=== PATIENT | female | born 1940 | race Caucasian/White ===

== ENCOUNTER 2023-10-04 11:48 | Emergency (ER) | payer MEDICARE, SELFPAY ==
[2023-10-04 12:04] VITALS: BP 148/75; PULSE 89; RESP 16; TEMP 37.1; O2SAT 98
--- NOTE | 2023-10-04 12:20 | ED.EYEPROB ---
HPI - Eye Problem General Chief complaint: Eye Problems Stated complaint: Left Eye Irritation Time Seen by Provider: 10/04/23 12:10 Source: patient and RN notes reviewed Mode of arrival: ambulatory Limitations: no limitations History of Present Illness HPI Narrative: Patient presents today complaining of redness, swelling, and irritation to the left upper and lower eyelids for the last 7-10 days. She also now reports some pain to the left upper cheek area. She was initially seen for the eyelid symptoms by her eye doctor on 09/23/2023 and placed on 10 days of Augmentin and an ophthalmic ointment to that she was to apply to the eyelids. Patient states she is unsure of the reason she was placed on these medications, but did finish the Augmentin and apply the ointment as directed. States she is unsure if her symptoms improved, but they are not improved at this time. She denies vision changes. States her eyelids itch significantly. She has not tried any [id number] symptoms prior to arrival Related Data Home Medications Medication Instructions Recorded Confirmed mirabegron 50 mg tablet,extended 50 mg PO DAILY 10/04/23 10/04/23 release 24 hr (Myrbetriq) omeprazole 40 mg capsule,delayed 40 mg PO DAILY 10/04/23 10/04/23 release Allergies Allergy/AdvReac Type Severity Reaction Status Date / Time codeine AdvReac Intermediate Hyperactive Verified 10/04/23 12:17 Sulfa (Sulfonamide AdvReac Mild Hives Verified 10/04/23 12:17 Antibiotics) Review of Systems Review of Systems: CONSTITUTIONAL: Denies body aches, fever, chills, or sweats. EYES: Denies visual changes. + eyelid redness, itching, swelling ENT: Denies rhinorrhea, congestion, sore throat, or otalgia.+ left upper cheek pain and swelling CARDIOVASCULAR: Denies chest pain, palpitations, or edema. RESPIRATORY: Denies cough or dyspnea. GASTROINTESTINAL: Denies abdominal pain, nausea, vomiting, or diarrhea. GENITOURINARY: Denies dysuria or hematuria. SKIN: Denies rash, itching, or wounds. MUSCULOSKELETAL: Denies back pain, joint pain, or myalgia. NEUROLOGIC: Denies headache, numbness, tingling, or weakness. PSYCH: Denies depression or anxiety. [facility] Past Medical History Medical History (Updated 10/04/23 @ 12:29 by Kimberly Garvin, SALES ENGINEER ACCOUNT MANAGER, ) Diverticulitis Essential tremor Fibromyalgia GERD (gastroesophageal reflux disease) Overactive bladder Skin neoplasm Family History Family History Other Diabetes mellitus Family history of cardiovascular disease Social History Social History Smoking status: Never smoker Alcohol intake: never Comments At time of signature, I have reviewed and agree with nursing past medical, surgical, social and family history unless otherwise noted. Please see nursing chart for further information. There is no relevant family history pertinent to the presenting complaint Exam Narrative: GENERAL: Well-appearing, well-nourished, and in no acute distress. HEAD: Normocephalic, atraumatic. EYES: EOMI. PERRL. Left eye: Significantly injected conjunctiva. Erythema to the margins of the eyelids. No active drainage or watering. Patient does have some slight dependent edema of the left lower eyelid extending to the upper cheek with tenderness to the upper cheek area. ENT: Mucous membranes pink and moist. Nares clear. No rhinorrhea. Nasal turbinates appear normal. NECK: Normal AROM. CHEST: No respiratory distress. EXTREMITIES: Normal range of motion. No edema. SKIN: Warm, dry, no rash. Capillary refill normal. Normal skin turgor. NEURO: No focal deficits. Alert and oriented x3. Gait steady. PSYCH: Normal affect. No signs of depression or anxiety. Course Course Level of Care: Express Care Visit Vital Signs Vital signs: Vital Signs Temperature 98.7 F 10/04/23 12:04 Pulse R
== END 2023-10-04 12:33 | disposition home or self-care (01) ==
PROVIDERS: Emergency Provider Nurse Practitioner; PCP Family Medicine
DX: H10.9 Unspecified conjunctivitis (principal); M79.7 Fibromyalgia; K21.9 Gastro-esophageal reflux disease without esophagitis; Z85.828 Personal history of other malignant neoplasm of skin
CPT/HCPCS: 99213; G0463

== ENCOUNTER 2023-10-16 09:42 | Emergency (ER) | payer MEDICARE, SELFPAY ==
[2023-10-16 09:55] VITALS: BP 150/71; PULSE 84; RESP 18; TEMP 36.1; O2SAT 97
--- NOTE | 2023-10-16 12:40 | ED.GENADULT ---
HPI - General Adult General Chief complaint: Eye Problems Stated complaint: left eye pain Time Seen by Provider: 10/16/23 11:52 History of Present Illness HPI narrative: This is an 83-year-old female presenting left eye irritation. Patient developed a small lump on her left lower eyelid one month ao. She saw her [facility] general counsel who gave her a appointment. She then went saw her primary care physician who put her on ofloxacin, doxycycline and cetirizine. She is here because the lump has not gone away yet. No vision changes. No fever chills. Related Data Home Medications Medication Instructions Recorded Confirmed mirabegron 50 mg tablet,extended 50 mg PO DAILY 10/04/23 10/04/23 release 24 hr (Myrbetriq) omeprazole 40 mg capsule,delayed 40 mg PO DAILY 10/04/23 10/04/23 release Allergies Allergy/AdvReac Type Severity Reaction Status Date / Time codeine AdvReac Intermediate Hyperactive Verified 10/04/23 12:17 Sulfa (Sulfonamide AdvReac Mild Hives Verified 10/04/23 12:17 Antibiotics) [facility] Past Medical History Medical History Diverticulitis Essential tremor Fibromyalgia GERD (gastroesophageal reflux disease) Overactive bladder Skin neoplasm Family History Family History Other Diabetes mellitus Family history of cardiovascular disease Social History Social History Smoking status: Never smoker Alcohol intake: never Exam Narrative: APPEARANCE: No apparent distress. Head: atraumatic. EYES: small mass on the left eye - lower lateral portion of her eyelid. no conjunctival injection or mucopurulent discharge. NOSE: Atraumatic NECK: Trachea midline RESPIRATORY: No increased rate of breathing CARDIOVASCULAR: RRR, ABDOMINAL: Non-distended MUSCULOSKELETAl: No obvious deformities NEURO: Alert. Moving 4/4 extremities SKIN:: Warm, dry. Normal color PSYCHIATRIC: Normal affect Course Vital Signs Vital signs: Vital Signs Temperature 97 F L 10/16/23 09:55 Pulse Rate 84 10/16/23 09:55 Respiratory Rate 18 10/16/23 09:55 Blood Pressure 150/71 H 10/16/23 09:55 Pulse Oximetry 97 10/16/23 09:55 Temperature 97 F L 10/16/23 09:55 Pulse Rate 84 10/16/23 09:55 Respiratory Rate 18 10/16/23 09:55 Blood Pressure 150/71 H 10/16/23 09:55 Pulse Oximetry 97 10/16/23 09:55 Medical Decision Making MDM Narrative Medical decision making narrative: -Course: 83-year-old female presenting with a small mass on her left lower eyelid. Patient has undergone treatment for stye which has not been successful. Patient needs to go back to Ophthalmology to be evaluated for either treatment resistance stye or possible skin neoplasm. Patient verbalized understanding for directions. No emergent intervention at this time -DDX includes but is not limited to: stye, neoplasm -Shared decision making / Disposition: discharged Vital Signs Vital Signs: Vital Signs Temperature 97 F L 10/16/23 09:55 Pulse Rate 84 10/16/23 09:55 Respiratory Rate 18 10/16/23 09:55 Blood Pressure 150/71 H 10/16/23 09:55 Pulse Oximetry 97 10/16/23 09:55 Temperature 97 F L 10/16/23 09:55 Pulse Rate 84 10/16/23 09:55 Respiratory Rate 18 10/16/23 09:55 Blood Pressure 150/71 H 10/16/23 09:55 Pulse Oximetry 97 10/16/23 09:55 Discharge Plan Discharge Clinical Impression: Eyelid abnormality Patient Disposition: Home, Self-Care Condition: Stable Instructions: Antibiotic Form, Stye (ED) Additional Instructions: Please follow-up with your [facility] general counsel. I am concerned that this is either a treatment resistant stye or possibly skin cancer. if you start getting significant redness and swelling around her eye loss of vision please return to emergency department. if you do not hav
[2023-10-16 13:24] VITALS: BP 144/89; PULSE 99; RESP 20; O2SAT 99
== END 2023-10-16 13:26 | disposition home or self-care (01) ==
PROVIDERS: Emergency Provider Emergency Medicine; PCP Family Medicine
DX: H02.89 Other specified disorders of eyelid (principal); K21.9 Gastro-esophageal reflux disease without esophagitis
CPT/HCPCS: 99282

== ENCOUNTER 2024-06-05 09:40 | Emergency (ER) | payer MEDICARE, SELFPAY ==
[2024-06-05] VITALS (16 sets, daily range): BP systolic 142–183; BP diastolic 65–83; PULSE 62–87; RESP 14–23; TEMP 36.6; O2SAT 98–100
--- NOTE | ~2024-06-05 | XR_ITS ---
EXAMINATION: XR chest 2V DATE: 06/05/2024 10:34 INDICATION: Cough. Recent Covid infection. TECHNIQUE: frontal and lateral views of the chest were obtained. COMPARISON: None FINDINGS: Calcifications either costochondral calcification or calcified pulmonary nodules projecting over the bilateral lung bases. No other airspace opacities, pulmonary edema, pleural effusion or pneumothorax. Asymmetric increased lucency at the right lower lung zone consistent with prior overlying right mast ectomy. Right axillary lymph node dissection with multiple surgical clips projecting over the right a xilla/lateral right chest wall. Heart size is normal. Moderate thoracic and severe upper lumbar spon dylosis. IMPRESSION: 1. No acute cardiopulmonary disease. Reviewed, dictated and finalized at location A. TOR TRAILER TECHNICIAN
--- NOTE | ~2024-06-05 | CT_ITS ---
EXAMINATION: CT brain wo con DATE: 06/05/2024 10:44 INDICATION: Altered mental status TECHNIQUE: Computed tomography (CT) of the head was performed without intravenous contrast. Sagittal and coronal reconstructions were performed. The mA was adjusted according to patient size. Iterative reconstruction technique was employed. The dose-length product was 529.67 mGy-cm. COMPARISON: None FINDINGS: No acute intracranial hemorrhage, acute infarction or abnormal extra axial fluid collection. There is mild scattered white matter hypoattenuation consistent with chronic small vessel ischemic disease. S ymmetric prominence of the sulci consistent with mild age-appropriate diffuse cerebral volume loss. V entricles are normal and symmetric. No mass/mass effect. Changes of bilateral intraocular lens replac ement. The orbits, paranasal sinuses and mastoid air cells are normal. IMPRESSION: 1. Normal aging brain. No acute intracranial process. Reviewed, dictated and finalized at location A. LED NURSING FACILITY COUNSELOR
--- NOTE | 2024-06-05 09:41 | ECG_ITS ---
Test Date: 2024-06-05 09:49:56 Measurements Intervals [place] Rate: 74 P: 68 [place]: 124 QRS: 23 QRSD: 83 T: 66 QT: 382 QTc: 425 Interpretive Statements SINUS RHYTHM WITH SINUS ARRHYTHMIA BORDERLINE ST-T WAVE ABNORMALITY- HIGH LATERAL LEADS BASELINE ARTIFACT- I, II, III, AVR, AVL, AVF, V1-V6 BORDERLINE ECG No previous ECG available for comparison Electronically Signed On 06-05-2024 12:00:04 FARM TRUCK DRIVER by Haroon Rokc D.O.
[2024-06-05 10:06] LABS: Basophils Percent Auto 0.3 % (0.2-1.2); Immature Granulocyte Absolute 0.02 K/mm3 (0.00-0.031); Immature Granulocyte Percent A 0.3 % (0-0.5); Lymphocytes Absolute Auto 0.73 K/mm3 (0.9-3.2); Lymphocytes Percent Auto 11.1 % (18.3-44.2); Mean Corpuscular HGB Conc 33.3 g/dl (32-36); Mean Corpuscular Hemoglobin 28.8 pg (26-34); Mean Corpuscular Volume 86.4 fl (80-100); Mean Platelet Volume 10.3 fl (7.4-10.4); Monocytes Absolute Auto 0.6 K/mm3 (0.1-0.6); Monocytes Percent Auto 9.4 % (2.6-8.5); Neutrophils Absolute Auto 5.2 K/mm3 (1.3-6.7); Neutrophils Percent Auto 78.9 % (45.5-73.1); Platelet Count Result 252 k/mm3 (150-375); Red Blood Count 4.86 M/mm3 (4.2-5.4); Red Cell Distribution Width 13.6 % (11.5-14.5); White Blood Count 6.6 K/mm3 (4.5-10.0)
[2024-06-05 10:10] LABS: Add Urine Microscopic? YES; Appearance Urine Clear (Clear); Bacteria Urine None Seen /hpf; Bilirubin Urine Negative (Negative); Blood Urine Negative (Negative); Color Urine Yellow (Yellow); Glucose Urine UA Negative (Negative); Ketones Urine Negative (Negative); Leukocyte Esterase Ur Negative LEU/UL (Negative); Nitrate Urine Negative (Negative); Non Pathogenic Casts 0-2; Protein Urine Trace mg/dL (Negative); RBC Urine 0-2 /hpf (0-2); Specific Grav Ur 1.012 (1.001-1.035); Squamous Epithelial Cell Urine None Seen /hpf (Few); Urobilinogen Urine 0.2 mg/dL (<2.0); WBC Urine 0-5 /hpf (0-3); pH Urine 5.5 (5.0-9.0)
[2024-06-05 10:15] LABS: Alanine Aminotransferase 20 U/L (6-35); Albumin Level 4.5 g/dL (3.5-5.1); Alkaline Phosphatase 77 U/L (38-126); Anion Gap 9 mmol/L (4-12); Aspartate Amino Transferase 28 U/L (14-36); Bilirubin,Total 0.7 mg/dL (0.2-1.3); Blood Urea Nitrogen 18 mg/dL (7-17); Calcium 9.3 mg/dL (8.4-10.2); Carbon Dioxide 29 mmol/L (22-30); Chloride 98 mmol/L (98-107); Estimated CRCL calculation 21 ml/min; Estimated Glomerular Filt Rate 36; Glucose 140 mg/dL (65-110); Potassium 3.2 mmol/L (3.4-5.0); Sodium 136 mmol/L (137-145)
[2024-06-05 10:20] LABS: INR 0.9; Partial Thromboplastin Time 24.4 Seconds (22.3-36.8); Prothrombin Time 12.4 Seconds (11.1-14.7)
--- NOTE | 2024-06-05 10:24 | ED_ITS ---
HPI - Altered Mental Status General Chief Complaint: Altered Mental Status Stated Complaint: AMS Time Seen by Provider: 06/05/24 09:58 History of Present Illness HPI narrative: 84-year-old female presenting with altered mental status. Her granddaughters at bedside and helps with the history. She lives at assisted living and was recently diagnosed with COVID. Her quarantine ended yesterday. Her granddaughter states that the patient has been hallucinating at night and calling her out of fear. She is skipped from the facility yesterday and the human resources operations specialist had to be called. This is not typical for her. On my evaluation, the patient complains of chronic back pain as well as a productive cough. No further complaints. Related Data Home Medications Medication Instructions Recorded Confirmed mirabegron 50 mg tablet,extended 50 mg PO DAILY 10/04/23 10/04/23 release 24 hr (Myrbetriq) omeprazole 40 mg capsule,delayed 40 mg PO DAILY 10/04/23 10/04/23 release Allergies Allergy/AdvReac Type Severity Reaction Status Date / Time amoxicillin Allergy Unknown Verified 06/05/24 10:15 azithromycin Allergy Unknown Verified 06/05/24 10:15 cortisone Allergy Unknown Verified 06/05/24 10:15 gabapentin Allergy Unknown Verified 06/05/24 10:15 hydrocodone Allergy Unknown Verified 06/05/24 10:15 ketorolac Allergy Unknown Verified 06/05/24 10:15 methadone Allergy Unknown Verified 06/05/24 10:15 morphine Allergy Unknown Verified 06/05/24 10:15 phenazopyridine Allergy Unknown Verified 06/05/24 10:15 codeine AdvReac Intermediate Hyperactive Verified 06/05/24 10:15 Sulfa (Sulfonamide AdvReac Mild Hives Verified 06/05/24 10:15 Antibiotics) Review of Systems Review of Systems: All systems reviewed & are unremarkable except as noted in HPI and below PMFSH Past Medical History Medical History Diverticulitis Essential tremor Fibromyalgia GERD (gastroesophageal reflux disease) Overactive bladder Skin neoplasm Family History Family History Other Diabetes mellitus Family history of cardiovascular disease Social History Social History Smoking status: Never smoker Alcohol intake: never Exam Narrative: GENERAL: Nontoxic, no acute distress elderly female sitting up in bed HEAD: Normocephalic, atraumatic. EYES: PERRLA and EOMI. ENT: Mucous membranes moist. NECK: Supple. CHEST: Clear to auscultation. No respiratory distress. HEART: Regular rate and rhythm ABDOMEN: Soft, nontender, nondistended EXTREMITIES: Normal range of motion. No edema. SKIN: Warm, dry, no rash. NEURO: No focal deficits. Alert and oriented x3. PSYCH: Normal mood and affect. Course Vital Signs Vital signs: Vital Signs Temperature 97.8 F 06/05/24 09:45 Pulse Rate 87 06/05/24 09:45 Respiratory Rate 16 06/05/24 09:45 Blood Pressure 183/83 H 06/05/24 09:45 Pulse Oximetry 99 06/05/24 09:45 Oxygen Delivery Room Air 06/05/24 09:45 Temperature 97.8 F 06/05/24 09:45 Pulse Rate 67 06/05/24 10:51 Respiratory Rate 17 06/05/24 10:46 Blood Pressure 145/69 H 06/05/24 10:46 Pulse Oximetry 98 06/05/24 10:46 Oxygen Delivery Room Air 06/05/24 09:45 MDM - Altered Mental Status MDM Narrative Medical decision making narrative: 84-year-old female presenting with episodes of altered mental status. Vitals are stable. Exam remarkable for the above. She is neurologically intact for me. Granddaughter is concerned that she is developing memory issues and that she may start require higher level of care. Care coordination spoke with some and provided resources for this. CT brain shows no acute abnormalities. Chest x-ray without acute abnormalities. Blood work with elevated creatinine and BUN. No priors for comparison. Fluids are ongoing. Potassium is a little bit low, this will be orally repleted. Discussed they overall reassuring workup. Feel she is safe for outpatient management. Discussed pushing more hydrating fluids following up with primary care. Appropriate return precautions given. Discharged in stable condition. Differential Diagnosis Differential diagnosis: Likely altered mental status, delirium, dementia and other (Dehydration, UTI) Medical Records Attestation: I reviewed the patient's medical records. Lab Data Attestation: I reviewed the patient's lab results. 06/05/24 09:59 06/05/24 09:59 Labs: Lab Results 06/05/24 Range/Units 09:59 WBC 6.6 (4.5-10.0) K/mm3 RBC 4.86 (4.2-5.4) M/mm3 Hgb 14.0 (12.0-15.0) g/dL Hct 42.0 (37.0-47.0) % MCV 86.4 (80-100) fl MCH 28.8 (26-34) pg MCHC 33.3 (32-36) g/dl RDW 13.6 (11.5-14.5) % Plt Count 252 (150-375) k/mm3 MPV 10.3 (7.4-10.4) fl Immature Gran % (Auto) 0.3 (0-0.5) % Neut % (Auto) 78.9 H (45.5-73.1) % Lymph % (Auto) 11.1 L (18.3-44.2) % [place] % (Auto) 9.4 H (2.6-8.5) % Eos % (Auto) 0.0 (0-4.4) % Baso % (Auto) 0.3 (0.2-1.2) % Lymph # (Auto) 0.73 L (0.9-3.2) K/mm3 [place] # (Auto) 0.6 (0.1-0.6) K/mm3 Eos # (Auto) 0.0 (0-0.3) K/mm3 Baso # (Auto) 0.0 (0.0-0.1) K/mm3 Abs Immat Gran (auto) 0.02 (0.00-0.031) K/mm3 Absolute Neuts (auto) 5.2 (1.3-6.7) K/mm3 Absolute Nucleated RBC 0.000 (0.0-0.012) K/mm3 Nucleated RBC % 0.0 (0.0-0.2) % PT 12.4 (11.1-14.7) Seconds INR 0.9 APTT 24.4 (22.3-36.8) Seconds Sodium 136 L (137-145) mmol/L Potassium 3.2 L (3.4-5.0) mmol/L Chloride 98 (98-107) mmol/L Carbon Dioxide 29 (22-30) mmol/L Anion Gap 9 (4-12) mmol/L BUN 18 H (7-17) mg/dL Creatinine 1.40 H (0.7-1.0) mg/dL Estim Creat Clear Calc 21 ml/min Estimated GFR 36 L (59 - ) Glucose 140 H (65-110) mg/dL Calcium 9.3 (8.4-10.2) mg/dL Total Bilirubin 0.7 (0.2-1.3) mg/dL AST 28 (14-36) U/L ALT 20 (6-35) U/L Alkaline Phosphatase 77 (38-126) U/L Total Protein 8.0 (6.3-8.2) g/dL Albumin 4.5 (3.5-5.1) g/dL Urine Color Yellow (Yellow) Urine Appearance Clear (Clear) Urine pH 5.5 (5.0-9.0) Ur Specific [place] 1.012 (1.001-1.035) Urine Protein Trace (Negative) mg/dL Urine Glucose (UA) Negative (Negative) mg/dL Urine Ketones Negative (Negative) mg/dL Ur Blood (Man) Negative (Negative) Urine Nitrate Negative (Negative) Urine Bilirubin Negative (Negative) Urine Urobilinogen 0.2 (<2.0) mg/dL Leukocyte Esterase Rfl Negative (Negative) LUCIANA/UL Urine RBC 0-2 (0-2) /hpf Urine WBC 0-5 (0-3) /hpf Ur Squamous Epith Cells None seen (Few) /hpf Urine Bacteria None seen /hpf Urine Casts 0-2 Imaging Data Radiologist's impression: ITS Impressions Chest X-Ray 06/05/24 10:39 IMPRESSION: 1. No acute cardiopulmonary disease. Head CT 06/05/24 10:45 IMPRESSION: 1. Normal aging brain. No acute intracranial process. Critical Care Time Critical Care Time Critical Care Time: No Discharge Plan Discharge Clinical Impression: Altered mental status, Dehydration, Hypokalemia Patient Disposition: [facility]/Asst Living Condition: Stable Instructions: Antibiotic Form, Dehydration (DC) Additional Instructions: Your workup today shows that you are dehydrated. Please try to drink more hydrating fluids such as water, Gatorade, Powerade. Please follow-up closely with primary care. If your symptoms worsen or other concerning symptoms arise, please return to the ER. Prescriptions: No Action omeprazole 40 mg capsule,delayed release(DR/EC) 40 mg PO DAILY Myrbetriq 50 mg tablet extended release 24 hr 50 mg PO DAILY doxycycline hyclate 100 mg tablet 100 mg PO BID 7 Days Qty: 14 0RF ofloxacin 0.3 % drops 1 drp LEFT EYE QID Qty: 5 0RF cetirizine 10 mg tablet 10 mg PO DAILY PRN (Reason: itching) Qty: 20 0RF Follow-up/Referrals: [place],Deion Sapp MD [Primary Care Provider] -
[2024-06-05] MEDS: traMADol HCL (*CRX) 50 MG TABLET PO (10:46)
[2024-06-05] MEDS: SODIUM CHLORIDE 0.9% IV 1,000 ML 999 ML IV CONT (10:46)
--- NOTE | 2024-06-05 10:53 | PCCCNOTE ---
Spoke with granddaughter regarding pt. Granddaughter is concerned that pt is developing dementia and memory issues and [facility] may not be acceptable for the pt. I provided a list of memory care facilities and [facility] phone number. I explained difference between assisted living and SNF. All questions answered.
[2024-06-05] MEDS: POTASSIUM CHLORIDE 20 MEQ ER TABLET 40 MEQ PO (12:22)
== END 2024-06-05 12:53 ==
PROVIDERS: Emergency Medicine; Emergency Provider Emergency Medicine; PCP Family Medicine
DX: R41.82 Altered mental status, unspecified (principal); E86.0 Dehydration; E87.6 Hypokalemia; Z86.16 Personal history of COVID-19; M79.7 Fibromyalgia; K21.9 Gastro-esophageal reflux disease without esophagitis; N32.81 Overactive bladder; Z85.828 Personal history of other malignant neoplasm of skin; Z79.899 Other long term (current) drug therapy; R94.31 Abnormal electrocardiogram [ECG] [EKG]
CPT/HCPCS: 36415; 70450; 71046; 80053; 81001; 85025; 85610; 85730; 93005; 96360; 99284; A9270; J7030

== ENCOUNTER 2024-08-22 19:29 | Emergency (ER) | payer MEDICARE, SELFPAY ==
--- NOTE | ~2024-08-22 | XR_ITS ---
AP view of the pelvis and AP and lateral views of the right hip Clinical history: Pain Findings: No acute fracture or dislocation is seen. Osseous alignment is anatomic. Bilateral hip and SI joint spaces are preserved. Soft tissues are unremarkable. Impression: No significant abnormality is seen. Reviewed, dictated and finalized at [facility]. [facility] COUPLER Impression: No significant abnormality is seen.
--- NOTE | ~2024-08-22 | CT_ITS ---
Non-contrast Head CT History: Status post fall Comparison 06/05/2024 Technique: Axial non-contrast imaging of the brain was performed. Dose reduction technique was used on this scan by utilizing automated exposure control and iterative reconstruction technique. The dose -length product (DLP) was 681.00 mGy-cm. Findings: There is no evidence of intracranial hemorrhage, mass lesion, or acute infarct. Brain par enchyma appears normal. The ventricles and subarachnoid spaces are normal in size. The calvarium ap pears normal. The visualized paranasal sinuses and mastoid air cells are clear. Impression: No significant abnormality seen. Reviewed, dictated and finalized at location . ASIN SEWER Impression: No significant abnormality seen.
--- NOTE | ~2024-08-22 | CT_ITS ---
Clinical Indication: Pulmonary embolus CT Scan of the Chest with Contrast: Technique: Contiguous sections were acquired throughout the chest after intravenous administration of 75 cc of Omnipaque 350. Dose reduction technique was used on this scan by utilizing automated exposu re control and iterative reconstruction technique. The dose-length product (DLP) was 138.40 mGy-cm. Findings: There is no evidence of any significant mediastinal, hilar or axillary lymphadenopathy. There is no f illing defect in the pulmonary arterial tree to suggest pulmonary embolus. There is no evidence of ao rtic dissection or aneurysm. There is no evidence of pleural or pericardial effusion. There is mild groundglass opacity in the dependent posterior portion of the right upper lobe, which a ppears less confluent as compared to the abnormality seen on earlier cervical spine CT. This probably represents evolving atelectatic change rather than pneumonia. Left lung clear. Images through the upper abdomen reveal no abnormalities. Impression: Probable dependent atelectatic change in the right upper lobe, less likely pneumonia. The latter is n ot completely excluded. Correlate for signs/symptoms of infection/pneumonia. Reviewed, dictated and finalized at location . R INSPECTOR Impression: Probable dependent atelectatic change in the right upper lobe, less likely pneu monia. The latter is not completely excluded. Correlate for signs/symptoms of i nfection/pneumonia.
--- NOTE | ~2024-08-22 | CT_ITS ---
Noncontrast CT scan of the cervical spine Technique: Multiple contiguous axial [address] images of the cervical spine were obtained and rec onstructed in 2D sagittal and coronal planes on the acquisition scanner. Dose reduction technique was used on this scan by utilizing automated exposure control, adjustment of the mA and/or kV according to patient size. The dose-length product (DLP) was 187.35 mGy-cm. Clinical History: Pain Findings: No fractures or dislocations. There are mild degenerative disc changes in the cervical sp ine. Probable minimal bilateral neural foraminal narrowing at C5-C6. No prevertebral soft tissue swel ling. Partially imaged consolidation the posterior upper lobe noted. Impression: No fracture or subluxation of the cervical spine. Minimal degenerative change, as above. Partially imaged consolidation right upper lobe posteriorly. Dedicated chest CT recommended to [facility] r evaluate. Reviewed, dictated and finalized at [facility]. DENTIAL RECYCLE DRIVER Impression: No fracture or subluxation of the cervical spine. Minimal degenerative change, as above. Partially imaged consolidation right upper lobe posteriorly. Dedicated chest CT recommended to further evaluate.
--- NOTE | ~2024-08-22 | XR_ITS ---
AP and lateral views of the sacrum/coccyx CLINICAL HISTORY: Tailbone pain FINDINGS: No acute fracture or dislocation seen. Joint spaces are intact. There is degenerative spond ylosis of the lumbar spine. Soft tissues are unremarkable. IMPRESSION: No acute abnormality. Degenerative spondylosis of the visualized lower lumbar spine. Reviewed, dictated and finalized at [facility]. PULLER
--- OUTSIDE RECORDS SUMMARY | 2024-08-22 19:31 | XMS_ITS | Clinical Summary ---
Author Organization [facility] at the [facility] Address [address] [place] [address] Care Team Providers Care Financial Institution Branch Manager Name Role Phone Deion Childs DO Primary Care Provider + Allergies Active Allergy Reactions Criticality Noted Date Comments Amoxicillin Flushing (skin) Low 11/11/2022 Azithromycin Headache High 06/30/2018 Face bright red Face bright red Codeine Stomach upset,Hallucination s,Other (See comments) High 12/10/2011 Intolerant, Intolerant can't respond Migraine/ ALSO CODEINE Intolerant Cortisone Headache Medium 05/14/2018 Gabapentin Dizziness,Nausea & Vomiting Low 01/24/2020 Hydrocodone Nausea only Medium 04/24/2017 Ketorolac Nausea & Vomiting Low 07/28/2022 Methadone Other (See comments) Low 04/24/2017 Patient does not remember Morphine Headache Medium 05/14/2018 Phenazopyridine Other (See comments) Low 12/12/2011 Bladder cannot tolerate Bladder cannot tolerate Sulfa (Sulfonamide Antibiotics) Hives Medium Medications famotidine (PEPCID) 20 mg tablet Take 1 tablet (20 mg total) by mouth 2 (two) times a day 60 tablet 11 3 Active docusate sodium (DOK) 100 mg tabletIndicatio ns:constipation Take 1 tablet (100 mg total) by mouth 2 (two) times a day Active acidophilus-pec tin, citrus 100 million cell-10 mg capsule Take by mouth Activ e ipratropium (ATROVENT) 42 mcg (0.06 %) nasal sprayIndication s:Chronic rhinitis Administer 2 sprays into each nostril 3 (three) times a day 15 mL 3 3 Active traMADoL (ULTRAM) 50 mg tablet TAKE 1 TABLET(50 MG) BY MOUTH EVERY 6 HOURS NEEDED FOR PAIN 120 tablet 3 Active omeprazole (PriLOSEC) 40 mg capsule Take 1 capsule (40 mg total) by mouth 2 (two) times a day 60 capsule 5 3 Active Active Problems Problem Noted Date Diagnosed Date Hypertrophy of both inferior nasal turbinates Internal nasal lesion 12/29/2022 Encounter for Medicare annual wellness exam 01/2023 Assessment & Plan (12/17/2022 10:26 AM CDT): meds reviewed and reconciled Urinary incontinence 12/17/2022 Assessment & Plan (04/15/2023 2:39 PM CDT): Refer to urology Assessment & Plan (12/17/2022 10:28 AM CDT): CT scan of the abdomen pelvis is unremarkable for any abnormality regarding the urinary system including the kidneys and bladder. I a.m. going to check a postvoid residual. She is having significant continuous urinary incontinence Generalized abdominal pain 12/17/2022 Assessment & Plan (12/17/2022 10:29 AM CDT): Generalized abdominal pain. She is tender in all quadrants of the abdomen. No masses are palpated. No hepatosplenomegaly. She has lost 4 lb since her last visit in early November. There was no evidence on the CT scan of any reproductive abnormality. I am going to check a barium swallow. Chronic rhinitis 11/11/2022 Assessment & Plan (11/11/2022 11:09 AM CDT): Add mucinex 600 mg bid See ENT Frequent headaches 03/19/2022 Assessment & Plan (12/17/2022 10:27 AM CDT): CT of the head is negative. Has tenderness over the bilateral nuchal ridge. She will be seen ENT I am going to check a sed rate antinuclear antibody Assessment & Plan (07/28/2022 11:54 AM ANIMAL REHABILITATOR): Add doxycycline Add singulair Assessment & Plan (03/19/2022 9:58 AM CDT): She is having fairly severe headaches secondary to a fall on March 07, 2022. She has a tender posterior scalp. She is off balance. Neurologic exam is otherwise unremarkable. She needs a stat CT of the head. Consideration would be a subdural hematoma. Chronic bilateral low back pain with sciatica Assessment & Plan (04/15/2023 2:30 PM CDT): Add kenalog 60 mg I'm Right GM Mri ls spine Assessment & Plan (12/17/2022 10:30 AM CDT): She continues with back pain. More so on the right side extending onto the LS spine. I am going to add a low dose 10 mg amitriptyline at HS to see if I can give her some pain relief. Will see if this helps her abdomen headaches and back pain. I will await the results of the inflammatory and autoimmune tests. Assessment & Plan (06/19/2022 2:39 PM ANIMAL REHABILITATOR): Acute on chronic Worsening Chronic condition Not at goal X ray ls spine Cbc Chem 7 ua Kenalog 60 mg im RGM Assessment & Plan (03/03/2022 1:17 PM CDT): MRI showed degenerative changes. Alternates with Tylenol and Ibuprofen PRN at home. Will provide some tramadol PRN also. Assessment & Plan (11/04/2021 3:47 PM CDT): Add latricia Will reevaluate in 2 week s Has seen pain management Has had PT MRI from 21 reviewed Acquired female bladder prolapse 05/09/2021 Assessment & Plan (08/26/2021 12:10 PM ANIMAL REHABILITATOR): Patient is well controlled. Continue current treatment. Urinary incontinence 05/09/2021 Assessment & Plan (08/26/2021 12:07 PM ANIMAL REHABILITATOR): Chronic No new orders Full code status 06/14/2020 Assessment & Plan (08/26/2021 12:05 PM ANIMAL REHABILITATOR): No changes to status Assessment & Plan (06/14/2020 12:20 PM ANIMAL REHABILITATOR): Discussed with patient approximately 20minutes End of life issues/Advanced Directives/Healthcare Surrogate. Discussed DNR. Encouraged to discuss further with family and consult tax associate attorney or complete [place] approved form, which I would be glad to assist them with completion. All questions answered. polst form filled out and signed Chronic back pain 03/06/2020 Assessment & Plan (08/26/2021 12:05 PM ANIMAL REHABILITATOR): Patient is well controlled. Continue current treatment. Assessment & Plan (07/25/2021 3:26 PM ANIMAL REHABILITATOR): I will look into something she can take for pain Assessment & Plan (11/23/2020 11:15 AM CDT): Refer to [facility] Assessment & Plan (06/19/2020 11:37 AM ANIMAL REHABILITATOR): Chronic severe back pain Significant OA Check a MRI LS spine Assessment & Plan (03/06/2020 1:21 PM CDT): No new orders Osteopenia 03/13/2019 Overview (05/09/2021): T=-2.1 Assessment & Plan (08/26/2021 12:09 PM ANIMAL REHABILITATOR): Patient is well controlled. Continue current treatment. Personal history of malignant neoplasm of breast 11/04/2018 Assessment & Plan (08/26/2021 12:09 PM ANIMAL REHABILITATOR): Patient is well controlled. Continue current treatment. Cystitis, interstitial 06/16/2018 Assessment & Plan (08/26/2021 12:06 PM ANIMAL REHABILITATOR): amoxicillin 500 mg tid 10 days Diverticula of colon 06/16/2018 Assessment & Plan (08/26/2021 12:10 PM ANIMAL REHABILITATOR): Patient is well controlled. Continue current treatment. Essential hypertension 06/16/2018 Assessment & Plan (04/15/2023 2:36 PM CDT): Patient is well controlled. Continue current treatment. Assessment & Plan (07/28/2022 11:55 AM ANIMAL REHABILITATOR): Patient is well controlled. Continue current treatment. Assessment & Plan (08/26/2021 12:10 PM ANIMAL REHABILITATOR): Patient is well controlled. Continue current treatment. Assessment & Plan (05/16/2021 9:22 AM CDT): Add amlodipine 2.5 mg daily HER2-positive carcinoma of right breast 06/16/20 18 Hyperlipidemia 06/16/2018 Assessment & Plan (08/26/2021 12:11 PM ANIMAL REHABILITATOR): Patient is well controlled. Continue current treatment. Tinnitus 06/16/2018 Assessment & Plan (08/26/2021 12:07 PM ANIMAL REHABILITATOR): Patient is well controlled. Continue current treatment. Multiple allergies 05/14/2018 Assessment & Plan (08/26/2021 12:09 PM ANIMAL REHABILITATOR): Patient is well controlled. Continue current treatment. No new orders Refusal of blood transfusion s as patient is Denominational 05/14/2018 S/P mastectomy 05/29/2017 Assessment & Plan (08/26/2021 12:08 PM ANIMAL REHABILITATOR): No new orders Patient is well controlled. Continue current treatment. Arthritis 02/13/2016 Assessment & Plan (08/26/2021 12:05 PM ANIMAL REHABILITATOR): Patient is well controlled. Continue current treatment. Multiple joints Gastroesophageal reflux disease without esophagi tis 02/13/2016 Assessment & Plan (11/11/2022 11:08 AM CDT): Add carafate Chronic condition Not at goal Assessment & Plan (11/07/2022 12:08 PM CDT): Worse since starting omnicef Change to amoxicillin Add pepcid 20 mg bid Assessment & Plan (08/26/2021 12:10 PM ANIMAL REHABILITATOR): Patient is well controlled. Continue current treatment. Rectocele 12/10/2011 Assessment & Plan (08/26/2021 12:11 PM ANIMAL REHABILITATOR): Patient is well controlled. Continue current treatment. Resolved Problems Problem Noted Date Diagnosed Date Resolved Date Acute non-recurrent frontal sinusitis 11/07/2022 11/11/2022 Assessment & Plan (11/07/2022 12:07 PM CDT): Change to amoxicillin 500 mg tid 1 week Bone pain 08/04/2022 11/11/2022 Assessment & Plan (08/04/2022 10:54 AM ANIMAL REHABILITATOR): CT unremarkable. She continues with pain in her head. On exam she has multiple areas of discomfort with palpation including the C- spine T-spine chest wall shoulders. Will check a bone scan to rule out any underlying abnormality Check a serum protein immunoelectrophoresis. Check a sed rate Chem 7 CBC Neck pain 03/19/2022 06/30/2022 Assessment & Plan (03/19/2022 9:58 AM CDT): Status post fall on March 07, 2022. Acute pain over the C7 region. Range of motion deferred. She needs a stat CT of her cervical spine to rule out a fracture Hospital discharge follow-up 11/13/2021 06/30/2022 Assessment & Plan (12/03/2021 11:28 AM CDT): meds reviewed and reconciled Labs reviewed Radiographic reports reviewed Needs stat cbc Chem 7 today Needs a us of the lower abdomen Possible abscess formation noted on prior CT scan form 11-27-2021 Assessment & Plan (11/13/2021 1:58 PM CDT): meds reviewed and reconciled Chart Labs reviewed Radiographic reports reviewed Acute non-recurrent frontal sinusitis 11/13/2021 06/19/2022 Assessment & Plan (11/13/2021 1:59 PM CDT): Add omnicef 300 mg bid 1 week Call if worsening Renal lesion 11/13/2021 11/11/2022 Assessment & Plan (07/28/2022 11:55 AM ANIMAL REHABILITATOR): Repeat ct reviewed Consistent with cysts Assessment & Plan (06/19/2022 2:37 PM ANIMAL REHABILITATOR): Reorder pre/post contrast ct abdomen Assessment & Plan (03/19/2022 9:56 AM CDT): Will order a repeat ct Assessment & Plan (12/03/2021 11:26 AM CDT): Will order us of the B kidneys Assessment & Plan (11/13/2021 2:03 PM CDT): Patient and her recent CT scan of the abdomen pelvis which shows a lesion of the left kidney does not appear that it has anything series but recommendation is to do a ultrasound and I will order this. She is recovering from surgery will schedule this for approximately 1 month Incarcerated hernia 11/09/2021 11/12/19 23 Hernia of abdominal wall 11/09/2021 Mild depression 08/26/2021 06/19/2022 Assessment & Plan (08/26/2021 12:07 PM ANIMAL REHABILITATOR): Patient is well controlled. Continue current treatment. Acute non-recurrent maxillary sinusitis 07/25/2021 08/26/2021 Assessment & Plan (07/25/2021 3:25 PM ANIMAL REHABILITATOR): Doxycycline 100 mg bid 1 week COVID test Head ache 05/16/2021 08/26/2021 Assessment & Plan (05/16/2021 9:23 AM CDT): Sed rate Cbc Add mucinex 600 mg bid Finish augmentin Hip pain 05/16/2021 08/26/2021 Assessment & Plan (05/16/2021 9:25 AM CDT): X ray left hip Abdominal pain 01/04/2020 06/30/2022 Assessment & Plan (08/26/2021 12:04 PM ANIMAL REHABILITATOR): Believe due to urinary infection Will place on amoxicillin 500 mg tid 10 days Assessment & Plan (03/27/2021 1:19 PM CDT): Acute RLQ pain Appendix has been removed Hs MARY w BSO Stat cbc Chem 7 Amylase and lft Stat ct abdomen and pelvis Assessment & Plan (11/23/2020 11:15 AM CDT): Refer to Dr. White Needs a G.I. evaluation Add cipro 500 mg bid 1 week Assessment & Plan (06/19/2020 11:36 AM ANIMAL REHABILITATOR): Add cipro 500 mg bid 1 week See urology See G.I. Check a urine c and s Assessment & Plan (06/14/2020 12:28 PM ANIMAL REHABILITATOR): New onset RLQ tender No G or R atat ct abdomen and pelvis Stat blood work ua is negative Assessment & Plan (03/06/2020 1:21 PM CDT): Improved Assessment & Plan (01/24/2020 2:46 PM CDT): Much better with the omeprazole maricruz add carafate 1 gm tid Assessment & Plan (01/04/2020 11:10 AM CDT): Stat ct abdomen and pelvis Lab Tinnitus 12/20/2019 08/26/2021 Overview (12/20/2019): No new orders Right shoulder pain 11/04/2018 08/26/19 22 Scoliosis 10/11/2018 08/26/2021 Patient is Denominational 06/16/2018 08/26/2021 Decreased GFR 05/14/2018 08/26/2021 Skin lesion of chest wall 05/14/2018 Skin cancer 02/17/2018 08/26/2021 Dry eye 02/16/2018 08/26/2021 Visual disturbance 02/16/2018 Nausea and vomiting 09/16/2017 08/26/19 22 Constipation 06/02/2017 08/26/2021 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 Continue current treatment. Assessment & Plan (01/24/2020 2:46 PM CDT): Patient is well controlled. Continue current treatment. Assessment & Plan (01/04/2020 11:10 AM CDT): No new orders Assessment & Plan (12/20/2019 2:41 PM CDT): Gabapentin 300 mg at hs lab Anxiety 02/13/2016 08/26/2021 Assessment & Plan (06/19/2020 11:36 AM ANIMAL REHABILITATOR): Patient is well controlled. Continue current treatment. Assessment & Plan (01/24/2020 2:46 PM CDT): Patient is well controlled. Continue current treatment. Assessment & Plan (01/04/2020 11:10 AM CDT): Patient is well controlled. Continue current treatment. Assessment & Plan (12/20/2019 2:38 PM CDT): Cont atarax 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 08/26/2021 Chronic bilateral low back pain with sciatica 02/13/20 16 08/26/2021 Assessment & Plan (05/16/2021 9:27 AM CDT): Add elavil 10 mg at hs Chronic pain Sciatica 02/13/2016 08/26/2021 Notalgia 01/23/2015 06/30/2022 Assessment & Plan (03/17/2022 9:10 PM CDT): Worse with recent fall. No sensation deficits or weakness. Check xrays of lumbar spine and sacrum/coccyx. Continue tramadol PRN. Myalgia 12/10/2011 08/26/2021 Immunizations Name Administration Dates Next Due Influenza, Quadrivalent, Hig h Dose, Preservative Free, Intrr 03/06/2020 Influenza, Trivalent, IM (MDV) 04/12/2013 Influenza, Unspecified 04/15/2023(Deferr ed: Patient Refused),05/01/2022(Deferred: Patient Refused),04/12/2022,08/26/2021(Deferre d: Patient decision),04/12/2013(Deferred: Patient decision) Moderna SARS-CoV-2 Monovalen t Vaccination (12+ YRS) 09/14/2020 Pneumococcal Conjugate PCV 13 03/06/2020 Pneumococcal Polysaccharide PPV23 07/13/2008 Tdap 06/13/2013 ZOSTER LIVE 07/13/2008 Surgical History Surgery Date Site/Laterality Comments HYSTERECTOMY Total Hysterectomy - (Added by TW Conv) OOPHORECTOMY Oophorotomy - (Added by TW Conv) MASTECTOMY 07/13/2017 - 07/12/2018 Right HERNIA REPAIR 07/13/2021 - 07/12/2022 Medical History Medical History Date Comments Urinary incontinence Urinary inc ontinence in female - (Added by TW Conv) Cancer (CMS/HCC) (HCC) 2017 breast Diverticulitis Allergic rhinitis Glaucoma Sinusitis HL (hearing loss) Tinnitus Dizziness Headache Family History Medical History Relation Name Comments Lung cancer Brother Diabetes Daughter No Known Problems Father Kidney cancer Mother Diabetes Other 1 Family history of diabetes mellitus - (Added by TW Conv) Heart disease Other 2 Family history of cardiac disorder - (Added by TW Conv) Cancer Other 3 Family history of malignant neoplasm - (Added by [employer] Conv) Diverticulitis Son Relation Name Status Comments Brother Daughter Alive Father Mother Other 1 Other 2 Other 3 Son Alive Social History Tobacco Use Types Packs/Day Years Used Date Smoking Tobacco: Never Smokeless Tobacco: Never Tobacco Cessation:Counseling Given: Not Answered Alcohol Use Standard Drinks/Week Comments Not Currently 0 (1 standard drink = 0.6 oz pur e alcohol) AUDIT-C Answer Date Recorded Q1: How often do you have a drink containing alcohol? Never 04/15/2023 Q2: How many drinks containi ng alcohol do you have on a typical day when you are drinking? Patient does not drink Q3: How often do you have si x or more drinks on one occasion? Never 04/15/2023 Overall Financial Resource Strain (CARDIA) Answe r Date Recorded How hard is it for you to pa y for the very basics like food, housing, medical care, and heating? Not very hard 04/08/2022 PHQ-2 Answer Date Recorded PHQ-2 Total Score (If total score is 3 or more points, staff should administer the PHQ-9) 0 04/15/2023 Hunger Vital Sign Answer Date Recorded Within the past 12 months, y ou worried that your food would run out before you got the money to buy more. Never true 04/08/20 22 Within the past 12 months, t he food you bought just didn't last and you didn't have money to get more. Never true 04/08/2022 PRAPARE - Transportation Answer Date Re corded In the past 12 months, has l ack of transportation kept you from medical appointments or from getting medications? No 03/14 In the past 12 months, has l ack of transportation kept you from meetings, work, or from getting things needed for daily living? No 04/08/2022 Housing Stability Vital Sign Answer [place] e Recorded In the last 12 months, was t here a time when you were not able to pay the mortgage or rent on time? No 04/08/2022 In the last 12 months, how many places have you lived? 1 04/08/2022 In the last 12 months, was t here a time when you did not have a steady place to sleep or slept in a detention (including now)? No 04/08/2022 Personal Safety Answer Date Recorded Have you ever been in or are you currently in a harmful physical or emotional relationship or is someone making you feel afraid or unsafe? Denies 11/08/2022 Comments No Sex and Gender Information Value Date Recorded Sex Assigned at Not on file Legal Sex Female 12:15 AM ANIMAL REHABILITATOR Gender Identity Not on file Sexual Orientation Not on file Obstetrics History Para Term AB IAB SAB Ectopic Multiple Livin g Live Births 2 2 2 Date Outcome GA Total Labor Labor/2nd/3rd Weight Sex Type Anes PTL Kari A1 A5 Name Clin Term Term Last Filed Vital Signs Vital Sign Reading Time Taken Comments Blood Pressure 122/80 04/15/2023 2:13 PM CDT Pulse 68 04/15/2023 2:13 PM CDT Temperature 37.1 C (98.7 F) 04/15/2023 2:13 PM CDT Respiratory Rate 16 04/15/2023 2:13 PM CDT Oxygen Saturation 98% 04/15/2023 2:13 PM CDT Inhaled Oxygen Concentration - - Weight 54.2 kg (119 lb 7.8 oz) 05/20/2023 10:02 AM ANIMAL REHABILITATOR Height 160 cm (5' 3 ) 05/20/2023 10:02 AM ANIMAL REHABILITATOR Body Mass Index 21.17 05/20/2023 10:02 AM ANIMAL REHABILITATOR Plan of Treatment Health Maintenance Due Date Last Done Comments Osteoporosis Screening-Bone Density Scan 1940 Hepatitis B Screening 1958 Zoster Vaccine (2 of 3) 09/07/2008 07/13/2008 DTaP/Tdap/Td Vaccine (2 - Td or Tdap) 06/13/2023 06/13/2013 Fall Risk Assessment 12/18/2023 12/17/2022, 11/10/2021, 08/26/2021, Additional history exists Well Visit 65+ 12/18/2023 12/17/2022, 08/13, 06/14/2020 Covid-19 Vaccine (3 - 2023-2 5 season) 2024 09/14/2020, 08/14/2020 Influenza Vaccine (#1) 2024 , 03/06/2020, 04/12/2013 Depression Screening 04/15/2024 04/15/2023, 12/17/2022, 08/26/2021, Additional history exists Pneumococcal vaccine 65+ Completed 03/06/2020, 07/2008 Medical Devices Implanted Type Area Kiln Setter Device Identifier Shelf Expiration Date Model / Serial / Lot [employer] Ultrapro 4cm 5cm Nonabsorbable Flat Onlay Patch [place] Medium [id number] - [id number] Implanted:Qty: 1 on 11/09/2021 by Dragan Ferrari MD at [facility] [employer] [id number] 10/10/2022 [id number] / / [id number] Insurance [facility] Advance Directives For more information, please contact: [phone] Documents on File Type Date Recorded Patient Instrument Repairer Expl anation ADVANCE DIRECTIVE 06/14/2020 ADVANCE DIRECTIVE 09/26/2014 12:00 AM [employer]IA [employer] WORKER FINANCIAL/MEDICAL * Full Code (Latest Code Status on File) Date Activated Date Inactivated Comments 11/09/2021 7:48 PM 11/10/2021 7:48 PM Care Teams Financial Institution Branch Manager Relationship Specialty Start Date End Date Deion Childs DO PCP - General Family Medicine 08/31/19
--- OUTSIDE RECORDS SUMMARY | 2024-08-22 19:31 | XMS_ITS | Encounter Summary ---
Author Organization [facility] Address [facility] [place] [address] Care Team Providers Care Supervisor Scrap Preparation Name Role Phone Lenin Jeong MD Primary Care Provider [phone] Shayy Valentin MD Primary Care Provider [phone] Deion Britt DO Primary Care Provider [phone] Encounter Details Date Type Department Care Team (Late st Contact Info) Description 10/12/2018 Abstract [facility] CONVERSION [address] [place] [address] , Luisito Kang MD Social History Tobacco Use Types Packs/Day Years Used Date Smoking Tobacco: Never Smokeless Tobacco: Never Alcohol Use Standard Drinks/Week Comments No 0 (1 standard drink = 0.6 oz pur e alcohol) AUDIT-C Answer Date Recorded Frequency of Alcohol Consumption Never 05/29/2018 Average Number of Drinks Not on file 018 Frequency of Binge Drinking Not on file 05/13 Comments No Sex and Gender Information Value Date Recorded Sex Assigned at Female 10/11/2018 2:17 PM CDT Legal Sex Female 10:50 PM CDT Gender Identity Female 10/11/2018 2:17 PM CDT Sexual Orientation Straight 01/06/2019 1: 32 PM CDT documented as of this encounter Plan of Treatment Not on file documented as of this encounter Visit Diagnoses Not on filedocumented in this encounter Care Teams Supervisor Scrap Preparation Relationship Specialty [place] [address] [place] [address] PCP - General FAMILY PRACTICE 05/29/18 02/20/19 Shayy Valentin MD [address] [place] [address] PCP - General FAMILY PRACTICE 02/21/19 09/09/19 Deion Britt DO [address] [place] [address] PCP - General FAMILY PRACTICE 09/10/19 documented as of this encounter
--- OUTSIDE RECORDS SUMMARY | 2024-08-22 19:31 | XMS_ITS ---
Author Organization [facility] at [facility] Address [address] [place] [address] Care Team Providers Care Aircraft Instrument Engineer Name Role Phone Deion Childs DO Primary Care Provider + Active Problems Problem Noted Date Diagnosed Date [...] antibody Assessment & Plan (07/28/2022 11:54 AM IT APPLICATION ADMINISTRATOR): Add doxycycline Add singulair Assessment & Plan [...] tests. Assessment & Plan (06/19/2022 2:39 PM IT APPLICATION ADMINISTRATOR): Acute on chronic Worsening Chronic condition Not [...] 05/09/2021 Assessment & Plan (08/26/2021 12:10 PM IT APPLICATION ADMINISTRATOR): Patient is well controlled. Continue current treatment. Urinary incontinence 05/09/2021 Assessment & Plan (08/26/2021 12:07 PM IT APPLICATION ADMINISTRATOR): Chronic No new orders Full code status 06/14/2020 Assessment & Plan (08/26/2021 12:05 PM IT APPLICATION ADMINISTRATOR): No changes to status Assessment & Plan (06/14/2020 12:20 PM IT APPLICATION ADMINISTRATOR): Discussed with patient approximately 20minutes End of life issues/Advanced Directives/Healthcare Surrogate. Discussed DNR. Encouraged to discuss further with family and consult deputy prosecuting attorney or complete [place] approved form, which I would be glad to assist them with completion. All questions answered. polst form filled out and signed Chronic back pain 03/06/2020 Assessment & Plan (08/26/2021 12:05 PM IT APPLICATION ADMINISTRATOR): Patient is well controlled. Continue current treatment. Assessment & Plan (07/25/2021 3:26 PM IT APPLICATION ADMINISTRATOR): I will look into something she can take for pain Assessment & Plan (11/23/2020 11:15 AM CDT): Refer to APG Assessment & Plan (06/19/2020 11:37 AM IT APPLICATION ADMINISTRATOR): Chronic severe back pain Significant OA Check a MRI LS spine Assessment & Plan (03/06/2020 1:21 PM CDT): No new orders Osteopenia 03/13/2019 Overview (05/09/2021): T=-2.1 Assessment & Plan (08/26/2021 12:09 PM IT APPLICATION ADMINISTRATOR): Patient is well controlled. Continue current treatment. Personal history of malignant neoplasm of breast 11/04/2018 Assessment & Plan (08/26/2021 12:09 PM IT APPLICATION ADMINISTRATOR): Patient is well controlled. Continue current treatment. Cystitis, interstitial 06/16/2018 Assessment & Plan (08/26/2021 12:06 PM IT APPLICATION ADMINISTRATOR): amoxicillin 500 mg tid 10 days Diverticula of colon 06/16/2018 Assessment & Plan (08/26/2021 12:10 PM IT APPLICATION ADMINISTRATOR): Patient is well controlled. Continue current treatment. Essential hypertension 06/16/2018 Assessment & Plan (04/15/2023 2:36 PM CDT): Patient is well controlled. Continue current treatment. Assessment & Plan (07/28/2022 11:55 AM IT APPLICATION ADMINISTRATOR): Patient is well controlled. Continue current treatment. Assessment & Plan (08/26/2021 12:10 PM IT APPLICATION ADMINISTRATOR): Patient is well controlled. Continue current treatment. Assessment & Plan (05/16/2021 9:22 AM CDT): Add amlodipine 2.5 mg daily HER2-positive carcinoma of right breast 06/16/20 18 Hyperlipidemia 06/16/2018 Assessment & Plan (08/26/2021 12:11 PM IT APPLICATION ADMINISTRATOR): Patient is well controlled. Continue current treatment. Tinnitus 06/16/2018 Assessment & Plan (08/26/2021 12:07 PM IT APPLICATION ADMINISTRATOR): Patient is well controlled. Continue current treatment. Multiple allergies 05/14/2018 Assessment & Plan (08/26/2021 12:09 PM IT APPLICATION ADMINISTRATOR): Patient is well controlled. Continue current treatment. No new orders Refusal of blood transfusion s as patient is Yazidi 05/14/2018 S/P mastectomy 05/29/2017 Assessment & Plan (08/26/2021 12:08 PM IT APPLICATION ADMINISTRATOR): No new orders Patient is well controlled. Continue current treatment. Arthritis 02/13/2016 Assessment & Plan (08/26/2021 12:05 PM IT APPLICATION ADMINISTRATOR): Patient is well controlled. Continue current treatment. Multiple joints Gastroesophageal reflux disease without esophagi tis 02/13/2016 Assessment & Plan (11/11/2022 11:08 AM CDT): Add carafate Chronic condition Not at goal Assessment & Plan (11/07/2022 12:08 PM CDT): Worse since starting omnicef Change to amoxicillin Add pepcid 20 mg bid Assessment & Plan (08/26/2021 12:10 PM IT APPLICATION ADMINISTRATOR): Patient is well controlled. Continue current treatment. Rectocele 12/10/2011 Assessment & Plan (08/26/2021 12:11 PM IT APPLICATION ADMINISTRATOR): Patient is well controlled. Continue current treatment. Current Oncology Plans No current plan information found. Past Plans No past plan information found. Radiation Treatments * No radiation treatments are documented for this patient in [facility]. Treatments may have been administered in another system. Lifetime Dose Tracking * Chemical Lifetime Dose Automatic Entry Manual Entr y Fluoro Time 0.7 minutes 0.7 minutes 0 minutes Air kerma at the reference point (Ka,r) 57.8 mGy 5 7.8 mGy 0 mGy Resolved Problems Problem Noted Date Diagnosed Date Resolved Date Acute non-recurrent frontal sinusitis 11/07/2022 11/11/2022 Assessment & Plan (11/07/2022 12:07 PM CDT): Change to amoxicillin 500 mg tid 1 week Bone pain 08/04/2022 11/11/2022 Assessment & Plan (08/04/2022 10:54 AM IT APPLICATION ADMINISTRATOR): CT unremarkable. She continues with pain in [...] 11/11/2022 Assessment & Plan (07/28/2022 11:55 AM IT APPLICATION ADMINISTRATOR): Repeat ct reviewed Consistent with cysts Assessment & Plan (06/19/2022 2:37 PM IT APPLICATION ADMINISTRATOR): Reorder pre/post contrast ct abdomen Assessment & [...] approximately 1 month Incarcerated hernia 11/09/2021 11/12/19 Hernia of abdominal wall 11/09/2021 Mild depression 08/26/2021 06/19/2022 Assessment & Plan (08/26/2021 12:07 PM IT APPLICATION ADMINISTRATOR): Patient is well controlled. Continue current treatment. Acute non-recurrent maxillary sinusitis 07/25/2021 08/26/2021 Assessment & Plan (07/25/2021 3:25 PM IT APPLICATION ADMINISTRATOR): Doxycycline 100 mg bid 1 week COVID test Head ache 05/16/2021 08/26/2021 Assessment & Plan (05/16/2021 9:23 AM CDT): Sed rate Cbc Add mucinex 600 mg bid Finish augmentin Hip pain 05/16/2021 08/26/2021 Assessment & Plan (05/16/2021 9:25 AM CDT): X ray left hip Abdominal pain 01/04/2020 06/30/2022 Assessment & Plan (08/26/2021 12:04 PM IT APPLICATION ADMINISTRATOR): Believe due to urinary infection Will place [...] week Assessment & Plan (06/19/2020 11:36 AM IT APPLICATION ADMINISTRATOR): Add cipro 500 mg bid 1 week See urology See G.I. Check a urine c and s Assessment & Plan (06/14/2020 12:28 PM IT APPLICATION ADMINISTRATOR): New onset RLQ tender No G or [...] 08/26/19 22 Scoliosis 10/11/2018 08/26/2021 Patient is Yazidi 06/16/2018 08/26/2021 Decreased GFR 05/14/2018 08/26/2021 Skin [...] 08/26/2021 Assessment & Plan (08/26/2021 12:05 PM IT APPLICATION ADMINISTRATOR): di Malignant neoplasm of breast 04/05/2017 08/26/2021 [...] 08/26/2021 Assessment & Plan (06/19/2020 11:36 AM IT APPLICATION ADMINISTRATOR): Patient is well controlled. Continue current treatment. [...]
--- OUTSIDE RECORDS SUMMARY | 2024-08-22 19:31 | XMS_ITS | Referral Summary ---
Author Organization [facility] the [facility] Address [address] [place] [address] Care Team Providers Care Roofing Subcontractor Name Role Phone Deion Childs DO Primary [...] antibody Assessment & Plan (07/28/2022 11:54 AM NURSES EDUCATOR): Add doxycycline Add singulair Assessment & Plan [...] tests. Assessment & Plan (06/19/2022 2:39 PM NURSES EDUCATOR): Acute on chronic Worsening Chronic condition Not [...] 05/09/2021 Assessment & Plan (08/26/2021 12:10 PM NURSES EDUCATOR): Patient is well controlled. Continue current treatment. Urinary incontinence 05/09/2021 Assessment & Plan (08/26/2021 12:07 PM NURSES EDUCATOR): Chronic No new orders Full code status 06/14/2020 Assessment & Plan (08/26/2021 12:05 PM NURSES EDUCATOR): No changes to status Assessment & Plan (06/14/2020 12:20 PM NURSES EDUCATOR): Discussed with patient approximately 20minutes End of life issues/Advanced Directives/Healthcare Surrogate. Discussed DNR. Encouraged to discuss further with family and consult deputy county attorney or complete [place] approved form, which I would be glad to assist them with completion. All questions answered. polst form filled out and signed Chronic back pain 03/06/2020 Assessment & Plan (08/26/2021 12:05 PM NURSES EDUCATOR): Patient is well controlled. Continue current treatment. Assessment & Plan (07/25/2021 3:26 PM NURSES EDUCATOR): I will look into something she can take for pain Assessment & Plan (11/23/2020 11:15 AM CDT): Refer to APG Assessment & Plan (06/19/2020 11:37 AM NURSES EDUCATOR): Chronic severe back pain Significant OA Check a MRI LS spine Assessment & Plan (03/06/2020 1:21 PM CDT): No new orders Osteopenia 03/13/2019 Overview (05/09/2021): T=-2.1 Assessment & Plan (08/26/2021 12:09 PM NURSES EDUCATOR): Patient is well controlled. Continue current treatment. Personal history of malignant neoplasm of breast 11/04/2018 Assessment & Plan (08/26/2021 12:09 PM NURSES EDUCATOR): Patient is well controlled. Continue current treatment. Cystitis, interstitial 06/16/2018 Assessment & Plan (08/26/2021 12:06 PM NURSES EDUCATOR): amoxicillin 500 mg tid 10 days Diverticula of colon 06/16/2018 Assessment & Plan (08/26/2021 12:10 PM NURSES EDUCATOR): Patient is well controlled. Continue current treatment. Essential hypertension 06/16/2018 Assessment & Plan (04/15/2023 2:36 PM CDT): Patient is well controlled. Continue current treatment. Assessment & Plan (07/28/2022 11:55 AM NURSES EDUCATOR): Patient is well controlled. Continue current treatment. Assessment & Plan (08/26/2021 12:10 PM NURSES EDUCATOR): Patient is well controlled. Continue current treatment. Assessment & Plan (05/16/2021 9:22 AM CDT): Add amlodipine 2.5 mg daily HER2-positive carcinoma of right breast 06/16/20 18 Hyperlipidemia 06/16/2018 Assessment & Plan (08/26/2021 12:11 PM NURSES EDUCATOR): Patient is well controlled. Continue current treatment. Tinnitus 06/16/2018 Assessment & Plan (08/26/2021 12:07 PM NURSES EDUCATOR): Patient is well controlled. Continue current treatment. Multiple allergies 05/14/2018 Assessment & Plan (08/26/2021 12:09 PM NURSES EDUCATOR): Patient is well controlled. Continue current treatment. No new orders Refusal of blood transfusion s as patient is Episcopal 05/14/2018 S/P mastectomy 05/29/2017 Assessment & Plan (08/26/2021 12:08 PM NURSES EDUCATOR): No new orders Patient is well controlled. Continue current treatment. Arthritis 02/13/2016 Assessment & Plan (08/26/2021 12:05 PM NURSES EDUCATOR): Patient is well controlled. Continue current treatment. Multiple joints Gastroesophageal reflux disease without esophagi tis 02/13/2016 Assessment & Plan (11/11/2022 11:08 AM CDT): Add carafate Chronic condition Not at goal Assessment & Plan (11/07/2022 12:08 PM CDT): Worse since starting omnicef Change to amoxicillin Add pepcid 20 mg bid Assessment & Plan (08/26/2021 12:10 PM NURSES EDUCATOR): Patient is well controlled. Continue current treatment. Rectocele 12/10/2011 Assessment & Plan (08/26/2021 12:11 PM NURSES EDUCATOR): Patient is well controlled. Continue current treatment. Resolved Problems Problem Noted Date Diagnosed Date Resolved Date Acute non-recurrent frontal sinusitis 11/07/2022 11/11/2022 Assessment & Plan (11/07/2022 12:07 PM CDT): Change to amoxicillin 500 mg tid 1 week Bone pain 08/04/2022 11/11/2022 Assessment & Plan (08/04/2022 10:54 AM NURSES EDUCATOR): CT unremarkable. She continues with pain in [...] 11/11/2022 Assessment & Plan (07/28/2022 11:55 AM NURSES EDUCATOR): Repeat ct reviewed Consistent with cysts Assessment & Plan (06/19/2022 2:37 PM NURSES EDUCATOR): Reorder pre/post contrast ct abdomen Assessment & [...] 06/19/2022 Assessment & Plan (08/26/2021 12:07 PM NURSES EDUCATOR): Patient is well controlled. Continue current treatment. Acute non-recurrent maxillary sinusitis 07/25/2021 08/26/2021 Assessment & Plan (07/25/2021 3:25 PM NURSES EDUCATOR): Doxycycline 100 mg bid 1 week COVID test Head ache 05/16/2021 08/26/2021 Assessment & Plan (05/16/2021 9:23 AM CDT): Sed rate Cbc Add mucinex 600 mg bid Finish augmentin Hip pain 05/16/2021 08/26/2021 Assessment & Plan (05/16/2021 9:25 AM CDT): X ray left hip Abdominal pain 01/04/2020 06/30/2022 Assessment & Plan (08/26/2021 12:04 PM NURSES EDUCATOR): Believe due to urinary infection Will place [...] week Assessment & Plan (06/19/2020 11:36 AM NURSES EDUCATOR): Add cipro 500 mg bid 1 week See urology See G.I. Check a urine c and s Assessment & Plan (06/14/2020 12:28 PM NURSES EDUCATOR): New onset RLQ tender No G or [...] 08/26/19 22 Scoliosis 10/11/2018 08/26/2021 Patient is Episcopal 06/16/2018 08/26/2021 Decreased GFR 05/14/2018 08/26/2021 Skin [...] 08/26/2021 Assessment & Plan (08/26/2021 12:05 PM NURSES EDUCATOR): di Malignant neoplasm of breast 04/05/2017 08/26/2021 [...] 08/26/2021 Assessment & Plan (06/19/2020 11:36 AM NURSES EDUCATOR): Patient is well controlled. Continue current treatment. [...] PPV23 07/13/2008 Tdap 06/13/2013 ZOSTER LIVE 07/13/2008 Social History Tobacco Use Types Packs/Day Years [...] place to sleep or slept in a penitentiary (including now)? No 04/08/2022 Personal Safety Answer Date Recorded Have you ever been in or are you currently in a harmful physical or emotional relationship or is someone making you feel afraid or unsafe? Denies 11/08/2022 Comments No Sex and Gender Information Value Date Recorded Sex Assigned at Not on file Legal Sex Female 12:15 AM NURSES EDUCATOR Gender Identity Not on file Sexual Orientation Not on file Last Filed Vital Signs Vital Sign Reading Time Taken Comments Blood Pressure 122/80 04/15/2023 2:13 PM CDT Pulse 68 04/15/2023 2:13 PM CDT Temperature 37.1 C (98.7 F) 04/15/2023 2:13 PM CDT Respiratory Rate 16 04/15/2023 2:13 PM CDT Oxygen Saturation 98% 04/15/2023 2:13 PM CDT Inhaled Oxygen Concentration - - Weight 54.2 kg (119 lb 7.8 oz) 05/20/2023 10:02 AM NURSES EDUCATOR Height 160 cm (5' 3 ) 05/20/2023 10:02 AM NURSES EDUCATOR Body Mass Index 21.17 05/20/2023 10:02 AM NURSES EDUCATOR Plan of Treatment Not on file Medical Devices Implanted Type Area Gis Programmer Device Identifier Shelf Expiration Date Model / Serial / Lot [employer] End[employer] Surgery Ultrapro 4cm 5cm Nonabsorbable Flat Onlay Patch Starbuck Rim Medium [id number] - [id number] Implanted:Qty: 1 on 11/09/2021 by Dragan Ferrari MD at [facility] [employer] [id number] 10/10/2022 [id number] / / [id number] Insurance [facility] [place] [id number] MEDICARE [facility] MED[facility] Address: [address] [address] [place] [address] Advance Directives For more information, please contact: [phone] Documents on File Type Date Recorded Patient Bit Sander Expl anation ADVANCE DIRECTIVE 06/14/2020 ADVANCE DIRECTIVE 09/26/2014 12:00 AM MARIA DEL CARMEN R OF SUPERVISOR TELLERS FINANCIAL/MEDICAL * Full Code (Latest Code Status on File) Date Activated Date Inactivated Comments 11/09/2021 7:48 PM 11/10/2021 7:48 PM Care Teams Roofing Subcontractor Relationship Specialty Start Date End Date [place], Deion Braydon, DO PCP - General Family Medicine 08/31/19
--- OUTSIDE RECORDS SUMMARY | 2024-08-22 19:31 | XMS_ITS | Clinical Summary ---
Author Organization [facility] Address [address] [place] [address] Care Team Providers Care Veneer Gluer Name Role Phone Deion Britt DO Primary Care Provider [phone] Allergies Active Allergy Reactions Criticality Noted Date Comments Azithromycin Headache High 06/30/2018 Face bright red Codeine Hallucination Medium 06/30/2018 Cortisone Headache Medium 05/14/2018 Morphine Headache Medium 05/14/2018 Propoxyphene Unknown 05/14/2018 Patient does not remember Sulfa (Sulfonamide Antibiotics) Hives High 05/14/2018 Medications acetaminophen (TYLENOL ORAL) Take by mouth Before bed or in am. Active multivitamin (DAILY-SETH) tablet Take 1 Tablet by mouth daily. Active omeprazole (PriLOSEC) 40 mg Capsule, Delayed Release(E.C.) TAKE 1 CAPSULE(40 MG) BY MOUTH DAILY 0 Active cyclobenzaprine (FLEXERIL) 10 mg tablet Continuous as needed. 0 Active Active Problems Problem Noted Date Diagnosed Date Osteopenia 03/13/2019 Overview (09/25/2020): T=-2.1 Right shoulder pain 11/04/2018 History of right breast cancer 11/04/2018 Standard chest x-ray abnormal 06/16/2018 Essential hypertension 06/16/2018 Cervicalgia 06/16/2018 Cystitis, interstitial 06/16/2018 Diverticula of colon 06/16/2018 Hyperlipidemia 06/16/2018 Irritable bowel syndrome 06/16/2018 Patient is Sikhism 06/16/2018 Rectocele 06/16/2018 Tinnitus 06/16/2018 HER2-positive carcinoma of right breast 06/16/20 18 Multiple allergies 05/14/2018 Decreased GFR 05/14/2018 Refusal of blood transfusion s as patient is Sikhism 05/14/2018 Skin lesion of chest wall 05/14/2018 Malignant neoplasm of upper- inner quadrant of right breast in female, estrogen receptor negative 05/14/2018 Overview (05/15/2018): Her-2-lavon + Anxiety state 05/14/2018 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 Degeneration of intervertebral disc 02/13/2016 Scoliosis Fibromyalgia GERD (gastroesophageal reflux disease) Depression Arthritis Anxiety Family History Medical History Relation Name Comments Other Brother 1 'spinal cancer' Lung Cancer Brother 2 lung cancer fro m smoking Other Brother 3 cancer of the [place] Diabetes Daughter Hypertension Daughter Other Daughter 'Auto-immune He molytic Anemia' Diabetes Father Heart Attack Father Throat Cancer Maternal Aunt Colon Cancer Maternal Grandmother Kidney Cancer Mother Diabetes Paternal Grandfather Diabetes Son Hypertension Son Relation Name Status Comments Brother 1 Brother 2 Brother 3 Daughter Alive Father (Age 101) Maternal Aunt Maternal Grandmother Mother (Age 72) Paternal Grandfather Son Alive Social History Tobacco Use Types Packs/Day Years Used Date Smoking Tobacco: Never Smokeless Tobacco: Never Alcohol Use Standard Drinks/Week Comments No 0 (1 standard drink = 0.6 oz pur e alcohol) Comments No Sex and Gender Information Value Date Recorded Sex Assigned at Not on file Legal Sex Female 8:39 PM OCCUPATIONAL THERAPY TECHNICIAN Gender Identity Not on file Sexual Orientation Not on file 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 Not on file Not on file Not on file Last Filed Vital Signs Vital Sign Reading Time Taken Comments Blood Pressure 140/82 05/07/2021 2:36 PM CDT Pulse 59 07/05/2018 7:55 AM OCCUPATIONAL THERAPY TECHNICIAN Temperature 36.4 C (97.6 F) 05/07/2021 2:36 PM CDT Respiratory Rate 14 07/05/2018 7:55 AM OCCUPATIONAL THERAPY TECHNICIAN Oxygen Saturation 98% 07/05/2018 7:55 AM OCCUPATIONAL THERAPY TECHNICIAN Inhaled Oxygen Concentration - - Weight 54.4 kg (120 lb) 05/07/2021 2:36 PM CDT Height 160 cm (5' 3 ) 05/07/2021 2:36 PM CDT Body Mass Index 21.26 05/07/2021 2:36 PM CDT Plan of Treatment Health Maintenance Due Date Last Done Comments ZOSTER VACCINE (2 of 3) 09/07/2008 07/13/2008 RSV VACCINE (60+ or ) (1 - 1-dose 75+ series) 2014 DTAP/TDAP/TD VACCINES (2 - Td or Tdap) 06/13/2023 INFLUENZA VACCINE (#1) 2024 03/06/2020, 2012 COVID-19 Vaccine (2 - season) 03/13/202411/2020 OSTEOPOROSIS SCREENING Completed 04/07/2019 PNEUMOCOCCAL VACCINE 65+ YEARS Completed 03/06/2020 , 07/13/2008 Medical Devices Explanted Type Area Plater Helper Device Identifier Shelf Expiration Date Model / Serial / Lot Left Portacath Removal Explanted:Qty: 1 on 07/05/2018 by Luly Wei MD at [facility] Left: Chest Description:disposed of per Dr request Procedures Procedure Name Priority Date/Time Associated Diagnosis Comments XR DEXA BONE DENSITY AXIAL 1 OR MORE SITES Routine 04/07/2019 1:35 PM CDT Screening for osteoporosis from Last 3 Months or Most Recently Relevant to Health Maintenance Results * XR DEXA BONE DENSITY AXIAL 1 OR MORE SITES (04/07/2019 1:35 PM CDT) Anatomical Region Laterality Modality Computed Radiogr aphy 04/07/2019 1:35 PM CDT Narrative 04/07/2019 2:54 PM CDT SUMMARY DEXA REPORT DATE: 04/07/2019 1:35 PM INDICATION: Postmenopausal, arthritis. FINDINGS: Bone mineral density is consistent with osteopenia. The lowest T score is -2.1. Please refer to the full report available in [facility] under the PACS Images tab. If a faxed copy is needed, please call [phone]. DICTATION LOCATION: Location [facility] Procedure Note Chris Rolle MD - 04/07/2019 SUMMARY DEXA REPORT DATE: 04/07/2019 1:35 PM INDICATION: Postmenopausal, arthritis. FINDINGS: Bone mineral density is consistent with osteopenia. The lowest T score is -2.1. Please refer to the full report available in [facility] under the PACS Images tab. If a faxed copy is needed, please call [phone]. DICTATION LOCATION: Location [address] [place] [address] Abeba Vinson MD DIAGNOSTIC IMAGING OR DERABLES Final Result from Last 3 Months or Most Recently Relevant to Health Maintenance Insurance Advance Directives For more information, please contact: [phone] Documents on File Type Date Recorded Patient Channeler Outsole Expl anation Advance Directive POA 06/30/2018 11:34 AM RECIEVED 06/30/18 *NO BLOOD* * Full Code (Latest Code Status on File) Date Activated Date Inactivated Comments 07/05/2018 7:22 AM 07/05/2018 10:22 AM Care Teams Veneer Gluer Relationship Specialty Start Date End Date Deion Britt DO PCP - General Family Practice 12/27/19
--- OUTSIDE RECORDS SUMMARY | 2024-08-22 19:31 | XMS_ITS | Clinical Summary ---
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 Name Role Phone Deion Britt DO Primary Care Provider [phone] Allergies Active Allergy Reactions Criticality Noted Date Comments Azithromycin Headache Medium 06/30/2018 Face bright red Codeine Other (see comment),Hallucinations ,GI Upset High 12/10/2011 can't respond Migraine/ ALSO CODEINE Intolerant Corticosteroids Headache,Other (see comment) Medium 04/24/2017 [place] like HEAD WOULD EXPLODE , Jittery [place] like HEAD WOULD EXPLODE , Jittery Hydrocodone Nausea Only Medium 04/24/2017 Methadone Other (see comment) Low 04/24/2017 Unknown reaction Unknown reaction Phenazopyridine Other (see comment) 12/12/2011 Bladder cannot tolerate Propoxyphene Unknown 05/14/2018 Patient does not remember Sulfa Antibiotics Hives 05/29/2018 Medications HYDROXYZINE 25 MG tabletIndicatio ns:Anxiety TAKE 1 TABLET(25 MG) BY MOUTH TWICE DAILY NEEDED FOR ANXIETY 60 tablet 2 06/13/2019 Active Multiple Vitamins-Minera ls (MULTIVITAMIN ADULTS) Tab Take 1 tablet by mouth daily. Active cyclobenzaprine 10 MG tablet Take 0.5 tablets (5 mg total) by mouth 3 (three) times daily as needed. 16 tablet 09/10/2019 Active Active Problems Problem Noted Date Diagnosed Date History of breast cancer 11/04/2018 Right shoulder pain 11/04/2018 GERD (gastroesophageal reflux disease) 9 Scoliosis 10/11/2018 Irritable bowel syndrome 06/16/2018 Hyperlipidemia 06/16/2018 HER2-positive carcinoma of right breast ([facility]) 06/16/2018 Diverticula of colon 06/16/2018 Cystitis, interstitial 06/16/2018 Cervicalgia 06/16/2018 Tinnitus 06/16/2018 Multiple allergies 05/14/2018 Refusal of blood transfusion s as patient is Tenriism 05/14/2018 Skin lesion of chest wall 05/14/2018 Anxiety state 05/14/2018 Malignant neoplasm of upper- inner quadrant of right breast in female, estrogen receptor negative ([facility]) 05/14/2018 Overview (10/11/2018): Overview: Her-2-lavon + Skin cancer 02/17/2018 Dry eye 02/16/2018 Visual disturbance 02/16/2018 Nausea and vomiting 09/16/2017 Constipation 06/02/2017 Malignant neoplasm of upper- inner quadrant of right female breast ([facility]) 05/29/2017 S/P mastectomy 05/29/2017 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 Malignant neoplasm of breast ([facility]) 0 04/05/2017 Abnormal mammogram 04/03/2017 Depression 03/17/2017 Acid reflux 02/13/2016 Anxiety 02/13/2016 Arthritis 02/13/2016 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 Curvature of spine 02/13/2016 Degeneration of intervertebral disc 02/13/2016 Fibromyalgia 02/13/2016 Sciatica 02/13/2016 Notalgia 01/23/2015 Myalgia 12/10/2011 Rectocele 12/10/2011 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, acquired Urinary incontinence Resolved Problems Problem Noted Date Diagnosed Date Resolved Date Patient is Tenriism 06/16/2018 03/23/2020 Immunizations Name Administration Dates Next Due Influenza (Generic) 04/12/2013 MODERNA COVID-19 (12+) MRNA, LNP-S, PF, 100 MCG/ 0.5 ML DOSE 09/14/2020 Pneumococcal (Pneumovax 23) 07/13/2008 Tdap (Boostrix) 06/13/2013 Zoster (Zostavax) 29970 Unt/0.65Ml 07/13/2008 Family History Medical History Relation Comments Cancer Brother lung cancer None Father Cancer Half-brother back cancer Cancer Mother kidney cancer Relation Status Comments Brother Father Half-brother Mother Social History Tobacco Use Types Packs/Day Years Used Date Smoking Tobacco: Never Smokeless Tobacco: Never Alcohol Use Standard Drinks/Week Comments No 0 (1 standard drink = 0.6 oz pur e alcohol) AUDIT-C Answer Date Recorded Frequency of Alcohol Consumption Never 05/29/2018 Average Number of Drinks Not on file 018 Frequency of Binge Drinking Not on file 05/13 PHQ-2 Answer Date Recorded PHQ-2 Score 2 06/13/2019 Education Answer Date Recorded What is the highest level of school you have completed or the highest degree you have received? High school graduate 01/06/2019 Comments No Sex and Gender Information Value Date Recorded Sex Assigned at Female 10/11/2018 2:17 PM CDT Legal Sex Female 10:50 PM CDT Gender Identity Female 10/11/2018 2:17 PM CDT Sexual Orientation Straight 01/06/2019 1: 32 PM CDT Last Filed Vital Signs Vital Sign Reading Time Taken Comments Blood Pressure 155/60 11/21/2022 3:00 PM CDT Pulse 64 11/21/2022 3:00 PM CDT Temperature 36.7 C (98 F) 11/21/2022 1:10 PM CDT Respiratory Rate 18 11/21/2022 3:00 PM CDT Oxygen Saturation 99% 11/21/2022 3:00 PM CDT Inhaled Oxygen Concentration - - Weight 54.4 kg (120 lb) 11/21/2022 1:10 PM CDT Height 160 cm (5' 3 ) 11/21/2022 1:10 PM CDT Body Mass Index 21.26 11/21/2022 1:10 PM CDT Plan of Treatment Health Maintenance Due Date Last Done Comments Annual Medicare Wellness Visit 02/29/2004 Zoster Vaccines (2 of 3) 09/07/2008 07/13/2008 RSV Immunization or 60+ Years (1 - 1-dose 75+ series) 2014 DTaP, Tdap and Td Vaccines ( 2 - Td or Tdap) 06/13/2023 06/13/2013 COVID-19 Vaccine (2 - 2023-2 5 season) 2024 09/14/2020 Influenza Adult (#1) 2024 04/12/2022, 04/12/2013 Pneumococcal Vaccine: 65+ Years Completed 03/06/2020, 07/13/2008 Meningococcal B Vaccine Aged Out No l onger eligible based on patient's age to complete this topic Meningococcal Vaccine Aged Out No sheila rosendo eligible based on patient's age to complete this topic RSV Immunizations Under 20 Months Aged Out No longer eligible b ased on patient's age to complete this topic Insurance [facility] Advance Directives Documents on File Type Date Recorded 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
--- OUTSIDE RECORDS SUMMARY | 2024-08-22 19:32 | XMS_ITS | Data Portability ---
Author Organization [facility] Address [address] [place] [address] Assessment No assessment recorded. Plan of Treatment Reminders Order Date Submit Date Provider Last Modified By Organization Details Last Modified Time Details Appointments None recorded . Lab BMP, serum or plasma 2023 024 [facility], One [facility] [place], [place], [address], 4 15:00:22 CBC w/ diff 2023 024 [facility], One [facility] [place], [place], [address], 4 11:31:39 hepatic function panel, serum [email or web address] [facility] One [facility] [place], [place], [address], 4 18:35:12 amylase + lipase, serum 2023 024 [facility], One [facility] [place], [place], [address], 4 11:31:52 CBC w/ auto diff [email or web address] Out Patient Lab, One [facility] [place], [place], [address], 4 18:39:48 amylase, serum or plasma [address] Out Patient Lab, [facility], [place], [address], 4 18:39:48 BMP, serum or plasma [address] Out Patient Lab, [facility], [place], [address], 4 18:39:48 hepatic function panel, serum [address] Out Patient Lab, [facility], [place], [address], 4 18:39:48 Referral physical medicine and rehabili tation referral [address], [address] [place] [address] [address], [place], [address], 13:02:30 Procedures None recorded . Surgeries None recorded . Imaging CT, abdomen + pelvis, w/ contrast 2023 024 [facility] Scheduling, [place], [address], 4 09:14:48 CT, abdomen + pelvis, w/o contrast 2023 024 [facility] Scheduling, [place], [address], 4 09:15:06 Medication Orders amitript yline 10 mg tablet 2023 024 [id number] [address], [place], [id number], 17:37:06 Myrbetri q 50 mg tablet,e xtended release 2023 024 [email or web address] [id number], [address], [place], [id number], 13:02:30 Patient TargetsNo targets recorded. Patient InstructionsNo instructions recorded. Reason for Referral Physical Medicine And Rehabi litation Referral for Chronic low back pain Referring Physician: Ian Childs, Family Medicine, Encounter Date: 01/25/2024 Results Created Date Observation Date Name Description Value Unit Range Abnormal Flag Note LastModifiedBy Organization Detail LastModifiedTime 11/11/19 24 11/11/2023 CBC WITH DIFF WBC 6.82 x10'3 /uL 4.5-11 .0 Not Available [facility] (Lab) [place], [address], 11/11/2023 14:34:54 11/11/19 24 11/11/2023 CBC WITH DIFF RBC 4.88 x10'6 /uL 4.20-5 .40 Not Available [facility] (Lab) [place], [address], 11/11/2023 14:34:54 11/11/19 24 11/11/2023 CBC WITH DIFF hemoglobin 14.1 g/dL 12.0-1 6.0 Not Available [facility] (Lab) [place], [address], 11/11/2023 14:34:54 11/11/19 24 11/11/2023 CBC WITH DIFF hematocrit 44.1 % 38.0-4 8.0 Not Available [facility] (Lab) [place], [address], 11/11/2023 14:34:54 11/11/19 24 11/11/2023 CBC WITH DIFF MCV 90.4 fL 81.0-9 9.0 Not Available [facility] (Lab) [address] [facility], [place], [address], 11/11/2023 14:34:54 11/11/19 24 11/11/2023 CBC WITH DIFF MCH 28.9 pg 27.0-3 1.0 Not Available [facility] (Lab) [address] [facility], [place], [address], 11/11/2023 14:34:54 11/11/19 24 11/11/2023 CBC WITH DIFF MCHC 32.0 g/dL 32.0-3 6.0 Not Available [facility] (Lab) [address] [facility], [place], [address], 11/11/2023 14:34:54 11/11/19 24 11/11/2023 CBC WITH DIFF RDW 13.4 % 11.5-1 4.5 Not Available [facility] (Lab) [address] [facility], [place], [address], 11/11/2023 14:34:54 11/11/19 24 11/11/2023 CBC WITH DIFF platelet count 291 x10'3 /uL 130-40 0 Not Available [facility] (Lab) [address], [place], [address], 11/11/2023 14:34:54 11/11/19 24 11/11/2023 CBC WITH DIFF MPV 10.0 fL 9.3-12 .2 Not Available [facility] (Lab) [address] [facility], [place], [address], 11/11/2023 14:34:54 11/11/19 24 11/11/2023 CBC WITH DIFF diff type AUTOMA PAUL DIFFER ENTIAL Not Available [facility] (Lab) [address] [facility], [place], [address], 11/11/2023 14:34:54 11/11/19 24 11/11/2023 CBC WITH DIFF neutrophils 71.6 % Not Available [facility] (Lab) [address] [facility], [place], [address], 11/11/2023 14:34:54 11/11/19 24 11/11/2023 CBC WITH DIFF lymphocytes 20.4 % Not Available [facility] (Lab) [address] [facility], [place], [address], 11/11/2023 14:34:54 11/11/19 24 11/11/2023 CBC WITH DIFF monocytes 6.6 % Not Available [facility] (Lab) [address] [facility], [place], [address], 11/11/2023 14:34:54 11/11/19 24 11/11/2023 CBC WITH DIFF eosinophils 0.4 % Not Available [facility] (Lab) [address] [facility], [place], [address], 11/11/2023 14:34:54 11/11/19 24 11/11/2023 CBC WITH DIFF basophils 0.7 % Not Available [facility] (Lab) [address] [facility], [place], [address], 11/11/2023 14:34:54 11/11/19 24 11/11/2023 CBC WITH DIFF immature granulocytes 0.3 % Not Available [facility] (Lab) [address] [place], [address], 11/11/2023 14:34:54 11/11/19 24 11/11/2023 CBC WITH DIFF abs. neutrophils 4.88 x10'3 /uL 1.80-7 .70 Not Available [facility] (Lab) [place], [address], 11/11/2023 14:34:54 11/11/19 24 11/11/2023 CBC WITH DIFF abs. lymphocytes 1.39 x10'3 /uL 1.00-4 .80 Not Available [facility] (Lab) [place], [address], 11/11/2023 14:34:54 11/11/19 24 11/11/2023 CBC WITH DIFF abs. monocytes 0.45 x10'3 /uL 0.24-0 .86 Not Available [facility] (Lab) [place], [address], 11/11/2023 14:34:54 11/11/19 24 11/11/2023 CBC WITH DIFF abs. eosinophils 0.03 x10'3 /uL 0.04-0 .36 low Not Available [facility] (Lab) [place], [address], 11/11/2023 14:34:54 11/11/19 24 11/11/2023 CBC WITH DIFF abs. basophils 0.05 x10'3 /uL 0.01-0 .08 Not Available [facility] (Lab) [place], [address], 11/11/2023 14:34:54 11/11/19 24 11/11/2023 CBC WITH DIFF abs. immature grans 0.02 x10'3 /uL 0.00-0 .49 Not Available [facility] (Lab) [place], [address], 11/11/2023 14:34:54 11/11/19 24 11/11/2023 AMYLA SE amylase 49 units /L 25-115 Not Available [facility] (Lab) [address] [facility], [place], [address], 11/11/2023 15:00:15 11/11/19 24 11/11/2023 BASIC METAB OLIC PANEL glucose 102 mg/dL 70-99 high Not Available [facility] (Lab) [place], [address], 11/11/2023 15:00:22 11/11/19 24 11/11/2023 BASIC METAB OLIC PANEL BUN 15 mg/dL 7-18 Not Available [facility] (Lab) [address] [facility], [place], [address], 11/11/2023 15:00:22 11/11/19 24 11/11/2023 BASIC METAB OLIC PANEL creatinine 1.04 mg/dL 0.55-1 .02 high Not Available [facility] (Lab) [address] [facility], [place], [address], 11/11/2023 15:00:22 11/11/19 24 11/11/2023 BASIC METAB OLIC PANEL sodium 139 mmol/ L 136-14 5 Not Available [facility] (Lab) [place], [address], 11/11/2023 15:00:22 11/11/19 24 11/11/2023 BASIC METAB OLIC PANEL potassium 4.2 mmol/ L 3.5-5. 1 Not Available [facility] (Lab) [place], [address], 11/11/2023 15:00:22 11/11/19 24 11/11/2023 BASIC METAB OLIC PANEL chloride 106 mmol/ L 100-10 8 Not Available [facility] (Lab) [place], [address], 11/11/2023 15:00:22 11/11/19 24 11/11/2023 BASIC METAB OLIC PANEL total CO2 27.6 mmol/ L 21-32 Not Available [facility] (Lab) [place], [address], 11/11/2023 15:00:22 11/11/19 24 11/11/2023 BASIC METAB OLIC PANEL calcium 10.2 mg/dL 8.5-10 .1 high Not Available [facility] (Lab) [place], [address], 11/11/2023 15:00:22 11/11/19 24 11/11/2023 BASIC METAB OLIC PANEL anion gap 5.4 mmol/ L 5-15 Not Available [facility] (Lab) [place], [address], 11/11/2023 15:00:22 11/11/19 24 11/11/2023 BASIC METAB OLIC PANEL BUN creatinine ratio 14.4 6-26 Not Available [facility] (Lab) [place], [address], 11/11/2023 15:00:22 11/11/19 24 11/11/2023 BASIC METAB OLIC PANEL est GFR 53 mL/mi n/1.7 3_M2 >90 low NOTE: eGFR is not calcu lated for patie nts <18 years of age. This is an estim ated GFR calcu latio n using the new CKD EPI creat inine equat ion witho ut race and so does not requi re a corre ction facto r for race. This estim ated GFR shoul d not be used for calcu latin g drug doses . Not Available [facility] (Lab) [address], [place], [address], 11/11/2023 15:00:22 11/11/19 24 11/11/2023 LIPAS E lipase 24 units /L 13-75 Not Available [facility] (Lab) One [facility] [place], [place], [address], 11/11/2023 15:00:24 11/11/19 24 11/11/2023 LIVER PANEL total protein 7.2 g/dL 6.4-8. 2 Not Available [facility] (Lab) One [facility] [place], [place], [address], 11/11/2023 15:00:25 11/11/19 24 11/11/2023 LIVER PANEL albumin 3.8 g/dL 3.4-5. 0 Not Available [facility] (Lab) One [facility] [place], [place], [address], 11/11/2023 15:00:25 11/11/19 24 11/11/2023 LIVER PANEL total bilirubin 0.7 mg/dL 0.2-1. 2 THIS ASSAY IS NOT RECOM CLAUDIA D FOR PATIE NTS UNDER GOING TREAT MENT WITH ELTRO MBOPA G DUE TO THE POTEN TIAL FOR FALSE LY ELEVA PAUL RESUL TS. Not Available [facility] (Lab) One [facility] [place], [place], [address], 11/11/2023 15:00:25 11/11/19 24 11/11/2023 LIVER PANEL direct bilirubin 0.2 mg/dL 0.0-0. 20 Not Available [facility] (Lab) One [facility] [place], [place], [address], 11/11/2023 15:00:25 11/11/19 24 11/11/2023 LIVER PANEL indirect bilirubin 0.5 mg/dL 0.0-0. 9 Not Available [facility] (Lab) [address], [place], [address], 11/11/2023 15:00:25 11/11/19 24 11/11/2023 LIVER PANEL alk phosphatase 78 U/L 50-136 Not Available [facility] (Lab) [address], [place], [address], 11/11/2023 15:00:25 11/11/19 24 11/11/2023 LIVER PANEL AST 18 U/L 15-37 Not Available [facility] (Lab) [address], [place], [address], 11/11/2023 15:00:25 11/11/19 24 11/11/2023 LIVER PANEL ALT 19 U/L 14-55 Not Available [facility] (Lab) [address], [place], [address], 11/11/2023 15:00:25 11/11/19 24 11/11/2023 LIVER PANEL A:g ratio 1.1 ratio 1.0-2. 0 Not Available [facility] (Lab) [address], [place], [address], 11/11/2023 15:00:25 11/11/19 24 11/13/2023 POC CREAT ININE POC creatinine 1.1 mg/dL 0.60-1 .10 Not Available [facility] (Lab) [address], [place], [address], 11/13/2023 10:08:40 04/13/20 24 04/13/2024 CBC WITH DIFF WBC 6.81 x10'3 /uL 4.5-11 .0 Not Available [facility] (Lab) [address] [facility], [place], [address], 04/13/2024 17:54:38 04/13/2004/13/2024 CBC WITH DIFF RBC 4.55 x10'6 /uL 4.20-5 .40 Not Available [facility] (Lab) [address] [facility], [place], [address], 04/13/2024 17:54:38 04/13/2004/13/2024 CBC WITH DIFF hemoglobin 13.1 g/dL 12.0-1 6.0 Not Available [facility] (Lab) [address] [facility], [place], [address], 04/13/2024 17:54:38 04/13/2004/13/2024 CBC WITH DIFF hematocrit 40.9 % 38.0-4 8.0 Not Available [facility] (Lab) [address] [facility], [place], [address], 04/13/2024 17:54:38 04/13/2004/13/2024 CBC WITH DIFF MCV 89.9 fL 81.0-9 9.0 Not Available [facility] (Lab) [place], [address], 04/13/2024 17:54:38 04/13/2004/13/2024 CBC WITH DIFF MCH 28.8 pg 27.0-3 1.0 Not Available [facility] (Lab) [place], [address], 04/13/2024 17:54:38 04/13/2004/13/2024 CBC WITH DIFF MCHC 32.0 g/dL 32.0-3 6.0 Not Available [facility] (Lab) [address], [place], [address], 04/13/2024 17:54:38 04/13/2004/13/2024 CBC WITH DIFF RDW 13.2 % 11.5-1 4.5 Not Available [facility] (Lab) [address], [place], [address], 04/13/2024 17:54:38 04/13/2004/13/2024 CBC WITH DIFF platelet count 293 x10'3 /uL 130-40 0 Not Available [facility] (Lab) [address] [facility], [place], [address], 04/13/2024 17:54:38 04/13/2004/13/2024 CBC WITH DIFF MPV 10.4 fL 9.3-12 .2 Not Available [facility] (Lab) [address] [facility], [place], [address], 04/13/2024 17:54:38 04/13/2004/13/2024 CBC WITH DIFF diff type AUTOMA PAUL DIFFER ENTIAL Not Available [facility] (Lab) [address], [place], [address], 04/13/2024 17:54:38 04/13/2004/13/2024 CBC WITH DIFF neutrophils 69.2 % Not Available [facility] (Lab) [address], [place], [address], 04/13/2024 17:54:38 04/13/2004/13/2024 CBC WITH DIFF lymphocytes 19.7 % Not Available [facility] (Lab) [address], [place], [address], 04/13/2024 17:54:38 04/13/20 24 04/13/2024 CBC WITH DIFF monocytes 9.1 % Not Available [facility] (Lab) [place], [address], 04/13/2024 17:54:38 04/13/20 24 04/13/2024 CBC WITH DIFF eosinophils 1.0 % Not Available [facility] (Lab) [address] [facility], [place], [address], 04/13/2024 17:54:38 04/13/2004/13/2024 CBC WITH DIFF basophils 0.7 % Not Available [facility] (Lab) [place], [address], 04/13/2024 17:54:38 04/13/2004/13/2024 CBC WITH DIFF immature granulocytes 0.3 % Not Available [facility] (Lab) [place], [address], 04/13/2024 17:54:38 04/13/20 24 04/13/2024 CBC WITH DIFF abs. neutrophils 4.71 x10'3 /uL 1.80-7 .70 Not Available [facility] (Lab) [place], [address], 04/13/2024 17:54:38 04/13/20 24 04/13/2024 CBC WITH DIFF abs. lymphocytes 1.34 x10'3 /uL 1.00-4 .80 Not Available [facility] (Lab) [place], [address], 04/13/2024 17:54:38 04/13/20 24 04/13/2024 CBC WITH DIFF abs. monocytes 0.62 x10'3 /uL 0.24-0 .86 Not Available [facility] (Lab) [place], [address], 04/13/2024 17:54:38 04/13/20 24 04/13/2024 CBC WITH DIFF abs. eosinophils 0.07 x10'3 /uL 0.04-0 .36 Not Available [facility] (Lab) [place], [address], 04/13/2024 17:54:38 04/13/2004/13/2024 CBC WITH DIFF abs. basophils 0.05 x10'3 /uL 0.01-0 .08 Not Available [facility] (Lab) [place], [address], 04/13/2024 17:54:38 04/13/2004/13/2024 CBC WITH DIFF abs. immature grans 0.02 x10'3 /uL 0.00-0 .49 Not Available [facility] (Lab) [place], [address], 04/13/2024 17:54:38 04/13/20 24 04/13/2024 AMYLA SE amylase 44 units /L 25-115 Not Available [facility] (Lab) [place], [address], 04/13/2024 18:15:20 04/13/2004/13/2024 BASIC METAB OLIC PANEL glucose 101 mg/dL 70-99 high Not Available [facility] (Lab) [place], [address], 04/13/2024 18:15:22 04/13/20 24 04/13/2024 BASIC METAB OLIC PANEL BUN 15 mg/dL 7-18 Not Available [facility] (Lab) [place], [address], 04/13/2024 18:15:22 04/13/2004/13/2024 BASIC METAB OLIC PANEL creatinine 1.22 mg/dL 0.55-1 .02 high Not Available [facility] (Lab) [place], [address], 04/13/2024 18:15:22 04/13/20 24 04/13/2024 BASIC METAB OLIC PANEL sodium 137 mmol/ L 136-14 5 Not Available [facility] (Lab) [address] [facility], [place], [address], 04/13/2024 18:15:22 04/13/2004/13/2024 BASIC METAB OLIC PANEL potassium 4.1 mmol/ L 3.5-5. 1 Not Available [facility] (Lab) [place], [address], 04/13/2024 18:15:22 04/13/2004/13/2024 BASIC METAB OLIC PANEL chloride 104 mmol/ L 97-115 Not Available [facility] (Lab) [place], [address], 04/13/2024 18:15:22 04/13/2004/13/2024 BASIC METAB OLIC PANEL total CO2 27.1 mmol/ L 21-32 Not Available [facility] (Lab) [place], [address], 04/13/2024 18:15:22 04/13/20 24 04/13/2024 BASIC METAB OLIC PANEL calcium 9.7 mg/dL 8.5-10 .1 Not Available [facility] (Lab) [address] [facility], [place], [address], 04/13/2024 18:15:22 04/13/2004/13/2024 BASIC METAB OLIC PANEL anion gap 5.9 mmol/ L 2-10 Not Available [facility] (Lab) [place], [address], 04/13/2024 18:15:22 04/13/2004/13/2024 BASIC METAB OLIC PANEL BUN creatinine ratio 12.3 6-26 Not Available [facility] (Lab) [place], [address], 04/13/2024 18:15:22 04/13/2004/13/2024 BASIC METAB OLIC PANEL est GFR 43 mL/mi n/1.7 3_M2 >90 low NOTE: eGFR is not calcu lated for patie nts <18 years of age or gende r unkno wn. This is an estim ated GFR calcu latio n using the new CKD EPI creat inine equat ion witho ut race and so does not requi re a corre ction facto r for race. This estim ated GFR shoul d not be used for calcu latin g drug doses . Not Available [facility] (Lab) [place], [address], 04/13/2024 18:15:22 04/13/2004/13/2024 LIVER PANEL total protein 7.1 g/dL 6.4-8. 2 Not Available [facility] (Lab) [place], [address], 04/13/2024 18:15:24 04/13/20 24 04/13/2024 LIVER PANEL albumin 4.0 g/dL 3.4-5. 0 Not Available [facility] (Lab) [address], [place], [address], 04/13/2024 18:15:24 04/13/2004/13/2024 LIVER PANEL total bilirubin 0.6 mg/dL 0.2-1. 2 THIS ASSAY IS NOT RECOM CLAUDIA D FOR PATIE NTS UNDER GOING TREAT MENT WITH ELTRO MBOPA G DUE TO THE POTEN TIAL FOR FALSE LY ELEVA PAUL RESUL TS. Not Available [facility] (Lab) [address], [place], [address], 04/13/2024 18:15:24 04/13/2004/13/2024 LIVER PANEL direct bilirubin 0.2 mg/dL 0.0-0. 20 Not Available [facility] (Lab) [place], [address], 04/13/2024 18:15:24 04/13/20 24 04/13/2024 LIVER PANEL indirect bilirubin 0.4 mg/dL 0.0-0. 9 Not Available [facility] (Lab) [address], [place], [address], 04/13/2024 18:15:24 04/13/20 24 04/13/2024 LIVER PANEL alk phosphatase 69 U/L 50-136 Not Available [facility] (Lab) [place], [address], 04/13/2024 18:15:24 04/13/20 24 04/13/2024 LIVER PANEL AST 15 U/L 15-37 Not Available [facility] (Lab) [place], [address], 04/13/2024 18:15:24 04/13/20 24 04/13/2024 LIVER PANEL ALT 14 U/L 14-55 Not Available [facility] (Lab) [address], [place], [address], 04/13/2024 18:15:24 04/13/2004/13/2024 LIVER PANEL A:g ratio 1.3 ratio 1.0-2. 0 Not Available [facility] (Lab) [address] [facility], [place], [address], 04/13/2024 18:15:24 04/27/2004/27/2024 BASIC METAB OLIC PANEL glucose 107 mg/dL 70-99 high Not Available [facility] (Lab) [address] [facility], [place], [address], 04/27/2024 12:42:19 04/27/2004/27/2024 BASIC METAB OLIC PANEL BUN 18 mg/dL 7-18 Not Available [facility] (Lab) [address] [facility], [place], [address], 04/27/2024 12:42:19 04/27/2004/27/2024 BASIC METAB OLIC PANEL creatinine 1.22 mg/dL 0.55-1 .02 high Not Available [facility] (Lab) [place], [address], 04/27/2024 12:42:19 04/27/2004/27/2024 BASIC METAB OLIC PANEL sodium 139 mmol/ L 136-14 5 Not Available [facility] (Lab) [place], [address], 04/27/2024 12:42:19 04/27/2004/27/2024 BASIC METAB OLIC PANEL potassium 4.4 mmol/ L 3.5-5. 1 Not Available [facility] (Lab) [place], [address], 04/27/2024 12:42:19 04/27/2004/27/2024 BASIC METAB OLIC PANEL chloride 105 mmol/ L 97-115 Not Available [facility] (Lab) [place], [address], 04/27/2024 12:42:19 04/27/2004/27/2024 BASIC METAB OLIC PANEL total CO2 28.0 mmol/ L 21-32 Not Available [facility] (Lab) [place], [address], 04/27/2024 12:42:19 04/27/2004/27/2024 BASIC METAB OLIC PANEL calcium 9.7 mg/dL 8.5-10 .1 Not Available [facility] (Lab) [place], [address], 04/27/2024 12:42:19 04/27/2004/27/2024 BASIC METAB OLIC PANEL anion gap 6.0 mmol/ L 2-10 Not Available [facility] (Lab) [address], [place], [address], 04/27/2024 12:42:19 04/27/2004/27/2024 BASIC METAB OLIC PANEL BUN creatinine ratio 14.8 6-26 Not Available [facility] (Lab) [place], [address], 04/27/2024 12:42:19 04/27/2004/27/2024 BASIC METAB OLIC PANEL est GFR 43 mL/mi n/1.7 3_M2 >90 low NOTE: eGFR is not calcu lated for patie nts <18 years of age or gende r unkno wn. This is an estim ated GFR calcu latio n using the new CKD EPI creat inine equat ion witho ut race and so does not requi re a corre ction facto r for race. This estim ated GFR shoul d not be used for calcu latin g drug doses . Not Available [facility] (Lab) One [facility] [place], [place], [address], 04/27/2024 12:42:19 11/11/[address] ABD+p el W con [facility] [address] EXAMIN ATION: CT ABDOME N/PELV IS WITH CONTRA ST INDICA TION: Unspec ified abdomi nal pain. COMPAR VENU: 020 TECHNI QUE: Comput ed tomogr aphy of the abdome n, and pelvis was perfor med after admini strati on of intrav enous contra st, 100 mL of Isovue -370, withou t immedi ate compli cation , accord ing to routin e protoc ol. Radiat ion dose reduct ion techni que(s) were used FINDIN GS: Lower Chest: Subseg mental atelec tasis in the left lower lobe. No cardio megaly or perica rdial effusi on. Small hiatal hernia . Upper abdomi nal organs : The liver and spleen are unrema rkable . There is hypoat tenuat ion of some of the tissue of the pancre atic head/u ncinat e proces s, favore d to be second александр to fatty infilt ration as this is largel y unchan ged from 2019 but nonspe cific. Cholel ithias is. The adrena l glands are unrema rkable . No hydron ephros is. There are bilate ral renal cysts which are indete rminat e based on [place] attenu ation but are largel y unchan ged in size compar ed to the prior examin ation and are likely benign . Vascul ar: The abdomi nal aorta is normal in calibe r with modera te athero sclero tic calcif icatio n. Lymph nodes: No retrop eriton eal, mesent janie, or inguin al lympha denopa thy. Gastro intest inal: No defini te bowel wall thicke iban. No bowel obstru ction. There is diffus e coloni c divert iculos is. There are no second александр signs of append icitis . Miscel laneou s: No free intrap eriton eal air or ascite s. Pelvis : Urinar y bladde r is incomp letely disten ded, but grossl y normal . No free pelvic fluid. The uterus is surgic ally absent . No adnexa l mass. MSK: Signif icant leftwa rd curvat ure of the lumbar spine with associ ated spondy losis. No eviden ce of acute osseou s abnorm ality or destru ctive bone lesion . IMPRES RAHUL: 1. Small hiatal hernia . 2. Diffus e coloni c divert iculos is. 3. Cholel ithias is. Referr ed By: IAN POOLE [facility] Signed By: Alireza aquino MD on 11/11/19 12:49 PM Interp reted By: Alireza aquino MD, 11/11/19 12:43 PM [facility] [address] [facility], [place], [address], 11/19/2023 18:52:13 11/11/19 24 11/11/2023 CT, abdom en + pelvi s, w/ contr ast No observ ation record ed. [facility] Scheduling [address] [facility], [place], [address], 11/19/2023 18:52:13 04/13/[address], abdom en + pelvi s, w/o contr ast [facility] [address] [facility] [address] [facility] [place] [id number] Examin ation: CT ABD+PE L WO CON Clinic al histor y: Abdomi nal pain Compar venu: 5/1/20 24 DATE/T PAOLA: 3:59 PM Techni que: Multip lanar CT images of the abdome n and pelvis were obtain ed withou t IV contra st. Oral contra st: None. A dose loweri ng techni que was used for this proced ure, which may includ e, but is not limite d to, dose reduct ion techni que, automa paul exposu re contro l, the use of iterat starr recons tructi on, and ALARA (As Low As Reason ably Achiev able) / Image Gently techni ques. Findin gs: Liver normal size and contou r. Cholel ithias is withou t eviden ce of cholec ystiti s. No bile duct dilata tion. Pancre as is poorly evalua paul withou t IV contra st. Spleen is normal size. No adrena l mass. No nephro lithia sis or hydron ephros is. Calcif ied pelvic phlebo liths. Abdomi nal aorta is normal calibe r with athero sclero tic calcif icatio n. Hyster ectomy . No pelvic mass. No free air or fluid. Coloni c divert iculos is withou t eviden ce of acute divert iculit is. No bowel obstru ction or bowel wall thicke iban. Tiny hiatal hernia . Append ix is not identi fied but no eviden ce for append icitis . No absces s. No acute osseou s abnorm ality. Lumbar spondy losis and scolio sis. IMPRES RAHUL: 1. No acute abnorm ality identi fied. 2. Coloni c divert iculos is withou t divert iculit is. 3. Other chroni c or nonurg ent findin gs as descri bed above. Referr ed By: IAN POOLE [facility] Signed By: Milo Salomon MD on 4:59 PM Interp reted By: Milo Salomon MD, 4:54 PM [email or web address] [facility] Scheduling [facility], [place], [address], 04/14/2024 16:42:45 Result Notes None recorded. Problems Name Problem SNOMED Code Status Onset Date Resolution Date Notes Provider Name and Address Organization Details Recorded Time Dyslipidemia 316173473 Active 2023 Ian Childs DO Attn: Vargas alvarenga,[address] [facility], [place], [address], [place] [facility] 4 18:40:58 History of malignant neoplasm of breast 504133479 Active 2023 Ian Childs DO Attn: Vargas alvarenga,[address] [facility], [place], [address], [place] [facility] 4 18:40:59 Urge incontinence of urine 01232955 Active 2023 Ian Childs DO Attn: Vargas alvarenga,[address] [facility], [place], [address], [place] [facility] 4 18:41:00 Gastroesophage al reflux disease without esophagitis 915330741 Active 2023 Ian Childs DO Attn: Accountkenia alvarenga,[address] [facility], [place], [address], [place] [facility] 4 18:41:02 Essential hypertension 49596272 Active 2023 Ian Childs DO Attn: Accountkenia alvarenga,[address] [facility], [place], [address], [place] [facility] 4 18:41:03 Osteoarthritis 692617451 Active 2023 Ian Childs DO Attn: Jorgekenia alvarenga,[address] [facility], [place], [address], [place] [facility] 4 18:41:06 Osteopenia 587812013 Active 2023 Ian Childs DO Attn: Vargas alvarenga,[address] [facility], [place], [address], [place] [facility] 4 18:41:07 Generalized anxiety disorder 47983082 Active 2023 Ian Childs DO Attn: Vargas alvarenga,[address] [facility], [place], [address], [place] [facility] 13:59:29 Acute blepharitis 13328889 Active 2023 Ian Childs DO Attn: Vargas alvarenga,[address] [facility], [place], [address], [place] [facility] 13:59:29 Abdominal pain 46423212 Active 2023 Ian Childs DO Attn: Vargas alvarenga,[address] [facility], [place], [address], [place] [facility] 14:35:02 Chronic low back pain 276927418 Active 2023 Ian Childs DO Attn: Vargas alvarenga,[address] [facility], [place], [address], [place] [facility] 14:35:03 Generalized abdominal pain 582984655 Active 2023 Ian Childs DO Attn: Vargas alvarenga,[address] [facility], [place], [address], [place] [facility] 12:04:51 Notes:Some problems listed i n Document: #[id number] could not be added to this patient's chart. Please review this document and add these problems to the patient's chart manually as needed. Problem Notes None recorded. Procedures Surgical History Date Name Laterality Status Provider Name and Address Organization Details Recorded Time Total hysterectomy completed Gladystammy [place] - [facility] 10/08/2023 13:31:06 Mastectomy completed Gladys Arment[place] - [facility] 09/11 13:31:14 Imaging Results Imaging Date Name Status [facility]Modified by [facility] Details LastModified Time 11/11/2023 CT ABD+pel W con completed [email or web address] [facility] [address] [facility], [place], [address], 11/19/2023 18:52:13 11/11/2023 CT, abdomen + pelvis, w/ contrast completed [email or web address] [facility] Scheduling [address] [facility], [place], [address], 11/19/2023 18:52:13 04/13/2024 CT, abdomen + pelvis, w/o contrast completed [facility] Scheduling [facility], [place], [address], 04/14/2024 16:42:45 Procedure Notes None recorded. Medical Equipment None Reported. Allergies Allergen ID Allergen Name Allergen Category Reaction Reaction Severity Criticality Documentation Date Start Date Code Code System Note Provider Name and Address Organization Details Recorded Time 440550 azithromy robert medicatio n headache Not available Not available 10/08/2023 91686 RxNorm Not Available Not Available Not Available 475932 codeine medicatio n hallucina tions nausea Not available Not available Not available 10/08/2023 2670 RxNorm Not Available Not Available Not Available 212848 cortisone medicatio n headache Not available Not available 10/08/2023 2878 RxNorm Not Available Not Available Not Available 997142 hydrocodo ne Not available nausea Not available Not available 10/08/2023 5489 RxNorm Not Available Not Available Not Available 740928 morphine medicatio n hives Not available Not available 10/08/2023 7052 RxNorm Not Available Not Available Not Available 515252 Substance with sulfonami de structure and antibacte rial mechanism of action (substanc e) medicatio n hives Not available Not available 10/08/2023 87291 8003 SNOMED Not Available Not Available Not Available 780743 gabapenti n medicatio n vomiting Not available Not available 10/08/2023 20065 RxNorm Not Available Not Available Not Available 395118 methadone medicatio n Not available Not available Not available 10/08/2023 6813 RxNorm Not Available Not Available Not Available Medications Name Sig Start Date Stop Date Status Note LastModified by Organization Details LastModified Time amoxicillin 500 mg capsule Take 1 capsule every 8 hours by oral route for 10 days. 04/13 completed Not Available Not Available Not Available latanoprost 0.005 % eye drops INSTILL 1 DROP IN AFFECTED EYE(S) ONCE DAILY IN THE EVENING active Not Available Not Available No t Available loperamide 2 mg capsule active Not Available Not Available Not Available cetirizine 10 mg tablet TAKE 1 TABLET BY MOUTH DAILY NEEDED FOR ITCHING 01/24 completed Not Available Not Available Not Available ofloxacin 0.3 % eye drops INSTILL 1 DROP IN LEFT EYE FOUR TIMES DAILY 11/03 completed Not Available Not Available Not Available sucralfate 1 gram tablet 01/24 completed Not Available Not Available Not Available omeprazole 40 mg capsule,del ayed release active Not Available Not Available Not Available tramadol 50 mg tablet TAKE 1 TABLET BY MOUTH EVERY 6 HOURS NEEDED FOR PAIN active Not Available Not Available No t Available alprazolam 0.25 mg tablet Take 1 tablet twice a day by oral route as needed. active Not Available Not Available No t Available famotidine 20 mg tablet active Not Available Not Available Not Available Imodium A-D 2 mg tablet 1 tab after loose stool not to exceed 8mg in 24hrs 2023 active Not Available Not Available Not Avai lable ciprofloxac in 0.3 % eye drops INSTILL 1 DROP INTO AFFECTED EYE(S) BY OPHTHALMI C ROUTE EVERY 2 HOURS WHILE AWAKE FOR 2 DAYS THEN 1 DROP EVERY 4 HRS WHILE AWAKE FOR 5 DAYS 01/24 completed Not Available Not Available Not Available amitriptyli ne 10 mg tablet TAKE 1 TABLET BY MOUTH EVERY DAY AT BEDTIME active Not Available Not Available No t Available Cipro 500 mg tablet Take 1 tablet twice a day by oral route for 10 days. 11/10 completed Not Available Not Available Not Available docusate sodium 100 mg capsule active Not Available Not Available N ot Available buspirone 7.5 mg tablet Take 1 tablet twice a day by oral route for 90 days. active Not Available Not Available No t Available polyethylen e glycol 3350 17 gram/dose oral powder Take 17 g every day by oral route as needed. active Not Available Not Available No t Available ipratropium bromide 42 mcg (0.06 %) nasal spray USE 2 SPRAYS IN EACH NOSTRIL THREE TIMES DAILY active Not Available Not Available No t Available hydrocortis one 2.5 % topical ointment APPLY TO AFFECTED AREAS OF EYELIDS TWICE DAILY FOR UP TO 10 DAYS 01/24 completed Not Available Not Available Not Available cefdinir 300 mg capsule 10/07 completed Not Available Not Available Not Available doxycycline hyclate 100 mg tablet TAKE 1 TABLET BY MOUTH TWICE DAILY FOR 7 DAYS 11/03 completed Not Available Not Available Not Available amoxicillin 875 mg-potassiu m clavulanate 125 mg tablet 10/07 completed Not Available Not Available Not Available amoxicillin 500 mg-potassiu m clavulanate 125 mg tablet TAKE 1 TABLET BY MOUTH EVERY 12 HOURS FOR 1 WEEK 10/07 completed Not Available Not Available Not Available neomycin 3.5 mg/g-polymy shamir B 10,000 unit/g-dexa meth 0.1 % eye oint APPLY A SMALL AMOUNT TO AFFECTED EYE LID TWICE DAILY UNTIL RESOLVED 01/24 completed Not Available Not Available Not Available levocetiriz ine 5 mg tablet 01/24 completed Not Available Not Available Not Available Myrbetriq 50 mg tablet,exte nded release TAKE 1 TABLET BY MOUTH EVERY DAY active Not Available Not Available No t Available Gemtesa 75 mg tablet TAKE 1 TABLET BY MOUTH DAILY active Not Available Not Available No t Available BinaxNOW COVID-19 Ag Self Test kit TEST DIRECTED TODAY 10/07 completed Not Available Not Available Not Available Paxlovid 300 mg (150 mg x 2)-100 mg tablets in a dose pack take as directed active Not Available Not Available No t Available Vitals Date Recorded Body height Body mass index (BMI) Body weight Oxygen saturation Oxygen saturation in Arterial blood by Pulse oximetry Heart rate Respiratory rate Provider Name and Address Organization Details Last Updated DateTime 160.02 cm 21.3 kg/m2 42437.0 8 g 94 % 94 % 86 /min 16 /min Shabnam Reynoso [place] [facility] 14:13:00 Date Recorded Body height Body mass index (BMI) Body weight Body temperature Provider Name and Address Organization Details Last Updated DateTime 11/11/2023 160.02 cm 21.1 kg/m2 48962.54 g 97.7 [degF] Olga Tapia [place] [facility] 11/11/2023 10:32:34 Date Recorded Body height Body mass index (BMI) Body weight Oxygen saturation Oxygen saturation in Arterial blood by Pulse oximetry Heart rate Provider Name and Address Organization Details Last Updated DateTime 4 160.02 cm 21.1 kg/m2 60527.8 4 g 96 % 96 % 75 /min Mariann Mejia MA [facility] 4 14:22:27 Date Recorded Systolic blood pressure Diastolic blood pressure Provider Name and Address Organization Details Last Updated DateTime 12/09/2023 114 mm[Hg] 84 mm[Hg] Ian Childs DO Attn: Accounting,[address] [place], [address], [facility] 12/09/2023 14:54:05 Date Recorded Body height Body mass index (BMI) Body weight Oxygen saturation Oxygen saturation in Arterial blood by Pulse oximetry Heart rate Respiratory rate Provider Name and Address Organization Details Last Updated DateTime 4 160.02 cm 21.5 kg/m2 44521.3 8 g 95 % 95 % 75 /min 27 /min Mariann Mejia MA [facility] 4 10:55:06 Date Recorded Systolic blood pressure Diastolic blood pressure Provider Name and Address Organization Details Last Updated DateTime 01/25/2024 126 mm[Hg] 76 mm[Hg] Ian Childs DO Attn: Accounting,[address] [place], [address], [facility] 01/25/2024 11:24:31 Date Recorded Body height Body mass index (BMI) Body weight Provider Name and Address Organization Details Last Updated DateTime 04/13/2024 160.02 cm 20.8 kg/m2 45532.06 g Olga Tapia MA [facility] 04/13/2024 11:25:00 Date Recorded Systolic blood pressure Diastolic blood pressure Provider Name and Address Organization Details Last Updated DateTime 04/13/2024 132 mm[Hg] 82 mm[Hg] Ian Childs DO Attn: Accounting,[address] [place], [address], [facility] 04/13/2024 12:01:05 Social History Question Answer Notes LastModified by Organizat ion Details LastModified Time Tobacco Smoking Status Never Smoker Olga Tapia [place] null, [place] [facility] 11/11/2023 10:37:14 What Is Your Level Of Alcohol Consumption? None Information not available 11/11/2023 What Is Your Level Of Caffeine Consumption? Occasional Information not available 11/11/2023 What Was The Date Of Your Most Recent Tobacco Screening? 11/11/2023 Information not available 11/11/2023 Do You Use Any Illicit Or Recreational Drugs? No Information not available 11/11/2023 Has Tobacco Cessation Counseling Been Provided? No Information not available 11/11/2023 Do You Or Have You Ever Used Any Other Forms Of Tobacco Or Nicotine? No Information not available 11/11/2023 Sex: Unknown Functional Status None recorded. Mental Status None recorded. Family History Relationship Description Onset Age of this Age Resolved Age Notes LastModified by Organization Details LastModified Time Father Heart disease [email or web address] Not available 2023 13:31:27 Brother Heart disease [email or web address] Not available 2023 13:31:27 Mother Migraine [email or web address] Not availabl e 10/08/2023 13:31:33 Medical History Condition Response Coronary Artery Disease N Other N Atrial Fibrillation N High Blood Pressure N Thyroid Problems N Kidney or Bladder Problems Y GI Problems N Depression N COPD N Blood Clots N Eating Disorder N Skin Problems N Anemia N Heart Attack (IA) N Diabetes N Anxiety Disorder Y Muscle, Joint, or Bone Problems Y Seizures/Epilepsy N Arthritis N Acid Reflux (GERD) Y Cancer Y Stroke N Asthma N Allergies Y ADHD N Substance Abuse N High Cholesterol N Hepatitis N Liver Disease N Schizophrenia N Headaches N Osteoporosis N Heart Failure N Gynecological HistoryNo gynecological history recorded. 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 myrbetriq 50 mg Gastroesop hageal reflux disease without esophagitis 674388752 K21.9 carafate 1 gmpepcid 20 mgchronic stable Essential hypertension 96377115 I10 chronicsta ble Osteoarthritis 288718103 M19.90 chronicno new meds Osteopenia 890901713 M85 .80 chronicotc meds Generalize d anxiety disorder 45184146 F41.1 start buspar 7.5 mg bidnew issue Acute blepharitis 426589 04 H01.009 left lower lidadd ciloxan .3 %gtts 1 gtt left eye q 6 hr for 2 dayssee opthowarm compress [id number] Ian Childs, DO [facility] [place] [address] [place] [address] 11/04/2023 13:34:51 11/04/2023 14:55:04 Essential hypertension 81696301 I10 chronicsta bleAt goal Generalize d anxiety disorder 56695222 F41.1 started buspar 7.5 mg biddid not toleratedi d not agree with heradd xanax .25 mg bid Urge incon tinence of urine 63889280 N39.41 myrbetriq 50 mgChronic conditionC ontinues with symptoms Dyslipidemia 484117808 E 78.5 chronic issueat [facility] diet Chronic low back pain 27 8501965 M54.50 will increase tramadol to qid Abdominal pain 08117481 R10.9 llq? diverticul itisadd cipro 500 mg bid 10 daysfollow up 1 weekupdate 48 hrs [id number] Ian Childs, DO [facility] [place] [address] [place] [address] 11/11/2023 10:06:13 11/11/2023 11:25:27 Abdominal pain 06443638 R10.9 diffuse abdominal paindid not take ciprostat ct abdomen and pelvisstat cbcchem 7lftamylas e Chronic low back pain 27 0271834 M54.50 will increase tramadol to qid Chronic condition Essential hypertension 83533472 I10 chronicsta bleAt goal Gastroesop hageal reflux disease without esophagitis 452420217 K21.9 carafate 1 gmpepcid 20 mgchronic conditionA t goal Acute blepharitis 467756 04 H01.009 left lower lidadd ciloxan .3 %gtts 1 gtt left eye q 6 hr for 2 dayssee opthowarm compress [id number] Ian Childs, DO [facility] [place] [address] [place] [address] 12/09/2023 13:47:31 12/09/2023 15:06:29 Abdominal pain 31676326 R10.9 diffuse abdominal paindid not take ciprostat ct abdomen and pelvis showed no acute issuesstat cbcchem 7lftamylas eshowed no significan t abnormalit ystart elavil 10 mg at hs Dyslipidemia 533565255 E 78.5 chronic issueat [facility] diet Essential hypertension 89566745 I10 chronic conditions tableAt goal Generalize d anxiety disorder 32005088 F41.1 started buspar 7.5 mg biddid not toleratedi d not agree with heradded xanax .25 mg bidadd elavil 10 mg at hs [id number] Ian Childs, DO [facility] [place] [address] [place] [address] 01/25/2024 10:23:04 01/25/2024 11:41:49 Abdominal pain 06898301 R10.9 diffuse abdominal pain stat ct abdomen and pelvis showed no acute issuesstat cbcchem 7lftamylas eshowed no significan t abnormalit ystarted elavil 10 mg at hs this is a follow-up this is a follow-up Chronic low back pain 27 0892277 M54.50 tramadol to qid as needed p.r.n. Chronic condition Dyslipidemia 701264503 E 78.5 chronic issueat [facility] diet Essential hypertension 93240017 I10 chronic conditions tableAt goal Gastroesop hageal reflux disease without esophagitis 180226848 K21.9 carafate 1 gmpepcid 20 mgchronic conditionA t goal Generalize d anxiety disorder 98853798 F41.1 started buspar 7.5 mg biddid not toleratedi d not agree with heradded xanax .25 mg bidadded elavil 10 mg at hs Overactive urinary bladder 743418477 N32.81 [id number] Ian Childs, DO [facility] [place] [facility] [address] [facility] [address] [place] [address] 04/13/2024 10:57:38 04/13/2024 12:16:32 Chronic low back pain 205107409 M54.50 tramadol to qid as needed p.r.n. Chronic condition Dyslipidemia 861463788 E 78.5 chronic issueat [facility] diet Essential hypertension 57428421 I10 chronic conditions tableAt goal Generalize d anxiety disorder 75841666 F41.1 started buspar 7.5 mg biddid not toleratedi d not agree with heradded xanax .25 mg bidadded elavil 10 mg at hs Generalize d abdominal pain 042950751 R10.84 pain in epigastric BLQstat CTstat lab Health Concerns Section Related Observation LastModified by Organization Detai ls LastModified Time None Recorded Concern Status LastModified by Organization Details LastModified Time None Recorded Advance Directives Directive None Recorded Payers Encounter Date Sequence Insurance Name Policy Number Policy Kirk Covered Member ID Kirk Member ID Guarantor Name 11/04/2023 1 MEDICARE-ID (MEDICARE) Laila Saldañaady [id number] Laila Yudy 11/04/2023 1 [facility] (MEDICARE REPLACEMENT/A DVANTAGE - PPO) [id number] Laila Lainez Yudy [id number] Laila Yudy 11/11/2023 1 [facility] (MEDICARE REPLACEMENT/A DVANTAGE - PPO) [id number] Laila Fatou Yudy [id number] Laila Yudy 12/09/2023 1 [facility] (MEDICARE REPLACEMENT/A DVANTAGE - PPO) [id number] Laila Lainez Yudy [id number] Laila Yudy 01/25/2024 1 [facility] (MEDICARE REPLACEMENT/A DVANTAGE - PPO) [id number] Laila Fatou Yudy [id number] Laila Yudy 04/13/2024 1 [facility] (MEDICARE REPLACEMENT/A DVANTAGE - PPO) [id number] Laila Jimenes [id number] Laila Jimenes Notes Date Note Type Note Provider Name and Address Organization Details Recorded Time 11/04/2023 text/html Routine follow-u phas questions about her medsdid not tolerate her recent anxiety med Ian Childs DO Attn: [employer],[address] [place], [place], [address] [place] [address], [facility] 11/04/2023 19:19:23 11/11/2023 text/html Routine follow-upMultiple medical issues Ian Childs DO Attn: Accounting,[address] [facility], [place], [place], [address] [place] [address], [facility] 11/11/2023 18:44:45 12/09/2023 text/html routine follow-up Ian Childs DO Attn: Accounting,[address] [place], [place], [address] [place] [address], [facility] 12/09/2023 18:33:06 01/25/2024 text/html follow uphaving a lot of pain in bladderurinating frequentlyhas seen specialisthas not been back to see the urologist for the past 6 monthshad been given gemtesa with improvement of symptoms but could not afford the medicationot taking any med at the present time Ian Childs DO Attn: Accounting,[address] [place], [place], [address] [place] [address], [facility] 01/25/2024 13:08:43 04/13/2024 text/html follow upchronic issuesback painchronic bladder issuesLLQ hurtingfeels abx caused her an issuewas given amoxicillin 500 mg tid for a sinus infection feels like bladder discomforthad frequent urination no fever chills or sweats Ian Childs DO Attn: Accounting,[address] [place], [place], [address] [place] [address], [facility] 04/13/2024 19:19:33 OBGyn Episode No OBEpisode recorded.
[2024-08-22 19:41] VITALS: BP 132/51; PULSE 89; RESP 20; TEMP 37.4; O2SAT 99
[2024-08-22 23:42] VITALS: BP 142/63; PULSE 74; RESP 18; O2SAT 98
--- OUTSIDE RECORDS SUMMARY | 2024-08-23 05:46 | XMS_ITS | Clinical Summary ---
Author Organization [facility] Address [address] [place] [address] Care Team Providers Care Parts Driver Name Role Phone Deion Britt DO Primary Care Provider [phone] Allergies Active Allergy Reactions Criticality Noted Date [...] 06/16/2018 Irritable bowel syndrome 06/16/2018 Patient is Restoration 06/16/2018 Rectocele 06/16/2018 Tinnitus 06/16/2018 HER2-positive carcinoma of right breast 06/16/20 18 Multiple allergies 05/14/2018 Decreased GFR 05/14/2018 Refusal of blood transfusion s as patient is Restoration 05/14/2018 Skin lesion of chest wall 05/14/2018 [...] on file Legal Sex Female 8:39 PM CORPORATE LEGAL INTERN Gender Identity Not on file Sexual Orientation Not on file 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 Not on file Not on file Not on file Last Filed Vital Signs Vital Sign Reading Time Taken Comments Blood Pressure 140/82 05/07/2021 2:36 PM CDT Pulse 59 07/05/2018 7:55 AM CORPORATE LEGAL INTERN Temperature 36.4 C (97.6 F) 05/07/2021 2:36 PM CDT Respiratory Rate 14 07/05/2018 7:55 AM CORPORATE LEGAL INTERN Oxygen Saturation 98% 07/05/2018 7:55 AM CORPORATE LEGAL INTERN Inhaled Oxygen Concentration - - Weight 54.4 [...] , 07/13/2008 Medical Devices Explanted Type Area Elementary Principal Device Identifier Shelf Expiration Date Model / Serial / Lot Left Portacath Removal Explanted:Qty: 1 on 07/05/2018 by Luly Wei MD at [facility] Left: Chest Description:disposed of per Dr request [...] refer to the full report available in [facility] under the PACS Images tab. If a faxed copy is needed, please call [phone]. DICTATION LOCATION: Location [facility] Procedure Note Chris Rolle MD - 04/07/2019 SUMMARY DEXA REPORT DATE: 04/07/2019 1:35 PM INDICATION: Postmenopausal, arthritis. FINDINGS: Bone mineral density is consistent with osteopenia. The lowest T score is -2.1. Please refer to the full report available in [facility] under the PACS Images tab. If a faxed copy is needed, please call [phone]. DICTATION LOCATION: Location [address] [place] [address] Abeba Vinson MD DIAGNOSTIC IMAGING OR DERABLES Final Result from Last 3 Months or Most Recently Relevant to Health Maintenance Insurance [facility] Address: [place] [address] Advance Directives For more information, please contact: [phone] Documents on File Type Date Recorded Patient Clinical Liaison Expl anation Advance Directive POA 06/30/2018 11:34 AM RECIEVED 06/30/18 *NO BLOOD* * Full Code (Latest Code Status on File) Date Activated Date Inactivated Comments 07/05/2018 7:22 AM 07/05/2018 10:22 AM Care Teams Parts Driver Relationship Specialty Start Date End Date Deion Britt DO PCP - General Family Practice 12/27/19
--- OUTSIDE RECORDS SUMMARY | 2024-08-23 05:46 | XMS_ITS | Clinical Summary ---
Author Organization [facility] Address [address] [place] [address] Care Team Providers Care Waterworks Operator Name Role Phone Deion Britt DO Primary Care Provider [phone] Allergies Active Allergy Reactions Criticality Noted Date Comments Azithromycin Headache Medium 06/30/2018 Face bright red Codeine Other (see comment),Hallucinations ,GI Upset High 12/10/2011 can't respond Migraine/ ALSO CODEINE Intolerant Corticosteroids Headache,Other (see comment) Medium 04/24/2017 Tornado like HEAD WOULD EXPLODE , Jittery Tornado like HEAD WOULD EXPLODE , Jittery Hydrocodone [...] Hyperlipidemia 06/16/2018 HER2-positive carcinoma of right breast ([facility]) 06/16/2018 Diverticula of colon 06/16/2018 Cystitis, interstitial 06/16/2018 Cervicalgia 06/16/2018 Tinnitus 06/16/2018 Multiple allergies 05/14/2018 Refusal of blood transfusion s as patient is Scientologist 05/14/2018 Skin lesion of chest wall 05/14/2018 Anxiety state 05/14/2018 Malignant neoplasm of upper- inner quadrant of right breast in female, estrogen receptor negative ([facility]) 05/14/2018 Overview (10/11/2018): Overview: Her-2-lavon + Skin cancer 02/17/2018 Dry eye 02/16/2018 Visual disturbance 02/16/2018 Nausea and vomiting 09/16/2017 Constipation 06/02/2017 Malignant neoplasm of upper- inner quadrant of right female breast ([facility]) 05/29/2017 S/P mastectomy 05/29/2017 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 Malignant neoplasm of breast ([facility]) 0 04/05/2017 Abnormal mammogram 04/03/2017 Depression 03/17/2017 Acid reflux 02/13/2016 Anxiety 02/13/2016 Arthritis 02/13/2016 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 Curvature of spine 02/13/2016 Degeneration of intervertebral disc 02/13/2016 Fibromyalgia 02/13/2016 Sciatica 02/13/2016 Notalgia 01/23/2015 Myalgia 12/10/2011 Rectocele 12/10/2011 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, acquired Urinary incontinence Resolved Problems Problem Noted Date Diagnosed Date Resolved Date Patient is Scientologist 06/16/2018 03/23/2020 Immunizations Name Administration Dates Next Due Influenza (Generic) 04/12/2013 MODERNA COVID-19 (12+) MRNA, LNP-S, PF, 100 MCG/ 0.5 ML DOSE 09/14/2020 Pneumococcal (Pneumovax 23) 07/13/2008 Tdap (Boostrix) 06/13/2013 Zoster (Zostavax) 03865 Unt/0.65Ml 07/13/2008 Family History Medical History Relation [...] patient's age to complete this topic Insurance [facility] Advance Directives Documents on File Type Date Recorded Patient Emergency Medical Service Coordinator Expl anation Power of Certifed Refrigeration Operator 02/21/2019 POA Care Teams Waterworks Operator Relationship Specialty Start Date End Date Deion Britt DO PCP - General FAMILY PRACTICE 09/10/19
--- OUTSIDE RECORDS SUMMARY | 2024-08-23 05:46 | XMS_ITS ---
Author Organization [facility] Address [address] [place] [address] Care Team Providers Care Quarry Equipment Operator Name Role Phone Deion Childs DO Primary [...] antibody Assessment & Plan (07/28/2022 11:54 AM CHIEF CONCIERGE): Add doxycycline Add singulair Assessment & Plan [...] tests. Assessment & Plan (06/19/2022 2:39 PM CHIEF CONCIERGE): Acute on chronic Worsening Chronic condition Not [...] 05/09/2021 Assessment & Plan (08/26/2021 12:10 PM CHIEF CONCIERGE): Patient is well controlled. Continue current treatment. Urinary incontinence 05/09/2021 Assessment & Plan (08/26/2021 12:07 PM CHIEF CONCIERGE): Chronic No new orders Full code status 06/14/2020 Assessment & Plan (08/26/2021 12:05 PM CHIEF CONCIERGE): No changes to status Assessment & Plan (06/14/2020 12:20 PM CHIEF CONCIERGE): Discussed with patient approximately 20minutes End of life issues/Advanced Directives/Healthcare Surrogate. Discussed DNR. Encouraged to discuss further with family and consult litigation attorney or complete [place] approved form, which I would be glad to assist them with completion. All questions answered. polst form filled out and signed Chronic back pain 03/06/2020 Assessment & Plan (08/26/2021 12:05 PM CHIEF CONCIERGE): Patient is well controlled. Continue current treatment. Assessment & Plan (07/25/2021 3:26 PM CHIEF CONCIERGE): I will look into something she can take for pain Assessment & Plan (11/23/2020 11:15 AM CDT): Refer to AP[facility] Assessment & Plan (06/19/2020 11:37 AM CHIEF CONCIERGE): Chronic severe back pain Significant OA Check a MRI LS spine Assessment & Plan (03/06/2020 1:21 PM CDT): No new orders Osteopenia 03/13/2019 Overview (05/09/2021): T=-2.1 Assessment & Plan (08/26/2021 12:09 PM CHIEF CONCIERGE): Patient is well controlled. Continue current treatment. Personal history of malignant neoplasm of breast 11/04/2018 Assessment & Plan (08/26/2021 12:09 PM CHIEF CONCIERGE): Patient is well controlled. Continue current treatment. Cystitis, interstitial 06/16/2018 Assessment & Plan (08/26/2021 12:06 PM CHIEF CONCIERGE): amoxicillin 500 mg tid 10 days Diverticula of colon 06/16/2018 Assessment & Plan (08/26/2021 12:10 PM CHIEF CONCIERGE): Patient is well controlled. Continue current treatment. Essential hypertension 06/16/2018 Assessment & Plan (04/15/2023 2:36 PM CDT): Patient is well controlled. Continue current treatment. Assessment & Plan (07/28/2022 11:55 AM CHIEF CONCIERGE): Patient is well controlled. Continue current treatment. Assessment & Plan (08/26/2021 12:10 PM CHIEF CONCIERGE): Patient is well controlled. Continue current treatment. Assessment & Plan (05/16/2021 9:22 AM CDT): Add amlodipine 2.5 mg daily HER2-positive carcinoma of right breast 06/16/20 18 Hyperlipidemia 06/16/2018 Assessment & Plan (08/26/2021 12:11 PM CHIEF CONCIERGE): Patient is well controlled. Continue current treatment. Tinnitus 06/16/2018 Assessment & Plan (08/26/2021 12:07 PM CHIEF CONCIERGE): Patient is well controlled. Continue current treatment. Multiple allergies 05/14/2018 Assessment & Plan (08/26/2021 12:09 PM CHIEF CONCIERGE): Patient is well controlled. Continue current treatment. No new orders Refusal of blood transfusion s as patient is Moravian 05/14/2018 S/P mastectomy 05/29/2017 Assessment & Plan (08/26/2021 12:08 PM CHIEF CONCIERGE): No new orders Patient is well controlled. Continue current treatment. Arthritis 02/13/2016 Assessment & Plan (08/26/2021 12:05 PM CHIEF CONCIERGE): Patient is well controlled. Continue current treatment. Multiple joints Gastroesophageal reflux disease without esophagi tis 02/13/2016 Assessment & Plan (11/11/2022 11:08 AM CDT): Add carafate Chronic condition Not at goal Assessment & Plan (11/07/2022 12:08 PM CDT): Worse since starting omnicef Change to amoxicillin Add pepcid 20 mg bid Assessment & Plan (08/26/2021 12:10 PM CHIEF CONCIERGE): Patient is well controlled. Continue current treatment. Rectocele 12/10/2011 Assessment & Plan (08/26/2021 12:11 PM CHIEF CONCIERGE): Patient is well controlled. Continue current treatment. Current Oncology Plans No current plan information found. Past Plans No past plan information found. Radiation Treatments * No radiation treatments are documented for this patient in [facility]. Treatments may have been administered in another [...] 11/11/2022 Assessment & Plan (08/04/2022 10:54 AM CHIEF CONCIERGE): CT unremarkable. She continues with pain in [...] 11/11/2022 Assessment & Plan (07/28/2022 11:55 AM CHIEF CONCIERGE): Repeat ct reviewed Consistent with cysts Assessment & Plan (06/19/2022 2:37 PM CHIEF CONCIERGE): Reorder pre/post contrast ct abdomen Assessment & [...] 06/19/2022 Assessment & Plan (08/26/2021 12:07 PM CHIEF CONCIERGE): Patient is well controlled. Continue current treatment. Acute non-recurrent maxillary sinusitis 07/25/2021 08/26/2021 Assessment & Plan (07/25/2021 3:25 PM CHIEF CONCIERGE): Doxycycline 100 mg bid 1 week COVID test Head ache 05/16/2021 08/26/2021 Assessment & Plan (05/16/2021 9:23 AM CDT): Sed rate Cbc Add mucinex 600 mg bid Finish augmentin Hip pain 05/16/2021 08/26/2021 Assessment & Plan (05/16/2021 9:25 AM CDT): X ray left hip Abdominal pain 01/04/2020 06/30/2022 Assessment & Plan (08/26/2021 12:04 PM CHIEF CONCIERGE): Believe due to urinary infection Will place [...] week Assessment & Plan (06/19/2020 11:36 AM CHIEF CONCIERGE): Add cipro 500 mg bid 1 week See urology See G.I. Check a urine c and s Assessment & Plan (06/14/2020 12:28 PM CHIEF CONCIERGE): New onset RLQ tender No G or [...] 08/26/19 22 Scoliosis 10/11/2018 08/26/2021 Patient is Moravian 06/16/2018 08/26/2021 Decreased GFR 05/14/2018 08/26/2021 Skin [...] 08/26/2021 Assessment & Plan (08/26/2021 12:05 PM CHIEF CONCIERGE): di Malignant neoplasm of breast 04/05/2017 08/26/2021 [...] 08/26/2021 Assessment & Plan (06/19/2020 11:36 AM CHIEF CONCIERGE): Patient is well controlled. Continue current treatment. [...]
--- OUTSIDE RECORDS SUMMARY | 2024-08-23 05:46 | XMS_ITS | Encounter Summary ---
Author Organization [facility] Address [facility] [place] [address] Care Team Providers Care Denture Waxer Name Role Phone Lenin Jeong MD Primary Care Provider [phone] Shayy Valentin MD Primary Care Provider [phone] Deion Britt DO Primary Care Provider [phone] Encounter Details Date Type Department Care Team (Late st Contact Info) Description 10/12/2018 Abstract [facility] CONVERSION [address] [place] [address] , Luisito Kang MD Social [...] on filedocumented in this encounter Care Teams Denture Waxer Relationship Specialty [place] [address] [place] [address] PCP - General FAMILY PRACTICE 05/29/18 02/20/19 Shayy Valentin MD [address] [place] [address] PCP - General FAMILY PRACTICE 02/21/19 09/09/19 Deion Britt DO [address] [place] [address] PCP - General FAMILY PRACTICE 09/10/19 documented as of this encounter
--- OUTSIDE RECORDS SUMMARY | 2024-08-23 05:46 | XMS_ITS | Clinical Summary ---
Author Organization [facility] Care Team Providers Care Project Officer Name Role Phone Unavailable Primary Care Provider Unavailabl e Social History Tobacco Use Types Packs/Day Years Used Date Smoking Tobacco: Never Assessed Comments Unknown Sex and Gender Information Value Date Recorded Sex Assigned at Not on file Legal Sex Female 8:02 AM SENIOR WATER RESOURCES ENGINEER Gender Identity Not on file Sexual Orientation Not on file Plan of Treatment Health Maintenance Due Date Last Done Comments DEXA Bone Density 1940 Hepatitis C Virus (HCV) Screening 1940 Zoster Immunization (2 of 3) 09/07/2008 07/13/2008 Respiratory Syncytial Virus (RSV) Immunization (Adult) (1 - 1-dose 75+ series) 2014 Influenza Immunization (#1) 2024 03/06/2020 SARS-COV-2 Immunization ( season) 2024 09/14/2020, 08/14/2020 DTaP/Tdap/Td Immunization Discontinued 06/13/2013 TdaP Immunization Completed 06/13/2013 Pneumococcal Immunization (50+ years) Completed 03/06/2020, 07/13/2008 Hepatitis B Immunization Aged Out No longer eligible based on patient's age to complete this topic Meningococcal Immunization (ACWY) Aged Out No longer eligible based on patient's age to complete this topic Rotavirus Immunization Aged Out No lo nger eligible based on patient's age to complete this topic
--- OUTSIDE RECORDS SUMMARY | 2024-08-23 05:46 | XMS_ITS | Clinical Summary ---
Author Organization [facility] at the [facility] Address [address] [place] [address] Care Team Providers Care Underwear Trimmer Name Role Phone Deion Childs DO Primary [...] antibody Assessment & Plan (07/28/2022 11:54 AM SUPERINTENDENT OIL FIELD DRILLING): Add doxycycline Add singulair Assessment & Plan [...] tests. Assessment & Plan (06/19/2022 2:39 PM SUPERINTENDENT OIL FIELD DRILLING): Acute on chronic Worsening Chronic condition Not [...] 05/09/2021 Assessment & Plan (08/26/2021 12:10 PM SUPERINTENDENT OIL FIELD DRILLING): Patient is well controlled. Continue current treatment. Urinary incontinence 05/09/2021 Assessment & Plan (08/26/2021 12:07 PM SUPERINTENDENT OIL FIELD DRILLING): Chronic No new orders Full code status 06/14/2020 Assessment & Plan (08/26/2021 12:05 PM SUPERINTENDENT OIL FIELD DRILLING): No changes to status Assessment & Plan (06/14/2020 12:20 PM SUPERINTENDENT OIL FIELD DRILLING): Discussed with patient approximately 20minutes End of life issues/Advanced Directives/Healthcare Surrogate. Discussed DNR. Encouraged to discuss further with family and consult assistant prosecuting attorney or complete [place] approved form, which I would be glad to assist them with completion. All questions answered. polst form filled out and signed Chronic back pain 03/06/2020 Assessment & Plan (08/26/2021 12:05 PM SUPERINTENDENT OIL FIELD DRILLING): Patient is well controlled. Continue current treatment. Assessment & Plan (07/25/2021 3:26 PM SUPERINTENDENT OIL FIELD DRILLING): I will look into something she can take for pain Assessment & Plan (11/23/2020 11:15 AM CDT): Refer to APG Assessment & Plan (06/19/2020 11:37 AM SUPERINTENDENT OIL FIELD DRILLING): Chronic severe back pain Significant OA Check a MRI LS spine Assessment & Plan (03/06/2020 1:21 PM CDT): No new orders Osteopenia 03/13/2019 Overview (05/09/2021): T=-2.1 Assessment & Plan (08/26/2021 12:09 PM SUPERINTENDENT OIL FIELD DRILLING): Patient is well controlled. Continue current treatment. Personal history of malignant neoplasm of breast 11/04/2018 Assessment & Plan (08/26/2021 12:09 PM SUPERINTENDENT OIL FIELD DRILLING): Patient is well controlled. Continue current treatment. Cystitis, interstitial 06/16/2018 Assessment & Plan (08/26/2021 12:06 PM SUPERINTENDENT OIL FIELD DRILLING): amoxicillin 500 mg tid 10 days Diverticula of colon 06/16/2018 Assessment & Plan (08/26/2021 12:10 PM SUPERINTENDENT OIL FIELD DRILLING): Patient is well controlled. Continue current treatment. Essential hypertension 06/16/2018 Assessment & Plan (04/15/2023 2:36 PM CDT): Patient is well controlled. Continue current treatment. Assessment & Plan (07/28/2022 11:55 AM SUPERINTENDENT OIL FIELD DRILLING): Patient is well controlled. Continue current treatment. Assessment & Plan (08/26/2021 12:10 PM SUPERINTENDENT OIL FIELD DRILLING): Patient is well controlled. Continue current treatment. Assessment & Plan (05/16/2021 9:22 AM CDT): Add amlodipine 2.5 mg daily HER2-positive carcinoma of right breast 06/16/20 18 Hyperlipidemia 06/16/2018 Assessment & Plan (08/26/2021 12:11 PM SUPERINTENDENT OIL FIELD DRILLING): Patient is well controlled. Continue current treatment. Tinnitus 06/16/2018 Assessment & Plan (08/26/2021 12:07 PM SUPERINTENDENT OIL FIELD DRILLING): Patient is well controlled. Continue current treatment. Multiple allergies 05/14/2018 Assessment & Plan (08/26/2021 12:09 PM SUPERINTENDENT OIL FIELD DRILLING): Patient is well controlled. Continue current treatment. No new orders Refusal of blood transfusion s as patient is Voodoo 05/14/2018 S/P mastectomy 05/29/2017 Assessment & Plan (08/26/2021 12:08 PM SUPERINTENDENT OIL FIELD DRILLING): No new orders Patient is well controlled. Continue current treatment. Arthritis 02/13/2016 Assessment & Plan (08/26/2021 12:05 PM SUPERINTENDENT OIL FIELD DRILLING): Patient is well controlled. Continue current treatment. Multiple joints Gastroesophageal reflux disease without esophagi tis 02/13/2016 Assessment & Plan (11/11/2022 11:08 AM CDT): Add carafate Chronic condition Not at goal Assessment & Plan (11/07/2022 12:08 PM CDT): Worse since starting omnicef Change to amoxicillin Add pepcid 20 mg bid Assessment & Plan (08/26/2021 12:10 PM SUPERINTENDENT OIL FIELD DRILLING): Patient is well controlled. Continue current treatment. Rectocele 12/10/2011 Assessment & Plan (08/26/2021 12:11 PM SUPERINTENDENT OIL FIELD DRILLING): Patient is well controlled. Continue current treatment. Resolved Problems Problem Noted Date Diagnosed Date Resolved Date Acute non-recurrent frontal sinusitis 11/07/2022 11/11/2022 Assessment & Plan (11/07/2022 12:07 PM CDT): Change to amoxicillin 500 mg tid 1 week Bone pain 08/04/2022 11/11/2022 Assessment & Plan (08/04/2022 10:54 AM SUPERINTENDENT OIL FIELD DRILLING): CT unremarkable. She continues with pain in [...] 11/11/2022 Assessment & Plan (07/28/2022 11:55 AM SUPERINTENDENT OIL FIELD DRILLING): Repeat ct reviewed Consistent with cysts Assessment & Plan (06/19/2022 2:37 PM SUPERINTENDENT OIL FIELD DRILLING): Reorder pre/post contrast ct abdomen Assessment & [...] 06/19/2022 Assessment & Plan (08/26/2021 12:07 PM SUPERINTENDENT OIL FIELD DRILLING): Patient is well controlled. Continue current treatment. Acute non-recurrent maxillary sinusitis 07/25/2021 08/26/2021 Assessment & Plan (07/25/2021 3:25 PM SUPERINTENDENT OIL FIELD DRILLING): Doxycycline 100 mg bid 1 week COVID test Head ache 05/16/2021 08/26/2021 Assessment & Plan (05/16/2021 9:23 AM CDT): Sed rate Cbc Add mucinex 600 mg bid Finish augmentin Hip pain 05/16/2021 08/26/2021 Assessment & Plan (05/16/2021 9:25 AM CDT): X ray left hip Abdominal pain 01/04/2020 06/30/2022 Assessment & Plan (08/26/2021 12:04 PM SUPERINTENDENT OIL FIELD DRILLING): Believe due to urinary infection Will place [...] week Assessment & Plan (06/19/2020 11:36 AM SUPERINTENDENT OIL FIELD DRILLING): Add cipro 500 mg bid 1 week See urology See G.I. Check a urine c and s Assessment & Plan (06/14/2020 12:28 PM SUPERINTENDENT OIL FIELD DRILLING): New onset RLQ tender No G or [...] 08/26/19 22 Scoliosis 10/11/2018 08/26/2021 Patient is Voodoo 06/16/2018 08/26/2021 Decreased GFR 05/14/2018 08/26/2021 Skin [...] 08/26/2021 Assessment & Plan (08/26/2021 12:05 PM SUPERINTENDENT OIL FIELD DRILLING): di Malignant neoplasm of breast 04/05/2017 08/26/2021 [...] 08/26/2021 Assessment & Plan (06/19/2020 11:36 AM SUPERINTENDENT OIL FIELD DRILLING): Patient is well controlled. Continue current treatment. [...] history of malignant neoplasm - (Added by [employer] Conv) Diverticulitis Son Relation Name Status Comments [...] place to sleep or slept in a snf (including now)? No 04/08/2022 Personal Safety Answer Date Recorded Have you ever been in or are you currently in a harmful physical or emotional relationship or is someone making you feel afraid or unsafe? Denies 11/08/2022 Comments No Sex and Gender Information Value Date Recorded Sex Assigned at Not on file Legal Sex Female 12:15 AM SUPERINTENDENT OIL FIELD DRILLING Gender Identity Not on file Sexual Orientation [...] (119 lb 7.8 oz) 05/20/2023 10:02 AM SUPERINTENDENT OIL FIELD DRILLING Height 160 cm (5' 3 ) 05/20/2023 10:02 AM SUPERINTENDENT OIL FIELD DRILLING Body Mass Index 21.17 05/20/2023 10:02 AM SUPERINTENDENT OIL FIELD DRILLING Plan of Treatment Health Maintenance Due Date [...] 03/06/2020, 07/2008 Medical Devices Implanted Type Area Patent Prosecution Paralegal Device Identifier Shelf Expiration Date Model / Serial / Lot [employer] End[employer] Surgery Ultrapro 4cm 5cm Nonabsorbable Flat Onlay Patch [place] Medium Uppm2 - [id number] Implanted:Qty: 1 on 11/09/2021 by Dragan Ferrari MD at [facility] [employer] End[employer] Surgery [id number] 10/10/2022 UPPM2 / / [id number] Insurance [employer] Advance Directives For more information, please contact: [phone] Documents on File Type Date Recorded Patient Numerical Control Operator Expl anation ADVANCE DIRECTIVE 06/14/2020 ADVANCE DIRECTIVE 09/26/2014 12:00 AM MARIA DEL CARMEN R OF DELINQUENT NOTICE MACHINE OPERATOR FINANCIAL/MEDICAL * Full Code (Latest Code Status on File) Date Activated Date Inactivated Comments 11/09/2021 7:48 PM 11/10/2021 7:48 PM Care Teams Underwear Trimmer Relationship Specialty Start Date End Date Deion Childs DO PCP - General Family Medicine 08/31/19
--- OUTSIDE RECORDS SUMMARY | 2024-08-23 05:46 | XMS_ITS | Referral Summary ---
Author Organization [facility] at the [facility] Office Center Address [address] [place] [address] Care Team Providers Care Dry Mill Worker Name Role Phone Deion Childs DO Primary [...] antibody Assessment & Plan (07/28/2022 11:54 AM GRAIN UNLOADER): Add doxycycline Add singulair Assessment & Plan [...] tests. Assessment & Plan (06/19/2022 2:39 PM GRAIN UNLOADER): Acute on chronic Worsening Chronic condition Not [...] 05/09/2021 Assessment & Plan (08/26/2021 12:10 PM GRAIN UNLOADER): Patient is well controlled. Continue current treatment. Urinary incontinence 05/09/2021 Assessment & Plan (08/26/2021 12:07 PM GRAIN UNLOADER): Chronic No new orders Full code status 06/14/2020 Assessment & Plan (08/26/2021 12:05 PM GRAIN UNLOADER): No changes to status Assessment & Plan (06/14/2020 12:20 PM GRAIN UNLOADER): Discussed with patient approximately 20minutes End of life issues/Advanced Directives/Healthcare Surrogate. Discussed DNR. Encouraged to discuss further with family and consult tax associate attorney or complete [place] approved form, which I would be glad to assist them with completion. All questions answered. polst form filled out and signed Chronic back pain 03/06/2020 Assessment & Plan (08/26/2021 12:05 PM GRAIN UNLOADER): Patient is well controlled. Continue current treatment. Assessment & Plan (07/25/2021 3:26 PM GRAIN UNLOADER): I will look into something she can take for pain Assessment & Plan (11/23/2020 11:15 AM CDT): Refer to APG Assessment & Plan (06/19/2020 11:37 AM GRAIN UNLOADER): Chronic severe back pain Significant OA Check a MRI LS spine Assessment & Plan (03/06/2020 1:21 PM CDT): No new orders Osteopenia 03/13/2019 Overview (05/09/2021): T=-2.1 Assessment & Plan (08/26/2021 12:09 PM GRAIN UNLOADER): Patient is well controlled. Continue current treatment. Personal history of malignant neoplasm of breast 11/04/2018 Assessment & Plan (08/26/2021 12:09 PM GRAIN UNLOADER): Patient is well controlled. Continue current treatment. Cystitis, interstitial 06/16/2018 Assessment & Plan (08/26/2021 12:06 PM GRAIN UNLOADER): amoxicillin 500 mg tid 10 days Diverticula of colon 06/16/2018 Assessment & Plan (08/26/2021 12:10 PM GRAIN UNLOADER): Patient is well controlled. Continue current treatment. Essential hypertension 06/16/2018 Assessment & Plan (04/15/2023 2:36 PM CDT): Patient is well controlled. Continue current treatment. Assessment & Plan (07/28/2022 11:55 AM GRAIN UNLOADER): Patient is well controlled. Continue current treatment. Assessment & Plan (08/26/2021 12:10 PM GRAIN UNLOADER): Patient is well controlled. Continue current treatment. Assessment & Plan (05/16/2021 9:22 AM CDT): Add amlodipine 2.5 mg daily HER2-positive carcinoma of right breast 06/16/20 18 Hyperlipidemia 06/16/2018 Assessment & Plan (08/26/2021 12:11 PM GRAIN UNLOADER): Patient is well controlled. Continue current treatment. Tinnitus 06/16/2018 Assessment & Plan (08/26/2021 12:07 PM GRAIN UNLOADER): Patient is well controlled. Continue current treatment. Multiple allergies 05/14/2018 Assessment & Plan (08/26/2021 12:09 PM GRAIN UNLOADER): Patient is well controlled. Continue current treatment. No new orders Refusal of blood transfusion s as patient is Yarsani 05/14/2018 S/P mastectomy 05/29/2017 Assessment & Plan (08/26/2021 12:08 PM GRAIN UNLOADER): No new orders Patient is well controlled. Continue current treatment. Arthritis 02/13/2016 Assessment & Plan (08/26/2021 12:05 PM GRAIN UNLOADER): Patient is well controlled. Continue current treatment. Multiple joints Gastroesophageal reflux disease without esophagi tis 02/13/2016 Assessment & Plan (11/11/2022 11:08 AM CDT): Add carafate Chronic condition Not at goal Assessment & Plan (11/07/2022 12:08 PM CDT): Worse since starting omnicef Change to amoxicillin Add pepcid 20 mg bid Assessment & Plan (08/26/2021 12:10 PM GRAIN UNLOADER): Patient is well controlled. Continue current treatment. Rectocele 12/10/2011 Assessment & Plan (08/26/2021 12:11 PM GRAIN UNLOADER): Patient is well controlled. Continue current treatment. Resolved Problems Problem Noted Date Diagnosed Date Resolved Date Acute non-recurrent frontal sinusitis 11/07/2022 11/11/2022 Assessment & Plan (11/07/2022 12:07 PM CDT): Change to amoxicillin 500 mg tid 1 week Bone pain 08/04/2022 11/11/2022 Assessment & Plan (08/04/2022 10:54 AM GRAIN UNLOADER): CT unremarkable. She continues with pain in [...] 11/11/2022 Assessment & Plan (07/28/2022 11:55 AM GRAIN UNLOADER): Repeat ct reviewed Consistent with cysts Assessment & Plan (06/19/2022 2:37 PM GRAIN UNLOADER): Reorder pre/post contrast ct abdomen Assessment & [...] 06/19/2022 Assessment & Plan (08/26/2021 12:07 PM GRAIN UNLOADER): Patient is well controlled. Continue current treatment. Acute non-recurrent maxillary sinusitis 07/25/2021 08/26/2021 Assessment & Plan (07/25/2021 3:25 PM GRAIN UNLOADER): Doxycycline 100 mg bid 1 week COVID test Head ache 05/16/2021 08/26/2021 Assessment & Plan (05/16/2021 9:23 AM CDT): Sed rate Cbc Add mucinex 600 mg bid Finish augmentin Hip pain 05/16/2021 08/26/2021 Assessment & Plan (05/16/2021 9:25 AM CDT): X ray left hip Abdominal pain 01/04/2020 06/30/2022 Assessment & Plan (08/26/2021 12:04 PM GRAIN UNLOADER): Believe due to urinary infection Will place [...] week Assessment & Plan (06/19/2020 11:36 AM GRAIN UNLOADER): Add cipro 500 mg bid 1 week See urology See G.I. Check a urine c and s Assessment & Plan (06/14/2020 12:28 PM GRAIN UNLOADER): New onset RLQ tender No G or [...] 08/26/19 22 Scoliosis 10/11/2018 08/26/2021 Patient is Yarsani 06/16/2018 08/26/2021 Decreased GFR 05/14/2018 08/26/2021 Skin [...] 08/26/2021 Assessment & Plan (08/26/2021 12:05 PM GRAIN UNLOADER): di Malignant neoplasm of breast 04/05/2017 08/26/2021 [...] 08/26/2021 Assessment & Plan (06/19/2020 11:36 AM GRAIN UNLOADER): Patient is well controlled. Continue current treatment. [...] place to sleep or slept in a retirement (including now)? No 04/08/2022 Personal Safety Answer Date Recorded Have you ever been in or are you currently in a harmful physical or emotional relationship or is someone making you feel afraid or unsafe? Denies 11/08/2022 Comments No Sex and Gender Information Value Date Recorded Sex Assigned at Not on file Legal Sex Female 12:15 AM GRAIN UNLOADER Gender Identity Not on file Sexual Orientation [...] (119 lb 7.8 oz) 05/20/2023 10:02 AM GRAIN UNLOADER Height 160 cm (5' 3 ) 05/20/2023 10:02 AM GRAIN UNLOADER Body Mass Index 21.17 05/20/2023 10:02 AM GRAIN UNLOADER Plan of Treatment Not on file Medical Devices Implanted Type Area Video Software Engineer Device Identifier Shelf Expiration Date Model / Serial / Lot [employer] End[employer] Surgery Ultrapro 4cm 5cm Nonabsorbable Flat Onlay Patch [place] Medium Uppm2 - [id number] Implanted:Qty: 1 on 11/09/2021 by Dragan Ferrari MD at [facility] [employer] [id number] 10/10/2022 [id number] / / [id number] Insurance [facility] [place] [id number] MEDICARE SOLUTIONS Advance Directives For more information, please contact: [phone] Documents on File Type Date Recorded Patient Garden Worker Expl anation ADVANCE DIRECTIVE 06/14/2020 ADVANCE DIRECTIVE 09/26/2014 12:00 AM MARIA DEL CARMEN R OF ELECTRICAL ENGINEERING TECHNOLOGIST FINANCIAL/MEDICAL * Full Code (Latest Code Status on File) Date Activated Date Inactivated Comments 11/09/2021 7:48 PM 11/10/2021 7:48 PM Care Teams Dry Mill Worker Relationship Specialty Start Date End Date Convoy, Deion Braydon, DO PCP - General Family Medicine 08/31/19
[2024-08-23] MEDS: ACETAMINOPHEN 500 MG TABLET 1000 MG PO (06:12)
[2024-08-23 06:22] LABS: Add Urine Microscopic? YES; Appearance Urine Clear (Clear); Bacteria Urine None Seen /hpf; Bilirubin Urine Negative (Negative); Blood Urine Trace (Negative); Color Urine Yellow (Yellow); Glucose Urine UA Negative (Negative); Ketones Urine Negative (Negative); Leukocyte Esterase Ur Trace LEU/UL (Negative); Nitrate Urine Negative (Negative); Non Pathogenic Casts 0-2; Protein Urine Negative (Negative); RBC Urine 0-2 /hpf (0-2); Squamous Epithelial Cell Urine None Seen /hpf (Few); Urobilinogen Urine 0.2 mg/dL (<2.0); WBC Urine 0-5 /hpf (0-3); pH Urine 5.5 (5.0-9.0)
--- NOTE | 2024-08-23 06:48 | ED.FALL ---
HPI - Fall General Chief Complaint: Fall Stated Complaint: GLF yesterday, R hip pain Time Seen by Provider: 08/23/24 05:31 Source: patient Mode of arrival: EMS Limitations: no limitations History of Present Illness HPI Narrative: Patient presents after sustaining a ground level fall yesterday. She has subsequently had right hip pain. She denies any prior injury or surgery in this location. She denies any paresthesias. She lives at [facility]. She denies loss of consciousness or hitting her head. She states she slipped and fell in the bathroom and landed on the floor directly striking her right hip and buttocks and is having pain in this area as well as some pain to her tailbone a.m.. She denies any other injury. Not on anticoagulation. There is a significant delay and patient has to wait in the waiting room until able to be roomed. Related Data Home Medications ?Medication ?Instructions ?Recorded ?Confirmed ?Last Taken ?Type mirabegron 50 mg tablet,extended 50 mg PO DAILY 10/04/23 10/04/23 Unknown History release 24 hr (Myrbetriq) omeprazole 40 mg capsule,delayed 40 mg PO DAILY 10/04/23 10/04/23 Unknown History release Allergies Allergy/AdvReac Type Severity Reaction Status Date / Time amoxicillin Allergy Unknown Verified 06/05/24 10:15 azithromycin Allergy Unknown Verified 06/05/24 10:15 cortisone Allergy Unknown Verified 06/05/24 10:15 gabapentin Allergy Unknown Verified 06/05/24 10:15 hydrocodone Allergy Unknown Verified 06/05/24 10:15 ketorolac Allergy Unknown Verified 06/05/24 10:15 methadone Allergy Unknown Verified 06/05/24 10:15 morphine Allergy Unknown Verified 06/05/24 10:15 phenazopyridine Allergy Unknown Verified 06/05/24 10:15 codeine AdvReac Intermediate Hyperactive Verified 06/05/24 10:15 Sulfa (Sulfonamide AdvReac Mild Hives Verified 06/05/24 10:15 Antibiotics) [facility] Past Medical History Medical History Diverticulitis Essential tremor Fibromyalgia GERD (gastroesophageal reflux disease) Overactive bladder Skin neoplasm Family History Family History Other Diabetes mellitus Family history of cardiovascular disease Social History Social History (Updated 08/23/24 @ 18:47 by Luz Elena Lynch MD) Smoking status: Never smoker Alcohol intake: never Living arrangements: correction Exam Narrative: GENERAL: Well-appearing, well-nourished, and in no acute distress. HEAD: Normocephalic, atraumatic. EYES: Non injected, non icteric ENT: Nares clear, no rhinorrhea or epistaxis. NECK: Supple. CHEST: Speaking in full sentences. No respiratory distress. HEART: Regular rate and rhythm. . ABDOMEN: Soft, nondistended. EXTREMITIES: Normal range of motion. No lower extremity edema. Patient demonstrates flexion extension at her bilateral knees as well as bilateral flexion at her hips. Legs not shortened or rotated. SKIN: Warm, dry, no rash. No overlying ecchymosis along right hip. NEURO: No focal deficits. Alert and oriented x3. Sensation intact throughout bilateral lower extremities. PSYCH: Normal mood and affect. Course Vital Signs Vital signs: Vital Signs Temperature 99.4 F 08/22/24 19:41 Pulse Rate 89 08/22/24 19:41 Respiratory Rate 20 08/22/24 19:41 Blood Pressure 132/51 L 08/22/24 19:41 Pulse Oximetry 99 08/22/24 19:41 Oxygen Delivery Room Air 08/22/24 19:41 Temperature 99.4 F 08/22/24 19:41 Pulse Rate 68 08/23/24 07:33 Respiratory Rate 17 08/23/24 07:33 Blood Pressure 165/75 H 08/23/24 07:33 Pulse Oximetry 98 08/23/24 07:33 Oxygen Delivery Room Air 08/22/24 19:41 MDM - Fall MDM Narrative Medical decision making narrative: Patient presents after sustaining a ground level fall the day previous. She has subsequently had right hip pain. Unfortunately there is a significant delay between the time she presents to the emergency department the time she is seen so at that time is spent more than 1 day since the injury. In the emergency department she is afebrile with acceptable vital signs. She is observed ambulating to the bathroom okay reported by tech. Due to findings on CT C-spine, will proceed with CT thorax imaging. Creatinine improved from previous. AST and ALT only very mildly elevated above normal. She is on tramadol but does not appear to be on anticoagulation per review of correction documentation. No acute injury or process on imaging. Patient stable to be discharged back to facility. She is prescribed both acetaminophen and ibuprofen as there does not appear to be a contraindication to either. Lab Data Attestation: I reviewed the patient's lab results. 08/23/24 07:43 08/23/24 07:48 Labs: Lab Results 08/23/24 08/23/24 08/23/24 Range/Units 06:11 07:43 07:48 WBC 6.6 (4.5-10.0) K/mm3 RBC 4.50 (4.2-5.4) M/mm3 Hgb 13.1 (12.0-15.0) g/dL Hct 40.5 (37.0-47.0) % MCV 90.0 (80-100) fl MCH 29.1 (26-34) pg MCHC 32.3 (32-36) g/dl RDW 14.3 (11.5-14.5) % Plt Count 244 (150-375) k/mm3 MPV 10.5 H (7.4-10.4) fl Immature Gran % (Auto) 0.3 (0-0.5) % Neut % (Auto) 76.4 H (45.5-73.1) % Lymph % (Auto) 13.3 L (18.3-44.2) % [place] % (Auto) 8.5 (2.6-8.5) % Eos % (Auto) 0.9 (0-4.4) % Baso % (Auto) 0.6 (0.2-1.2) % Lymph # (Auto) 0.88 L (0.9-3.2) K/mm3 [place] # (Auto) 0.6 (0.1-0.6) K/mm3 Eos # (Auto) 0.1 (0-0.3) K/mm3 Baso # (Auto) 0.0 (0.0-0.1) K/mm3 Abs Immat Gran (auto) 0.02 (0.00-0.031) K/mm3 Absolute Neuts (auto) 5.1 (1.3-6.7) K/mm3 Absolute Nucleated RBC 0.000 (0.0-0.012) K/mm3 Nucleated RBC % 0.0 (0.0-0.2) % Sodium 138 (137-145) mmol/L Potassium 4.0 (3.4-5.0) mmol/L Chloride 101 (98-107) mmol/L Carbon Dioxide 29 (22-30) mmol/L Anion Gap 8 (4-12) mmol/L BUN 20 H (7-17) mg/dL Creatinine 1.06 H 1.30 H (0.7-1.0) mg/dL Estim Creat Clear Calc 28 23 ml/min Estimated GFR 49 L 39 L (59 - ) Glucose 102 (65-110) mg/dL Calcium 9.3 (8.4-10.2) mg/dL Total Bilirubin 0.8 (0.2-1.3) mg/dL AST 37 H (14-36) U/L ALT 37 H (6-35) U/L Alkaline Phosphatase 87 (38-126) U/L Total Protein 7.0 (6.3-8.2) g/dL Albumin 4.1 (3.5-5.1) g/dL Urine Color Yellow (Yellow) Urine Appearance Clear (Clear) Urine pH 5.5 (5.0-9.0) Ur Specific Arab 1.010 (1.001-1.035) Urine Protein Negative (Negative) mg/dL Urine Glucose (UA) Negative (Negative) mg/dL Urine Ketones Negative (Negative) mg/dL Ur Blood (Man) Trace (Negative) Urine Nitrate Negative (Negative) Urine Bilirubin Negative (Negative) Urine Urobilinogen 0.2 (<2.0) mg/dL Leukocyte Esterase Rfl Trace H (Negative) LUCIANA/UL Urine RBC 0-2 (0-2) /hpf Urine WBC 0-5 (0-3) /hpf Ur Squamous Epith Cells None seen (Few) /hpf Urine Bacteria None seen /hpf Urine Casts 0-2 Imaging Data Radiologist's impression: Impressions Head CT 08/23/24 06:36 Impression: No significant abnormality seen. Cervical Spine CT 08/23/24 06:42 Impression: No fracture or subluxation of the cervical spine. Minimal degenerative change, as above. Partially imaged consolidation right upper lobe posteriorly. Dedicated chest CT recommended to further evaluate. Hip/Pelvis X-Ray 08/23/24 06:57 Impression: No significant abnormality is seen. Sacrum and Coccyx X-Ray 08/23/24 06:57 IMPRESSION: No acute abnormality. Degenerative spondylosis of the visualized lower lumbar spine. Chest CT 08/23/24 07:56 Impression: Probable dependent atelectatic change in the right upper lobe, less likely pneumonia. The latter is not completely excluded. Correlate for signs/symptoms of infection/pneumonia. Discharge Plan Discharge Clinical Impression: Spondylosis of lumbar spine, Contusion of soft tissue Patient Disposition: NH Mcfp/Asst Living Condition: Stable Instructions: Antibiotic Form, Hip Contusion (ED) Additional Instructions: No fracture/broken bone or dislocation of the hip or tailbone. Others labs and head/c-spine ct were ok as well. It will likely be painful for a few days. Acetaminophen/Tylenol (maximum 4000 mg per day) is safe to take with NSAIDs (ibuprofen/Motrin) for pain relief. Follow-up with primary care physician or facility medical administrative technician. Return to the emergency department with any new or worsening symptoms. Patient Language: Argentine Prescriptions: New acetaminophen 500 mg capsule 1,000 mg PO Q6H PRN (Reason: pain) Qty: 30 0RF ibuprofen 600 mg tablet 600 mg PO TID PRN (Reason: pain) Qty: 30 0RF No Action omeprazole 40 mg capsule,delayed release(DR/EC) 40 mg PO DAILY Myrbetriq 50 mg tablet extended release 24 hr 50 mg PO DAILY doxycycline hyclate 100 mg tablet 100 mg PO BID 7 Days Qty: 14 0RF ofloxacin 0.3 % drops 1 drp LEFT EYE QID Qty: 5 0RF cetirizine 10 mg tablet 10 mg PO DAILY PRN (Reason: itching) Qty: 20 0RF Follow-up/Referrals: Naz,Deion Sapp MD [Primary Care Provider] - Stand Alone Forms: [facility] Discharge Time of Disposition: 08:14
[2024-08-23 07:33] VITALS: BP 165/75; PULSE 68; RESP 17; O2SAT 98
[2024-08-23 07:50] LABS: Estimated CRCL calculation 23 ml/min; Estimated Glomerular Filt Rate 39
[2024-08-23 08:04] LABS: Alanine Aminotransferase 37 U/L (6-35); Albumin Level 4.1 g/dL (3.5-5.1); Alkaline Phosphatase 87 U/L (38-126); Anion Gap 8 mmol/L (4-12); Aspartate Amino Transferase 37 U/L (14-36); Basophils Percent Auto 0.6 % (0.2-1.2); Bilirubin,Total 0.8 mg/dL (0.2-1.3); Blood Urea Nitrogen 20 mg/dL (7-17); Calcium 9.3 mg/dL (8.4-10.2); Carbon Dioxide 29 mmol/L (22-30); Chloride 101 mmol/L (98-107); Eosinophils Absolute Auto 0.1 K/mm3 (0-0.3); Eosinophils Percent Auto 0.9 % (0-4.4); Estimated CRCL calculation 28 ml/min; Estimated Glomerular Filt Rate 49; Glucose 102 mg/dL (65-110); Hematocrit 40.5 % (37.0-47.0); Hemoglobin 13.1 g/dL (12.0-15.0); Immature Granulocyte Absolute 0.02 K/mm3 (0.00-0.031); Immature Granulocyte Percent A 0.3 % (0-0.5); Lymphocytes Absolute Auto 0.88 K/mm3 (0.9-3.2); Lymphocytes Percent Auto 13.3 % (18.3-44.2); Mean Corpuscular HGB Conc 32.3 g/dl (32-36); Mean Corpuscular Hemoglobin 29.1 pg (26-34); Mean Platelet Volume 10.5 fl (7.4-10.4); Monocytes Absolute Auto 0.6 K/mm3 (0.1-0.6); Monocytes Percent Auto 8.5 % (2.6-8.5); Neutrophils Absolute Auto 5.1 K/mm3 (1.3-6.7); Neutrophils Percent Auto 76.4 % (45.5-73.1); Platelet Count Result 244 k/mm3 (150-375); Red Cell Distribution Width 14.3 % (11.5-14.5); Sodium 138 mmol/L (137-145); White Blood Count 6.6 K/mm3 (4.5-10.0)
== END 2024-08-23 08:49 ==
PROVIDERS: Emergency Provider Student in an Organized Health Care Education/Training Program; PCP Family Medicine
DX: S70.01XA Contusion of right hip, initial encounter (principal); M47.816 Spondylosis without myelopathy or radiculopathy, lumbar region; M79.7 Fibromyalgia; K21.9 Gastro-esophageal reflux disease without esophagitis; N32.81 Overactive bladder; Z85.828 Personal history of other malignant neoplasm of skin; Z79.899 Other long term (current) drug therapy; W01.0XXA Fall on same level from slipping, tripping and stumbling without subsequent striking against object, initial encounter
CPT/HCPCS: 36415; 70450; 71260; 72125; 72220; 73502; 80053; 81001; 85025; 99284; A9270; Q9967

== ENCOUNTER 2024-09-27 11:51 | Emergency (ER) | payer MEDICARE, SELFPAY ==
[2024-09-27] VITALS (13 sets, daily range): BP systolic 137–209; BP diastolic 66–103; PULSE 62–84; RESP 16–24; TEMP 36.4; O2SAT 97–100
--- NOTE | ~2024-09-27 | CT_ITS ---
EXAMINATION: CT abdomen pelvis w con DATE: 09/27/2024 15:03 INDICATION: Lower abdominal pain TECHNIQUE: Computed tomography (CT) of the abdomen and pelvis was performed with 100 mL Omnipaque-350 intravenous contrast. Iterative reconstruction technique was employed. The dose-length product was 1 94.64 mGy-cm. COMPARISON: Chest CT dated 08/23/2024 FINDINGS: Unchanged mild atelectatic changes in the bilateral lower lobes and mild discoid atelectasis in the l eft lower lobe. Heart size is normal. No pericardial or pleural effusion. Small sliding-type hiatal h ernia. Small calcified gallstone in the dependent aspect of the normal-appearing gallbladder with no wall thickening or pericholecystic inflammatory stranding to suggest acute cholecystitis. Liver, sple en, pancreas and bilateral adrenal glands are normal. There are few bilateral low-attenuation renal c ysts, the largest on the left measuring up to 1.2 cm. Extensive diverticulosis with sigmoid colon pre dominance and without adjacent inflammatory stranding to suggest diverticulitis. No bowel obstruction . The appendix is not visualized. No pericecal inflammatory change to suggest acute appendicitis. Jonathan dder is normal. The uterus is not identified and has likely been surgically resected. No free intrape ritoneal gas or fluid. No pathologically enlarged abdominal or pelvic lymphadenopathy. There is calci fied atherosclerosis of the aorta and many of the other arteries. 30 degrees thoracolumbar levoscolio sis with severe spondylosis. IMPRESSION: 1. No acute intra-abdominal/pelvic process. 2. Cholelithiasis. 2. Extensive diverticulosis. 4. Small sliding-type hiatal hernia. Reviewed, dictated and finalized at location A.
--- OUTSIDE RECORDS SUMMARY | 2024-09-27 13:25 | XMS_ITS | Clinical Summary ---
Author Organization [facility] Address [address] [place] [address] Care Team Providers Care Microfilm Processor Name Role Phone Deion Britt DO Primary Care Provider [phone] Allergies Active Allergy Reactions Criticality Noted Date Comments Azithromycin Headache Medium 06/30/2018 Face bright red Codeine Other (see comment),Hallucinations ,GI Upset High 12/10/2011 can't respond Migraine/ ALSO CODEINE Intolerant Corticosteroids Headache,Other (see comment) Medium 04/24/2017 [place] like HEAD WOULD EXPLODE , Jittery [place] like HEAD WOULD EXPLODE , [place]ittery Hydrocodone [...] Hyperlipidemia 06/16/2018 HER2-positive carcinoma of right breast ([facility]) 06/16/2018 Diverticula of colon 06/16/2018 Cystitis, interstitial 06/16/2018 Cervicalgia 06/16/2018 Tinnitus 06/16/2018 Multiple allergies 05/14/2018 Refusal of blood transfusion s as patient is Church 05/14/2018 Skin lesion of chest wall 05/14/2018 Anxiety state 05/14/2018 Malignant neoplasm of upper- inner quadrant of right breast in female, estrogen receptor negative ([facility]) 05/14/2018 Overview (10/11/2018): Overview: Her-2-lavon + Skin cancer 02/17/2018 Dry eye 02/16/2018 Visual disturbance 02/16/2018 Nausea and vomiting 09/16/2017 Constipation 06/02/2017 Malignant neoplasm of upper- inner quadrant of right female breast ([facility]) 05/29/2017 S/P mastectomy 05/29/2017 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 Malignant neoplasm of breast ([facility]) 0 04/05/2017 Abnormal mammogram 04/03/2017 Depression 03/17/2017 Acid reflux 02/13/2016 Anxiety 02/13/2016 Arthritis 02/13/2016 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 Curvature of spine 02/13/2016 Degeneration of intervertebral disc 02/13/2016 Fibromyalgia 02/13/2016 Sciatica 02/13/2016 Notalgia 01/23/2015 Myalgia 12/10/2011 Rectocele 12/10/2011 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, acquired Urinary incontinence Resolved Problems Problem Noted Date Diagnosed Date Resolved Date Patient is Church 06/16/2018 03/23/2020 Immunizations Name Administration Dates Next Due Influenza (Generic) 04/12/2013 MODERNA COVID-19 (12+) MRNA, LNP-S, PF, 100 MCG/ 0.5 ML DOSE 09/14/2020 Pneumococcal (Pneumovax 23) 07/13/2008 Tdap (Boostrix) 06/13/2013 Zoster (Zostavax) 57005 Unt/0.65Ml 07/13/2008 Family History Medical History Relation [...] patient's age to complete this topic Insurance [facility] Advance Directives Documents on File Type Date Recorded 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
--- OUTSIDE RECORDS SUMMARY | 2024-09-27 13:25 | XMS_ITS | Clinical Summary ---
Author Organization [facility] Care Team Providers Care Framer Name Role Phone Unavailable Primary Care Provider Unavailabl e Social History Tobacco Use Types Packs/Day Years Used Date Smoking Tobacco: Never Assessed Comments Unknown Sex and Gender Information Value Date Recorded Sex Assigned at Not on file Legal Sex Female 8:02 AM [employer] Gender Identity Not on file Sexual Orientation Not on file Plan of Treatment Health Maintenance Due Date Last Done Comments DEXA Bone Density 1940 Hepatitis C Virus (HCV) Screening 1940 Zoster Immunization (2 of 3) 09/07/2008 07/13/2008 Respiratory Syncytial Virus (RSV) Immunization (Adult) (1 - 1-dose 75+ series) 2014 Influenza Immunization (#1) 03/13/202402/11, 04/12/2013 SARS-COV-2 Immunization ( season) 2024 09/14/2020, 08/14/2020 [...]
--- OUTSIDE RECORDS SUMMARY | 2024-09-27 13:25 | XMS_ITS ---
Author Organization [facility] Address [address] [place] [address] Care Team Providers Care Lump Machine Operator Name Role Phone Deion Childs DO [...] antibody Assessment & Plan (07/28/2022 11:54 AM IMAGE EDITOR): Add doxycycline Add singulair Assessment & Plan [...] tests. Assessment & Plan (06/19/2022 2:39 PM IMAGE EDITOR): Acute on chronic Worsening Chronic condition Not [...] 05/09/2021 Assessment & Plan (08/26/2021 12:10 PM IMAGE EDITOR): Patient is well controlled. Continue current treatment. Urinary incontinence 05/09/2021 Assessment & Plan (08/26/2021 12:07 PM IMAGE EDITOR): Chronic No new orders Full code status 06/14/2020 Assessment & Plan (08/26/2021 12:05 PM IMAGE EDITOR): No changes to status Assessment & Plan (06/14/2020 12:20 PM IMAGE EDITOR): Discussed with patient approximately 20minutes End of life issues/Advanced Directives/Healthcare Surrogate. Discussed DNR. Encouraged to discuss further with family and consult radiology nurse or complete [place] approved form, which I would be glad to assist them with completion. All questions answered. polst form filled out and signed Chronic back pain 03/06/2020 Assessment & Plan (08/26/2021 12:05 PM IMAGE EDITOR): Patient is well controlled. Continue current treatment. Assessment & Plan (07/25/2021 3:26 PM IMAGE EDITOR): I will look into something she can take for pain Assessment & Plan (11/23/2020 11:15 AM CDT): Refer to [facility] Assessment & Plan (06/19/2020 11:37 AM IMAGE EDITOR): Chronic severe back pain Significant OA Check a MRI LS spine Assessment & Plan (03/06/2020 1:21 PM CDT): No new orders Osteopenia 03/13/2019 Overview (05/09/2021): T=-2.1 Assessment & Plan (08/26/2021 12:09 PM IMAGE EDITOR): Patient is well controlled. Continue current treatment. Personal history of malignant neoplasm of breast 11/04/2018 Assessment & Plan (08/26/2021 12:09 PM IMAGE EDITOR): Patient is well controlled. Continue current treatment. Cystitis, interstitial 06/16/2018 Assessment & Plan (08/26/2021 12:06 PM IMAGE EDITOR): amoxicillin 500 mg tid 10 days Diverticula of colon 06/16/2018 Assessment & Plan (08/26/2021 12:10 PM IMAGE EDITOR): Patient is well controlled. Continue current treatment. Essential hypertension 06/16/2018 Assessment & Plan (04/15/2023 2:36 PM CDT): Patient is well controlled. Continue current treatment. Assessment & Plan (07/28/2022 11:55 AM IMAGE EDITOR): Patient is well controlled. Continue current treatment. Assessment & Plan (08/26/2021 12:10 PM IMAGE EDITOR): Patient is well controlled. Continue current treatment. Assessment & Plan (05/16/2021 9:22 AM CDT): Add amlodipine 2.5 mg daily HER2-positive carcinoma of right breast 06/16/20 18 Hyperlipidemia 06/16/2018 Assessment & Plan (08/26/2021 12:11 PM IMAGE EDITOR): Patient is well controlled. Continue current treatment. Tinnitus 06/16/2018 Assessment & Plan (08/26/2021 12:07 PM IMAGE EDITOR): Patient is well controlled. Continue current treatment. Multiple allergies 05/14/2018 Assessment & Plan (08/26/2021 12:09 PM IMAGE EDITOR): Patient is well controlled. Continue current treatment. No new orders Refusal of blood transfusion s as patient is Mosque 05/14/2018 S/P mastectomy 05/29/2017 Assessment & Plan (08/26/2021 12:08 PM IMAGE EDITOR): No new orders Patient is well controlled. Continue current treatment. Arthritis 02/13/2016 Assessment & Plan (08/26/2021 12:05 PM IMAGE EDITOR): Patient is well controlled. Continue current treatment. Multiple joints Gastroesophageal reflux disease without esophagi tis 02/13/2016 Assessment & Plan (11/11/2022 11:08 AM CDT): Add carafate Chronic condition Not at goal Assessment & Plan (11/07/2022 12:08 PM CDT): Worse since starting omnicef Change to amoxicillin Add pepcid 20 mg bid Assessment & Plan (08/26/2021 12:10 PM IMAGE EDITOR): Patient is well controlled. Continue current treatment. Rectocele 12/10/2011 Assessment & Plan (08/26/2021 12:11 PM IMAGE EDITOR): Patient is well controlled. Continue current treatment. Current Treatment and Therapy Plans No current plan information found. Past Treatment and Therapy Plans No past plan information found. Lifetime Dose Tracking * Chemical Lifetime Dose [...] 11/11/2022 Assessment & Plan (08/04/2022 10:54 AM IMAGE EDITOR): CT unremarkable. She continues with pain in [...] 11/11/2022 Assessment & Plan (07/28/2022 11:55 AM IMAGE EDITOR): Repeat ct reviewed Consistent with cysts Assessment & Plan (06/19/2022 2:37 PM IMAGE EDITOR): Reorder pre/post contrast ct abdomen Assessment & [...] 06/19/2022 Assessment & Plan (08/26/2021 12:07 PM IMAGE EDITOR): Patient is well controlled. Continue current treatment. Acute non-recurrent maxillary sinusitis 07/25/2021 08/26/2021 Assessment & Plan (07/25/2021 3:25 PM IMAGE EDITOR): Doxycycline 100 mg bid 1 week COVID test Head ache 05/16/2021 08/26/2021 Assessment & Plan (05/16/2021 9:23 AM CDT): Sed rate Cbc Add mucinex 600 mg bid Finish augmentin Hip pain 05/16/2021 08/26/2021 Assessment & Plan (05/16/2021 9:25 AM CDT): X ray left hip Abdominal pain 01/04/2020 06/30/2022 Assessment & Plan (08/26/2021 12:04 PM IMAGE EDITOR): Believe due to urinary infection Will place on amoxicillin 500 mg tid 10 days Assessment & Plan (03/27/2021 1:19 PM CDT): Acute RLQ pain Appendix has been removed Hs MARY w BSO Stat cbc Chem 7 Amylase and lft Stat ct abdomen and pelvis Assessment & Plan (11/23/2020 11:15 AM CDT): Refer to Dr. Cindy Potts a G.I. evaluation Add cipro 500 mg bid 1 week Assessment & Plan (06/19/2020 11:36 AM IMAGE EDITOR): Add cipro 500 mg bid 1 week See urology See G.I. Check a urine c and s Assessment & Plan (06/14/2020 12:28 PM IMAGE EDITOR): New onset RLQ tender No G or [...] 08/26/19 22 Scoliosis 10/11/2018 08/26/2021 Patient is Mosque 06/16/2018 08/26/2021 Decreased GFR 05/14/2018 08/26/2021 Skin [...] 08/26/2021 Assessment & Plan (08/26/2021 12:05 PM IMAGE EDITOR): di Malignant neoplasm of breast 04/05/2017 08/26/2021 [...] 08/26/2021 Assessment & Plan (06/19/2020 11:36 AM IMAGE EDITOR): Patient is well controlled. Continue current treatment. [...]
--- OUTSIDE RECORDS SUMMARY | 2024-09-27 13:25 | XMS_ITS | Referral Summary ---
Author Organization [facility] at the [facility] Office Center Address [address] [place] [address] Care Team Providers Care Gas Engine Operator Name Role Phone Deion Childs DO [...] antibody Assessment & Plan (07/28/2022 11:54 AM EMBOSSER OPERATOR): Add doxycycline Add singulair Assessment & Plan [...] tests. Assessment & Plan (06/19/2022 2:39 PM EMBOSSER OPERATOR): Acute on chronic Worsening Chronic condition Not [...] 05/09/2021 Assessment & Plan (08/26/2021 12:10 PM EMBOSSER OPERATOR): Patient is well controlled. Continue current treatment. Urinary incontinence 05/09/2021 Assessment & Plan (08/26/2021 12:07 PM EMBOSSER OPERATOR): Chronic No new orders Full code status 06/14/2020 Assessment & Plan (08/26/2021 12:05 PM EMBOSSER OPERATOR): No changes to status Assessment & Plan (06/14/2020 12:20 PM EMBOSSER OPERATOR): Discussed with patient approximately 20minutes End of life issues/Advanced Directives/Healthcare Surrogate. Discussed DNR. Encouraged to discuss further with family and consult collections attorney or complete [place] approved form, which I would be glad to assist them with completion. All questions answered. polst form filled out and signed Chronic back pain 03/06/2020 Assessment & Plan (08/26/2021 12:05 PM EMBOSSER OPERATOR): Patient is well controlled. Continue current treatment. Assessment & Plan (07/25/2021 3:26 PM EMBOSSER OPERATOR): I will look into something she can take for pain Assessment & Plan (11/23/2020 11:15 AM CDT): Refer to APG Assessment & Plan (06/19/2020 11:37 AM EMBOSSER OPERATOR): Chronic severe back pain Significant OA Check a MRI LS spine Assessment & Plan (03/06/2020 1:21 PM CDT): No new orders Osteopenia 03/13/2019 Overview (05/09/2021): T=-2.1 Assessment & Plan (08/26/2021 12:09 PM EMBOSSER OPERATOR): Patient is well controlled. Continue current treatment. Personal history of malignant neoplasm of breast 11/04/2018 Assessment & Plan (08/26/2021 12:09 PM EMBOSSER OPERATOR): Patient is well controlled. Continue current treatment. Cystitis, interstitial 06/16/2018 Assessment & Plan (08/26/2021 12:06 PM EMBOSSER OPERATOR): amoxicillin 500 mg tid 10 days Diverticula of colon 06/16/2018 Assessment & Plan (08/26/2021 12:10 PM EMBOSSER OPERATOR): Patient is well controlled. Continue current treatment. Essential hypertension 06/16/2018 Assessment & Plan (04/15/2023 2:36 PM CDT): Patient is well controlled. Continue current treatment. Assessment & Plan (07/28/2022 11:55 AM EMBOSSER OPERATOR): Patient is well controlled. Continue current treatment. Assessment & Plan (08/26/2021 12:10 PM EMBOSSER OPERATOR): Patient is well controlled. Continue current treatment. Assessment & Plan (05/16/2021 9:22 AM CDT): Add amlodipine 2.5 mg daily HER2-positive carcinoma of right breast 06/16/20 18 Hyperlipidemia 06/16/2018 Assessment & Plan (08/26/2021 12:11 PM EMBOSSER OPERATOR): Patient is well controlled. Continue current treatment. Tinnitus 06/16/2018 Assessment & Plan (08/26/2021 12:07 PM EMBOSSER OPERATOR): Patient is well controlled. Continue current treatment. Multiple allergies 05/14/2018 Assessment & Plan (08/26/2021 12:09 PM EMBOSSER OPERATOR): Patient is well controlled. Continue current treatment. No new orders Refusal of blood transfusion s as patient is Anglican 05/14/2018 S/P mastectomy 05/29/2017 Assessment & Plan (08/26/2021 12:08 PM EMBOSSER OPERATOR): No new orders Patient is well controlled. Continue current treatment. Arthritis 02/13/2016 Assessment & Plan (08/26/2021 12:05 PM EMBOSSER OPERATOR): Patient is well controlled. Continue current treatment. Multiple joints Gastroesophageal reflux disease without esophagi tis 02/13/2016 Assessment & Plan (11/11/2022 11:08 AM CDT): Add carafate Chronic condition Not at goal Assessment & Plan (11/07/2022 12:08 PM CDT): Worse since starting omnicef Change to amoxicillin Add pepcid 20 mg bid Assessment & Plan (08/26/2021 12:10 PM EMBOSSER OPERATOR): Patient is well controlled. Continue current treatment. Rectocele 12/10/2011 Assessment & Plan (08/26/2021 12:11 PM EMBOSSER OPERATOR): Patient is well controlled. Continue current treatment. Resolved Problems Problem Noted Date Diagnosed Date Resolved Date Acute non-recurrent frontal sinusitis 11/07/2022 11/11/2022 Assessment & Plan (11/07/2022 12:07 PM CDT): Change to amoxicillin 500 mg tid 1 week Bone pain 08/04/2022 11/11/2022 Assessment & Plan (08/04/2022 10:54 AM EMBOSSER OPERATOR): CT unremarkable. She continues with pain in [...] 11/11/2022 Assessment & Plan (07/28/2022 11:55 AM EMBOSSER OPERATOR): Repeat ct reviewed Consistent with cysts Assessment & Plan (06/19/2022 2:37 PM EMBOSSER OPERATOR): Reorder pre/post contrast ct abdomen Assessment & [...] 06/19/2022 Assessment & Plan (08/26/2021 12:07 PM EMBOSSER OPERATOR): Patient is well controlled. Continue current treatment. Acute non-recurrent maxillary sinusitis 07/25/2021 08/26/2021 Assessment & Plan (07/25/2021 3:25 PM EMBOSSER OPERATOR): Doxycycline 100 mg bid 1 week COVID test Head ache 05/16/2021 08/26/2021 Assessment & Plan (05/16/2021 9:23 AM CDT): Sed rate Cbc Add mucinex 600 mg bid Finish augmentin Hip pain 05/16/2021 08/26/2021 Assessment & Plan (05/16/2021 9:25 AM CDT): X ray left hip Abdominal pain 01/04/2020 06/30/2022 Assessment & Plan (08/26/2021 12:04 PM EMBOSSER OPERATOR): Believe due to urinary infection Will place [...] week Assessment & Plan (06/19/2020 11:36 AM EMBOSSER OPERATOR): Add cipro 500 mg bid 1 week See urology See G.I. Check a urine c and s Assessment & Plan (06/14/2020 12:28 PM EMBOSSER OPERATOR): New onset RLQ tender No G or [...] 08/26/19 22 Scoliosis 10/11/2018 08/26/2021 Patient is Anglican 06/16/2018 08/26/2021 Decreased GFR 05/14/2018 08/26/2021 Skin [...] 08/26/2021 Assessment & Plan (08/26/2021 12:05 PM EMBOSSER OPERATOR): di Malignant neoplasm of breast 04/05/2017 08/26/2021 [...] 08/26/2021 Assessment & Plan (06/19/2020 11:36 AM EMBOSSER OPERATOR): Patient is well controlled. Continue current treatment. [...] Continue tramadol PRN. Myalgia 12/10/2011 08/26/2021 Immunizations Immunization Administration Dates Next Due Influenza, Quadrivalent, Hig [...] place to sleep or slept in a nursing home (including now)? No 04/08/2022 Personal Safety Answer Date Recorded Have you ever been in or are you currently in a harmful physical or emotional relationship or is someone making you feel afraid or unsafe? Denies 11/08/2022 Comments No Sex and Gender Information Value Date Recorded Sex Assigned at Not on file Legal Sex Female 12:15 AM EMBOSSER OPERATOR Gender Identity Not on file Sexual Orientation [...] (119 lb 7.8 oz) 05/20/2023 10:02 AM EMBOSSER OPERATOR Height 160 cm (5' 3 ) 05/20/2023 10:02 AM EMBOSSER OPERATOR Body Mass Index 21.17 05/20/2023 10:02 AM EMBOSSER OPERATOR Plan of Treatment Not on file Medical Devices Implanted Type Area Hose Tender Device Identifier Shelf Expiration Date Model / Serial / Lot Ethicon Endo Surgery Ultrapro 4cm 5cm Nonabsorbable Flat Onlay Patch Clear [place] Rim Medium [id number] - [id number] Implanted:Qty: 1 on 11/09/2021 by Dragan Ferrari MD at [facility] [employer] End[employer] Surgery [id number] 10/10/2022 [id number] / / [id number] Insurance [facility] [place] [id number] MEDICARE SOLUTIONS [facility] MEDICARE Address: [address] [address] [place] [address] Advance Directives For more information, please contact: [phone] Documents on File Type Date Recorded Patient Supervisor Cooler Service Expl anation ADVANCE DIRECTIVE 06/14/2020 ADVANCE DIRECTIVE 09/26/2014 12:00 AM MARIA DEL CARMEN R OF METAL BED ASSEMBLER FINANCIAL/MEDICAL * Full Code (Latest Code Status on File) Date Activated Date Inactivated Comments 11/09/2021 7:48 PM 11/10/2021 7:48 PM Care Teams Gas Engine Operator Relationship Specialty Start Date End Date [place], Deion Braydon, DO PCP - General Family Medicine 08/31/19
--- OUTSIDE RECORDS SUMMARY | 2024-09-27 13:25 | XMS_ITS | Clinical Summary ---
Author Organization [facility] at the [facility] Office Center Address [address] [place] [address] Care Team Providers Care Die Technician Name Role Phone Deion Childs DO Primary [...] antibody Assessment & Plan (07/28/2022 11:54 AM POLICE BOOKING OFFICER): Add doxycycline Add singulair Assessment & Plan [...] tests. Assessment & Plan (06/19/2022 2:39 PM POLICE BOOKING OFFICER): Acute on chronic Worsening Chronic condition Not [...] 05/09/2021 Assessment & Plan (08/26/2021 12:10 PM POLICE BOOKING OFFICER): Patient is well controlled. Continue current treatment. Urinary incontinence 05/09/2021 Assessment & Plan (08/26/2021 12:07 PM POLICE BOOKING OFFICER): Chronic No new orders Full code status 06/14/2020 Assessment & Plan (08/26/2021 12:05 PM POLICE BOOKING OFFICER): No changes to status Assessment & Plan (06/14/2020 12:20 PM POLICE BOOKING OFFICER): Discussed with patient approximately 20minutes End of life issues/Advanced Directives/Healthcare Surrogate. Discussed DNR. Encouraged to discuss further with family and consult banking attorney or complete [place] approved form, which I would be glad to assist them with completion. All questions answered. polst form filled out and signed Chronic back pain 03/06/2020 Assessment & Plan (08/26/2021 12:05 PM POLICE BOOKING OFFICER): Patient is well controlled. Continue current treatment. Assessment & Plan (07/25/2021 3:26 PM POLICE BOOKING OFFICER): I will look into something she can take for pain Assessment & Plan (11/23/2020 11:15 AM CDT): Refer to APG Assessment & Plan (06/19/2020 11:37 AM POLICE BOOKING OFFICER): Chronic severe back pain Significant OA Check a MRI LS spine Assessment & Plan (03/06/2020 1:21 PM CDT): No new orders Osteopenia 03/13/2019 Overview (05/09/2021): T=-2.1 Assessment & Plan (08/26/2021 12:09 PM POLICE BOOKING OFFICER): Patient is well controlled. Continue current treatment. Personal history of malignant neoplasm of breast 11/04/2018 Assessment & Plan (08/26/2021 12:09 PM POLICE BOOKING OFFICER): Patient is well controlled. Continue current treatment. Cystitis, interstitial 06/16/2018 Assessment & Plan (08/26/2021 12:06 PM POLICE BOOKING OFFICER): amoxicillin 500 mg tid 10 days Diverticula of colon 06/16/2018 Assessment & Plan (08/26/2021 12:10 PM POLICE BOOKING OFFICER): Patient is well controlled. Continue current treatment. Essential hypertension 06/16/2018 Assessment & Plan (04/15/2023 2:36 PM CDT): Patient is well controlled. Continue current treatment. Assessment & Plan (07/28/2022 11:55 AM POLICE BOOKING OFFICER): Patient is well controlled. Continue current treatment. Assessment & Plan (08/26/2021 12:10 PM POLICE BOOKING OFFICER): Patient is well controlled. Continue current treatment. Assessment & Plan (05/16/2021 9:22 AM CDT): Add amlodipine 2.5 mg daily HER2-positive carcinoma of right breast 06/16/20 18 Hyperlipidemia 06/16/2018 Assessment & Plan (08/26/2021 12:11 PM POLICE BOOKING OFFICER): Patient is well controlled. Continue current treatment. Tinnitus 06/16/2018 Assessment & Plan (08/26/2021 12:07 PM POLICE BOOKING OFFICER): Patient is well controlled. Continue current treatment. Multiple allergies 05/14/2018 Assessment & Plan (08/26/2021 12:09 PM POLICE BOOKING OFFICER): Patient is well controlled. Continue current treatment. No new orders Refusal of blood transfusion s as patient is Zoroastrianism 05/14/2018 S/P mastectomy 05/29/2017 Assessment & Plan (08/26/2021 12:08 PM POLICE BOOKING OFFICER): No new orders Patient is well controlled. Continue current treatment. Arthritis 02/13/2016 Assessment & Plan (08/26/2021 12:05 PM POLICE BOOKING OFFICER): Patient is well controlled. Continue current treatment. Multiple joints Gastroesophageal reflux disease without esophagi tis 02/13/2016 Assessment & Plan (11/11/2022 11:08 AM CDT): Add carafate Chronic condition Not at goal Assessment & Plan (11/07/2022 12:08 PM CDT): Worse since starting omnicef Change to amoxicillin Add pepcid 20 mg bid Assessment & Plan (08/26/2021 12:10 PM POLICE BOOKING OFFICER): Patient is well controlled. Continue current treatment. Rectocele 12/10/2011 Assessment & Plan (08/26/2021 12:11 PM POLICE BOOKING OFFICER): Patient is well controlled. Continue current treatment. Resolved Problems Problem Noted Date Diagnosed Date Resolved Date Acute non-recurrent frontal sinusitis 11/07/2022 11/11/2022 Assessment & Plan (11/07/2022 12:07 PM CDT): Change to amoxicillin 500 mg tid 1 week Bone pain 08/04/2022 11/11/2022 Assessment & Plan (08/04/2022 10:54 AM POLICE BOOKING OFFICER): CT unremarkable. She continues with pain in [...] 11/11/2022 Assessment & Plan (07/28/2022 11:55 AM POLICE BOOKING OFFICER): Repeat ct reviewed Consistent with cysts Assessment & Plan (06/19/2022 2:37 PM POLICE BOOKING OFFICER): Reorder pre/post contrast ct abdomen Assessment & [...] 06/19/2022 Assessment & Plan (08/26/2021 12:07 PM POLICE BOOKING OFFICER): Patient is well controlled. Continue current treatment. Acute non-recurrent maxillary sinusitis 07/25/2021 08/26/2021 Assessment & Plan (07/25/2021 3:25 PM POLICE BOOKING OFFICER): Doxycycline 100 mg bid 1 week COVID test Head ache 05/16/2021 08/26/2021 Assessment & Plan (05/16/2021 9:23 AM CDT): Sed rate Cbc Add mucinex 600 mg bid Finish augmentin Hip pain 05/16/2021 08/26/2021 Assessment & Plan (05/16/2021 9:25 AM CDT): X ray left hip Abdominal pain 01/04/2020 06/30/2022 Assessment & Plan (08/26/2021 12:04 PM POLICE BOOKING OFFICER): Believe due to urinary infection Will place [...] week Assessment & Plan (06/19/2020 11:36 AM POLICE BOOKING OFFICER): Add cipro 500 mg bid 1 week See urology See G.I. Check a urine c and s Assessment & Plan (06/14/2020 12:28 PM POLICE BOOKING OFFICER): New onset RLQ tender No G or [...] 08/26/19 22 Scoliosis 10/11/2018 08/26/2021 Patient is Zoroastrianism 06/16/2018 08/26/2021 Decreased GFR 05/14/2018 08/26/2021 Skin [...] 08/26/2021 Assessment & Plan (08/26/2021 12:05 PM POLICE BOOKING OFFICER): di Malignant neoplasm of breast 04/05/2017 08/26/2021 [...] 08/26/2021 Assessment & Plan (06/19/2020 11:36 AM POLICE BOOKING OFFICER): Patient is well controlled. Continue current treatment. [...] female - (Added by TW Conv) Cancer (HCC) 2017 breast Diverticulitis Allergic rhinitis Glaucoma [...] history of malignant neoplasm - (Added by [employer] Conv) Diverticulitis Son Relation Name Status Comments [...] place to sleep or slept in a usp (including now)? No 04/08/2022 Personal Safety Answer Date Recorded Have you ever been in or are you currently in a harmful physical or emotional relationship or is someone making you feel afraid or unsafe? Denies 11/08/2022 Comments No Sex and Gender Information Value Date Recorded Sex Assigned at Not on file Legal Sex Female 12:15 AM POLICE BOOKING OFFICER Gender Identity Not on file Sexual Orientation [...] (119 lb 7.8 oz) 05/20/2023 10:02 AM POLICE BOOKING OFFICER Height 160 cm (5' 3 ) 05/20/2023 10:02 AM POLICE BOOKING OFFICER Body Mass Index 21.17 05/20/2023 10:02 AM POLICE BOOKING OFFICER Plan of Treatment Health Maintenance Due Date [...] 03/06/2020, 07/2008 Medical Devices Implanted Type Area Appraiser Timber Device Identifier Shelf Expiration Date Model / Serial / Lot Ethicon Endo Surgery Ultrapro 4cm 5cm Nonabsorbable Flat Onlay Patch [place] Rim Medium Uppm2 - [id number] Implanted:Qty: 1 on 11/09/2021 by Dragan Ferrari MD at [facility] [employer] End[employer] Surgery [id number] 10/10/2022 UPPM2 / / [id number] Insurance [facility] [place] [id number] [place] [place] [address] Advance Directives For more information, please contact: [phone] Documents on File Type Date Recorded Patient Fork Truck Operator Expl anation ADVANCE DIRECTIVE 06/14/2020 ADVANCE DIRECTIVE 09/26/2014 12:00 AM MARIA DEL CARMEN R OF [employer] TECHNOLOGY MANAGER FINANCIAL/MEDICAL * Full Code (Latest Code Status on File) Date Activated Date Inactivated Comments 11/09/2021 7:48 PM 11/10/2021 7:48 PM Care Teams Die Technician Relationship Specialty Start Date End Date Deion Childs DO PCP - General Family Medicine 08/31/19
--- OUTSIDE RECORDS SUMMARY | 2024-09-27 13:25 | XMS_ITS | Clinical Summary ---
Author Organization [facility] Address [address] [place] [address] Care Team Providers Care Floor Layer Name Role Phone Deion Britt DO Primary Care Provider [phone] Allergies Active Allergy Reactions Criticality Noted Date [...] 06/16/2018 Irritable bowel syndrome 06/16/2018 Patient is Sabianism 06/16/2018 Rectocele 06/16/2018 Tinnitus 06/16/2018 HER2-positive carcinoma of right breast 06/16/20 18 Multiple allergies 05/14/2018 Decreased GFR 05/14/2018 Refusal of blood transfusion s as patient is Sabianism 05/14/2018 Skin lesion of chest wall 05/14/2018 [...] on file Legal Sex Female 8:39 PM TYPIST Gender Identity Not on file Sexual Orientation Not on file 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 Not on file Not on file Not on file Last Filed Vital Signs Vital Sign Reading Time Taken Comments Blood Pressure 140/82 05/07/2021 2:36 PM CDT Pulse 59 07/05/2018 7:55 AM TYPIST Temperature 36.4 C (97.6 F) 05/07/2021 2:36 PM CDT Respiratory Rate 14 07/05/2018 7:55 AM TYPIST Oxygen Saturation 98% 07/05/2018 7:55 AM TYPIST Inhaled Oxygen Concentration - - Weight 54.4 [...] 03/13/202411/2020 OSTEOPOROSIS SCREENING Completed 04/07/2019 PNEUMOCOCCAL VACCINE 50+ YEARS Completed 03/06/2020 , 07/13/2008 Medical Devices Explanted Type Area White Washer Device Identifier Shelf Expiration Date Model / Serial / Lot Left Portacath Removal Explanted:Qty: 1 on 07/05/2018 by Luly Wei MD at [facility] Left: Chest Description:disposed of per Dr request [...] refer to the full report available in [facility] under the PACS Images tab. If a faxed copy is needed, please call [phone]. DICTATION LOCATION: Location [facility] Procedure Note Chris Rolle MD - 04/07/2019 SUMMARY DEXA REPORT DATE: 04/07/2019 1:35 PM INDICATION: Postmenopausal, arthritis. FINDINGS: Bone mineral density is consistent with osteopenia. The lowest T score is -2.1. Please refer to the full report available in [facility] under the PACS Images tab. If a faxed copy is needed, please call [phone]. 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
--- OUTSIDE RECORDS SUMMARY | 2024-09-27 13:25 | XMS_ITS | Encounter Summary ---
Author Organization [facility] Address [facility] [place] [address] Care Team Providers Care Sap Integration Architect Name Role Phone Lenin Jeong MD Primary Care Provider [phone] Shayy Valentin MD Primary Care Provider [phone] Deion Britt DO Primary Care Provider [phone] Encounter Details Date Type Department Care Team (Late st Contact Info) Description 10/12/2018 Abstract [facility] CONVERSION [address] [place] [address] , Luisito Kang MD Social [...] on filedocumented in this encounter Care Teams Sap Integration Architect Relationship Specialty [place] [address] [place] [address] PCP - General FAMILY PRACTICE 05/29/18 02/20/19 Shayy Valentin MD [address] [place] [address] PCP - General FAMILY PRACTICE 02/21/19 09/09/19 Deion Britt DO [address] [place] [address] PCP - General FAMILY PRACTICE 09/10/19 documented as of this encounter
--- NOTE | 2024-09-27 14:11 | ED_ITS ---
HPI - Female Genitourinary General Chief complaint: Urogenital-Female <Lennox Galeana PA-C - Last Filed: 09/27/24 14:38> Stated complaint: Urinary issues, low back pain <Lennox Galeana PA-C - Last Filed: 09/27/24 14:38> Time Seen by Provider: 09/27/24 14:11 <Lennox Galeana PA-C - Last Filed: 09/27/24 14:38> Focused HPI: This is a 84-year-old female who presents to the ED for chief complaint of suprapubic abdominal pain. States that she has history of overactive bladder feels that her her frequency is worsening. Also reports chronic low back pain but does not that she has developed a pain to the flanks. Denies fevers chills, nausea vomiting. GENERAL: Well-appearing, well-nourished, and in no acute distress. HEAD: Normocephalic, atraumatic. CHEST: Clear to auscultation. No respiratory distress. ABD: Mild suprapubic tenderness. Mild right lower quadrant tenderness. Soft and otherwise nontender. HEART: Regular rate and rhythm. NEURO: Alert and oriented x3. Patient screened in triage and initial orders placed. Additional care and disposition to be based upon diagnostic testing and treatment. <Lennox Galeana PA-C - Last Filed: 09/27/24 14:38> Source: patient <Lennox Galeana PA-C - Last Filed: 09/27/24 14:38> Mode of arrival: ambulatory <Lennox Galeana PA-C - Last Filed: 09/27/24 14:38> Limitations: no limitations <Lennox Galeana PA-C - Last Filed: 09/27/24 14:38> History of Present Illness HPI Narrative: At time of my evaluation patient states the only reason she was instructed to present to the emergency department is because she was having elevated blood pressures this morning. Patient denies any current pain or complaints. Patient does have history of hypertension states but is not on any blood pressure medications. <Raphael Santana MD - Last Filed: 09/27/24 21:33> Related Data Home medications: Home Medications ?Medication ?Instructions ?Recorded ?Confirmed ?Last Taken ?Type mirabegron 50 mg tablet,extended 50 mg PO DAILY 10/04/23 10/04/23 Unknown History release 24 hr (Myrbetriq) omeprazole 40 mg capsule,delayed 40 mg PO DAILY 10/04/23 10/04/23 Unknown History release <Lennox Galeana PA-C - Last Filed: 09/27/24 14:38> Allergies/Adverse reactions: Allergies Allergy/AdvReac Type Severity Reaction Status Date / Time amoxicillin Allergy Unknown Verified 09/27/24 11:52 azithromycin Allergy Unknown Verified 09/27/24 11:52 cortisone Allergy Unknown Verified 09/27/24 11:52 gabapentin Allergy Unknown Verified 09/27/24 11:52 hydrocodone Allergy Unknown Verified 09/27/24 11:52 ketorolac Allergy Unknown Verified 09/27/24 11:52 methadone Allergy Unknown Verified 09/27/24 11:52 morphine Allergy Unknown Verified 09/27/24 11:52 phenazopyridine Allergy Unknown Verified 09/27/24 11:52 codeine AdvReac Intermediate Hyperactive Verified 09/27/24 11:52 Sulfa (Sulfonamide AdvReac Mild Hives Verified 09/27/24 11:52 Antibiotics) <Lennox Galeana PA-C - Last Filed: 09/27/24 14:38> Review of Systems 2 Review of Systems: All systems reviewed & are unremarkable except as noted in HPI and below <Raphael Santana MD - Last Filed: 09/27/24 21:33> [facility] Past Medical History Medical History: Medical History Diverticulitis Essential tremor Fibromyalgia GERD (gastroesophageal reflux disease) Overactive bladder Skin neoplasm <Lennox Galeana PA-C - Last Filed: 09/27/24 14:38> Family History Family History: Family History Other Diabetes mellitus Family history of cardiovascular disease <Lennox Galeana PA-C - Last Filed: 09/27/24 14:38> Social History Social History: Social History (Updated 08/23/24 @ 18:47 by Luz Elena Lynch MD) Smoking status: Never smoker Alcohol intake: never Living arrangements[facility] <Lennox Galeana PA-C - Last Filed: 09/27/24 14:38> Exam 2 Narrative: APPEARANCE: Well appearing, no pain, no distress, well-nourished. HEAD: normocephalic, atraumatic. EYES: PERRLA/EOMI, conjunctivae clear. NOSE: Normal no drainage EARS:TMS clear with good light reflex. THROAT: Pharynx clear, no exudate. NECK: Supple. No adenopathy, no masses. RESPIRATORY: Airway patent, respirations nonlabored. Clear to auscultation bilaterally, no rales, rhonchi, wheezing. CARDIOVASCULAR: Regular rate and rhythm without murmurs rubs or gallops. ABDOMINAL: Soft, nontender, nondistended, normal bowel sounds MUSCULOSKELETAL: Moves all extremities. Strength/ROM intact, No edema, No calf tenderness. NEURO: Alert. Cranial nerves II through XII intact. Grossly intact SKIN: Warm, dry. Normal Color <Raphael Santana MD - Last Filed: 09/27/24 21:33> Course Vital Signs Vital signs: Vital Signs Temperature 97.6 F 09/27/24 11:54 Pulse Rate 68 09/27/24 11:54 Respiratory Rate 16 09/27/24 11:54 Blood Pressure 171/87 H 09/27/24 11:54 Pulse Oximetry 98 09/27/24 11:54 Temperature 97.6 F 09/27/24 11:54 Pulse Rate 62 09/27/24 17:56 Respiratory Rate 17 09/27/24 17:56 Blood Pressure 175/88 H 09/27/24 17:56 Pulse Oximetry 100 09/27/24 17:56 <Lennox Galeana PA-C - Last Filed: 09/27/24 14:38> Vital Signs Temperature 97.6 F 09/27/24 11:54 Pulse Rate 68 09/27/24 11:54 Respiratory Rate 16 09/27/24 11:54 Blood Pressure 171/87 H 09/27/24 11:54 Pulse Oximetry 98 09/27/24 11:54 Temperature 97.6 F 09/27/24 11:54 Pulse Rate 62 09/27/24 17:56 Respiratory Rate 17 09/27/24 17:56 Blood Pressure 175/88 H 09/27/24 17:56 Pulse Oximetry 100 03/18/25 17:56 <Raphael Santana MD - Last Filed: 09/27/24 21:33> MDM - Female Genitourinary MDM Narrative Medical decision making narrative: 84-year-old female presents emergency department for evaluation for hypertension. Time of evaluation patient denies any pain complaints. Patient was afebrile with no leukocytosis hemoglobin 13.6. Patient had no acute abnormalities on her CMP kidney function was at her baseline. UA was negative for infection. CT abdomen pelvis showed no acute abnormalities. Patient was treated with a dose of p.o. Lopressor and hydralazine. This did help to control her blood pressure. Case was discussed with [facility] to see if they wanted patient to be started on medications for blood pressure. Patient was started on hydrochlorothiazide. Patient's blood pressure was improved and patient had no complaints at time of discharge back to her care facility. <Raphael Santana MD - Last Filed: 09/27/24 21:33> Differential Diagnosis Differential diagnosis: Likely urinary tract infection and other (Class, diverticulitis, urinary tract infection, hypertension) <Raphael Santana MD - Last Filed: 09/27/24 21:33> Lab Data Attestation: I reviewed the patient's lab results. <Raphael Santana MD - Last Filed: 09/27/24 21:33> Result diagrams: 09/27/24 14:23 09/27/24 14:23 <Lennox Galeana PA-C - Last Filed: 09/27/24 14:38> Labs: Lab Results 09/27/24 09/27/24 Range/Units 14:23 14:46 WBC 6.5 (4.5-10.0) K/mm3 RBC 4.65 (4.2-5.4) M/mm3 Hgb 13.6 (12.0-15.0) g/dL Hct 42.6 (37.0-47.0) % MCV 91.6 (80-100) fl MCH 29.2 (26-34) pg MCHC 31.9 L (32-36) g/dl RDW 13.2 (11.5-14.5) % Plt Count 278 (150-375) k/mm3 MPV 10.1 (7.4-10.4) fl Immature Gran % (Auto) 0.3 (0-0.5) % Neut % (Auto) 70.0 (45.5-73.1) % Lymph % (Auto) 19.9 (18.3-44.2) % [place] % (Auto) 7.9 (2.6-8.5) % Eos % (Auto) 1.1 (0-4.4) % Baso % (Auto) 0.8 (0.2-1.2) % Lymph # (Auto) 1.29 (0.9-3.2) K/mm3 [place] # (Auto) 0.5 (0.1-0.6) K/mm3 Eos # (Auto) 0.1 (0-0.3) K/mm3 Baso # (Auto) 0.1 (0.0-0.1) K/mm3 Abs Immat Gran (auto) 0.02 (0.00-0.031) K/mm3 Absolute Neuts (auto) 4.6 (1.3-6.7) K/mm3 Absolute Nucleated RBC 0.000 (0.0-0.012) K/mm3 Nucleated RBC % 0.0 (0.0-0.2) % Sodium 140 (137-145) mmol/L Potassium 4.2 (3.4-5.0) mmol/L Chloride 102 (98-107) mmol/L Carbon Dioxide 28 (22-30) mmol/L Anion Gap 10 (4-12) mmol/L BUN 19 H (7-17) mg/dL Creatinine 1.20 H (0.7-1.0) mg/dL Estim Creat Clear Calc Not Reportable Estimated GFR 43 L (59 - ) Glucose 106 (65-110) mg/dL Calcium 9.7 (8.4-10.2) mg/dL Magnesium 2.2 (1.6-2.3) mg/dL Total Bilirubin 0.6 (0.2-1.3) mg/dL AST 22 (14-36) U/L ALT 13 (6-35) U/L Alkaline Phosphatase 84 (38-126) U/L C-Reactive Protein 0.9 (<1.0) mg/dL Total Protein 8.0 (6.3-8.2) g/dL Albumin 4.6 (3.5-5.1) g/dL TSH (Reflex) 1.590 (0.465-4.68) uIU/mL Urine Color Yellow (Yellow) Urine Appearance Clear (Clear) Urine pH 6.5 (5.0-9.0) Ur Specific [place] 1.017 (1.001-1.035) Urine Protein Negative (Negative) mg/dL Urine Glucose (UA) Negative (Negative) mg/dL Urine Ketones 1+ H (Negative) mg/dL Ur Blood (Man) Negative (Negative) Urine Nitrate Negative (Negative) Urine Bilirubin Negative (Negative) Urine Urobilinogen 1.0 (<2.0) mg/dL Leukocyte Esterase Rfl Negative (Negative) LUCIANA/UL <Lennox Galeana PA-C - Last Filed: 09/27/24 14:38> Lab Results 09/27/24 09/27/24 Range/Units 14:23 14:46 WBC 6.5 (4.5-10.0) K/mm3 RBC 4.65 (4.2-5.4) M/mm3 Hgb 13.6 (12.0-15.0) g/dL Hct 42.6 (37.0-47.0) % MCV 91.6 (80-100) fl MCH 29.2 (26-34) pg MCHC 31.9 L (32-36) g/dl RDW 13.2 (11.5-14.5) % Plt Count 278 (150-375) k/mm3 MPV 10.1 (7.4-10.4) fl Immature Gran % (Auto) 0.3 (0-0.5) % Neut % (Auto) 70.0 (45.5-73.1) % Lymph % (Auto) 19.9 (18.3-44.2) % [place] % (Auto) 7.9 (2.6-8.5) % Eos % (Auto) 1.1 (0-4.4) % Baso % (Auto) 0.8 (0.2-1.2) % Lymph # (Auto) 1.29 (0.9-3.2) K/mm3 [place] # (Auto) 0.5 (0.1-0.6) K/mm3 Eos # (Auto) 0.1 (0-0.3) K/mm3 Baso # (Auto) 0.1 (0.0-0.1) K/mm3 Abs Immat Gran (auto) 0.02 (0.00-0.031) K/mm3 Absolute Neuts (auto) 4.6 (1.3-6.7) K/mm3 Absolute Nucleated RBC 0.000 (0.0-0.012) K/mm3 Nucleated RBC % 0.0 (0.0-0.2) % Sodium 140 (137-145) mmol/L Potassium 4.2 (3.4-5.0) mmol/L Chloride 102 (98-107) mmol/L Carbon Dioxide 28 (22-30) mmol/L Anion Gap 10 (4-12) mmol/L BUN 19 H (7-17) mg/dL Creatinine 1.20 H (0.7-1.0) mg/dL Estim Creat Clear Calc Not Reportable Estimated GFR 43 L (59 - ) Glucose 106 (65-110) mg/dL Calcium 9.7 (8.4-10.2) mg/dL Magnesium 2.2 (1.6-2.3) mg/dL Total Bilirubin 0.6 (0.2-1.3) mg/dL AST 22 (14-36) U/L ALT 13 (6-35) U/L Alkaline Phosphatase 84 (38-126) U/L C-Reactive Protein 0.9 (<1.0) mg/dL Total Protein 8.0 (6.3-8.2) g/dL Albumin 4.6 (3.5-5.1) g/dL TSH (Reflex) 1.590 (0.465-4.68) uIU/mL Urine Color Yellow (Yellow) Urine Appearance Clear (Clear) Urine pH 6.5 (5.0-9.0) Ur Specific [place] 1.017 (1.001-1.035) Urine Protein Negative (Negative) mg/dL Urine Glucose (UA) Negative (Negative) mg/dL Urine Ketones 1+ H (Negative) mg/dL Ur Blood (Man) Negative (Negative) Urine Nitrate Negative (Negative) Urine Bilirubin Negative (Negative) Urine Urobilinogen 1.0 (<2.0) mg/dL Leukocyte Esterase Rfl Negative (Negative) LUCIANA/UL <Raphael Santana MD - Last Filed: 09/27/24 21:33> Imaging Data Radiologist's impression: Impressions Abdomen/Pelvis CT 09/27/24 15:04 IMPRESSION: 1. No acute intra-abdominal/pelvic process. 2. Cholelithiasis. 2. Extensive diverticulosis. 4. Small sliding-type hiatal hernia. <Raphael Santana MD - Last Filed: 09/27/24 21:33> Discharge Plan Discharge Clinical Impression: Hypertension <Lennox Galeana PA-C - Last Filed: 09/27/24 14:38> Patient Disposition: Home, Self-Care <Lennox Galeana PA-C - Last Filed: 09/27/24 14:38> Condition: Stable <Lennox Galeana PA-C - Last Filed: 09/27/24 14:38> Instructions: Antibiotic Form <Lennox Galeana PA-C - Last Filed: 09/27/24 14:38> Additional Instructions: Start the hydrochlorothiazide as directed. Have close follow-up with your physician for further outpatient evaluation for your elevated blood pressure. <Lennox Galeana PA-C - Last Filed: 09/27/24 14:38> Patient Language: Jordanian <Lennox Galeana PA-C - Last Filed: 09/27/24 14:38> Prescriptions: New hydrochlorothiazide 25 mg tablet 25 mg PO DAILY 14 Days Qty: 14 0RF No Action omeprazole 40 mg capsule,delayed release(DR/EC) 40 mg PO DAILY Myrbetriq 50 mg tablet extended release 24 hr 50 mg PO DAILY doxycycline hyclate 100 mg tablet 100 mg PO BID 7 Days Qty: 14 0RF ofloxacin 0.3 % drops 1 drp LEFT EYE QID Qty: 5 0RF cetirizine 10 mg tablet 10 mg PO DAILY PRN (Reason: itching) Qty: 20 0RF acetaminophen 500 mg capsule 1,000 mg PO Q6H PRN (Reason: pain) Qty: 30 0RF ibuprofen 600 mg tablet 600 mg PO TID PRN (Reason: pain) Qty: 30 0RF <Lennox Galeana PA-C - Last Filed: 09/27/24 14:38> Follow-up/Referrals: [place],Deion Sapp MD [Primary Care Provider] - <Lennox Galeana PA-C - Last Filed: 09/27/24 14:38>
[2024-09-27 14:29] LABS: Basophils Absolute Auto 0.1 K/mm3 (0.0-0.1); Basophils Percent Auto 0.8 % (0.2-1.2); Eosinophils Absolute Auto 0.1 K/mm3 (0-0.3); Eosinophils Percent Auto 1.1 % (0-4.4); Hematocrit 42.6 % (37.0-47.0); Hemoglobin 13.6 g/dL (12.0-15.0); Immature Granulocyte Absolute 0.02 K/mm3 (0.00-0.031); Immature Granulocyte Percent A 0.3 % (0-0.5); Lymphocytes Absolute Auto 1.29 K/mm3 (0.9-3.2); Lymphocytes Percent Auto 19.9 % (18.3-44.2); Mean Corpuscular HGB Conc 31.9 g/dl (32-36); Mean Corpuscular Hemoglobin 29.2 pg (26-34); Mean Corpuscular Volume 91.6 fl (80-100); Mean Platelet Volume 10.1 fl (7.4-10.4); Monocytes Absolute Auto 0.5 K/mm3 (0.1-0.6); Monocytes Percent Auto 7.9 % (2.6-8.5); Neutrophils Absolute Auto 4.6 K/mm3 (1.3-6.7); Platelet Count Result 278 k/mm3 (150-375); Red Blood Count 4.65 M/mm3 (4.2-5.4); Red Cell Distribution Width 13.2 % (11.5-14.5); White Blood Count 6.5 K/mm3 (4.5-10.0)
[2024-09-27 14:42] LABS: Alanine Aminotransferase 13 U/L (6-35); Albumin Level 4.6 g/dL (3.5-5.1); Alkaline Phosphatase 84 U/L (38-126); Anion Gap 10 mmol/L (4-12); Aspartate Amino Transferase 22 U/L (14-36); Bilirubin,Total 0.6 mg/dL (0.2-1.3); Blood Urea Nitrogen 19 mg/dL (7-17); CRP 0.9 mg/dL (<1.0); Calcium 9.7 mg/dL (8.4-10.2); Carbon Dioxide 28 mmol/L (22-30); Chloride 102 mmol/L (98-107); Estimated Glomerular Filt Rate 43; Glucose 106 mg/dL (65-110); Potassium 4.2 mmol/L (3.4-5.0); Sodium 140 mmol/L (137-145)
[2024-09-27 14:53] LABS: Add Urine Microscopic? NO; Appearance Urine Clear (Clear); Bilirubin Urine Negative (Negative); Blood Urine Negative (Negative); Color Urine Yellow (Yellow); Glucose Urine UA Negative (Negative); Ketones Urine 1+ mg/dL (Negative); Leukocyte Esterase Ur Negative LEU/UL (Negative); Nitrate Urine Negative (Negative); Protein Urine Negative (Negative); Specific Grav Ur 1.017 (1.001-1.035); pH Urine 6.5 (5.0-9.0)
[2024-09-27] MEDS: hydrALAZINE HCL 20 MG/ML VIAL 10 MG IV PUSH (15:10)
[2024-09-27] MEDS: METOPROLOL TARTRATE 25 MG TABLET PO (15:13)
[2024-09-27 15:38] LABS: Magnesium 2.2 mg/dL (1.6-2.3)
--- OUTSIDE RECORDS SUMMARY | 2024-09-27 16:06 | XMS_ITS | Clinical Summary ---
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
--- OUTSIDE RECORDS SUMMARY | 2024-09-27 16:06 | XMS_ITS | Clinical Summary ---
Author Organization [facility] Address [address] [place] [address] Care Team Providers Care Demand Planning Manager Name Role Phone Deion Childs DO [...] antibody Assessment & Plan (07/28/2022 11:54 AM HYDRAULIC PRESS IN OPERATOR): Add doxycycline Add singulair Assessment & [...] tests. Assessment & Plan (06/19/2022 2:39 PM HYDRAULIC PRESS IN OPERATOR): Acute on chronic Worsening Chronic condition [...] 05/09/2021 Assessment & Plan (08/26/2021 12:10 PM HYDRAULIC PRESS IN OPERATOR): Patient is well controlled. Continue current treatment. Urinary incontinence 05/09/2021 Assessment & Plan (08/26/2021 12:07 PM HYDRAULIC PRESS IN OPERATOR): Chronic No new orders Full code status 06/14/2020 Assessment & Plan (08/26/2021 12:05 PM HYDRAULIC PRESS IN OPERATOR): No changes to status Assessment & Plan (06/14/2020 12:20 PM HYDRAULIC PRESS IN OPERATOR): Discussed with patient approximately 20minutes End of life issues/Advanced Directives/Healthcare Surrogate. Discussed DNR. Encouraged to discuss further with family and consult oyster sorter or complete [place] approved form, which I would be glad to assist them with completion. All questions answered. polst form filled out and signed Chronic back pain 03/06/2020 Assessment & Plan (08/26/2021 12:05 PM HYDRAULIC PRESS IN OPERATOR): Patient is well controlled. Continue current treatment. Assessment & Plan (07/25/2021 3:26 PM HYDRAULIC PRESS IN OPERATOR): I will look into something she can take for pain Assessment & Plan (11/23/2020 11:15 AM CDT): Refer to [facility] Assessment & Plan (06/19/2020 11:37 AM HYDRAULIC PRESS IN OPERATOR): Chronic severe back pain Significant OA Check a MRI LS spine Assessment & Plan (03/06/2020 1:21 PM CDT): No new orders Osteopenia 03/13/2019 Overview (05/09/2021): T=-2.1 Assessment & Plan (08/26/2021 12:09 PM HYDRAULIC PRESS IN OPERATOR): Patient is well controlled. Continue current treatment. Personal history of malignant neoplasm of breast 11/04/2018 Assessment & Plan (08/26/2021 12:09 PM HYDRAULIC PRESS IN OPERATOR): Patient is well controlled. Continue current treatment. Cystitis, interstitial 06/16/2018 Assessment & Plan (08/26/2021 12:06 PM HYDRAULIC PRESS IN OPERATOR): amoxicillin 500 mg tid 10 days Diverticula of colon 06/16/2018 Assessment & Plan (08/26/2021 12:10 PM HYDRAULIC PRESS IN OPERATOR): Patient is well controlled. Continue current treatment. Essential hypertension 06/16/2018 Assessment & Plan (04/15/2023 2:36 PM CDT): Patient is well controlled. Continue current treatment. Assessment & Plan (07/28/2022 11:55 AM HYDRAULIC PRESS IN OPERATOR): Patient is well controlled. Continue current treatment. Assessment & Plan (08/26/2021 12:10 PM HYDRAULIC PRESS IN OPERATOR): Patient is well controlled. Continue current treatment. Assessment & Plan (05/16/2021 9:22 AM CDT): Add amlodipine 2.5 mg daily HER2-positive carcinoma of right breast 06/16/20 18 Hyperlipidemia 06/16/2018 Assessment & Plan (08/26/2021 12:11 PM HYDRAULIC PRESS IN OPERATOR): Patient is well controlled. Continue current treatment. Tinnitus 06/16/2018 Assessment & Plan (08/26/2021 12:07 PM HYDRAULIC PRESS IN OPERATOR): Patient is well controlled. Continue current treatment. Multiple allergies 05/14/2018 Assessment & Plan (08/26/2021 12:09 PM HYDRAULIC PRESS IN OPERATOR): Patient is well controlled. Continue current treatment. No new orders Refusal of blood transfusion s as patient is Confucianist 05/14/2018 S/P mastectomy 05/29/2017 Assessment & Plan (08/26/2021 12:08 PM HYDRAULIC PRESS IN OPERATOR): No new orders Patient is well controlled. Continue current treatment. Arthritis 02/13/2016 Assessment & Plan (08/26/2021 12:05 PM HYDRAULIC PRESS IN OPERATOR): Patient is well controlled. Continue current treatment. Multiple joints Gastroesophageal reflux disease without esophagi tis 02/13/2016 Assessment & Plan (11/11/2022 11:08 AM CDT): Add carafate Chronic condition Not at goal Assessment & Plan (11/07/2022 12:08 PM CDT): Worse since starting omnicef Change to amoxicillin Add pepcid 20 mg bid Assessment & Plan (08/26/2021 12:10 PM HYDRAULIC PRESS IN OPERATOR): Patient is well controlled. Continue current treatment. Rectocele 12/10/2011 Assessment & Plan (08/26/2021 12:11 PM HYDRAULIC PRESS IN OPERATOR): Patient is well controlled. Continue current treatment. Resolved Problems Problem Noted Date Diagnosed Date Resolved Date Acute non-recurrent frontal sinusitis 11/07/2022 11/11/2022 Assessment & Plan (11/07/2022 12:07 PM CDT): Change to amoxicillin 500 mg tid 1 week Bone pain 08/04/2022 11/11/2022 Assessment & Plan (08/04/2022 10:54 AM HYDRAULIC PRESS IN OPERATOR): CT unremarkable. She continues with pain [...] 11/11/2022 Assessment & Plan (07/28/2022 11:55 AM HYDRAULIC PRESS IN OPERATOR): Repeat ct reviewed Consistent with cysts Assessment & Plan (06/19/2022 2:37 PM HYDRAULIC PRESS IN OPERATOR): Reorder pre/post contrast ct abdomen Assessment [...] 06/19/2022 Assessment & Plan (08/26/2021 12:07 PM HYDRAULIC PRESS IN OPERATOR): Patient is well controlled. Continue current treatment. Acute non-recurrent maxillary sinusitis 07/25/2021 08/26/2021 Assessment & Plan (07/25/2021 3:25 PM HYDRAULIC PRESS IN OPERATOR): Doxycycline 100 mg bid 1 week COVID test Head ache 05/16/2021 08/26/2021 Assessment & Plan (05/16/2021 9:23 AM CDT): Sed rate Cbc Add mucinex 600 mg bid Finish augmentin Hip pain 05/16/2021 08/26/2021 Assessment & Plan (05/16/2021 9:25 AM CDT): X ray left hip Abdominal pain 01/04/2020 06/30/2022 Assessment & Plan (08/26/2021 12:04 PM HYDRAULIC PRESS IN OPERATOR): Believe due to urinary infection Will [...] week Assessment & Plan (06/19/2020 11:36 AM HYDRAULIC PRESS IN OPERATOR): Add cipro 500 mg bid 1 week See urology See G.I. Check a urine c and s Assessment & Plan (06/14/2020 12:28 PM HYDRAULIC PRESS IN OPERATOR): New onset RLQ tender No G [...] 08/26/19 22 Scoliosis 10/11/2018 08/26/2021 Patient is Confucianist 06/16/2018 08/26/2021 Decreased GFR 05/14/2018 08/26/2021 Skin [...] 08/26/2021 Assessment & Plan (08/26/2021 12:05 PM HYDRAULIC PRESS IN OPERATOR): di Malignant neoplasm of breast 04/05/2017 [...] 08/26/2021 Assessment & Plan (06/19/2020 11:36 AM HYDRAULIC PRESS IN OPERATOR): Patient is well controlled. Continue current [...] history of malignant neoplasm - (Added by [employer] Conv) Diverticulitis Son Relation Name Status Comments [...] place to sleep or slept in a senior care (including now)? No 04/08/2022 Personal Safety Answer Date Recorded Have you ever been in or are you currently in a harmful physical or emotional relationship or is someone making you feel afraid or unsafe? Denies 11/08/2022 Comments No Sex and Gender Information Value Date Recorded Sex Assigned at Not on file Legal Sex Female 12:15 AM HYDRAULIC PRESS IN OPERATOR Gender Identity Not on file Sexual [...] (119 lb 7.8 oz) 05/20/2023 10:02 AM HYDRAULIC PRESS IN OPERATOR Height 160 cm (5' 3 ) 05/20/2023 10:02 AM HYDRAULIC PRESS IN OPERATOR Body Mass Index 21.17 05/20/2023 10:02 AM HYDRAULIC PRESS IN OPERATOR Plan of Treatment Health Maintenance Due Date [...] 03/06/2020, 07/2008 Medical Devices Implanted Type Area Business Intelligence Architect Device Identifier Shelf Expiration Date Model / Serial / Lot [employer] Ultrapro 4cm 5cm Nonabsorbable Flat Onlay Patch Spencer Rim Medium [id number] - [id number] Implanted:Qty: 1 on 11/09/2021 by Dragan Ferrari MD at [facility] [employer] [id number] 10/10/2022 [id number] / / [id number] Insurance [facility] [place] [id number] [place] [address] Advance Directives For more information, please contact: [phone] Documents on File Type Date Recorded Patient Operation Supervisor Expl anation ADVANCE DIRECTIVE 06/14/2020 ADVANCE DIRECTIVE 09/26/2014 12:00 AM MARIA DEL CARMEN R OF VP OF TECHNOLOGY FINANCIAL/MEDICAL * Full Code (Latest Code Status on File) Date Activated Date Inactivated Comments 11/09/2021 7:48 PM 11/10/2021 7:48 PM Care Teams Demand Planning Manager Relationship Specialty Start Date End Date Deion Childs DO PCP - General Family Medicine 08/31/19
--- OUTSIDE RECORDS SUMMARY | 2024-09-27 16:06 | XMS_ITS | Encounter Summary ---
Author Organization [facility] Address [facility] [place] [address] Care Team Providers Care Hosiery Mender Name Role Phone Lenin Jeong MD Primary Care Provider [phone] Shayy Valentin MD Primary Care Provider [phone] Deion Britt DO Primary Care Provider [phone] Encounter Details Date Type Department Care Team (Late st Contact Info) Description 10/12/2018 Abstract [facility] CONVERSION [address] [place] [address] , Luisito Kang MD Social [...] on filedocumented in this encounter Care Teams Hosiery Mender Relationship Specialty [place] [address] [place] [address] PCP - General FAMILY PRACTICE 05/29/18 02/20/19 Shayy Valentin MD [address] [place] [address] PCP - General FAMILY PRACTICE 02/21/19 09/09/19 Deion Britt DO [address] [place] [address] PCP - General FAMILY PRACTICE 09/10/19 documented as of this encounter
--- OUTSIDE RECORDS SUMMARY | 2024-09-27 16:06 | XMS_ITS | Continuity of Care Document ---
Author Organization [facility] Address [address] [place] [address] Phone Care Team Providers Care Tmd Teacher Name Role Phone Paula Davies DO Unavailable Unavailable Allergies, Adverse Reactions, Alerts Substance Reaction Status Criticality codeine nonresponsive Active No Information Sulfa (Sulfonamide Antibiotics) Hives / Skin Rash Acti ve No Information Medications Medication Instructions Dosage Effective Dates (start - stop) Status Comments hydrocodone 5 mg-acetaminophen 325 mg tablet take 1 tablet by oral route every 6 hours as needed for pain 1.00 tablet - Active Valium 2 mg tablet Take 1 tablet every 8 hours as needed - Active Robaxin 500 mg tablet Take 1-2 tablets up to four times daily - Active Rogaine 5 % topical foam once per day as directed as needed - Active clonazepam 0.5 mg tablet take 1/2 tablet by oral route as needed - Active Levsin 0.125 mg tablet take 1 tablet by oral route every day as needed 0.125 MG - Active meloxicam 15 mg tablet take 1 tablet by oral route every day as needed 15 MG - Active meclizine 25 mg tablet take 1 tablet by oral route 3 times every day as needed 25 MG - Active omeprazole 20 mg tablet,delayed release take 1 Tablet by Oral route every day 1 Tablet - Active Advance Directives Directive Yes / No Effective Date File Name No Information Encounters Encounter Description Practice Location Reason(s) For Visit Diagnoses Date Provider Providers Copied on Encounter [facility], [address], [place], [place], [id number] , [place] tel: [phone] [facility] No Information Apr-1 2-201 7 Davies Paula. [address], [address], [place], [address], [place]. tel: [phone] [facility], [address], [place], [place], [address] , [place] tel: [phone] [facility] Apr-0 8-201 5 Jack Laila. [address] [place] [address], [id number] , [place]. tel: [phone] [facility], [address], [place], [place], [id number] , tel: [phone] [facility] injection (chief complaint) Chronic pain Apr-0 7-201 5 [place] Laila. [address] [place] [address], [id number] , [place]. tel: [phone] Referring Provider: Laila Arriaza, [address] [place] [address], [address] . tel:[phone] [facility], [address], [place], [place], [id number] , [place] tel: [phone] [facility] Apr-0 2-201 5 Jack Laila. [address] [place] [address], [id number] , [place]. tel: [phone] [facility], [address], [place], [place], [address] , [place] tel: [phone] [facility] Mar-2 5-201 5 [place] Laila. [address] [place] [address], [id number] , [place]. tel: [phone] [facility], [address], [place], [place], [address] , tel: [phone] [facility] No Information Mar-2 3-201 5 [place] Laila. [address] [place] [address], [id number] , [place]. tel: [phone] [facility], [address], [place], [place], [address] , [place] tel: [phone] [facility] injection (chief complaint) Back pain 5 Jack Ulloa. [address] [place] [address], [id number] , [place]. tel: [phone] Referring Provider: Laila Arriaza, [address] [place] [address], [address] . tel:[phone] [facility], [address], [place], [place], [address] , [place] tel: [phone] [facility] No Information 5 Morales Herman. [address], [address], [place], [place], [id number] . tel: [phone] [facility], [address], [place], [place], [address] , [place] tel: [phone] [facility] Cervical spondylosis without myelopathyFemale bladder prolapseRectal prolapseChronic interstitial cystitisIBS (irritable bowel syndrome)Fibromyalg iaAge related osteoporosisMDD (major depressive disorder)Anxiolytic dependence 5 Jack Ulloa. [address] [place] [address], [id number] , [place]. tel: [phone] Referring Provider: Laila Arriaza, [address] [place] [address], [address] . tel:[phone] [facility], [address], [place], [place], [address] , [place] tel: [phone] [facility] Sore throat 4 Jack Ulloa. [address] [place] [address], [id number] , [place]. tel: [phone] Referring Provider: Laila Arriaza, [address] [place] [address], [address] . tel:[phone] [facility], [address], [place], [place], [address] , tel: [phone] [facility] History of fall/At Risk For FallingChronic interstitial cystitisCervical spondylosis without myelopathyIBS (irritable bowel syndrome)Chronic pain 4 Jack Ulloa. [address] [place] [address], [id number] , . tel: [phone] Referring Provider: Laila Arriaza, [address] [place] [address], [address] . tel:[phone] [facility], [address], [place], [place], [address] , tel: [phone] [facility] OsteoporosisVisit for screening mammogram 4 Jack Ulloa. [address] [place] [address], [id number] , . tel: [phone] [facility], [address], [place], [place], [address] , tel: [phone] [facility] OsteoporosisChronic interstitial cystitisDegenerativ e joint disease of cervical and lumbarInsomniaFatig ueNEED FOR PROPHYLACTIC VACCINATION WITH COMBINED DIPHTHERIA-TETANUS- PERTUSSIS (DTP) (DTAP) VACCINE 3 Jack Ulloa. [address] [place] [address], [id number] , . tel: [phone] Referring Provider: Laila Arriaza, [address] [place] [address], [address] . tel:[phone] Family History Family Member Type Diagnosis Age At Onset Father Problem (finding) diabetes melli tus in first degree relative (Cause Of ) 101 Brother x2 Problem (finding) CABG/CAD Mother Problem (finding) kidney CA, HLP , Migraines (Cause Of ) Father Problem (finding) DM,ME Mother Problem (finding) Immunizations Vaccine Date Status Comments Tdap (Boostrix r) administered Source: Edna w Immunization Record flu (split) (3 yrs or older) administered Source: Other Provider Zoster administered Source: Other P rovider pneumo (2 yrs or older) (PPV23) administered Source: Other Provid er Payers Payer name Insurance type Covered constitution party ID Joni barcenas(s) [employer] [id number] Social History Type Description Quantity Date Captured Comments Sex Female Smoking Status No Information Chief Complaint And Reason For Visit No Information Reason For Referral Reason For Referral No Information History Of Present Illness Encounter Date Complaint History Of Prese nt Illness injection Kenalog 40mg Lef t hip injection pt received rakesh log injection in left hip Functional Status Date Functional Assessmen t No Information Instructions Date Instruction Additional Infor mation No Information Assessments Type Assessment Date No Information Patient Care Teams Name Effective Dates (start - stop) Status Members No Information
--- OUTSIDE RECORDS SUMMARY | 2024-09-27 16:06 | XMS_ITS | Clinical Summary ---
Author Organization [facility] Address [address] [place] [address] Care Team Providers Care Research Mechanic Name Role Phone Deion Britt DO Primary Care Provider [phone] Allergies Active Allergy Reactions Criticality Noted Date [...] 06/16/2018 Irritable bowel syndrome 06/16/2018 Patient is Synagogue 06/16/2018 Rectocele 06/16/2018 Tinnitus 06/16/2018 HER2-positive carcinoma of right breast 06/16/20 18 Multiple allergies 05/14/2018 Decreased GFR 05/14/2018 Refusal of blood transfusion s as patient is Synagogue 05/14/2018 Skin lesion of chest wall 05/14/2018 [...] on file Legal Sex Female 8:39 PM MEDICAL BILLING ASSISTANT Gender Identity Not on file Sexual Orientation Not on file 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 on file Not on file Not on file Last Filed Vital Signs Vital Sign Reading Time Taken Comments Blood Pressure 140/82 05/07/2021 2:36 PM CDT Pulse 59 07/05/2018 7:55 AM MEDICAL BILLING ASSISTANT Temperature 36.4 C (97.6 F) 05/07/2021 2:36 PM CDT Respiratory Rate 14 07/05/2018 7:55 AM MEDICAL BILLING ASSISTANT Oxygen Saturation 98% 07/05/2018 7:55 AM MEDICAL BILLING ASSISTANT Inhaled Oxygen Concentration - - Weight 54.4 [...] , 07/13/2008 Medical Devices Explanted Type Area Integrity Specialist Device Identifier Shelf Expiration Date Model / Serial / Lot Left Portacath Removal Explanted:Qty: 1 on 07/05/2018 by Luly Wei MD at [facility] Left: Chest Description:disposed of per [...] refer to the full report available in [facility] under the PACS Images tab. If a faxed copy is needed, please call [phone]. DICTATION LOCATION: Location [address] [facility] Procedure Note Chris Rolle MD - 04/07/2019 SUMMARY DEXA REPORT DATE: 04/07/2019 1:35 PM INDICATION: Postmenopausal, arthritis. FINDINGS: Bone mineral density is consistent with osteopenia. The lowest T score is -2.1. Please refer to the full report available in [facility] under the PACS Images tab. If a faxed copy is needed, please call [phone]. DICTATION LOCATION: Location [address] [place] [address] Abeba Vinson MD DIAGNOSTIC IMAGING OR DERABLES Final Result from Last 3 Months or Most Recently Relevant to Health Maintenance Insurance Advance Directives For more information, please contact: [phone] Documents on File Type Date Recorded Patient Rv Technician Expl anation Advance Directive POA 06/30/2018 11:34 AM RECIEVED 06/30/18 *NO BLOOD* * Full Code (Latest Code Status on File) Date Activated Date Inactivated Comments 07/05/2018 7:22 AM 07/05/2018 10:22 AM Care Teams Research Mechanic Relationship Specialty Start Date End Date Deion Britt DO PCP - General Family Practice 12/27/19
--- OUTSIDE RECORDS SUMMARY | 2024-09-27 16:06 | XMS_ITS ---
Author Organization [facility] at the [facility] Address [address] [place] [address] Care Team Providers Care Mold Maker Helper Name Role Phone Deion Childs DO Primary [...] antibody Assessment & Plan (07/28/2022 11:54 AM VP TALENT MANAGEMENT): Add doxycycline Add singulair Assessment & Plan [...] tests. Assessment & Plan (06/19/2022 2:39 PM VP TALENT MANAGEMENT): Acute on chronic Worsening Chronic condition Not [...] 05/09/2021 Assessment & Plan (08/26/2021 12:10 PM VP TALENT MANAGEMENT): Patient is well controlled. Continue current treatment. Urinary incontinence 05/09/2021 Assessment & Plan (08/26/2021 12:07 PM VP TALENT MANAGEMENT): Chronic No new orders Full code status 06/14/2020 Assessment & Plan (08/26/2021 12:05 PM VP TALENT MANAGEMENT): No changes to status Assessment & Plan (06/14/2020 12:20 PM VP TALENT MANAGEMENT): Discussed with patient approximately 20minutes End of life issues/Advanced Directives/Healthcare Surrogate. Discussed DNR. Encouraged to discuss further with family and consult real estate associate attorney or complete [place] approved form, which I would be glad to assist them with completion. All questions answered. polst form filled out and signed Chronic back pain 03/06/2020 Assessment & Plan (08/26/2021 12:05 PM VP TALENT MANAGEMENT): Patient is well controlled. Continue current treatment. Assessment & Plan (07/25/2021 3:26 PM VP TALENT MANAGEMENT): I will look into something she can take for pain Assessment & Plan (11/23/2020 11:15 AM CDT): Refer to APG Assessment & Plan (06/19/2020 11:37 AM VP TALENT MANAGEMENT): Chronic severe back pain Significant OA Check a MRI LS spine Assessment & Plan (03/06/2020 1:21 PM CDT): No new orders Osteopenia 03/13/2019 Overview (05/09/2021): T=-2.1 Assessment & Plan (08/26/2021 12:09 PM VP TALENT MANAGEMENT): Patient is well controlled. Continue current treatment. Personal history of malignant neoplasm of breast 11/04/2018 Assessment & Plan (08/26/2021 12:09 PM VP TALENT MANAGEMENT): Patient is well controlled. Continue current treatment. Cystitis, interstitial 06/16/2018 Assessment & Plan (08/26/2021 12:06 PM VP TALENT MANAGEMENT): amoxicillin 500 mg tid 10 days Diverticula of colon 06/16/2018 Assessment & Plan (08/26/2021 12:10 PM VP TALENT MANAGEMENT): Patient is well controlled. Continue current treatment. Essential hypertension 06/16/2018 Assessment & Plan (04/15/2023 2:36 PM CDT): Patient is well controlled. Continue current treatment. Assessment & Plan (07/28/2022 11:55 AM VP TALENT MANAGEMENT): Patient is well controlled. Continue current treatment. Assessment & Plan (08/26/2021 12:10 PM VP TALENT MANAGEMENT): Patient is well controlled. Continue current treatment. Assessment & Plan (05/16/2021 9:22 AM CDT): Add amlodipine 2.5 mg daily HER2-positive carcinoma of right breast 06/16/20 18 Hyperlipidemia 06/16/2018 Assessment & Plan (08/26/2021 12:11 PM VP TALENT MANAGEMENT): Patient is well controlled. Continue current treatment. Tinnitus 06/16/2018 Assessment & Plan (08/26/2021 12:07 PM VP TALENT MANAGEMENT): Patient is well controlled. Continue current treatment. Multiple allergies 05/14/2018 Assessment & Plan (08/26/2021 12:09 PM VP TALENT MANAGEMENT): Patient is well controlled. Continue current treatment. No new orders Refusal of blood transfusion s as patient is Buddhism 05/14/2018 S/P mastectomy 05/29/2017 Assessment & Plan (08/26/2021 12:08 PM VP TALENT MANAGEMENT): No new orders Patient is well controlled. Continue current treatment. Arthritis 02/13/2016 Assessment & Plan (08/26/2021 12:05 PM VP TALENT MANAGEMENT): Patient is well controlled. Continue current treatment. Multiple joints Gastroesophageal reflux disease without esophagi tis 02/13/2016 Assessment & Plan (11/11/2022 11:08 AM CDT): Add carafate Chronic condition Not at goal Assessment & Plan (11/07/2022 12:08 PM CDT): Worse since starting omnicef Change to amoxicillin Add pepcid 20 mg bid Assessment & Plan (08/26/2021 12:10 PM VP TALENT MANAGEMENT): Patient is well controlled. Continue current treatment. Rectocele 12/10/2011 Assessment & Plan (08/26/2021 12:11 PM VP TALENT MANAGEMENT): Patient is well controlled. Continue current treatment. [...] 11/11/2022 Assessment & Plan (08/04/2022 10:54 AM VP TALENT MANAGEMENT): CT unremarkable. She continues with pain in [...] 11/11/2022 Assessment & Plan (07/28/2022 11:55 AM VP TALENT MANAGEMENT): Repeat ct reviewed Consistent with cysts Assessment & Plan (06/19/2022 2:37 PM VP TALENT MANAGEMENT): Reorder pre/post contrast ct abdomen Assessment & [...] 06/19/2022 Assessment & Plan (08/26/2021 12:07 PM VP TALENT MANAGEMENT): Patient is well controlled. Continue current treatment. Acute non-recurrent maxillary sinusitis 07/25/2021 08/26/2021 Assessment & Plan (07/25/2021 3:25 PM VP TALENT MANAGEMENT): Doxycycline 100 mg bid 1 week COVID test Head ache 05/16/2021 08/26/2021 Assessment & Plan (05/16/2021 9:23 AM CDT): Sed rate Cbc Add mucinex 600 mg bid Finish augmentin Hip pain 05/16/2021 08/26/2021 Assessment & Plan (05/16/2021 9:25 AM CDT): X ray left hip Abdominal pain 01/04/2020 06/30/2022 Assessment & Plan (08/26/2021 12:04 PM VP TALENT MANAGEMENT): Believe due to urinary infection Will place [...] week Assessment & Plan (06/19/2020 11:36 AM VP TALENT MANAGEMENT): Add cipro 500 mg bid 1 week See urology See G.I. Check a urine c and s Assessment & Plan (06/14/2020 12:28 PM VP TALENT MANAGEMENT): New onset RLQ tender No G or [...] 08/26/19 22 Scoliosis 10/11/2018 08/26/2021 Patient is Buddhism 06/16/2018 08/26/2021 Decreased GFR 05/14/2018 08/26/2021 Skin [...] 08/26/2021 Assessment & Plan (08/26/2021 12:05 PM VP TALENT MANAGEMENT): di Malignant neoplasm of breast 04/05/2017 08/26/2021 [...] 08/26/2021 Assessment & Plan (06/19/2020 11:36 AM VP TALENT MANAGEMENT): Patient is well controlled. Continue current treatment. [...]
--- OUTSIDE RECORDS SUMMARY | 2024-09-27 16:06 | XMS_ITS | Referral Summary ---
Author Organization [facility] at the [facility] Address [address] [place] [address] Care Team Providers Care Termite Helper Name Role Phone Deion Childs DO [...] antibody Assessment & Plan (07/28/2022 11:54 AM FREEZER OPERATOR): Add doxycycline Add singulair Assessment & [...] tests. Assessment & Plan (06/19/2022 2:39 PM FREEZER OPERATOR): Acute on chronic Worsening Chronic condition [...] 05/09/2021 Assessment & Plan (08/26/2021 12:10 PM FREEZER OPERATOR): Patient is well controlled. Continue current treatment. Urinary incontinence 05/09/2021 Assessment & Plan (08/26/2021 12:07 PM FREEZER OPERATOR): Chronic No new orders Full code status 06/14/2020 Assessment & Plan (08/26/2021 12:05 PM FREEZER OPERATOR): No changes to status Assessment & Plan (06/14/2020 12:20 PM FREEZER OPERATOR): Discussed with patient approximately 20minutes End of life issues/Advanced Directives/Healthcare Surrogate. Discussed DNR. Encouraged to discuss further with family and consult personal injury attorney or complete [place] approved form, which I would be glad to assist them with completion. All questions answered. polst form filled out and signed Chronic back pain 03/06/2020 Assessment & Plan (08/26/2021 12:05 PM FREEZER OPERATOR): Patient is well controlled. Continue current treatment. Assessment & Plan (07/25/2021 3:26 PM FREEZER OPERATOR): I will look into something she can take for pain Assessment & Plan (11/23/2020 11:15 AM CDT): Refer to APG Assessment & Plan (06/19/2020 11:37 AM FREEZER OPERATOR): Chronic severe back pain Significant OA Check a MRI LS spine Assessment & Plan (03/06/2020 1:21 PM CDT): No new orders Osteopenia 03/13/2019 Overview (05/09/2021): T=-2.1 Assessment & Plan (08/26/2021 12:09 PM FREEZER OPERATOR): Patient is well controlled. Continue current treatment. Personal history of malignant neoplasm of breast 11/04/2018 Assessment & Plan (08/26/2021 12:09 PM FREEZER OPERATOR): Patient is well controlled. Continue current treatment. Cystitis, interstitial 06/16/2018 Assessment & Plan (08/26/2021 12:06 PM FREEZER OPERATOR): amoxicillin 500 mg tid 10 days Diverticula of colon 06/16/2018 Assessment & Plan (08/26/2021 12:10 PM FREEZER OPERATOR): Patient is well controlled. Continue current treatment. Essential hypertension 06/16/2018 Assessment & Plan (04/15/2023 2:36 PM CDT): Patient is well controlled. Continue current treatment. Assessment & Plan (07/28/2022 11:55 AM FREEZER OPERATOR): Patient is well controlled. Continue current treatment. Assessment & Plan (08/26/2021 12:10 PM FREEZER OPERATOR): Patient is well controlled. Continue current treatment. Assessment & Plan (05/16/2021 9:22 AM CDT): Add amlodipine 2.5 mg daily HER2-positive carcinoma of right breast 06/16/20 18 Hyperlipidemia 06/16/2018 Assessment & Plan (08/26/2021 12:11 PM FREEZER OPERATOR): Patient is well controlled. Continue current treatment. Tinnitus 06/16/2018 Assessment & Plan (08/26/2021 12:07 PM FREEZER OPERATOR): Patient is well controlled. Continue current treatment. Multiple allergies 05/14/2018 Assessment & Plan (08/26/2021 12:09 PM FREEZER OPERATOR): Patient is well controlled. Continue current treatment. No new orders Refusal of blood transfusion s as patient is Christianity 05/14/2018 S/P mastectomy 05/29/2017 Assessment & Plan (08/26/2021 12:08 PM FREEZER OPERATOR): No new orders Patient is well controlled. Continue current treatment. Arthritis 02/13/2016 Assessment & Plan (08/26/2021 12:05 PM FREEZER OPERATOR): Patient is well controlled. Continue current treatment. Multiple joints Gastroesophageal reflux disease without esophagi tis 02/13/2016 Assessment & Plan (11/11/2022 11:08 AM CDT): Add carafate Chronic condition Not at goal Assessment & Plan (11/07/2022 12:08 PM CDT): Worse since starting omnicef Change to amoxicillin Add pepcid 20 mg bid Assessment & Plan (08/26/2021 12:10 PM FREEZER OPERATOR): Patient is well controlled. Continue current treatment. Rectocele 12/10/2011 Assessment & Plan (08/26/2021 12:11 PM FREEZER OPERATOR): Patient is well controlled. Continue current treatment. Resolved Problems Problem Noted Date Diagnosed Date Resolved Date Acute non-recurrent frontal sinusitis 11/07/2022 11/11/2022 Assessment & Plan (11/07/2022 12:07 PM CDT): Change to amoxicillin 500 mg tid 1 week Bone pain 08/04/2022 11/11/2022 Assessment & Plan (08/04/2022 10:54 AM FREEZER OPERATOR): CT unremarkable. She continues with pain [...] 11/11/2022 Assessment & Plan (07/28/2022 11:55 AM FREEZER OPERATOR): Repeat ct reviewed Consistent with cysts Assessment & Plan (06/19/2022 2:37 PM FREEZER OPERATOR): Reorder pre/post contrast ct abdomen Assessment [...] 06/19/2022 Assessment & Plan (08/26/2021 12:07 PM FREEZER OPERATOR): Patient is well controlled. Continue current treatment. Acute non-recurrent maxillary sinusitis 07/25/2021 08/26/2021 Assessment & Plan (07/25/2021 3:25 PM FREEZER OPERATOR): Doxycycline 100 mg bid 1 week COVID test Head ache 05/16/2021 08/26/2021 Assessment & Plan (05/16/2021 9:23 AM CDT): Sed rate Cbc Add mucinex 600 mg bid Finish augmentin Hip pain 05/16/2021 08/26/2021 Assessment & Plan (05/16/2021 9:25 AM CDT): X ray left hip Abdominal pain 01/04/2020 06/30/2022 Assessment & Plan (08/26/2021 12:04 PM FREEZER OPERATOR): Believe due to urinary infection Will [...] week Assessment & Plan (06/19/2020 11:36 AM FREEZER OPERATOR): Add cipro 500 mg bid 1 week See urology See G.I. Check a urine c and s Assessment & Plan (06/14/2020 12:28 PM FREEZER OPERATOR): New onset RLQ tender No G [...] 08/26/19 22 Scoliosis 10/11/2018 08/26/2021 Patient is Christianity 06/16/2018 08/26/2021 Decreased GFR 05/14/2018 08/26/2021 Skin [...] 08/26/2021 Assessment & Plan (08/26/2021 12:05 PM FREEZER OPERATOR): di Malignant neoplasm of breast 04/05/2017 [...] 08/26/2021 Assessment & Plan (06/19/2020 11:36 AM FREEZER OPERATOR): Patient is well controlled. Continue current [...] place to sleep or slept in a residential (including now)? No 04/08/2022 Personal Safety Answer Date Recorded Have you ever been in or are you currently in a harmful physical or emotional relationship or is someone making you feel afraid or unsafe? Denies 11/08/2022 Comments No Sex and Gender Information Value Date Recorded Sex Assigned at Not on file Legal Sex Female 12:15 AM FREEZER OPERATOR Gender Identity Not on file Sexual [...] (119 lb 7.8 oz) 05/20/2023 10:02 AM FREEZER OPERATOR Height 160 cm (5' 3 ) 05/20/2023 10:02 AM FREEZER OPERATOR Body Mass Index 21.17 05/20/2023 10:02 AM FREEZER OPERATOR Plan of Treatment Not on file Medical Devices Implanted Type Area Field Mechanic Device Identifier Shelf Expiration Date Model / Serial / Lot [employer] Ultrapro 4cm 5cm Nonabsorbable Flat Onlay Patch [place] Rim Medium [id number] - [id number] Implanted:Qty: 1 on 11/09/2021 by Dragan Ferrari MD at [facility] [employer] [id number] 10/10/2022 [id number] / / [id number] Insurance [facility] [place] [id number] MEDICARE SOLUTIONS Advance Directives For more information, please contact: [phone] Documents on File Type Date Recorded Patient Rib Knitter Expl anation ADVANCE DIRECTIVE 06/14/2020 ADVANCE DIRECTIVE 09/26/2014 12:00 AM MARIA DEL CARMEN R OF [employer] FINANCIAL/MEDICAL * Full Code (Latest Code Status on File) Date Activated Date Inactivated Comments 11/09/2021 7:48 PM 11/10/2021 7:48 PM Care Teams Termite Helper Relationship Specialty Start Date End Date Tilden, Deion Braydon, DO PCP - General Family Medicine 08/31/19
--- OUTSIDE RECORDS SUMMARY | 2024-09-27 16:06 | XMS_ITS | Clinical Summary ---
Author Organization [facility] Address [address] [place] [address] Care Team Providers Care Metal Model Builder Name Role Phone Deion Britt DO Primary Care Provider [phone] Allergies Active Allergy Reactions Criticality Noted Date Comments Azithromycin Headache Medium 06/30/2018 Face bright red Codeine Other (see comment),Hallucinations ,GI Upset High 12/10/2011 can't respond Migraine/ ALSO CODEINE Intolerant Corticosteroids Headache,Other (see comment) Medium 04/24/2017 Tappen like HEAD WOULD EXPLODE , Jittery Tappen like HEAD WOULD EXPLODE , Jittery Hydrocodone [...] Hyperlipidemia 06/16/2018 HER2-positive carcinoma of right breast ([facility]) 06/16/2018 Diverticula of colon 06/16/2018 Cystitis, interstitial 06/16/2018 Cervicalgia 06/16/2018 Tinnitus 06/16/2018 Multiple allergies 05/14/2018 Refusal of blood transfusion s as patient is Advent 05/14/2018 Skin lesion of chest wall 05/14/2018 Anxiety state 05/14/2018 Malignant neoplasm of upper- inner quadrant of right breast in female, estrogen receptor negative ([facility]) 05/14/2018 Overview (10/11/2018): Overview: Her-2-lavon + Skin cancer 02/17/2018 Dry eye 02/16/2018 Visual disturbance 02/16/2018 Nausea and vomiting 09/16/2017 Constipation 06/02/2017 Malignant neoplasm of upper- inner quadrant of right female breast ([facility]) 05/29/2017 S/P mastectomy 05/29/2017 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 Malignant neoplasm of breast ([facility]) 0 04/05/2017 Abnormal mammogram 04/03/2017 Depression 03/17/2017 Acid reflux 02/13/2016 Anxiety 02/13/2016 Arthritis 02/13/2016 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 Curvature of spine 02/13/2016 Degeneration of intervertebral disc 02/13/2016 Fibromyalgia 02/13/2016 Sciatica 02/13/2016 Notalgia 01/23/2015 Myalgia 12/10/2011 Rectocele 12/10/2011 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, acquired Urinary incontinence Resolved Problems Problem Noted Date Diagnosed Date Resolved Date Patient is Advent 06/16/2018 03/23/2020 Immunizations Name Administration Dates Next Due Influenza (Generic) 04/12/2013 MODERNA COVID-19 (12+) MRNA, LNP-S, PF, 100 MCG/ 0.5 ML DOSE 09/14/2020 Pneumococcal (Pneumovax 23) 07/13/2008 Tdap (Boostrix) 06/13/2013 Zoster (Zostavax) 54317 Unt/0.65Ml 07/13/2008 Family History Medical History Relation [...] patient's age to complete this topic Insurance [facility] Advance Directives Documents on File Type Date Recorded Patient Health Record Technician Expl anation Power of [employer] 02/21/2019 POA Care Teams Metal Model Builder Relationship Specialty Start Date End Date Deion Britt DO PCP - General FAMILY PRACTICE 09/10/19
--- OUTSIDE RECORDS SUMMARY | 2024-09-27 16:07 | XMS_ITS | Data Portability ---
Author Organization [facility] Address [address] [place] [address] Assessment No assessment recorded. Plan of Treatment Reminders Order Date Submit Date Provider Last Modified By Organization Details Last Modified Time Details Appointments None recorded . Lab CBC w/ auto diff [email or web address] [facility], [place], [address], 4 18:39:48 amylase, serum or plasma [id number] [facility], [place], [address], 4 18:39:48 BMP, serum or plasma [address] Out Patient Lab, [place], [address], 4 18:39:48 hepatic function panel, serum [id number] [facility], [place], [address], 4 18:39:48 BMP, serum or plasma 2023 024 [facility] Patient Lab, [place], [address], 4 15:00:22 CBC w/ diff 2023 024 [facility] Out Patient Lab, [facility], [place], [address], 4 11:31:39 hepatic function panel, serum 2023 024 [facility] Out Patient Lab, [facility], [place], [address], 4 18:35:12 amylase + lipase, serum 2023 024 [facility] Out Patient Lab, [facility], [place], [address], 4 11:31:52 Referral physical medicine and rehabili tation referral 2023 024 [email or web address] [facility], [address] [place] [address] [address], [place], [address], 4 13:02:30 Procedures None recorded . Surgeries None recorded . Imaging CT, abdomen + pelvis, w/o contrast 2023 024 [facility] Scheduling, [facility], [place], [address], 4 09:15:06 CT, abdomen + pelvis, w/ contrast 2023 024 [facility] Scheduling, [place], [address], 4 09:14:48 Medication Orders Myrbetri q 50 mg tablet,e xtended release 2023 024 [email or web address] [id number], [address] [place], [id number], 13:02:30 amitript yline 10 mg tablet 2023 024 [email or web address] [facility] #[id number], [address], [place], [id number], 17:37:06 Patient TargetsNo targets recorded. Patient InstructionsNo instructions recorded. Reason for Referral Physical Medicine And Rehabi litation Referral for Chronic low back pain Referring Physician: Ian Childs, Family Medicine, Encounter Date: 01/25/2024 Results Created Date Observation Date Name Description Value Unit Range Abnormal Flag Note LastModifiedBy Organization Detail LastModifiedTime 11/11/19 24 11/11/2023 CBC WITH DIFF WBC 6.82 x10'3 /uL 4.5-11 .0 Not Available [facility] (Lab) [place], [address], 11/11/2023 14:34:54 11/11/19 24 11/11/2023 CBC WITH DIFF RBC 4.88 x10'6 /uL 4.20-5 .40 Not Available [facility] (Lab) [place], [address], 11/11/2023 14:34:54 11/11/19 24 11/11/2023 CBC WITH DIFF hemoglobin 14.1 g/dL 12.0-1 6.0 Not Available [facility] (Lab) [place], [address], 11/11/2023 14:34:54 11/11/19 24 11/11/2023 CBC WITH DIFF hematocrit 44.1 % 38.0-4 8.0 Not Available [facility] (Lab) [place], [address], 11/11/2023 14:34:54 11/11/19 24 11/11/2023 CBC WITH DIFF MCV 90.4 fL 81.0-9 9.0 Not Available [facility] (Lab) [address] [place] [address] [facility], [place], [address], 11/11/2023 14:34:54 11/11/19 24 11/11/2023 CBC WITH DIFF MCH 28.9 pg 27.0-3 1.0 Not Available [facility] (Lab) [address] [place] [address] [facility], [place], [address], 11/11/2023 14:34:54 11/11/19 24 11/11/2023 CBC WITH DIFF MCHC 32.0 g/dL 32.0-3 6.0 Not Available [facility] (Lab) [address] [place] [address] [facility], [place], [address], 11/11/2023 14:34:54 11/11/19 24 11/11/2023 CBC WITH DIFF RDW 13.4 % 11.5-1 4.5 Not Available [facility] (Lab) [address] [place] [address] [facility], [place], [address], 11/11/2023 14:34:54 11/11/19 24 11/11/2023 CBC WITH DIFF platelet count 291 x10'3 /uL 130-40 0 Not Available [facility] (Lab) [address], [place], [address], 11/11/2023 14:34:54 11/11/19 24 11/11/2023 CBC WITH DIFF MPV 10.0 fL 9.3-12 .2 Not Available [facility] (Lab) [address] [place] [address] [facility], [place], [address], 11/11/2023 14:34:54 11/11/19 24 11/11/2023 CBC WITH DIFF diff type AUTOMA PAUL DIFFER ENTIAL Not Available [facility] (Lab) [address] [place] [address] [facility], [place], [address], 11/11/2023 14:34:54 11/11/19 24 11/11/2023 CBC WITH DIFF neutrophils 71.6 % Not Available [facility] (Lab) [address] [place] [address] [facility], [place], [address], 11/11/2023 14:34:54 11/11/19 24 11/11/2023 CBC WITH DIFF lymphocytes 20.4 % Not Available [facility] (Lab) [address] [place] [address] [facility], [place], [address], 11/11/2023 14:34:54 11/11/19 24 11/11/2023 CBC WITH DIFF monocytes 6.6 % Not Available [facility] (Lab) [address] [place] [address] [facility], [place], [address], 11/11/2023 14:34:54 11/11/19 24 11/11/2023 CBC WITH DIFF eosinophils 0.4 % Not Available [facility] (Lab) [address] [place] [address] [facility], [place], [address], 11/11/2023 14:34:54 11/11/19 24 11/11/2023 CBC WITH DIFF basophils 0.7 % Not Available [facility] (Lab) [address] [place] [address] [facility], [place], [address], 11/11/2023 14:34:54 11/11/19 24 11/11/2023 CBC WITH DIFF immature granulocytes 0.3 % Not Available [facility] (Lab) [address], [place], [address], 11/11/2023 14:34:54 11/11/19 24 11/11/2023 CBC WITH DIFF abs. neutrophils 4.88 x10'3 /uL 1.80-7 .70 Not Available [facility] (Lab) [place], [address], 11/11/2023 14:34:54 11/11/19 24 11/11/2023 CBC WITH DIFF abs. lymphocytes 1.39 x10'3 /uL 1.00-4 .80 Not Available [facility] (Lab) [place], [address], 11/11/2023 14:34:54 11/11/19 24 11/11/2023 CBC WITH DIFF abs. monocytes 0.45 x10'3 /uL 0.24-0 .86 Not Available [facility] (Lab) [place], [address], 11/11/2023 14:34:54 11/11/19 24 11/11/2023 CBC WITH DIFF abs. eosinophils 0.03 x10'3 /uL 0.04-0 .36 low Not Available [facility] (Lab) [place], [address], 11/11/2023 14:34:54 11/11/19 24 11/11/2023 CBC WITH DIFF abs. basophils 0.05 x10'3 /uL 0.01-0 .08 Not Available [facility] (Lab) [place], [address], 11/11/2023 14:34:54 11/11/19 24 11/11/2023 CBC WITH DIFF abs. immature grans 0.02 x10'3 /uL 0.00-0 .49 Not Available [facility] (Lab) [place], [address], 11/11/2023 14:34:54 11/11/19 24 11/11/2023 AMYLA SE amylase 49 units /L 25-115 Not Available [facility] (Lab) [address] [place] [address] [facility], [place], [address], 11/11/2023 15:00:15 11/11/19 24 11/11/2023 BASIC METAB OLIC PANEL glucose 102 mg/dL 70-99 high Not Available [facility] (Lab) [address] [place], [address], 11/11/2023 15:00:22 11/11/19 24 11/11/2023 BASIC METAB OLIC PANEL BUN 15 mg/dL 7-18 Not Available [facility] (Lab) [address] [place] [address] [facility], [place], [address], 11/11/2023 15:00:22 11/11/19 24 11/11/2023 BASIC METAB OLIC PANEL creatinine 1.04 mg/dL 0.55-1 .02 high Not Available [facility] (Lab) [address] [place] [address] [facility], [place], [address], 11/11/2023 15:00:22 11/11/19 24 11/11/2023 BASIC METAB OLIC PANEL sodium 139 mmol/ L 136-14 5 Not Available [facility] (Lab) [address] [place], [address], 11/11/2023 15:00:22 11/11/19 24 11/11/2023 BASIC METAB OLIC PANEL potassium 4.2 mmol/ L 3.5-5. 1 Not Available [facility] (Lab) [address] [place], [address], 11/11/2023 15:00:22 11/11/19 24 11/11/2023 BASIC METAB OLIC PANEL chloride 106 mmol/ L 100-10 8 Not Available [facility] (Lab) [place], [address], 11/11/2023 15:00:22 11/11/19 24 11/11/2023 BASIC METAB OLIC PANEL total CO2 27.6 mmol/ L 21-32 Not Available [facility] (Lab) [place], [address], 11/11/2023 15:00:22 11/11/19 24 11/11/2023 BASIC METAB OLIC PANEL calcium 10.2 mg/dL 8.5-10 .1 high Not Available [facility] (Lab) [place], [address], 11/11/2023 15:00:22 11/11/19 24 11/11/2023 BASIC METAB OLIC PANEL anion gap 5.4 mmol/ L 5-15 Not Available [facility] (Lab) [place], [address], 11/11/2023 15:00:22 11/11/19 24 11/11/2023 BASIC METAB OLIC PANEL BUN creatinine ratio 14.4 6-26 Not Available [facility] (Lab) [place], [address], 11/11/2023 15:00:22 11/11/19 24 11/11/2023 BASIC METAB [...] g drug doses . Not Available [facility] (Lab) [address], [place], [address], 11/11/2023 15:00:22 11/11/19 24 11/11/2023 LIPAS E lipase 24 units /L 13-75 Not Available [facility] (Lab) [facility], [place], [address], 11/11/2023 15:00:24 11/11/19 24 11/11/2023 LIVER PANEL total protein 7.2 g/dL 6.4-8. 2 Not Available [facility] (Lab) [facility], [place], [address], 11/11/2023 15:00:25 11/11/19 24 11/11/2023 LIVER PANEL albumin 3.8 g/dL 3.4-5. 0 Not Available [facility] (Lab) [facility], [place], [address], 11/11/2023 15:00:25 11/11/19 24 11/11/2023 LIVER PANEL total bilirubin 0.7 mg/dL 0.2-1. 2 THIS ASSAY IS NOT RECOM CLAUDIA D FOR PATIE NTS UNDER GOING TREAT MENT WITH ELTRO MBOPA G DUE TO THE POTEN TIAL FOR FALSE LY ELEVA PAUL RESUL TS. Not Available [facility] (Lab) [facility], [place], [address], 11/11/2023 15:00:25 11/11/19 24 11/11/2023 LIVER PANEL direct bilirubin 0.2 mg/dL 0.0-0. 20 Not Available [facility] (Lab) [facility], [place], [address], 11/11/2023 15:00:25 11/11/19 24 11/11/2023 LIVER PANEL indirect bilirubin 0.5 mg/dL 0.0-0. 9 Not Available [facility] (Lab) [address], [place], [address], 11/11/2023 15:00:25 11/11/19 24 11/11/2023 LIVER PANEL alk phosphatase 78 U/L 50-[address] [facility] (Lab) [address], [place], [address], 11/11/2023 15:00:25 11/11/19 24 11/11/2023 LIVER PANEL AST 18 U/L 15-37 Not Available [facility] (Lab) [address], [place], [address], 11/11/2023 15:00:25 11/11/19 24 11/11/2023 LIVER PANEL ALT 19 U/L 14-55 Not Available [facility] (Lab) [address], [place], [address], 11/11/2023 15:00:25 11/11/19 24 11/11/2023 LIVER PANEL A:g ratio 1.1 ratio 1.0-2. 0 Not Available [facility] (Lab) [address], [place], [address], 11/11/2023 15:00:25 11/11/19 24 11/13/2023 POC CREAT ININE POC creatinine 1.1 mg/dL 0.60-1 .10 Not Available [facility] (Lab) [address], [place], [address], 11/13/2023 10:08:40 04/13/20 24 04/13/2024 CBC WITH DIFF WBC 6.81 x10'3 /uL 4.5-11 .0 Not Available [facility] (Lab) [address] [place] [address] [facility], [place], [address], 04/13/2024 17:54:38 04/13/2004/13/2024 CBC WITH DIFF RBC 4.55 x10'6 /uL 4.20-5 .40 Not Available [facility] (Lab) [address] [address] [facility], [place], [address], 04/13/2024 17:54:38 04/13/2004/13/2024 CBC WITH DIFF hemoglobin 13.1 g/dL 12.0-1 6.0 Not Available [facility] (Lab) [address] [address] [facility], [place], [address], 04/13/2024 17:54:38 04/13/2004/13/2024 CBC WITH DIFF hematocrit 40.9 % 38.0-4 8.0 Not Available [facility] (Lab) [address] [place] [address] [facility], [place], [address], 04/13/2024 17:54:38 04/13/2004/13/2024 CBC WITH DIFF MCV 89.9 fL 81.0-9 9.0 Not Available [facility] (Lab) [address] [place], [address], 04/13/2024 17:54:38 04/13/2004/13/2024 CBC WITH DIFF MCH 28.8 pg 27.0-3 1.0 Not Available [facility] (Lab) [address] [place], [address], 04/13/2024 17:54:38 04/13/2004/13/2024 CBC WITH DIFF MCHC 32.0 g/dL 32.0-3 6.0 Not Available [facility] (Lab) [address], [place], [address], 04/13/2024 17:54:38 04/13/2004/13/2024 CBC WITH DIFF RDW 13.2 % 11.5-1 4.5 Not Available [facility] (Lab) [address], [place], [address], 04/13/2024 17:54:38 04/13/2004/13/2024 CBC WITH DIFF platelet count 293 x10'3 /uL 130-40 0 Not Available [facility] (Lab) [address] [place] [address] [facility], [place], [address], 04/13/2024 17:54:38 04/13/2004/13/2024 CBC WITH DIFF MPV 10.4 fL 9.3-12 .2 Not Available [facility] (Lab) [address] [place] [address] [facility], [place], [address], 04/13/2024 17:54:38 04/13/2004/13/2024 CBC WITH DIFF diff type AUTOMA PAUL DIFFER ENTIAL Not Available [facility] (Lab) [address], [place], [address], 04/13/2024 17:54:38 04/13/2004/13/2024 CBC WITH DIFF neutrophils 69.2 % Not Available [facility] (Lab) [address], [place], [address], 04/13/2024 17:54:38 04/13/2004/13/2024 CBC WITH DIFF lymphocytes 19.7 % Not Available [facility] (Lab) [address], [place], [address], 04/13/2024 17:54:38 04/13/20 24 04/13/2024 CBC WITH DIFF monocytes 9.1 % Not Available [facility] (Lab) [place], [address], 04/13/2024 17:54:38 04/13/20 24 04/13/2024 CBC WITH DIFF eosinophils 1.0 % Not Available [facility] (Lab) [address] [address] [facility], [place], [address], 04/13/2024 17:54:38 04/13/2004/13/2024 CBC WITH DIFF basophils 0.7 % Not Available [facility] (Lab) [address] [place], [address], 04/13/2024 17:54:38 04/13/2004/13/2024 CBC WITH DIFF immature granulocytes 0.3 % Not Available [facility] (Lab) [place], [address], 04/13/2024 17:54:38 04/13/20 24 04/13/2024 CBC WITH DIFF abs. neutrophils 4.71 x10'3 /uL 1.80-7 .70 Not Available [facility] (Lab) [place], [address], 04/13/2024 17:54:38 04/13/20 24 04/13/2024 CBC WITH DIFF abs. lymphocytes 1.34 x10'3 /uL 1.00-4 .80 Not Available [facility] (Lab) [address] [place], [address], 04/13/2024 17:54:38 04/13/20 24 04/13/2024 CBC WITH DIFF abs. monocytes 0.62 x10'3 /uL 0.24-0 .86 Not Available [facility] (Lab) [place], [address], 04/13/2024 17:54:38 04/13/20 24 04/13/2024 CBC WITH DIFF abs. eosinophils 0.07 x10'3 /uL 0.04-0 .36 Not Available [facility] (Lab) [place], [address], 04/13/2024 17:54:38 04/13/2004/13/2024 CBC WITH DIFF abs. basophils 0.05 x10'3 /uL 0.01-0 .08 Not Available [facility] (Lab) [place], [address], 04/13/2024 17:54:38 04/13/2004/13/2024 CBC WITH DIFF abs. immature grans 0.02 x10'3 /uL 0.00-0 .49 Not Available [facility] (Lab) [place], [address], 04/13/2024 17:54:38 04/13/20 24 04/13/2024 AMYLA SE amylase 44 units /L 25-115 Not Available [facility] (Lab) [place], [address], 04/13/2024 18:15:20 04/13/2004/13/2024 BASIC METAB OLIC PANEL glucose 101 mg/dL 70-99 high Not Available [facility] (Lab) [place], [address], 04/13/2024 18:15:22 04/13/20 24 04/13/2024 BASIC METAB OLIC PANEL BUN 15 mg/dL 7-18 Not Available [facility] (Lab) [address] [place], [address], 04/13/2024 18:15:22 04/13/2004/13/2024 BASIC METAB OLIC PANEL creatinine 1.22 mg/dL 0.55-1 .02 high Not Available [facility] (Lab) [address] [place], [address], 04/13/2024 18:15:22 04/13/20 24 04/13/2024 BASIC METAB OLIC PANEL sodium 137 mmol/ L 136-14 5 Not Available [facility] (Lab) [address] [address] [facility], [place], [address], 04/13/2024 18:15:22 04/13/2004/13/2024 BASIC METAB OLIC PANEL potassium 4.1 mmol/ L 3.5-5. 1 Not Available [facility] (Lab) [address] [place], [address], 04/13/2024 18:15:22 04/13/2004/13/2024 BASIC METAB OLIC PANEL chloride 104 mmol/ L 97-115 Not Available [facility] (Lab) [address] [place], [address], 04/13/2024 18:15:22 04/13/2004/13/2024 BASIC METAB OLIC PANEL total CO2 27.1 mmol/ L 21-32 Not Available [facility] (Lab) [address] [place], [address], 04/13/2024 18:15:22 04/13/20 24 04/13/2024 BASIC METAB OLIC PANEL calcium 9.7 mg/dL 8.5-10 .1 Not Available [facility] (Lab) [address] [facility], [place], [address], 04/13/2024 18:15:22 04/13/2004/13/2024 BASIC METAB OLIC PANEL anion gap 5.9 mmol/ L 2-10 Not Available [facility] (Lab) [address] [place], [address], 04/13/2024 18:15:22 04/13/2004/13/2024 BASIC METAB OLIC PANEL BUN creatinine ratio 12.3 6-26 Not Available [facility] (Lab) [address] [place], [address], 04/13/2024 18:15:22 04/13/2004/13/2024 BASIC METAB OLIC PANEL [...] g drug doses . Not Available [facility] (Lab) [address] [place], [address], 04/13/2024 18:15:22 04/13/2004/13/2024 LIVER PANEL total protein 7.1 g/dL 6.4-8. 2 Not Available [facility] (Lab) [address] [place], [address], 04/13/2024 18:15:24 04/13/20 24 04/13/2024 LIVER PANEL albumin 4.0 g/dL 3.4-5. 0 Not Available [facility] (Lab) [address], [place], [address], 04/13/2024 18:15:24 04/13/2004/13/2024 LIVER PANEL total bilirubin 0.6 mg/dL 0.2-1. 2 THIS ASSAY IS NOT RECOM CLAUDIA D FOR PATIE NTS UNDER GOING TREAT MENT WITH ELTRO MBOPA G DUE TO THE POTEN TIAL FOR FALSE LY ELEVA PAUL RESUL TS. Not Available [facility] (Lab) [address], [place], [address], 04/13/2024 18:15:24 04/13/2004/13/2024 LIVER PANEL direct bilirubin 0.2 mg/dL 0.0-0. 20 Not Available [facility] (Lab) [place], [address], 04/13/2024 18:15:24 04/13/20 24 04/13/2024 LIVER PANEL indirect bilirubin 0.4 mg/dL 0.0-0. 9 Not Available [facility] (Lab) [address], [place], [address], 04/13/2024 18:15:24 04/13/20 24 04/13/2024 LIVER PANEL alk phosphatase 69 U/L 50-[address] [facility] (Lab) [place], [address], 04/13/2024 18:15:24 04/13/20 24 04/13/2024 LIVER PANEL AST 15 U/L 15-37 Not Available [facility] (Lab) [place], [address], 04/13/2024 18:15:24 04/13/20 24 04/13/2024 LIVER PANEL ALT 14 U/L 14-55 Not Available [facility] (Lab) [address], [place], [address], 04/13/2024 18:15:24 04/13/2004/13/2024 LIVER PANEL A:g ratio 1.3 ratio 1.0-2. 0 Not Available [facility] (Lab) [address] [address] [facility], [place], [address], 04/13/2024 18:15:24 04/27/2004/27/2024 BASIC METAB OLIC PANEL glucose 107 mg/dL 70-99 high Not Available [facility] (Lab) [address] [address] [facility], [place], [address], 04/27/2024 12:42:19 04/27/2004/27/2024 BASIC METAB OLIC PANEL BUN 18 mg/dL 7-18 Not Available [facility] (Lab) [address] [facility], [place], [address], 04/27/2024 12:42:19 04/27/2004/27/2024 BASIC METAB OLIC PANEL creatinine 1.22 mg/dL 0.55-1 .02 high Not Available [facility] (Lab) [address] [place], [address], 04/27/2024 12:42:19 04/27/2004/27/2024 BASIC METAB OLIC PANEL sodium 139 mmol/ L 136-14 5 Not Available [facility] (Lab) [address] [place], [address], 04/27/2024 12:42:19 04/27/2004/27/2024 BASIC METAB OLIC PANEL potassium 4.4 mmol/ L 3.5-5. 1 Not Available [facility] (Lab) [address] [place], [address], 04/27/2024 12:42:19 04/27/2004/27/2024 BASIC METAB OLIC PANEL chloride 105 mmol/ L 97-115 Not Available [facility] (Lab) [place], [address], 04/27/2024 12:42:19 04/27/2004/27/2024 BASIC METAB OLIC PANEL total CO2 28.0 mmol/ L 21-32 Not Available [facility] (Lab) [place], [address], 04/27/2024 12:42:19 04/27/2004/27/2024 BASIC METAB OLIC PANEL calcium 9.7 mg/dL 8.5-10 .1 Not Available [facility] (Lab) [place], [address], 04/27/2024 12:42:19 04/27/2004/27/2024 BASIC METAB OLIC PANEL anion gap 6.0 mmol/ L 2-10 Not Available [facility] (Lab) [address], [place], [address], 04/27/2024 12:42:19 04/27/2004/27/2024 BASIC METAB OLIC PANEL BUN creatinine ratio 14.8 6-26 Not Available [facility] (Lab) [place], [address], 04/27/2024 12:42:19 04/27/2004/27/2024 BASIC METAB OLIC PANEL [...] g drug doses . Not Available [facility] (Lab) [facility], [place], [address], 04/27/2024 12:42:19 11/11/[address] ABD+p el W con [facility] [place] [address] EXAMIN ATION: CT ABDOME N/PELV IS WITH [...] Cholel ithias is. Referr ed By: IAN POOEL [facility] onical ly Signed By: Alireza aquino MD on 11/11/19 12:49 PM Interp reted By: Alireza aquino MD, 11/11/19 12:43 PM [facility] [address] [facility], [place], [address], 11/19/2023 18:52:13 11/11/19 24 11/11/2023 CT, abdom en + pelvi s, w/ contr ast No observ ation record ed. [facility] Scheduling [facility], [place], [address], 11/19/2023 18:52:13 04/13/[address], abdom en + pelvi s, w/o contr ast [facility] [place] [address] [facility] [address] [facility] [place] [address]: [address] ABD+PE L WO CON [...] reted By: Milo Salomon MD, 4:54 PM [email or web address] [facility] Scheduling [address] [facility], [place], [address], 04/14/2024 16:42:45 08/23/19 25 08/23/2024 CT, head + brain , w/o contr ast No observ ation record ed. [facility] [address] [facility] [address], [place], [address], 08/24/2024 11:46:30 08/23/19 25 08/23/2024 CT, chest , w/o contr ast No observ ation record ed. [facility] [address], [place], [address], 08/24/2024 11:42:40 Result Notes None recorded. Problems Name Problem SNOMED Code Status Onset Date Resolution Date Notes Provider Name and Address Organization Details Recorded Time Dyslipidemia 438894913 Active 2023 Ian Childs DO Attn: Vargas alvarenga,[address] [facility], [place], [address], [facility] 4 18:40:58 History of malignant neoplasm of breast 798348699 Active 2023 Ian Childs DO Attn: Vargas alvarenga,[address] [facility], [place], [address], [facility] 4 18:40:59 Urge incontinence of urine 83430593 Active 2023 Ian Childs DO Attn: Vargas alvarenga,[address] [facility], [place], [address], [place] [facility] 4 18:41:00 Gastroesophage al reflux disease without esophagitis 382062699 Active 2023 Ian Childs DO Attn: Vargas alvarenga,[address] [facility], [place], [address], [place] [facility] 4 18:41:02 Essential hypertension 83000733 Active 2023 Ian Childs DO Attn: Vargas alvarenga,[address] [facility], [place], [address], [place] [facility] 4 18:41:03 Osteoarthritis 101405330 Active 2023 Ian Childs DO Attn: Vargas alvarenga,[address] [facility], [place], [address], [place] [facility] 4 18:41:06 Osteopenia 239388394 Active 2023 Ian Childs DO Attn: Jorgekenia alvarenga,[address] [facility], [place], [address], [place] [facility] 4 18:41:07 Generalized anxiety disorder 64149375 Active 2023 Ian Childs DO Attn: Vargas alvarenga,[address] [place], [address], [place] [facility] 4 13:59:29 Acute blepharitis 33591371 Active 2023 Ian Childs DO Attn: Jorgekenia alvarenga,[address] [place], [address], [place] [facility] 4 13:59:29 Abdominal pain 05941532 Active 2023 Ian Childs DO Attn: Vargas alvarenga,[address] [place], [address], [place] [facility] 4 14:35:02 Chronic low back pain 531016254 Active 2023 Ian Childs DO Attn: Jorgekenia alvarenga,[address] [place], [address], [place] [facility] 4 14:35:03 Generalized abdominal pain 797804360 Active 2023 Ian Childs DO Attn: Vargas alvarenga,[address] [place], [address], [place] [facility] 4 12:04:51 Notes:Some problems listed i n Document: #[id number] could not be added to this patient's chart. Please review this document and add these problems to the patient's chart manually as needed. Problem Notes None recorded. Procedures Surgical History Date Name Laterality Status Provider Name and Address Organization Details Recorded Time Total hysterectomy completed Gladys Armenta [place] - [facility] 10/08/2023 13:31:06 Mastectomy completed Gladys Armenta [place] - [facility] 09/11 13:31:14 Imaging Results Imaging Date Name Status LastModified by Organiz ation Details LastModified Time 11/11/2023 CT ABD+pel W con completed [facility] [address] [facility], [place], [address], 11/19/2023 18:52:13 11/11/2023 CT, abdomen + pelvis, w/ contrast completed [facility] Scheduling [address] [facility], [place], [address], 11/19/2023 18:52:13 04/13/2024 CT, abdomen + pelvis, w/o contrast completed [address] [place], [address], 04/14/2024 16:42:45 08/23/2024 CT, head + brain, w/o contrast completed [address], [address], 08/24/2024 11:46:30 08/23/2024 CT, chest, w/o contrast completed [address], [address], 08/24/2024 11:42:40 Procedure Notes None recorded. Medical Equipment None Reported. Allergies Allergen ID Allergen Name Allergen Category Reaction Reaction Severity Criticality Documentation Date Start Date Code Code System Note Provider Name and Address Organization Details Recorded Time 505228 azithromy robert medicatio n headache Not available Not available 10/08/2023 34569 RxNorm Not Available Not Available Not Available 16860113 codeine medicatio n hallucina tions nausea Not available Not available Not available 10/08/2023 2670 RxNorm Not Available Not Available Not Available 151924 cortisone medicatio n headache Not available Not available 10/08/2023 2878 RxNorm Not Available Not Available Not Available 957435 hydrocodo ne Not available nausea Not available Not available 10/08/2023 5489 RxNorm Not Available Not Available Not Available 806544 morphine medicatio n hives Not available Not available 10/08/2023 7052 RxNorm Not Available Not Available Not Available 010930 Substance with sulfonami de structure and antibacte rial mechanism of action (substanc e) medicatio n hives Not available Not available 10/08/2023 44662 8003 SNOMED Not Available Not Available Not Available 146410 gabapenti n medicatio n vomiting Not available Not available 10/08/2023 53583 RxNorm Not Available Not Available Not Available 667561 methadone medicatio n Not available Not available [...] Details Last Updated DateTime 4 160.02 cm 21.3 kg/m2 44368.0 8 g 94 % 94 % 86 /min 16 /min Shabnam Reynoso MA [facility] 4 14:13:00 Date Recorded Body height Body mass index (BMI) Body weight Body temperature Provider Name and Address Organization Details Last Updated DateTime 11/11/2023 160.02 cm 21.1 kg/m2 98640.54 g 97.7 [degF] Olga Tapia MA [facility] 11/11/2023 10:32:34 Date Recorded Body height Body mass index (BMI) Body weight Oxygen saturation Oxygen saturation in Arterial blood by Pulse oximetry Heart rate Provider Name and Address Organization Details Last Updated DateTime 4 160.02 cm 21.1 kg/m2 05707.8 4 g 96 % 96 % 75 /min Mariann Mejia MA [facility] 4 14:22:27 Date Recorded Systolic blood pressure Diastolic blood pressure Provider Name and Address Organization Details Last Updated DateTime 12/09/2023 114 mm[Hg] 84 mm[Hg] Ian Childs DO Attn: Accounting,[address] [place], [address], [facility] 12/09/2023 14:54:05 Date Recorded Body height Body mass index (BMI) Body weight Oxygen saturation Oxygen saturation in Arterial blood by Pulse oximetry Heart rate Respiratory rate Provider Name and Address Organization Details Last Updated DateTime 4 160.02 cm 21.5 kg/m2 38669.3 8 g 95 % 95 % 75 /min 27 /min Mariann Mejia MA [facility] 10:55:06 Date Recorded Systolic blood pressure Diastolic blood pressure Provider Name and Address Organization Details Last Updated DateTime 01/25/2024 126 mm[Hg] 76 mm[Hg] Ian Childs DO Attn: Accounting,[address] [place], [address], [facility] 01/25/2024 11:24:31 Date Recorded Body height Body mass index (BMI) Body weight Provider Name and Address Organization Details Last Updated DateTime 04/13/2024 160.02 cm 20.8 kg/m2 50254.06 g Olga Tapia MA [facility] 04/13/2024 11:25:00 Date Recorded Systolic blood pressure Diastolic blood pressure Provider Name and Address Organization Details Last Updated DateTime 04/13/2024 132 mm[Hg] 82 mm[Hg] Ian Childs DO Attn: Accounting,[address] [place], [address], [facility] 04/13/2024 12:01:05 Social History Question Answer Notes LastModified by Organizat ion Details LastModified Time Tobacco Smoking Status Never Smoker Olga Tapia MA [facility], [facility] 11/11/2023 10:37:14 What Is Your Level Of [...] Organization Details LastModified Time Father Heart disease [email or web address] Not available 2023 13:31:27 Brother Heart disease [email or web address] Not available 2023 13:31:27 Mother Migraine [email or web address] Not availabl e 10/08/2023 13:31:33 Medical History Condition Response Coronary Artery Disease N Other N High Blood Pressure N Atrial Fibrillation N Thyroid Problems N Kidney or Bladder Problems Y GI Problems N Depression N COPD N Blood Clots N Skin Problems N Eating Disorder N Anemia N Heart Attack ([place]) N Anxiety Disorder Y Diabetes N Muscle, Joint, or Bone Problems Y Arthritis N Seizures/Epilepsy N Acid Reflux (GERD) Y Cancer Y Stroke N Asthma N Allergies Y ADHD N Substance Abuse N High Cholesterol N Hepatitis N Liver Disease N Schizophrenia N Headaches N Heart Failure N Osteoporosis N Gynecological HistoryNo gynecological history recorded. 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 myrbetriq 50 mg Gastroesop hageal reflux disease without esophagitis 935977801 K21.9 carafate 1 gmpepcid 20 mgchronic stable Essential hypertension 74011396 I10 chronicsta ble Osteoarthritis 432394523 M19.90 chronicno new meds Osteopenia 522173617 M85 .80 chronicotc meds Generalize d anxiety disorder 39219391 F41.1 start buspar 7.5 mg bidnew issue Acute blepharitis 779169 04 H01.009 left lower lidadd ciloxan .3 %gtts 1 gtt left eye q 6 hr for 2 dayssee opthowarm compress [id number] Ian Childs DO [facility] [place] [facility] [place] [address] [place] [address] 11/04/2023 13:34:51 11/04/2023 14:55:04 Essential hypertension 42423635 I10 chronicsta bleAt goal Generalize d anxiety disorder 66239375 F41.1 started buspar 7.5 mg biddid not toleratedi d not agree with heradd xanax .25 mg bid Urge incon tinence of urine 78090538 N39.41 myrbetriq 50 mgChronic conditionC ontinues with symptoms Dyslipidemia 669809309 E 78.5 chronic issueat [facility] diet Chronic low back pain 27 4990693 M54.50 will increase tramadol to qid Abdominal pain 81327116 R10.9 llq? diverticul itisadd cipro 500 mg bid 10 daysfollow up 1 weekupdate 48 hrs [id number] Ian Childs, DO [facility] [place] [facility] [place] [address] [place] [address] 11/11/2023 10:06:13 11/11/2023 11:25:27 Abdominal pain 31988579 R10.9 diffuse abdominal paindid not take ciprostat ct abdomen and pelvisstat cbcchem 7lftamylas e Chronic low back pain 27 5761692 M54.50 will increase tramadol to qid Chronic condition Essential hypertension 07938253 I10 chronicsta bleAt goal Gastroesop hageal reflux disease without esophagitis 403132942 K21.9 carafate 1 gmpepcid 20 mgchronic conditionA t goal Acute blepharitis 016917 04 H01.009 left lower lidadd ciloxan .3 %gtts 1 gtt left eye q 6 hr for 2 dayssee opthowarm compress [id number] Ian Childs, DO [facility] [place] [facility] [place] [address] [place] [address] 12/09/2023 13:47:31 12/09/2023 15:06:29 Abdominal pain 44037442 R10.9 diffuse abdominal paindid not take ciprostat ct abdomen and pelvis showed no acute issuesstat cbcchem 7lftamylas eshowed no significan t abnormalit ystart elavil 10 mg at hs Dyslipidemia 326346366 E 78.5 chronic issueat [facility] diet Essential hypertension 11989466 I10 chronic conditions tableAt goal Generalize d anxiety disorder 54778409 F41.1 started buspar 7.5 mg biddid not toleratedi d not agree with heradded xanax .25 mg bidadd elavil 10 mg at hs [id number] Ian Childs, DO [facility] [place] [address] [place] [address] 01/25/2024 10:23:04 01/25/2024 11:41:49 Abdominal pain 40509621 R10.9 diffuse abdominal pain stat ct abdomen and pelvis showed no acute issuesstat cbcchem 7lftamylas eshowed no significan t abnormalit ystarted elavil 10 mg at hs this is a follow-up this is a follow-up Chronic low back pain 27 7892407 M54.50 tramadol to qid as needed p.r.n. Chronic condition Dyslipidemia 131662560 E 78.5 chronic issueat [facility] diet Essential hypertension 66002759 I10 chronic conditions tableAt goal Gastroesop hageal reflux disease without esophagitis 474444421 K21.9 carafate 1 gmpepcid 20 mgchronic conditionA t goal Generalize d anxiety disorder 12904505 F41.1 started buspar 7.5 mg biddid not toleratedi d not agree with heradded xanax .25 mg bidadded elavil 10 mg at hs Overactive urinary bladder 605625203 N32.81 [id number] Ian Childs, DO [facility] [employer] [facility] [place] [address] [facility] [address] [place] [address] 04/13/2024 10:57:38 04/13/2024 12:16:32 Chronic low back pain 447945736 M54.50 tramadol to qid as needed p.r.n. Chronic condition Dyslipidemia 762041106 E 78.5 chronic issueat [facility] diet Essential hypertension 08291790 I10 chronic conditions tableAt goal Generalize d anxiety disorder 25327583 F41.1 started buspar 7.5 mg biddid not toleratedi d not agree with heradded xanax .25 mg bidadded elavil 10 mg at hs Generalize d abdominal pain 316445247 R10.84 pain in epigastric BLQstat CTstat lab Health Concerns Section Related Observation LastModified by Organization Detai ls LastModified Time None Recorded Concern Status LastModified by Organization Details LastModified Time None Recorded Advance Directives Directive None Recorded Payers Encounter Date Sequence Insurance Name Policy Number Policy Kirk Covered Member ID Kirk Member ID Guarantor Name 11/04/2023 1 [place] Laila Saldañaady [id number] Laila Yudy 11/04/2023 1 [facility] (MEDICARE REPLACEMENT/A DVANTAGE - PPO) [id number] Laila C Yudy [id number] Laila Yudy 11/11/2023 1 [employer] (MEDICARE REPLACEMENT/A DVANTAGE - PPO) [id number] Laila C Yudy [id number] Laila Yudy 12/09/2023 1 [employer] (MEDICARE REPLACEMENT/A DVANTAGE - PPO) [id number] Laila C Yudy [id number] Laila Yudy 01/25/2024 1 [employer] (MEDICARE REPLACEMENT/A DVANTAGE - PPO) [id number] Laila C Yudy [id number] Laila Yudy 04/13/2024 1 [employer] (MEDICARE REPLACEMENT/A DVANTAGE - PPO) [id number] Laila C Yudy [id number] Laila Yudy Notes Date Note Type Note Provider Name and Address Organization Details Recorded Time 11/04/2023 text/html Routine follow-u phas questions about her medsdid not tolerate her recent anxiety med Ian Childs DO Attn: Accounting,[address] [place], [address], [facility] 11/04/2023 19:19:23 11/11/2023 text/html Routine follow-upMultiple medical issues Ian Childs DO Attn: Accounting,[address] [facility], [place], [address], [facility] 11/11/2023 18:44:45 12/09/2023 text/html routine follow-up Ian Childs DO Attn: Accounting,[address] [facility], [place], [address], [facility] 12/09/2023 18:33:06 01/25/2024 text/html follow uphaving a lot of pain in bladderurinating frequentlyhas seen specialisthas not been back to see the urologist for the past 6 monthshad been given gemtesa with improvement of symptoms but could not afford the medicationot taking any med at the present time Ian Childs DO Attn: Accounting,[address] [place], [address], [facility] 01/25/2024 13:08:43 04/13/2024 text/html follow upchronic issuesback painchronic bladder issuesLLQ hurtingfeels abx caused her an issuewas given amoxicillin 500 mg tid for a sinus infection feels like bladder discomforthad frequent urination no fever chills or sweats Ian Childs DO Attn: Accounting,[address] [place], [address], [facility] 04/13/2024 19:19:33 OBGyn Episode No OBEpisode recorded.
[2024-09-27] MEDS: hydroCHLOROthiazide 25 MG TABLET PO (17:51)
--- NOTE | 2024-09-27 18:01 | PC.NURSE ---
called pt facility at this time and gave report to Betty about this pt
== END 2024-09-27 17:57 | disposition home or self-care (01) ==
PROVIDERS: Physician Assistant; Emergency Provider Emergency Medicine; PCP Family Medicine
DX: I10 Essential (primary) hypertension (principal); M79.7 Fibromyalgia; K21.9 Gastro-esophageal reflux disease without esophagitis; N32.81 Overactive bladder; Z85.828 Personal history of other malignant neoplasm of skin; K57.90 Diverticulosis of intestine, part unspecified, without perforation or abscess without bleeding; K44.9 Diaphragmatic hernia without obstruction or gangrene; K80.20 Calculus of gallbladder without cholecystitis without obstruction
CPT/HCPCS: 36415; 74177; 80053; 81003; 83735; 84443; 85025; 86140; 96374; 99284; A9270; J0360; Q9967

== ENCOUNTER 2024-11-20 13:23 | Emergency (ER) | payer MEDICARE, SELFPAY ==
--- NOTE | ~2024-11-20 | CT_ITS ---
CT lumbar spine wo con Ordering provider: Raphael Santana MD History: 84 years Female with . low back pain . Comparison: None. Technique: CT lumbar spine without contrast. Automated exposure control and iterative reconstruction technique were employed. The dose-length product was 209.73 mGy-cm. FINDINGS: VERTEBRAE: Normal height and alignment. No subluxation or visible acute fracture. Levoscoliosis. Dege nerative changes of the spine. DISC SPACES: Narrowing of all the disc spaces. Multilevel facet joint disease. T12-L1: No stenosis. L1-L2: No stenosis. Mild diffuse disc bulge. Air bubble is seen in the vertebral canal opposite L1-L2. This is most likely degenerative. L2-L3: No stenosis. Diffuse disc bulge. L3-L4: No stenosis. Right posterolateral diffuse disc bulge with narrowing of the right foramen and n erve root compression. L4-L5: No stenosis. Diffuse disc bulge with slight narrowing of the right foramen. L5-S1: No stenosis. Diffuse disc bulge with central protrusion. PARASPINOUS SOFT TISSUES: Mild atheromatous disease of the abdominal aorta. Fullness of the right korey al pelvis. Further evaluation advised. Diverticulosis of the colon. Small sliding hiatus hernia. Bilateral sacroiliitis. IMPRESSION: No acute osseous abnormality. Levoscoliosis. Multilevel degenerative disc disease with variable degrees of spinal canal stenosis, intervertebral f oraminal narrowing and nerve root compression. Right Hydronephrotic changes. Further evaluation advised. Reviewed, dictated and finalized at location A. IMPRESSION: No acute osseous abnormality. Levoscoliosis. Multilevel degenerative disc disease with variable degrees of spinal canal sten osis, intervertebral foraminal narrowing and nerve root compression. Right Hydronephrotic changes. Further evaluation advised.
[2024-11-20 13:23] VITALS: BP 190/75; PULSE 68; RESP 18; TEMP 36.6; O2SAT 100
--- OUTSIDE RECORDS SUMMARY | 2024-11-20 13:59 | XMS_ITS | Referral Summary ---
Author Organization [facility] at the [facility] Office Center Address [address] [place] [address] Care Team Providers Care Vamp Liner Name Role Phone Deion Childs DO Primary [...] antibody Assessment & Plan (07/28/2022 11:54 AM GAME ARTIST): Add doxycycline Add singulair Assessment & Plan [...] tests. Assessment & Plan (06/19/2022 2:39 PM GAME ARTIST): Acute on chronic Worsening Chronic condition Not [...] 05/09/2021 Assessment & Plan (08/26/2021 12:10 PM GAME ARTIST): Patient is well controlled. Continue current treatment. Urinary incontinence 05/09/2021 Assessment & Plan (08/26/2021 12:07 PM GAME ARTIST): Chronic No new orders Full code status 06/14/2020 Assessment & Plan (08/26/2021 12:05 PM GAME ARTIST): No changes to status Assessment & Plan (06/14/2020 12:20 PM GAME ARTIST): Discussed with patient approximately 20minutes End of life issues/Advanced Directives/Healthcare Surrogate. Discussed DNR. Encouraged to discuss further with family and consult senior attorney or complete [place] approved form, which I would be glad to assist them with completion. All questions answered. polst form filled out and signed Chronic back pain 03/06/2020 Assessment & Plan (08/26/2021 12:05 PM GAME ARTIST): Patient is well controlled. Continue current treatment. Assessment & Plan (07/25/2021 3:26 PM GAME ARTIST): I will look into something she can take for pain Assessment & Plan (11/23/2020 11:15 AM CDT): Refer to [facility] Assessment & Plan (06/19/2020 11:37 AM GAME ARTIST): Chronic severe back pain Significant OA Check a MRI LS spine Assessment & Plan (03/06/2020 1:21 PM CDT): No new orders Osteopenia 03/13/2019 Overview (05/09/2021): T=-2.1 Assessment & Plan (08/26/2021 12:09 PM GAME ARTIST): Patient is well controlled. Continue current treatment. Personal history of malignant neoplasm of breast 11/04/2018 Assessment & Plan (08/26/2021 12:09 PM GAME ARTIST): Patient is well controlled. Continue current treatment. Cystitis, interstitial 06/16/2018 Assessment & Plan (08/26/2021 12:06 PM GAME ARTIST): amoxicillin 500 mg tid 10 days Diverticula of colon 06/16/2018 Assessment & Plan (08/26/2021 12:10 PM GAME ARTIST): Patient is well controlled. Continue current treatment. Essential hypertension 06/16/2018 Assessment & Plan (04/15/2023 2:36 PM CDT): Patient is well controlled. Continue current treatment. Assessment & Plan (07/28/2022 11:55 AM GAME ARTIST): Patient is well controlled. Continue current treatment. Assessment & Plan (08/26/2021 12:10 PM GAME ARTIST): Patient is well controlled. Continue current treatment. Assessment & Plan (05/16/2021 9:22 AM CDT): Add amlodipine 2.5 mg daily HER2-positive carcinoma of right breast 06/16/20 18 Hyperlipidemia 06/16/2018 Assessment & Plan (08/26/2021 12:11 PM GAME ARTIST): Patient is well controlled. Continue current treatment. Tinnitus 06/16/2018 Assessment & Plan (08/26/2021 12:07 PM GAME ARTIST): Patient is well controlled. Continue current treatment. Multiple allergies 05/14/2018 Assessment & Plan (08/26/2021 12:09 PM GAME ARTIST): Patient is well controlled. Continue current treatment. No new orders Refusal of blood transfusion s as patient is Hoahaoism 05/14/2018 S/P mastectomy 05/29/2017 Assessment & Plan (08/26/2021 12:08 PM GAME ARTIST): No new orders Patient is well controlled. Continue current treatment. Arthritis 02/13/2016 Assessment & Plan (08/26/2021 12:05 PM GAME ARTIST): Patient is well controlled. Continue current treatment. Multiple joints Gastroesophageal reflux disease without esophagi tis 02/13/2016 Assessment & Plan (11/11/2022 11:08 AM CDT): Add carafate Chronic condition Not at goal Assessment & Plan (11/07/2022 12:08 PM CDT): Worse since starting omnicef Change to amoxicillin Add pepcid 20 mg bid Assessment & Plan (08/26/2021 12:10 PM GAME ARTIST): Patient is well controlled. Continue current treatment. Rectocele 12/10/2011 Assessment & Plan (08/26/2021 12:11 PM GAME ARTIST): Patient is well controlled. Continue current treatment. Resolved Problems Problem Noted Date Diagnosed Date Resolved Date Acute non-recurrent frontal sinusitis 11/07/2022 11/11/2022 Assessment & Plan (11/07/2022 12:07 PM CDT): Change to amoxicillin 500 mg tid 1 week Bone pain 08/04/2022 11/11/2022 Assessment & Plan (08/04/2022 10:54 AM GAME ARTIST): CT unremarkable. She continues with pain in [...] 11/11/2022 Assessment & Plan (07/28/2022 11:55 AM GAME ARTIST): Repeat ct reviewed Consistent with cysts Assessment & Plan (06/19/2022 2:37 PM GAME ARTIST): Reorder pre/post contrast ct abdomen Assessment & [...] 06/19/2022 Assessment & Plan (08/26/2021 12:07 PM GAME ARTIST): Patient is well controlled. Continue current treatment. Acute non-recurrent maxillary sinusitis 07/25/2021 08/26/2021 Assessment & Plan (07/25/2021 3:25 PM GAME ARTIST): Doxycycline 100 mg bid 1 week COVID test Head ache 05/16/2021 08/26/2021 Assessment & Plan (05/16/2021 9:23 AM CDT): Sed rate Cbc Add mucinex 600 mg bid Finish augmentin Hip pain 05/16/2021 08/26/2021 Assessment & Plan (05/16/2021 9:25 AM CDT): X ray left hip Abdominal pain 01/04/2020 06/30/2022 Assessment & Plan (08/26/2021 12:04 PM GAME ARTIST): Believe due to urinary infection Will place [...] week Assessment & Plan (06/19/2020 11:36 AM GAME ARTIST): Add cipro 500 mg bid 1 week See urology See G.I. Check a urine c and s Assessment & Plan (06/14/2020 12:28 PM GAME ARTIST): New onset RLQ tender No G or [...] 08/26/19 22 Scoliosis 10/11/2018 08/26/2021 Patient is Hoahaoism 06/16/2018 08/26/2021 Decreased GFR 05/14/2018 08/26/2021 Skin [...] 08/26/2021 Assessment & Plan (08/26/2021 12:05 PM GAME ARTIST): di Malignant neoplasm of breast 04/05/2017 08/26/2021 [...] 08/26/2021 Assessment & Plan (06/19/2020 11:36 AM GAME ARTIST): Patient is well controlled. Continue current treatment. [...] to sleep or slept in a senior living (including now)? No 04/08/2022 Personal Safety Answer Date Recorded Have you ever been in or are you currently in a harmful physical or emotional relationship or is someone making you feel afraid or unsafe? Denies 11/08/2022 Comments No Sex and Gender Information Value Date Recorded Sex Assigned at Not on file Legal Sex Female 12:15 AM GAME ARTIST Gender Identity Not on file Sexual Orientation [...] (119 lb 7.8 oz) 05/20/2023 10:02 AM GAME ARTIST Height 160 cm (5' 3 ) 05/20/2023 10:02 AM GAME ARTIST Body Mass Index 21.17 05/20/2023 10:02 AM GAME ARTIST Plan of Treatment Not on file Medical Devices Implanted Type Area Quality Technician Fiberglass Device Identifier Shelf Expiration Date Model / Serial / Lot Ethicon Endo Surgery Ultrapro 4cm 5cm Nonabsorbable Flat Onlay Patch [place] Medium [id number] - [id number] Implanted:Qty: 1 on 11/09/2021 by Dragan Ferrari MD at [facility] [employer] Surgery [id number] 10/10/2022 [id number] / / [id number] Insurance [employer] [place] [id number] UHC MEDICARE ADVANTAGE [facility] Address: [address] [address] [place] [address] [place] [address] Advance Directives For more information, please contact: [phone] Documents on File Type Date Recorded Patient Insurance Actuary Expl anation ADVANCE DIRECTIVE 06/14/2020 ADVANCE DIRECTIVE 09/26/2014 12:00 AM MARIA DEL CARMEN R OF HISTORICAL INTERPRETER FINANCIAL/MEDICAL * Full Code (Latest Code Status on File) Date Activated Date Inactivated Comments 11/09/2021 7:48 PM 11/10/2021 7:48 PM Care Teams Vamp Liner Relationship Specialty Start Date End Date [place], Deion Braydon, DO PCP - General Family Medicine 08/31/19
--- OUTSIDE RECORDS SUMMARY | 2024-11-20 13:59 | XMS_ITS ---
Author Organization [facility] at the [facility] Center Address [address] [place] [address] Care Team Providers Care Lpn Home Health Name Role Phone Deion Childs DO Primary [...] antibody Assessment & Plan (07/28/2022 11:54 AM EXCEPTIONAL CHILDREN'S TEACHER): Add doxycycline Add singulair Assessment & Plan [...] tests. Assessment & Plan (06/19/2022 2:39 PM EXCEPTIONAL CHILDREN'S TEACHER): Acute on chronic Worsening Chronic condition Not [...] 05/09/2021 Assessment & Plan (08/26/2021 12:10 PM EXCEPTIONAL CHILDREN'S TEACHER): Patient is well controlled. Continue current treatment. Urinary incontinence 05/09/2021 Assessment & Plan (08/26/2021 12:07 PM EXCEPTIONAL CHILDREN'S TEACHER): Chronic No new orders Full code status 06/14/2020 Assessment & Plan (08/26/2021 12:05 PM EXCEPTIONAL CHILDREN'S TEACHER): No changes to status Assessment & Plan (06/14/2020 12:20 PM EXCEPTIONAL CHILDREN'S TEACHER): Discussed with patient approximately 20minutes End of life issues/Advanced Directives/Healthcare Surrogate. Discussed DNR. Encouraged to discuss further with family and consult commonwealth attorney or complete [place] approved form, which I would be glad to assist them with completion. All questions answered. polst form filled out and signed Chronic back pain 03/06/2020 Assessment & Plan (08/26/2021 12:05 PM EXCEPTIONAL CHILDREN'S TEACHER): Patient is well controlled. Continue current treatment. Assessment & Plan (07/25/2021 3:26 PM EXCEPTIONAL CHILDREN'S TEACHER): I will look into something she can take for pain Assessment & Plan (11/23/2020 11:15 AM CDT): Refer to [facility] Assessment & Plan (06/19/2020 11:37 AM EXCEPTIONAL CHILDREN'S TEACHER): Chronic severe back pain Significant OA Check a MRI LS spine Assessment & Plan (03/06/2020 1:21 PM CDT): No new orders Osteopenia 03/13/2019 Overview (05/09/2021): T=-2.1 Assessment & Plan (08/26/2021 12:09 PM EXCEPTIONAL CHILDREN'S TEACHER): Patient is well controlled. Continue current treatment. Personal history of malignant neoplasm of breast 11/04/2018 Assessment & Plan (08/26/2021 12:09 PM EXCEPTIONAL CHILDREN'S TEACHER): Patient is well controlled. Continue current treatment. Cystitis, interstitial 06/16/2018 Assessment & Plan (08/26/2021 12:06 PM EXCEPTIONAL CHILDREN'S TEACHER): amoxicillin 500 mg tid 10 days Diverticula of colon 06/16/2018 Assessment & Plan (08/26/2021 12:10 PM EXCEPTIONAL CHILDREN'S TEACHER): Patient is well controlled. Continue current treatment. Essential hypertension 06/16/2018 Assessment & Plan (04/15/2023 2:36 PM CDT): Patient is well controlled. Continue current treatment. Assessment & Plan (07/28/2022 11:55 AM EXCEPTIONAL CHILDREN'S TEACHER): Patient is well controlled. Continue current treatment. Assessment & Plan (08/26/2021 12:10 PM EXCEPTIONAL CHILDREN'S TEACHER): Patient is well controlled. Continue current treatment. Assessment & Plan (05/16/2021 9:22 AM CDT): Add amlodipine 2.5 mg daily HER2-positive carcinoma of right breast 06/16/20 18 Hyperlipidemia 06/16/2018 Assessment & Plan (08/26/2021 12:11 PM EXCEPTIONAL CHILDREN'S TEACHER): Patient is well controlled. Continue current treatment. Tinnitus 06/16/2018 Assessment & Plan (08/26/2021 12:07 PM EXCEPTIONAL CHILDREN'S TEACHER): Patient is well controlled. Continue current treatment. Multiple allergies 05/14/2018 Assessment & Plan (08/26/2021 12:09 PM EXCEPTIONAL CHILDREN'S TEACHER): Patient is well controlled. Continue current treatment. No new orders Refusal of blood transfusion s as patient is Cheondoism 05/14/2018 S/P mastectomy 05/29/2017 Assessment & Plan (08/26/2021 12:08 PM EXCEPTIONAL CHILDREN'S TEACHER): No new orders Patient is well controlled. Continue current treatment. Arthritis 02/13/2016 Assessment & Plan (08/26/2021 12:05 PM EXCEPTIONAL CHILDREN'S TEACHER): Patient is well controlled. Continue current treatment. Multiple joints Gastroesophageal reflux disease without esophagi tis 02/13/2016 Assessment & Plan (11/11/2022 11:08 AM CDT): Add carafate Chronic condition Not at goal Assessment & Plan (11/07/2022 12:08 PM CDT): Worse since starting omnicef Change to amoxicillin Add pepcid 20 mg bid Assessment & Plan (08/26/2021 12:10 PM EXCEPTIONAL CHILDREN'S TEACHER): Patient is well controlled. Continue current treatment. Rectocele 12/10/2011 Assessment & Plan (08/26/2021 12:11 PM EXCEPTIONAL CHILDREN'S TEACHER): Patient is well controlled. Continue current treatment. [...] 11/11/2022 Assessment & Plan (08/04/2022 10:54 AM EXCEPTIONAL CHILDREN'S TEACHER): CT unremarkable. She continues with pain in [...] 11/11/2022 Assessment & Plan (07/28/2022 11:55 AM EXCEPTIONAL CHILDREN'S TEACHER): Repeat ct reviewed Consistent with cysts Assessment & Plan (06/19/2022 2:37 PM EXCEPTIONAL CHILDREN'S TEACHER): Reorder pre/post contrast ct abdomen Assessment & [...] 06/19/2022 Assessment & Plan (08/26/2021 12:07 PM EXCEPTIONAL CHILDREN'S TEACHER): Patient is well controlled. Continue current treatment. Acute non-recurrent maxillary sinusitis 07/25/2021 08/26/2021 Assessment & Plan (07/25/2021 3:25 PM EXCEPTIONAL CHILDREN'S TEACHER): Doxycycline 100 mg bid 1 week COVID test Head ache 05/16/2021 08/26/2021 Assessment & Plan (05/16/2021 9:23 AM CDT): Sed rate Cbc Add mucinex 600 mg bid Finish augmentin Hip pain 05/16/2021 08/26/2021 Assessment & Plan (05/16/2021 9:25 AM CDT): X ray left hip Abdominal pain 01/04/2020 06/30/2022 Assessment & Plan (08/26/2021 12:04 PM EXCEPTIONAL CHILDREN'S TEACHER): Believe due to urinary infection Will place [...] week Assessment & Plan (06/19/2020 11:36 AM EXCEPTIONAL CHILDREN'S TEACHER): Add cipro 500 mg bid 1 week See urology See G.I. Check a urine c and s Assessment & Plan (06/14/2020 12:28 PM EXCEPTIONAL CHILDREN'S TEACHER): New onset RLQ tender No G or [...] 08/26/19 22 Scoliosis 10/11/2018 08/26/2021 Patient is Cheondoism 06/16/2018 08/26/2021 Decreased GFR 05/14/2018 08/26/2021 Skin [...] 08/26/2021 Assessment & Plan (08/26/2021 12:05 PM EXCEPTIONAL CHILDREN'S TEACHER): di Malignant neoplasm of breast 04/05/2017 08/26/2021 [...] 08/26/2021 Assessment & Plan (06/19/2020 11:36 AM EXCEPTIONAL CHILDREN'S TEACHER): Patient is well controlled. Continue current treatment. [...]
--- OUTSIDE RECORDS SUMMARY | 2024-11-20 13:59 | XMS_ITS | Clinical Summary ---
Author Organization [facility] Address [address] [place] [address] Care Team Providers Care Hospital Corpsman Name Role Phone Deion Britt DO Primary Care Provider Allergies Active Allergy Reactions Criticality Noted Date [...] 06/16/2018 Irritable bowel syndrome 06/16/2018 Patient is Jainism 06/16/2018 Rectocele 06/16/2018 Tinnitus 06/16/2018 HER2-positive carcinoma of right breast 06/16/20 18 Multiple allergies 05/14/2018 Decreased GFR 05/14/2018 Refusal of blood transfusion s as patient is Jainism 05/14/2018 Skin lesion of chest wall 05/14/2018 [...] on file Legal Sex Female 8:39 PM REGISTRAR ASSISTANT Gender Identity Not on file Sexual Orientation Not on file 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 Not on file Not on file Not on file Last Filed Vital Signs Vital Sign Reading Time Taken Comments Blood Pressure 140/82 05/07/2021 2:36 PM CDT Pulse 59 07/05/2018 7:55 AM REGISTRAR ASSISTANT Temperature 36.4 C (97.6 F) 05/07/2021 2:36 PM CDT Respiratory Rate 14 07/05/2018 7:55 AM REGISTRAR ASSISTANT Oxygen Saturation 98% 07/05/2018 7:55 AM REGISTRAR ASSISTANT Inhaled Oxygen Concentration - - Weight [...] Vaccine (2 - season) 03/13/202411/2020 OSTEOPOROSIS SCREENING 04/07/2024 04/07/2019 PNEUMOCOCCAL VACCINE 50+ YEARS Completed 03/06/2020 , 07/13/2008 Medical Devices Explanted Type Area Casting Agent Device Identifier Shelf Expiration Date Model / Serial / Lot Left Portacath Removal Explanted:Qty: 1 on 07/05/2018 by Luly Wei MD at [facility] Left: Chest Description:disposed of per Dr request [...] refer to the full report available in [facility] under the PACS Images tab. If a faxed copy is needed, please call [phone]. DICTATION LOCATION: Location 8 - [facility] Procedure Note Chris Rolle MD - 04/07/2019 SUMMARY DEXA REPORT DATE: 04/07/2019 1:35 PM INDICATION: Postmenopausal, arthritis. FINDINGS: Bone mineral density is consistent with osteopenia. The lowest T score is -2.1. Please refer to the full report available in [facility] under the PACS Images tab. If a faxed copy is needed, please call [phone]. DICTATION LOCATION: Location [address] [place] [address] Abeba Vinson MD DIAGNOSTIC IMAGING OR DERABLES Final Result from Last 3 Months or Most Recently Relevant to Health Maintenance Insurance Advance Directives For more information, please contact: [phone] Documents on File Type Date Recorded Patient Emergency Communications Operator Expl anation Advance Directive POA 06/30/2018 11:34 AM RECIEVED 06/30/18 *NO BLOOD* * Full Code (Latest Code Status on File) Date Activated Date Inactivated Comments 07/05/2018 7:22 AM 07/05/2018 10:22 AM Care Teams Hospital Corpsman Relationship Specialty Start Date End Date Deion Britt DO PCP - General Family Practice 12/27/19
--- OUTSIDE RECORDS SUMMARY | 2024-11-20 13:59 | XMS_ITS | Clinical Summary ---
Author Organization [facility] Care Team Providers Care Wire Stockkeeper Name Role Phone Unavailable Primary Care Provider Unavailabl e Social History Tobacco Use Types Packs/Day Years Used Date Smoking Tobacco: Never Assessed Comments Unknown Sex and Gender Information Value Date Recorded Sex Assigned at Not on file Legal Sex Female 8:02 AM GLASS CLEANING MACHINE TENDER Gender Identity Not on file Sexual Orientation [...]
--- OUTSIDE RECORDS SUMMARY | 2024-11-20 13:59 | XMS_ITS | Clinical Summary ---
Author Organization [facility] at the [facility] Office Center Address [address] [place] [address] Care Team Providers Care Night Patrol Inspector Name Role Phone Deion Childs DO Primary [...] antibody Assessment & Plan (07/28/2022 11:54 AM TITLE MANAGER): Add doxycycline Add singulair Assessment & Plan [...] tests. Assessment & Plan (06/19/2022 2:39 PM TITLE MANAGER): Acute on chronic Worsening Chronic condition Not [...] 05/09/2021 Assessment & Plan (08/26/2021 12:10 PM TITLE MANAGER): Patient is well controlled. Continue current treatment. Urinary incontinence 05/09/2021 Assessment & Plan (08/26/2021 12:07 PM TITLE MANAGER): Chronic No new orders Full code status 06/14/2020 Assessment & Plan (08/26/2021 12:05 PM TITLE MANAGER): No changes to status Assessment & Plan (06/14/2020 12:20 PM TITLE MANAGER): Discussed with patient approximately 20minutes End of life issues/Advanced Directives/Healthcare Surrogate. Discussed DNR. Encouraged to discuss further with family and consult business attorney or complete [place] approved form, which I would be glad to assist them with completion. All questions answered. polst form filled out and signed Chronic back pain 03/06/2020 Assessment & Plan (08/26/2021 12:05 PM TITLE MANAGER): Patient is well controlled. Continue current treatment. Assessment & Plan (07/25/2021 3:26 PM TITLE MANAGER): I will look into something she can take for pain Assessment & Plan (11/23/2020 11:15 AM CDT): Refer to APG Assessment & Plan (06/19/2020 11:37 AM TITLE MANAGER): Chronic severe back pain Significant OA Check a MRI LS spine Assessment & Plan (03/06/2020 1:21 PM CDT): No new orders Osteopenia 03/13/2019 Overview (05/09/2021): T=-2.1 Assessment & Plan (08/26/2021 12:09 PM TITLE MANAGER): Patient is well controlled. Continue current treatment. Personal history of malignant neoplasm of breast 11/04/2018 Assessment & Plan (08/26/2021 12:09 PM TITLE MANAGER): Patient is well controlled. Continue current treatment. Cystitis, interstitial 06/16/2018 Assessment & Plan (08/26/2021 12:06 PM TITLE MANAGER): amoxicillin 500 mg tid 10 days Diverticula of colon 06/16/2018 Assessment & Plan (08/26/2021 12:10 PM TITLE MANAGER): Patient is well controlled. Continue current treatment. Essential hypertension 06/16/2018 Assessment & Plan (04/15/2023 2:36 PM CDT): Patient is well controlled. Continue current treatment. Assessment & Plan (07/28/2022 11:55 AM TITLE MANAGER): Patient is well controlled. Continue current treatment. Assessment & Plan (08/26/2021 12:10 PM TITLE MANAGER): Patient is well controlled. Continue current treatment. Assessment & Plan (05/16/2021 9:22 AM CDT): Add amlodipine 2.5 mg daily HER2-positive carcinoma of right breast 06/16/20 18 Hyperlipidemia 06/16/2018 Assessment & Plan (08/26/2021 12:11 PM TITLE MANAGER): Patient is well controlled. Continue current treatment. Tinnitus 06/16/2018 Assessment & Plan (08/26/2021 12:07 PM TITLE MANAGER): Patient is well controlled. Continue current treatment. Multiple allergies 05/14/2018 Assessment & Plan (08/26/2021 12:09 PM TITLE MANAGER): Patient is well controlled. Continue current treatment. No new orders Refusal of blood transfusion s as patient is Lutheran 05/14/2018 S/P mastectomy 05/29/2017 Assessment & Plan (08/26/2021 12:08 PM TITLE MANAGER): No new orders Patient is well controlled. Continue current treatment. Arthritis 02/13/2016 Assessment & Plan (08/26/2021 12:05 PM TITLE MANAGER): Patient is well controlled. Continue current treatment. Multiple joints Gastroesophageal reflux disease without esophagi tis 02/13/2016 Assessment & Plan (11/11/2022 11:08 AM CDT): Add carafate Chronic condition Not at goal Assessment & Plan (11/07/2022 12:08 PM CDT): Worse since starting omnicef Change to amoxicillin Add pepcid 20 mg bid Assessment & Plan (08/26/2021 12:10 PM TITLE MANAGER): Patient is well controlled. Continue current treatment. Rectocele 12/10/2011 Assessment & Plan (08/26/2021 12:11 PM TITLE MANAGER): Patient is well controlled. Continue current treatment. Resolved Problems Problem Noted Date Diagnosed Date Resolved Date Acute non-recurrent frontal sinusitis 11/07/2022 11/11/2022 Assessment & Plan (11/07/2022 12:07 PM CDT): Change to amoxicillin 500 mg tid 1 week Bone pain 08/04/2022 11/11/2022 Assessment & Plan (08/04/2022 10:54 AM TITLE MANAGER): CT unremarkable. She continues with pain in [...] 11/11/2022 Assessment & Plan (07/28/2022 11:55 AM TITLE MANAGER): Repeat ct reviewed Consistent with cysts Assessment & Plan (06/19/2022 2:37 PM TITLE MANAGER): Reorder pre/post contrast ct abdomen Assessment & [...] 06/19/2022 Assessment & Plan (08/26/2021 12:07 PM TITLE MANAGER): Patient is well controlled. Continue current treatment. Acute non-recurrent maxillary sinusitis 07/25/2021 08/26/2021 Assessment & Plan (07/25/2021 3:25 PM TITLE MANAGER): Doxycycline 100 mg bid 1 week COVID test Head ache 05/16/2021 08/26/2021 Assessment & Plan (05/16/2021 9:23 AM CDT): Sed rate Cbc Add mucinex 600 mg bid Finish augmentin Hip pain 05/16/2021 08/26/2021 Assessment & Plan (05/16/2021 9:25 AM CDT): X ray left hip Abdominal pain 01/04/2020 06/30/2022 Assessment & Plan (08/26/2021 12:04 PM TITLE MANAGER): Believe due to urinary infection Will place [...] week Assessment & Plan (06/19/2020 11:36 AM TITLE MANAGER): Add cipro 500 mg bid 1 week See urology See G.I. Check a urine c and s Assessment & Plan (06/14/2020 12:28 PM TITLE MANAGER): New onset RLQ tender No G or [...] 08/26/19 22 Scoliosis 10/11/2018 08/26/2021 Patient is Lutheran 06/16/2018 08/26/2021 Decreased GFR 05/14/2018 08/26/2021 Skin [...] 08/26/2021 Assessment & Plan (08/26/2021 12:05 PM TITLE MANAGER): di Malignant neoplasm of breast 04/05/2017 08/26/2021 [...] 08/26/2021 Assessment & Plan (06/19/2020 11:36 AM TITLE MANAGER): Patient is well controlled. Continue current treatment. [...] history of malignant neoplasm - (Added by [employer]) Diverticulitis Son Relation Name Status Comments [...] on file Legal Sex Female 12:15 AM TITLE MANAGER Gender Identity Not on file Sexual Orientation [...] (119 lb 7.8 oz) 05/20/2023 10:02 AM TITLE MANAGER Height 160 cm (5' 3 ) 05/20/2023 10:02 AM TITLE MANAGER Body Mass Index 21.17 05/20/2023 10:02 AM TITLE MANAGER Plan of Treatment Health Maintenance Due Date Last Done Comments Osteoporosis Screening-Bone Density Scan 1940 Hepatitis B Screening 1958 Zoster Vaccine (2 of 3) 09/07/2008 07/13/2008 DTaP/Tdap/Td Vaccine (2 - Td or Tdap) 06/13/2023 06/13/2013 Fall Risk Assessment 12/18/2023 12/17/2022, 11/10/2021, 08/26/2021, Additional history exists Well Visit 65+ 12/18/2023 12/17/2022, 08/13, 06/14/2020 Covid-19 Vaccine (3 - 2023-2 5 season) 2024 09/14/2020, 08/14/2020 Depression Screening 04/15/2024 04/15/2023, 12/17/2022, 08/26/2021, Additional history exists Influenza Vaccine (Season Ended) 2025 04/12/2022, 03/06/2020, 04/12/2013 Pneumococcal vaccine 65+ Completed 03/06/2020, 07/2008 Medical Devices Implanted Type Area Manager Product Support Device Identifier Shelf Expiration Date Model / Serial / Lot [employer] Ultrapro 4cm 5cm Nonabsorbable Flat Onlay Patch [place] Rim Medium Up2 - [id number] Implanted:Qty: 1 on 11/09/2021 by Dragan Ferrari MD at [facility] [employer] [id number] 10/10/2022 UP2 / / [id number] Insurance [facility] [place] [id number] MEDICARE ADVANTAGE Advance Directives For more information, please contact: [phone] Documents on File Type Date Recorded Patient Hogshead Inspector Expl anation ADVANCE DIRECTIVE 06/14/2020 ADVANCE DIRECTIVE 09/26/2014 12:00 AM MARIA DEL CARMEN R OF CABLE STRETCHER AND TESTER FINANCIAL/MEDICAL * Full Code (Latest Code Status on File) Date Activated Date Inactivated Comments 11/09/2021 7:48 PM 11/10/2021 7:48 PM Care Teams Night Patrol Inspector Relationship Specialty Start Date End Date Deion Childs DO PCP - General Family Medicine 08/31/19
--- OUTSIDE RECORDS SUMMARY | 2024-11-20 13:59 | XMS_ITS | Encounter Summary ---
Author Organization [facility] Address [facility] [place] [address] Care Team Providers Care Bookkeeping Clerks Supervisor Name Role Phone Lenin Jeong MD Primary Care Provider [phone] Shayy Valentin MD Primary Care Provider [phone] Deion Britt DO Primary Care Provider [phone] Encounter Details Date Type Department Care Team (Late st Contact Info) Description 10/12/[address] [facility] CONVERSION [id number] [place] [address] , Luisito Kang MD Social [...] on filedocumented in this encounter Care Teams Bookkeeping Clerks Supervisor Relationship Specialty [place] [id number] [place] [address] PCP - General FAMILY PRACTICE 05/29/18 02/20/19 Shayy Valentin MD [address] [place] [address] PCP - General FAMILY PRACTICE 02/21/19 09/09/19 Deion Britt DO [address] [place] [address] PCP - General FAMILY PRACTICE 09/10/19 documented as of this encounter
--- OUTSIDE RECORDS SUMMARY | 2024-11-20 14:00 | XMS_ITS | Clinical Summary ---
Author Organization [facility] Address [address] [place] [address] Care Team Providers Care Credit Card Interviewer Name Role Phone Deion Britt DO Primary Care Provider [phone] Allergies Active Allergy Reactions Criticality Noted Date Comments Azithromycin Headache Medium 06/30/2018 Face bright red Codeine Other (see comment),Hallucinations ,GI Upset High 12/10/2011 can't respond Migraine/ ALSO CODEINE Intolerant Corticosteroids Headache,Other (see comment) Medium 04/24/2017 [place] like HEAD WOULD EXPLODE , Jittery [place] like HEAD WOULD EXPLODE , Jittery Hydrocodone [...] Hyperlipidemia 06/16/2018 HER2-positive carcinoma of right breast ([facility]) 06/16/2018 Diverticula of colon 06/16/2018 Cystitis, interstitial 06/16/2018 Cervicalgia 06/16/2018 Tinnitus 06/16/2018 Multiple allergies 05/14/2018 Refusal of blood transfusion s as patient is Christian 05/14/2018 Skin lesion of chest wall 05/14/2018 Anxiety state 05/14/2018 Malignant neoplasm of upper- inner quadrant of right breast in female, estrogen receptor negative ([facility]) 05/14/2018 Overview (10/11/2018): Overview: Her-2-lavon + Skin cancer 02/17/2018 Dry eye 02/16/2018 Visual disturbance 02/16/2018 Nausea and vomiting 09/16/2017 Constipation 06/02/2017 Malignant neoplasm of upper- inner quadrant of right female breast ([facility]) 05/29/2017 S/P mastectomy 05/29/2017 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 Malignant neoplasm of breast ([facility]) 0 04/05/2017 Abnormal mammogram 04/03/2017 Depression 03/17/2017 Acid reflux 02/13/2016 Anxiety 02/13/2016 Arthritis 02/13/2016 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 Curvature of spine 02/13/2016 Degeneration of intervertebral disc 02/13/2016 Fibromyalgia 02/13/2016 Sciatica 02/13/2016 Notalgia 01/23/2015 Myalgia 12/10/2011 Rectocele 12/10/2011 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, acquired Urinary incontinence Resolved Problems Problem Noted Date Diagnosed Date Resolved Date Patient is Christian 06/16/2018 03/23/2020 Immunizations Immunization Administration Dates Next Due Influenza (Generic) 04/12/2013 MODERNA COVID-19 (12+) MRNA, LNP-S, PF, 100 MCG/ 0.5 ML DOSE 09/14/2020 Pneumococcal (Pneumovax 23) 07/13/2008 Tdap (Boostrix) 06/13/2013 Zoster (Zostavax) 12579 Unt/0.65Ml 07/13/2008 Family History Medical History Relation [...] (2 - 2023-2 5 season) 2024 09/14/2020 Pneumococcal Vaccine: 50+ Years Completed 03/06/2020, 07/13/2008 Meningococcal B Vaccine Aged Out No l onger eligible based on patient's age to complete this topic Meningococcal Vaccine Aged Out No sheila rosendo eligible based on patient's age to complete this topic RSV Immunizations Under 20 Months Aged Out No longer eligible b ased on patient's age to complete this topic Insurance [facility] Advance Directives Documents on File Type Date Recorded Patient Stave Log Cut Off Saw Operator Expl anation Power of Pants Presser 02/21/2019 POA Care Teams Credit Card Interviewer Relationship Specialty Start Date End Date Deion Britt DO PCP - General FAMILY PRACTICE 09/10/19
--- OUTSIDE RECORDS SUMMARY | 2024-11-20 14:00 | XMS_ITS | Data Portability ---
[facility] Organization [facility] Address [address] [place] [address] Assessment No assessment recorded. Plan of Treatment Reminders Order Date Submit Date Provider Last Modified By Organization Details Last Modified Time Details Appointments None recorded . Lab CBC w/ auto diff [id number] [facility], [place], [address], 4 18:39:48 amylase, serum or plasma [id number] [facility], [place], [address], 4 18:39:48 BMP, serum or plasma [address] Out Patient Lab, [place], [address], 4 18:39:48 hepatic function panel, serum [id number] [facility], [place], [address], 4 18:39:48 BMP, serum or plasma 2023 024 ASHLEY [facility] Out Patient Lab, [place], [address], 4 15:00:22 CBC w/ diff 2023 024 [facility], [facility], [place], [address], 4 11:31:39 hepatic function panel, serum 2023 024 [facility], [facility], [place], [address], 4 18:35:12 amylase + lipase, serum 2023 024 [facility], [facility], [place], [address], 4 11:31:52 Referral physical medicine and rehabili tation referral 2023 024 [facility], [address] [place] [address] [address], [place], [address], 4 13:02:30 Procedures None recorded . Surgeries None recorded . Imaging CT, abdomen + pelvis, w/o contrast 2023 024 [facility] Scheduling, [facility], [place], [address], 4 09:15:06 CT, abdomen + pelvis, w/ contrast 2023 024 [facility] Scheduling, [place], [address], 4 09:14:48 Medication Orders Myrbetri q 50 mg tablet,e xtended release 2023 024 [email or web address] [facility] #[id number], [address], [place], [id number], 13:02:30 amitript yline 10 mg tablet 2023 024 [email or web address] [facility] #[id number], [address] [place], [place], [id number], 17:37:06 Patient TargetsNo targets recorded. Patient InstructionsNo instructions recorded. Reason for Referral Physical Medicine And Rehabi litation Referral for Chronic low back pain Referring Physician: Ian Childs, Family Medicine, Encounter Date: 01/25/2024 Results Created Date Observation Date Name Description Value Unit Range Abnormal Flag Note LastModifiedBy Organization Detail LastModifiedTime 11/11/19 24 11/11/2023 CBC WITH DIFF WBC 6.82 x10'3 /uL 4.5-11 .0 Not Available [facility] (Lab) [place], [address], 11/11/2023 14:34:54 11/11/19 24 11/11/2023 CBC WITH DIFF RBC 4.88 x10'6 /uL 4.20-5 .40 Not Available [facility] (Lab) [place], [address], 11/11/2023 14:34:54 11/11/19 24 11/11/2023 CBC WITH DIFF hemoglobin 14.1 g/dL 12.0-1 6.0 Not Available [facility] (Lab) [place], [address], 11/11/2023 14:34:54 11/11/19 24 11/11/2023 CBC WITH DIFF hematocrit 44.1 % 38.0-4 8.0 Not Available [facility] (Lab) [place], [address], 11/11/2023 14:34:54 11/11/19 24 11/11/2023 CBC WITH DIFF MCV 90.4 fL 81.0-9 9.0 Not Available [facility] (Lab) [address] [facility], [place], [address], 11/11/2023 14:34:54 11/11/19 24 11/11/2023 CBC WITH DIFF MCH 28.9 pg 27.0-3 1.0 Not Available [facility] (Lab) [address] [facility], [place], [address], 11/11/2023 14:34:54 11/11/19 24 11/11/2023 CBC WITH DIFF MCHC 32.0 g/dL 32.0-3 6.0 Not Available [facility] (Lab) [address] [facility], [place], [address], 11/11/2023 14:34:54 11/11/19 24 11/11/2023 CBC WITH DIFF RDW 13.4 % 11.5-1 4.5 Not Available [facility] (Lab) [address] [facility], [place], [address], 11/11/2023 14:34:54 11/11/19 24 11/11/2023 CBC WITH DIFF platelet count 291 x10'3 /uL 130-40 0 Not Available [facility] (Lab) [address], [place], [address], 11/11/2023 14:34:54 11/11/19 24 11/11/2023 CBC WITH DIFF MPV 10.0 fL 9.3-12 .2 Not Available [facility] (Lab) [address] [facility], [place], [address], 11/11/2023 14:34:54 11/11/19 24 11/11/2023 CBC WITH DIFF diff type AUTOMA PAUL DIFFER ENTIAL Not Available [facility] (Lab) [address] [facility], [place], [address], 11/11/2023 14:34:54 11/11/19 24 11/11/2023 CBC WITH DIFF neutrophils 71.6 % Not Available [facility] (Lab) [address] [facility], [place], [address], 11/11/2023 14:34:54 11/11/19 24 11/11/2023 CBC WITH DIFF lymphocytes 20.4 % Not Available [facility] (Lab) [address] [facility], [place], [address], 11/11/2023 14:34:54 11/11/19 24 11/11/2023 CBC WITH DIFF monocytes 6.6 % Not Available [facility] (Lab) [address] [facility], [place], [address], 11/11/2023 14:34:54 11/11/19 24 11/11/2023 CBC WITH DIFF eosinophils 0.4 % Not Available [facility] (Lab) [address] [facility], [place], [address], 11/11/2023 14:34:54 11/11/19 24 11/11/2023 CBC WITH DIFF basophils 0.7 % Not Available [facility] (Lab) [address] [facility], [place], [address], 11/11/2023 14:34:54 11/11/19 24 11/11/2023 CBC WITH DIFF immature granulocytes 0.3 % Not Available [facility] (Lab) [address], [place], [address], 11/11/2023 14:34:54 11/11/19 24 11/11/2023 CBC WITH DIFF abs. neutrophils 4.88 x10'3 /uL 1.80-7 .70 Not Available [facility] (Lab) [place], [address], 11/11/2023 14:34:54 11/11/19 24 11/11/2023 CBC WITH DIFF abs. lymphocytes 1.39 x10'3 /uL 1.00-4 .80 Not Available [facility] (Lab) [place], [address], 11/11/2023 14:34:54 11/11/19 24 11/11/2023 CBC WITH DIFF abs. monocytes 0.45 x10'3 /uL 0.24-0 .86 Not Available [facility] (Lab) [place], [address], 11/11/2023 14:34:54 11/11/19 24 11/11/2023 CBC WITH DIFF abs. eosinophils 0.03 x10'3 /uL 0.04-0 .36 low Not Available [facility] (Lab) [place], [address], 11/11/2023 14:34:54 11/11/19 24 11/11/2023 CBC WITH DIFF abs. basophils 0.05 x10'3 /uL 0.01-0 .08 Not Available [facility] (Lab) [place], [address], 11/11/2023 14:34:54 11/11/19 24 11/11/2023 CBC WITH DIFF abs. immature grans 0.02 x10'3 /uL 0.00-0 .49 Not Available [facility] (Lab) [place], [address], 11/11/2023 14:34:54 11/11/19 24 11/11/2023 AMYLA SE amylase 49 units /L 25-115 Not Available [facility] (Lab) [address] [facility], [place], [address], 11/11/2023 15:00:15 11/11/19 24 11/11/2023 BASIC METAB OLIC PANEL glucose 102 mg/dL 70-99 high Not Available [facility] (Lab) [address] [place], [address], 11/11/2023 15:00:22 11/11/19 24 11/11/2023 BASIC METAB OLIC PANEL BUN 15 mg/dL 7-18 Not Available [facility] (Lab) [address] [facility], [place], [address], 11/11/2023 15:00:22 11/11/19 24 11/11/2023 BASIC METAB OLIC PANEL creatinine 1.04 mg/dL 0.55-1 .02 high Not Available [facility] (Lab) [address] [facility], [place], [address], 11/11/2023 15:00:22 11/11/19 24 11/11/2023 BASIC METAB OLIC PANEL sodium 139 mmol/ L 136-14 5 Not Available [facility] (Lab) [address] [place], [address], 11/11/2023 15:00:22 11/11/19 24 11/11/2023 BASIC METAB OLIC PANEL potassium 4.2 mmol/ L 3.5-5. 1 Not Available [facility] (Lab) [address] [place], [address], 11/11/2023 15:00:22 11/11/19 24 11/11/2023 BASIC METAB OLIC PANEL chloride 106 mmol/ L 100-10 8 Not Available [facility] (Lab) [place], [address], 11/11/2023 15:00:22 11/11/19 24 11/11/2023 BASIC METAB OLIC PANEL total CO2 27.6 mmol/ L 21-32 Not Available [facility] (Lab) [place], [address], 11/11/2023 15:00:22 11/11/19 24 11/11/2023 BASIC METAB OLIC PANEL calcium 10.2 mg/dL 8.5-10 .1 high Not Available [facility] (Lab) [place], [address], 11/11/2023 15:00:22 11/11/19 24 11/11/2023 BASIC METAB OLIC PANEL anion gap 5.4 mmol/ L 5-15 Not Available [facility] (Lab) [place], [address], 11/11/2023 15:00:22 11/11/19 24 11/11/2023 BASIC METAB OLIC PANEL BUN creatinine ratio 14.4 6-26 Not Available [facility] (Lab) [place], [address], 11/11/2023 15:00:22 11/11/19 24 11/11/2023 BASIC METAB [...] latin g drug doses . Not Available [facility] (Lab) [address], [place], [address], 11/11/2023 15:00:22 11/11/19 24 11/11/2023 LIPAS E lipase 24 units /L 13-75 Not Available [facility] (Lab) One [facility], [place], [address], 11/11/2023 15:00:24 11/11/19 24 11/11/2023 LIVER PANEL total protein 7.2 g/dL 6.4-8. 2 Not Available [facility] (Lab) One [facility], [place], [address], 11/11/2023 15:00:25 11/11/19 24 11/11/2023 LIVER PANEL albumin 3.8 g/dL 3.4-5. 0 Not Available [facility] (Lab) [address] [facility], [place], [address], 11/11/2023 15:00:25 11/11/19 24 11/11/2023 LIVER PANEL total bilirubin 0.7 mg/dL 0.2-1. 2 THIS ASSAY IS NOT RECOM CLAUDIA D FOR PATIE NTS UNDER GOING TREAT MENT WITH ELTRO MBOPA G DUE TO THE POTEN TIAL FOR FALSE LY ELEVA PAUL RESUL TS. Not Available [facility] (Lab) [address] [facility], [place], [address], 11/11/2023 15:00:25 11/11/19 24 11/11/2023 LIVER PANEL direct bilirubin 0.2 mg/dL 0.0-0. 20 Not Available [facility] (Lab) [address] [facility], [place], [address], 11/11/2023 15:00:25 11/11/19 24 11/11/2023 LIVER PANEL indirect bilirubin 0.5 mg/dL 0.0-0. 9 Not Available [facility] (Lab) [address], [place], [address], 11/11/2023 15:00:25 11/11/19 24 11/11/2023 LIVER PANEL alk phosphatase 78 U/L 50-136 Not Available [facility] (Lab) [address] [facility], [place], [address], 11/11/2023 15:00:25 11/11/19 24 11/11/2023 LIVER PANEL AST 18 U/L 15-37 Not Available [facility] (Lab) [place], [address], 11/11/2023 15:00:25 11/11/19 24 11/11/2023 LIVER PANEL ALT 19 U/L 14-55 Not Available [facility] (Lab) [place], [address], 11/11/2023 15:00:25 11/11/19 24 11/11/2023 LIVER PANEL A:g ratio 1.1 ratio 1.0-2. 0 Not Available [facility] (Lab) [place], [address], 11/11/2023 15:00:25 11/11/19 24 11/13/2023 POC CREAT ININE POC creatinine 1.1 mg/dL 0.60-1 .10 Not Available [facility] (Lab) [address], [place], [address], 11/13/2023 10:08:40 11/11/19 24 11/11/2023 Lipas e [Enzy matic activ ity/v olume ] in Serum or Plasm a lipase [enzymatic activity/vol ume] in serum or plasma 24 text: 13 - 75 units/ L LIPAS E 24 13 - 75 UNITS /L 11/10 2:00 PM CDT [facility] Not Available Not Available 09/29/2024 11:07:27 11/11/19 24 11/11/2023 Amyla se [Enzy matic activ ity/v olume ] in Serum or Plasm a amylase [enzymatic activity/vol ume] in serum or plasma 49 text: 25 - 115 units/ L AMYLA SE S/P/B 49 25 - 115 UNITS /L 11/10 2:00 PM CDT [facility] Not Available Not Available 09/29/2024 11:07:27 11/11/19 24 11/11/2023 Hepat ic funct ion 1999 panel - Serum or Plasm a protein [mass/volume ] in serum or plasma 7.2 text: 6.4 - 8.2 g/dL TOTAL PROTE IN S/P/B 7.2 6.4 - 8.2 G/DL 11/10 2:00 PM CDT [facility] Not Available Not Available 09/29/2024 11:07:27 11/11/19 24 11/11/2023 Hepat ic funct ion 1999 panel - Serum or Plasm a albumin [mass/volume ] in serum or plasma 3.8 text: 3.4 - 5.0 g/dL ALBUM IN S/P/B 3.8 3.4 - 5.0 G/DL 11/10 2:00 PM CDT [facility] Not Available Not Available 09/29/2024 11:07:27 11/11/19 24 11/11/2023 Hepat ic funct ion 1999 panel - Serum or Plasm a bilirubin.to servando [mass/volume ] in serum or plasma 0.7 text: 0.2 - 1.2 mg/dL BILIR UBIN TOTAL S/P/B 0.7 0.2 - 1.2 MG/DL 11/10 2:00 PM CDT [facility] Not Available Not Available 09/29/2024 11:07:27 11/11/19 24 11/11/2023 Hepat ic funct ion 1999 panel - Serum or Plasm a bilirubin.co njugated [mass/volume ] in serum or plasma 0.2 text: 0.0 - 0.20 mg/dL BILIR UBIN DIREC T S/P/B 0.2 0.0 - 0.20 MG/DL 11/10 2:00 PM CDT [facility] Not Available Not Available 09/29/2024 11:07:27 11/11/19 24 11/11/2023 Hepat ic funct ion 1999 panel - Serum or Plasm a bilirubin.in direct [mass/volume ] in serum or plasma 0.5 text: 0.0 - 0.9 mg/dL BILIR UBIN INDIR ECT S/P/B 0.5 0.0 - 0.9 MG/DL 11/10 2:00 PM CDT [facility] Not Available Not Available 09/29/2024 11:07:27 11/11/19 24 11/11/2023 Hepat ic funct ion 1999 panel - Serum or Plasm a alkaline phosphatase [enzymatic activity/vol ume] in serum or plasma 78 U/L low: 50U/Lh igh: 136U/L ALKAL INE PHOSP HATAS E S/P/B 78 50 - 136 U/L 11/10 2:00 PM CDT [facility] Not Available Not Available 09/29/2024 11:07:27 11/11/19 24 11/11/2023 Hepat ic funct ion 2000 panel - Serum or Plasm a aspartate aminotransfe rase [enzymatic activity/vol ume] in serum or plasma 18 U/L low: 15U/Lh igh: 37U/L AST 18 15 - 37 U/L 11/10 2:00 PM CDT [facility] Not Available Not Available 09/29/2024 11:07:27 11/11/19 24 11/11/2023 Hepat ic funct ion 1999 panel - Serum or Plasm a alanine aminotransfe rase [enzymatic activity/vol ume] in serum or plasma 19 U/L low: 14U/Lh igh: 55U/L ALT 19 14 - 55 U/L 11/10 2:00 PM CDT [facility] Not Available Not Available 09/29/2024 11:07:27 11/11/19 24 11/11/2023 Hepat ic funct ion 1999 panel - Serum or Plasm a albumin/glob ulin [mass ratio] in serum or plasma 1.1 text: 1.0 - 2.0 ratio A/G RATIO 1.1 1.0 - 2.0 RATIO 11/10 2:00 PM CDT [facility] Not Available Not Available 09/29/2024 11:07:27 11/11/19 24 11/11/2023 CBC W Auto Diffe renti al panel - Blood leukocytes [#/volume] in blood by automated count 6.82 text: 4.5 - 11.0 x10'3/ uL WBC 6.82 4.5 - 11.0 x10'3 /uL 11/10 1:34 PM CDT [facility] Not Available Not Available 09/29/2024 11:07:27 11/11/19 24 11/11/2023 CBC W Auto Diffe renti al panel - Blood erythrocytes [#/volume] in blood by automated count 4.88 text: 4.20 - 5.40 x10'6/ uL RBC 4.88 4.20 - 5.40 x10'6 /uL 11/10 1:34 PM CDT [facility] Not Available Not Available 09/29/2024 11:07:27 11/11/19 24 11/11/2023 CBC W Auto Diffe renti al panel - Blood hemoglobin [mass/volume ] in blood 14.1 text: 12.0 - 16.0 g/dL HGB 14.1 12.0 - 16.0 G/DL 11/10 1:34 PM CDT [facility] Not Available Not Available 09/29/2024 11:07:27 11/11/19 24 11/11/2023 CBC W Auto Diffe renti al panel - Blood hematocrit [volume fraction] of blood 44.1 % low: 38%hig h: 48% HCT 44.1 38.0 - 48.0 % 11/10 1:34 PM CDT [facility] Not Available Not Available 09/29/2024 11:07:27 11/11/19 24 11/11/2023 CBC W Auto Diffe renti al panel - Blood MCV [entitic volume] 90.4 text: 81.0 - 99.0 fL MCV 90.4 81.0 - 99.0 FL 11/10 1:34 PM CDT [facility] Not Available Not Available 09/29/2024 11:07:27 11/11/19 24 11/11/2023 CBC W Auto Diffe renti al panel - Blood MCH [entitic mass] 28.9 pg low: 27pghi gh: 31pg MCH 28.9 27.0 - 31.0 PG 11/10 1:34 PM CDT [facility] Not Available Not Available 09/29/2024 11:07:27 11/11/19 24 11/11/2023 CBC W Auto Diffe renti al panel - Blood MCHC [mass/volume ] 32 text: 32.0 - 36.0 g/dL MCHC 32.0 32.0 - 36.0 G/DL 11/10 1:34 PM CDT [facility] Not Available Not Available 09/29/2024 11:07:27 11/11/19 24 11/11/2023 CBC W Auto Diffe renti al panel - Blood erythrocyte distribution width [entitic volume] by automated count 13.4 % low: 11.5%h igh: 14.5% RDW 13.4 11.5 - 14.5 % 11/10 1:34 PM CDT [facility] Not Available Not Available 09/29/2024 11:07:27 11/11/19 24 11/11/2023 CBC W Auto Diffe renti al panel - Blood platelets [#/volume] in blood 291 text: 130 - 400 x10'3/ uL PLT 291 130 - 400 x10'3 /uL 11/10 1:34 PM CDT [facility] Not Available Not Available 09/29/2024 11:07:27 11/11/19 24 11/11/2023 CBC W Auto Diffe renti al panel - Blood platelet mean volume [entitic volume] in blood 10 text: 9.3 - 12.2 fL MPV 10.0 9.3 - 12.2 FL 11/10 1:34 PM CDT [facility] Not Available Not Available 09/29/2024 11:07:27 11/11/19 24 11/11/2023 CBC W Auto Diffe renti al panel - Blood differential cell count method - blood AUTOMA PAUL DIFFER ENTIAL DIFFE RENTI AL TYPE AUTOM ATED DIFFE RENTI AL 11/10 1:34 PM CDT [facility] Not Available Not Available 09/29/2024 11:07:27 11/11/19 24 11/11/2023 CBC W Auto Diffe renti al panel - Blood neutrophils/ 100 leukocytes in blood by automated count 71.6 % NEUTR OPHIL S 71.6 % 11/10 1:34 PM CDT [facility] Not Available Not Available 09/29/2024 11:07:27 11/11/19 24 11/11/2023 CBC W Auto Diffe renti al panel - Blood lymphocytes/ 100 leukocytes in blood by automated count 20.4 % LYMPH OCYTE S 20.4 % 11/10 1:34 PM CDT [facility] Not Available Not Available 09/29/2024 11:07:27 11/11/19 24 11/11/2023 CBC W Auto Diffe renti al panel - Blood monocytes/10 0 leukocytes in blood by automated count 6.6 % MONOC YTES 6.6 % 11/10 1:34 PM CDT [facility] Not Available Not Available 09/29/2024 11:07:27 11/11/19 24 11/11/2023 CBC W Auto Diffe renti al panel - Blood eosinophils/ 100 leukocytes in blood by automated count 0.4 % EOSIN OPHIL S 0.4 % 11/10 1:34 PM CDT [facility] Not Available Not Available 09/29/2024 11:07:27 11/11/19 24 11/11/2023 CBC W Auto Diffe renti al panel - Blood basophils/10 0 leukocytes in blood by automated count 0.7 % BASOP HILS 0.7 % 11/10 1:34 PM CDT [facility] Not Available Not Available 09/29/2024 11:07:27 11/11/19 24 11/11/2023 CBC W Auto Diffe renti al panel - Blood immature granulocytes /100 leukocytes in blood by automated count 0.3 % IMMAT URE GRANS 0.3 % 11/10 1:34 PM CDT [facility] Not Available Not Available 09/29/2024 11:07:27 11/11/19 24 11/11/2023 CBC W Auto Diffe renti al panel - Blood neutrophils [#/volume] in blood 4.88 text: 1.80 - 7.70 x10'3/ uL ABS. NEUTR OPHIL S 4.88 1.80 - 7.70 x10'3 /uL 11/10 1:34 PM CDT [facility] Not Available Not Available 09/29/2024 11:07:27 11/11/19 24 11/11/2023 CBC W Auto Diffe renti al panel - Blood lymphocytes [#/volume] in blood 1.39 text: 1.00 - 4.80 x10'3/ uL ABS. LYMPH OCYTE S 1.39 1.00 - 4.80 x10'3 /uL 11/10 1:34 PM CDT [facility] Not Available Not Available 09/29/2024 11:07:27 11/11/19 24 11/11/2023 CBC W Auto Diffe renti al panel - Blood monocytes [#/volume] in blood 0.45 text: 0.24 - 0.86 x10'3/ uL ABS. MONOC YTES 0.45 0.24 - 0.86 x10'3 /uL 11/10 1:34 PM CDT [facility] Not Available Not Available 09/29/2024 11:07:27 11/11/19 24 11/11/2023 CBC W Auto Diffe renti al panel - Blood eosinophils [#/volume] in blood 0.03 text: 0.04 - 0.36 x10'3/ uL low ABS. EOSIN OPHIL S 0.03 (L) 0.04 - 0.36 x10'3 /uL 11/10 1:34 PM CDT [facility] Not Available Not Available 09/29/2024 11:07:27 11/11/19 24 11/11/2023 CBC W Auto Diffe renti al panel - Blood basophils [#/volume] in blood 0.05 text: 0.01 - 0.08 x10'3/ uL ABS. BASOP HILS 0.05 0.01 - 0.08 x10'3 /uL 11/10 1:34 PM CDT [facility] Not Available Not Available 09/29/2024 11:07:27 11/11/19 24 11/11/2023 CBC W Auto Diffe renti al panel - Blood immature granulocytes [#/volume] in blood 0.02 text: 0.00 - 0.49 x10'3/ uL ABS. IMMAT URE GRANU LOCYT ES 0.02 0.00 - 0.49 x10'3 /uL 11/10 1:34 PM CDT [facility] Not Available Not Available 09/29/2024 11:07:27 11/11/19 24 11/11/2023 CBC W Auto Diffe cory al panel - Blood interpretati on and review of laboratory results Abnorm al Not Available Not Available 11:07:27 11/11/19 24 11/11/2023 Basic metab olic 1999 panel - Serum or Plasm a glucose [mass/volume ] in serum or plasma 102 text: 70 - 99 mg/dL high GLUCO SE 102 (H) 70 - 99 MG/DL 11/10 2:00 PM CDT [facility] Not Available Not Available 09/29/2024 11:07:26 11/11/19 24 11/11/2023 Basic metab olic 1999 panel - Serum or Plasm a urea nitrogen [mass/volume ] in serum or plasma 15 text: 7 - 18 mg/dL BUN 15 7 - 18 MG/DL 11/10 2:00 PM CDT [facility] Not Available Not Available 09/29/2024 11:07:26 11/11/19 24 11/11/2023 Basic metab olic 1999 panel - Serum or Plasm a creatinine [mass/volume ] in serum or plasma 1.04 text: 0.55 - 1.02 mg/dL high CREAT ININE S/P/B 1.04 (H) 0.55 - 1.02 MG/DL 11/10 2:00 PM CDT [facility] Not Available Not Available 09/29/2024 11:07:26 11/11/19 24 11/11/2023 Basic metab olic 1999 panel - Serum or Plasm a sodium [moles/volum e] in serum or plasma 139 text: 136 - 145 mmol/L SODIU M S/P/B 139 136 - 145 MMOL/ L 11/10 2:00 PM CDT [facility] Not Available Not Available 09/29/2024 11:07:26 11/11/19 24 11/11/2023 Basic metab olic 1999 panel - Serum or Plasm a potassium [moles/volum e] in serum or plasma 4.2 text: 3.5 - 5.1 mmol/L POTAS SIUM S/P/B 4.2 3.5 - 5.1 MMOL/ L 11/10 2:00 PM CDT [facility] Not Available Not Available 09/29/2024 11:07:26 11/11/19 24 11/11/2023 Basic metab olic 1999 panel - Serum or Plasm a chloride [moles/volum e] in serum or plasma 106 text: 100 - 108 mmol/L CHLOR KRISTEN S/P/B 106 100 - 108 MMOL/ L 11/10 2:00 PM CDT [facility] Not Available Not Available 09/29/2024 11:07:26 11/11/19 24 11/11/2023 Basic metab olic 1999 panel - Serum or Plasm a carbon dioxide, total [moles/volum e] in serum or plasma 27.6 text: 21 - 32 mmol/L CO2 27.6 21 - 32 MMOL/ L 11/10 2:00 PM CDT [facility] Not Available Not Available 09/29/2024 11:07:26 11/11/19 24 11/11/2023 Basic metab olic 1999 panel - Serum or Plasm a calcium [mass/volume ] in serum or plasma 10.2 text: 8.5 - 10.1 mg/dL high CALCI UM S/P/B 10.2 (H) 8.5 - 10.1 MG/DL 11/10 2:00 PM CDT [facility] Not Available Not Available 09/29/2024 11:07:26 11/11/19 24 11/11/2023 Basic metab olic 1999 panel - Serum or Plasm a anion gap in serum or plasma 5.4 text: 5 - 15 mmol/L ANION GAP 5.4 5 - 15 MMOL/ L 11/10 2:00 PM CDT [facility] Not Available Not Available 09/29/2024 11:07:26 11/11/19 24 11/11/2023 Basic metab olic 1999 panel - Serum or Plasm a urea nitrogen/cre atinine [mass ratio] in serum or plasma 14.4 low: 6high: 26 BUN CREAT ININE RATIO 14.4 6 - 26 11/10 2:00 PM CDT [facility] Not Available Not Available 09/29/2024 11:07:26 11/11/19 24 11/11/2023 Basic metab olic 2000 panel - Serum or Plasm a glomerular filtration rate/1.73 sq M.predicted [volume rate/area] in serum, plasma or blood by creatinine-b ased formula (CKD-epi 2020) 53 text: >90 mL/min /1.73 M2 low GFR ESTIM ATE 53 (L) >90 ML/VA N/1.7 3 M2 11/10 2:00 PM CDT [facility] Not Available Not Available 09/29/2024 11:07:26 11/11/19 24 11/11/2023 Basic metab olic 2000 panel - Serum or Plasm a interpretati on and review of laboratory results Abnorm al Not Available Not Available 11:07:26 11/11/19 24 11/13/2023 Creat inine [Mass /volu me] in Blood creatinine [mass/volume ] in blood 1.1 mg/dL low: 0.6mg/ dLhigh : 1.1mg/ dL CREAT ININE WHOLE BLOOD 1.1 0.60 - 1.10 mg/dL 11/12 9:08 AM CDT [facility] Not Available Not Available 09/29/2024 11:07:20 04/13/20 24 04/13/2024 CBC WITH DIFF WBC 6.81 x10'3 /uL 4.5-11 .0 Not Available [facility] (Lab) [address] [place], [address], 04/13/2024 17:54:38 04/13/20 24 04/13/2024 CBC WITH DIFF RBC 4.55 x10'6 /uL 4.20-5 .40 Not Available [facility] (Lab) [place], [address], 04/13/2024 17:54:38 04/13/2004/13/2024 CBC WITH DIFF hemoglobin 13.1 g/dL 12.0-1 6.0 Not Available [facility] (Lab) [address], [place], [address], 04/13/2024 17:54:38 04/13/2004/13/2024 CBC WITH DIFF hematocrit 40.9 % 38.0-4 8.0 Not Available [facility] (Lab) [address] [facility], [place], [address], 04/13/2024 17:54:38 04/13/2004/13/2024 CBC WITH DIFF MCV 89.9 fL 81.0-9 9.0 Not Available [facility] (Lab) [address], [place], [address], 04/13/2024 17:54:38 04/13/2004/13/2024 CBC WITH DIFF MCH 28.8 pg 27.0-3 1.0 Not Available [facility] (Lab) [address] [facility], [place], [address], 04/13/2024 17:54:38 04/13/2004/13/2024 CBC WITH DIFF MCHC 32.0 g/dL 32.0-3 6.0 Not Available [facility] (Lab) [address], [place], [address], 04/13/2024 17:54:38 04/13/2004/13/2024 CBC WITH DIFF RDW 13.2 % 11.5-1 4.5 Not Available [facility] (Lab) [address] [facility], [place], [address], 04/13/2024 17:54:38 04/13/2004/13/2024 CBC WITH DIFF platelet count 293 x10'3 /uL 130-40 0 Not Available [facility] (Lab) [address] [facility], [place], [address], 04/13/2024 17:54:38 04/13/2004/13/2024 CBC WITH DIFF MPV 10.4 fL 9.3-12 .2 Not Available [facility] (Lab) [address] [facility], [place], [address], 04/13/2024 17:54:38 04/13/2004/13/2024 CBC WITH DIFF diff type AUTOMA PAUL DIFFER ENTIAL Not Available [facility] (Lab) [address] [facility], [place], [address], 04/13/2024 17:54:38 04/13/2004/13/2024 CBC WITH DIFF neutrophils 69.2 % Not Available [facility] (Lab) [address] [facility], [place], [address], 04/13/2024 17:54:38 04/13/20 24 04/13/2024 CBC WITH DIFF lymphocytes 19.7 % Not Available [facility] (Lab) [address] [facility], [place], [address], 04/13/2024 17:54:38 04/13/20 24 04/13/2024 CBC WITH DIFF monocytes 9.1 % Not Available [facility] (Lab) [address] [facility], [place], [address], 04/13/2024 17:54:38 04/13/20 24 04/13/2024 CBC WITH DIFF eosinophils 1.0 % Not Available [facility] (Lab) [address] [facility], [place], [address], 04/13/2024 17:54:38 04/13/2004/13/2024 CBC WITH DIFF basophils 0.7 % Not Available [facility] (Lab) [address] [facility], [place], [address], 04/13/2024 17:54:38 04/13/2004/13/2024 CBC WITH DIFF immature granulocytes 0.3 % Not Available [facility] (Lab) [address] [facility], [place], [address], 04/13/2024 17:54:38 04/13/2004/13/2024 CBC WITH DIFF abs. neutrophils 4.71 x10'3 /uL 1.80-7 .70 Not Available [facility] (Lab) [address] [facility], [place], [address], 04/13/2024 17:54:38 04/13/2004/13/2024 CBC WITH DIFF abs. lymphocytes 1.34 x10'3 /uL 1.00-4 .80 Not Available [facility] (Lab) [place], [address], 04/13/2024 17:54:38 04/13/2004/13/2024 CBC WITH DIFF abs. monocytes 0.62 x10'3 /uL 0.24-0 .86 Not Available [facility] (Lab) [address] [facility], [place], [address], 04/13/2024 17:54:38 04/13/2004/13/2024 CBC WITH DIFF abs. eosinophils 0.07 x10'3 /uL 0.04-0 .36 Not Available [facility] (Lab) [address] [facility], [place], [address], 04/13/2024 17:54:38 04/13/2004/13/2024 CBC WITH DIFF abs. basophils 0.05 x10'3 /uL 0.01-0 .08 Not Available [facility] (Lab) [address] [facility], [place], [address], 04/13/2024 17:54:38 04/13/2004/13/2024 CBC WITH DIFF abs. immature grans 0.02 x10'3 /uL 0.00-0 .49 Not Available [facility] (Lab) [address] [place], [address], 04/13/2024 17:54:38 04/13/20 24 04/13/2024 AMYLA SE amylase 44 units /L 25-115 Not Available [facility] (Lab) [address] [facility], [place], [address], 04/13/2024 18:15:20 04/13/2004/13/2024 BASIC METAB OLIC PANEL glucose 101 mg/dL 70-99 high Not Available [facility] (Lab) [address] [place], [address], 04/13/2024 18:15:22 04/13/2004/13/2024 BASIC METAB OLIC PANEL BUN 15 mg/dL 7-18 Not Available [facility] (Lab) [address] [place], [address], 04/13/2024 18:15:22 04/13/2004/13/2024 BASIC METAB OLIC PANEL creatinine 1.22 mg/dL 0.55-1 .02 high Not Available [facility] (Lab) [address] [place], [address], 04/13/2024 18:15:22 04/13/2004/13/2024 BASIC METAB OLIC PANEL sodium 137 mmol/ L 136-14 5 Not Available [facility] (Lab) [address] [facility], [place], [address], 04/13/2024 18:15:22 04/13/2004/13/2024 BASIC METAB OLIC PANEL potassium 4.1 mmol/ L 3.5-5. 1 Not Available [facility] (Lab) [address] [place], [address], 04/13/2024 18:15:22 04/13/2004/13/2024 BASIC METAB OLIC PANEL chloride 104 mmol/ L 97-115 Not Available [facility] (Lab) [address] [place], [address], 04/13/2024 18:15:22 04/13/2004/13/2024 BASIC METAB OLIC PANEL total CO2 27.1 mmol/ L 21-32 Not Available [facility] (Lab) [address] [place], [address], 04/13/2024 18:15:22 04/13/2004/13/2024 BASIC METAB OLIC PANEL calcium 9.7 mg/dL 8.5-10 .1 Not Available [facility] (Lab) [address] [place], [address], 04/13/2024 18:15:22 04/13/2004/13/2024 BASIC METAB OLIC PANEL anion gap 5.9 mmol/ L 2-10 Not Available [facility] (Lab) [address] [place], [address], 04/13/2024 18:15:22 04/13/20 24 04/13/2024 BASIC METAB OLIC PANEL BUN creatinine ratio 12.3 6-26 Not Available [facility] (Lab) [place], [address], 04/13/2024 18:15:22 04/13/20 24 04/13/2024 BASIC METAB OLIC PANEL est GFR 43 [...] latin g drug doses . Not Available [facility] (Lab) [place], [address], 04/13/2024 18:15:22 04/13/20 24 04/13/2024 LIVER PANEL total protein 7.1 g/dL 6.4-8. 2 Not Available [facility] (Lab) [place], [address], 04/13/2024 18:15:24 04/13/20 24 04/13/2024 LIVER PANEL albumin 4.0 g/dL 3.4-5. 0 Not Available [facility] (Lab) [place], [address], 04/13/2024 18:15:24 04/13/2004/13/2024 LIVER PANEL total bilirubin 0.6 mg/dL 0.2-1. 2 THIS ASSAY IS NOT RECOM CLAUDIA D FOR PATIE NTS UNDER GOING TREAT MENT WITH ELTRO MBOPA G DUE TO THE POTEN TIAL FOR FALSE LY ELEVA PAUL RESUL TS. Not Available [facility] (Lab) [address], [place], [address], 04/13/2024 18:15:24 04/13/2004/13/2024 LIVER PANEL direct bilirubin 0.2 mg/dL 0.0-0. 20 Not Available [facility] (Lab) [address], [place], [address], 04/13/2024 18:15:24 04/13/2004/13/2024 LIVER PANEL indirect bilirubin 0.4 mg/dL 0.0-0. 9 Not Available [facility] (Lab) [address], [place], [address], 04/13/2024 18:15:24 04/13/2004/13/2024 LIVER PANEL alk phosphatase 69 U/L 50-136 Not Available [facility] (Lab) [address], [place], [address], 04/13/2024 18:15:24 04/13/2004/13/2024 LIVER PANEL AST 15 U/L 15-37 Not Available [facility] (Lab) [address], [place], [address], 04/13/2024 18:15:24 04/13/2004/13/2024 LIVER PANEL ALT 14 U/L 14-55 Not Available [facility] (Lab) [address], [place], [address], 04/13/2024 18:15:24 04/13/2004/13/2024 LIVER PANEL A:g ratio 1.3 ratio 1.0-2. 0 Not Available [facility] (Lab) [address], [place], [address], 04/13/2024 18:15:24 10/02/20 24 04/13/2024 Hepat ic funct ion 1999 panel - Serum or Plasm a protein [mass/volume ] in serum or plasma 7.1 text: 6.4 - 8.2 g/dL TOTAL PROTE IN S/P/B 7.1 6.4 - 8.2 G/DL 04/13 5:15 PM CDT [facility] Not Available Not Available 09/29/2024 11:07:24 04/13/20 24 04/13/2024 Hepat ic funct ion 1999 panel - Serum or Plasm a albumin [mass/volume ] in serum or plasma 4 text: 3.4 - 5.0 g/dL ALBUM IN S/P/B 4.0 3.4 - 5.0 G/DL 04/13 5:15 PM CDT [facility] Not Available Not Available 09/29/2024 11:07:24 04/13/2004/13/2024 Hepat ic funct ion 2000 panel - Serum or Plasm a bilirubin.to servando [mass/volume ] in serum or plasma 0.6 text: 0.2 - 1.2 mg/dL BILIR UBIN TOTAL S/P/B 0.6 0.2 - 1.2 MG/DL 04/13 5:15 PM CDT [facility] Not Available Not Available 09/29/2024 11:07:24 04/13/20 24 04/13/2024 Hepat ic funct ion 2000 panel - Serum or Plasm a bilirubin.co njugated [mass/volume ] in serum or plasma 0.2 text: 0.0 - 0.20 mg/dL BILIR UBIN DIREC T S/P/B 0.2 0.0 - 0.20 MG/DL 04/13 5:15 PM CDT [facility] Not Available Not Available 09/29/2024 11:07:24 04/13/20 24 04/13/2024 Hepat ic funct ion 2000 panel - Serum or Plasm a bilirubin.in direct [mass/volume ] in serum or plasma 0.4 text: 0.0 - 0.9 mg/dL BILIR UBIN INDIR ECT S/P/B 0.4 0.0 - 0.9 MG/DL 04/13 5:15 PM CDT [facility] Not Available Not Available 09/29/2024 11:07:24 04/13/20 24 04/13/2024 Hepat ic funct ion 1999 panel - Serum or Plasm a alkaline phosphatase [enzymatic activity/vol ume] in serum or plasma 69 U/L low: 50U/Lh igh: 136U/L ALKAL INE PHOSP HATAS E S/P/B 69 50 - 136 U/L 04/13 5:15 PM CDT [facility] Not Available Not Available 09/29/2024 11:07:24 04/13/20 24 04/13/2024 Hepat ic funct ion 2000 panel - Serum or Plasm a aspartate aminotransfe rase [enzymatic activity/vol ume] in serum or plasma 15 U/L low: 15U/Lh igh: 37U/L AST 15 15 - 37 U/L 04/13 5:15 PM CDT [facility] Not Available Not Available 09/29/2024 11:07:24 04/13/20 24 04/13/2024 Hepat ic funct ion 2000 panel - Serum or Plasm a alanine aminotransfe rase [enzymatic activity/vol ume] in serum or plasma 14 U/L low: 14U/Lh igh: 55U/L ALT 14 14 - 55 U/L 04/13 5:15 PM CDT [facility] Not Available Not Available 09/29/2024 11:07:24 04/13/20 24 04/13/2024 Hepat ic funct ion 2000 panel - Serum or Plasm a albumin/glob ulin [mass ratio] in serum or plasma 1.3 text: 1.0 - 2.0 ratio A/G RATIO 1.3 1.0 - 2.0 RATIO 04/13 5:15 PM CDT [facility] Not Available Not Available 09/29/2024 11:07:24 04/13/20 24 04/13/2024 Basic metab olic 1999 panel - Serum or Plasm a glucose [mass/volume ] in serum or plasma 101 text: 70 - 99 mg/dL high GLUCO SE 101 (H) 70 - 99 MG/DL 04/13 5:15 PM CDT [facility] Not Available Not Available 09/29/2024 11:07:24 04/13/20 24 04/13/2024 Basic metab olic 1999 panel - Serum or Plasm a urea nitrogen [mass/volume ] in serum or plasma 15 text: 7 - 18 mg/dL BUN 15 7 - 18 MG/DL 04/13 5:15 PM CDT [facility] Not Available Not Available 09/29/2024 11:07:24 04/13/20 24 04/13/2024 Basic metab olic 1999 panel - Serum or Plasm a creatinine [mass/volume ] in serum or plasma 1.22 text: 0.55 - 1.02 mg/dL high CREAT ININE S/P/B 1.22 (H) 0.55 - 1.02 MG/DL 04/13 5:15 PM CDT [facility] Not Available Not Available 09/29/2024 11:07:24 04/13/20 24 04/13/2024 Basic metab olic 1999 panel - Serum or Plasm a sodium [moles/volum e] in serum or plasma 137 text: 136 - 145 mmol/L SODIU M S/P/B 137 136 - 145 MMOL/ L 04/13 5:15 PM CDT [facility] Not Available Not Available 09/29/2024 11:07:24 04/13/20 24 04/13/2024 Basic metab olic 2000 panel - Serum or Plasm a potassium [moles/volum e] in serum or plasma 4.1 text: 3.5 - 5.1 mmol/L POTAS SIUM S/P/B 4.1 3.5 - 5.1 MMOL/ L 04/13 5:15 PM CDT [facility] Not Available Not Available 09/29/2024 11:07:24 04/13/2004/13/2024 Basic metab olic 1999 panel - Serum or Plasm a chloride [moles/volum e] in serum or plasma 104 text: 97 - 115 mmol/L CHLOR KRISTEN S/P/B 104 97 - 115 MMOL/ L 04/13 5:15 PM CDT [facility] Not Available Not Available 09/29/2024 11:07:24 04/13/20 24 04/13/2024 Basic metab olic 1999 panel - Serum or Plasm a carbon dioxide, total [moles/volum e] in serum or plasma 27.1 text: 21 - 32 mmol/L CO2 27.1 21 - 32 MMOL/ L 04/13 5:15 PM CDT [facility] Not Available Not Available 09/29/2024 11:07:24 04/13/20 24 04/13/2024 Basic metab olic 1999 panel - Serum or Plasm a calcium [mass/volume ] in serum or plasma 9.7 text: 8.5 - 10.1 mg/dL CALCI UM S/P/B 9.7 8.5 - 10.1 MG/DL 04/13 5:15 PM CDT [facility] Not Available Not Available 09/29/2024 11:07:24 04/13/20 24 04/13/2024 Basic metab olic 1999 panel - Serum or Plasm a anion gap in serum or plasma 5.9 text: 2 - 10 mmol/L ANION GAP 5.9 2 - 10 MMOL/ L 04/13 5:15 PM CDT [facility] Not Available Not Available 09/29/2024 11:07:24 04/13/20 24 04/13/2024 Basic metab olic 2000 panel - Serum or Plasm a urea nitrogen/cre atinine [mass ratio] in serum or plasma 12.3 low: 6high: 26 BUN CREAT ININE RATIO 12.3 6 - 26 10/02 /2024 5:15 PM CDT [facility] Not Available Not Available 09/29/2024 11:07:24 04/13/20 24 04/13/2024 Basic metab olic 2000 panel - Serum or Plasm a glomerular filtration rate/1.73 sq M.predicted [volume rate/area] in serum, plasma or blood by creatinine-b ased formula (CKD-epi 2020) 43 text: >90 mL/min /1.73 M2 low GFR ESTIM ATE 43 (L) >90 ML/VA N/1.7 3 M2 04/13 5:15 PM CDT [facility] Not Available Not Available 09/29/2024 11:07:24 04/13/2004/13/2024 Basic metab olic 2000 panel - Serum or Plasm a interpretati on and review of laboratory results Abnorm al Not Available Not Available 11:07:24 04/13/2004/13/2024 Amyla se [Enzy matic activ ity/v olume ] in Serum or Plasm a amylase [enzymatic activity/vol ume] in serum or plasma 44 text: 25 - 115 units/ L AMYLA SE S/P/B 44 25 - 115 UNITS /L 04/13 5:15 PM CDT [facility] Not Available Not Available 09/29/2024 11:07:24 04/13/20 24 04/13/2024 CBC W Auto Diffe renti al panel - Blood leukocytes [#/volume] in blood by automated count 6.81 text: 4.5 - 11.0 x10'3/ uL WBC 6.81 4.5 - 11.0 x10'3 /uL 04/13 4:54 PM CDT [facility] Not Available Not Available 09/29/2024 11:07:24 04/13/20 24 04/13/2024 CBC W Auto Diffe renti al panel - Blood erythrocytes [#/volume] in blood by automated count 4.55 text: 4.20 - 5.40 x10'6/ uL RBC 4.55 4.20 - 5.40 x10'6 /uL 04/13 4:54 PM CDT [facility] Not Available Not Available 09/29/2024 11:07:24 04/13/20 24 04/13/2024 CBC W Auto Diffe renti al panel - Blood hemoglobin [mass/volume ] in blood 13.1 text: 12.0 - 16.0 g/dL HGB 13.1 12.0 - 16.0 G/DL 04/13 4:54 PM CDT [facility] Not Available Not Available 09/29/2024 11:07:24 04/13/20 24 04/13/2024 CBC W Auto Diffe renti al panel - Blood hematocrit [volume fraction] of blood 40.9 % low: 38%hig h: 48% HCT 40.9 38.0 - 48.0 % 04/13 4:54 PM CDT [facility] Not Available Not Available 09/29/2024 11:07:24 04/13/20 24 04/13/2024 CBC W Auto Diffe renti al panel - Blood MCV [entitic volume] 89.9 text: 81.0 - 99.0 fL MCV 89.9 81.0 - 99.0 FL 04/13 4:54 PM CDT [facility] Not Available Not Available 09/29/2024 11:07:24 04/13/20 24 04/13/2024 CBC W Auto Diffe renti al panel - Blood MCH [entitic mass] 28.8 pg low: 27pghi gh: 31pg MCH 28.8 27.0 - 31.0 PG 04/13 4:54 PM CDT [facility] Not Available Not Available 09/29/2024 11:07:24 04/13/20 24 04/13/2024 CBC W Auto Diffe renti al panel - Blood MCHC [mass/volume ] 32 text: 32.0 - 36.0 g/dL MCHC 32.0 32.0 - 36.0 G/DL 10/02 /2024 4:54 PM CDT [facility] Not Available Not Available 09/29/2024 11:07:24 04/13/2004/13/2024 CBC W Auto Diffe renti al panel - Blood erythrocyte distribution width [entitic volume] by automated count 13.2 % low: 11.5%h igh: 14.5% RDW 13.2 11.5 - 14.5 % 04/13 4:54 PM CDT [facility] Not Available Not Available 09/29/2024 11:07:24 04/13/20 24 04/13/2024 CBC W Auto Diffe renti al panel - Blood platelets [#/volume] in blood 293 text: 130 - 400 x10'3/ uL PLT 293 130 - 400 x10'3 /uL 04/13 4:54 PM CDT [facility] Not Available Not Available 09/29/2024 11:07:24 04/13/2004/13/2024 CBC W Auto Diffe renti al panel - Blood platelet mean volume [entitic volume] in blood 10.4 text: 9.3 - 12.2 fL MPV 10.4 9.3 - 12.2 FL 04/13 4:54 PM CDT [facility] Not Available Not Available 09/29/2024 11:07:24 04/13/2004/13/2024 CBC W Auto Diffe renti al panel - Blood differential cell count method - blood AUTOMA PAUL DIFFER ENTIAL DIFFE RENTI AL TYPE AUTOM ATED DIFFE RENTI AL 04/13 4:54 PM CDT [facility] Not Available Not Available 09/29/2024 11:07:24 04/13/2004/13/2024 CBC W Auto Diffe renti al panel - Blood neutrophils/ 100 leukocytes in blood by automated count 69.2 % NEUTR OPHIL S % 69.2 % 04/13 4:54 PM CDT [facility] Not Available Not Available 09/29/2024 11:07:24 04/13/20 24 04/13/2024 CBC W Auto Diffe renti al panel - Blood lymphocytes/ 100 leukocytes in blood by automated count 19.7 % LYMPH OCYTE S % 19.7 % 04/13 4:54 PM CDT [facility] Not Available Not Available 09/29/2024 11:07:24 04/13/20 24 04/13/2024 CBC W Auto Diffe renti al panel - Blood monocytes/10 0 leukocytes in blood by automated count 9.1 % MONOC YTES % 9.1 % 04/13 4:54 PM CDT [facility] Not Available Not Available 09/29/2024 11:07:24 04/13/20 24 04/13/2024 CBC W Auto Diffe renti al panel - Blood eosinophils/ 100 leukocytes in blood by automated count 1 % EOSIN OPHIL S 1.0 % 04/13 4:54 PM CDT [facility] Not Available Not Available 09/29/2024 11:07:24 04/13/20 24 04/13/2024 CBC W Auto Diffe renti al panel - Blood basophils/10 0 leukocytes in blood by automated count 0.7 % BASOP HILS 0.7 % 04/13 4:54 PM CDT [facility] Not Available Not Available 09/29/2024 11:07:24 04/13/20 24 04/13/2024 CBC W Auto Diffe renti al panel - Blood immature granulocytes /100 leukocytes in blood by automated count 0.3 % IMMAT URE GRANS % 0.3 % 04/13 4:54 PM CDT [facility] Not Available Not Available 09/29/2024 11:07:24 04/13/20 24 04/13/2024 CBC W Auto Diffe renti al panel - Blood neutrophils [#/volume] in blood 4.71 text: 1.80 - 7.70 x10'3/ uL ABS. NEUTR OPHIL S 4.71 1.80 - 7.70 x10'3 /uL 04/13 4:54 PM CDT [facility] Not Available Not Available 09/29/2024 11:07:24 04/13/20 24 04/13/2024 CBC W Auto Diffe renti al panel - Blood lymphocytes [#/volume] in blood 1.34 text: 1.00 - 4.80 x10'3/ uL ABS. LYMPH OCYTE S 1.34 1.00 - 4.80 x10'3 /uL 04/13 4:54 PM CDT [facility] Not Available Not Available 09/29/2024 11:07:24 04/13/20 24 04/13/2024 CBC W Auto Diffe renti al panel - Blood monocytes [#/volume] in blood 0.62 text: 0.24 - 0.86 x10'3/ uL ABS. MONOC YTES 0.62 0.24 - 0.86 x10'3 /uL 04/13 4:54 PM CDT [facility] Not Available Not Available 09/29/2024 11:07:24 04/13/20 24 04/13/2024 CBC W Auto Diffe renti al panel - Blood eosinophils [#/volume] in blood 0.07 text: 0.04 - 0.36 x10'3/ uL ABS. EOSIN OPHIL S 0.07 0.04 - 0.36 x10'3 /uL 04/13 4:54 PM CDT [facility] Not Available Not Available 09/29/2024 11:07:24 04/13/20 24 04/13/2024 CBC W Auto Diffe renti al panel - Blood basophils [#/volume] in blood 0.05 text: 0.01 - 0.08 x10'3/ uL ABS. BASOP HILS 0.05 0.01 - 0.08 x10'3 /uL 04/13 4:54 PM CDT [facility] Not Available Not Available 09/29/2024 11:07:24 04/13/2004/13/2024 CBC W Auto Diffe renti al panel - Blood immature granulocytes [#/volume] in blood 0.02 text: 0.00 - 0.49 x10'3/ uL ABS. IMMAT URE GRANU LOCYT ES 0.02 0.00 - 0.49 x10'3 /uL 04/13 4:54 PM CDT [facility] Not Available Not Available 09/29/2024 11:07:24 04/27/2004/27/2024 BASIC METAB OLIC PANEL glucose 107 mg/dL 70-99 high Not Available [facility] (Lab) [place], [address], 04/27/2024 12:42:19 04/27/2004/27/2024 BASIC METAB OLIC PANEL BUN 18 mg/dL 7-18 Not Available [facility] (Lab) [place], [address], 04/27/2024 12:42:19 04/27/2004/27/2024 BASIC METAB OLIC PANEL creatinine 1.22 mg/dL 0.55-1 .02 high Not Available [facility] (Lab) [place], [address], 04/27/2024 12:42:19 04/27/2004/27/2024 BASIC METAB OLIC PANEL sodium 139 mmol/ L 136-14 5 Not Available [facility] (Lab) [place], [address], 04/27/2024 12:42:19 04/27/2004/27/2024 BASIC METAB OLIC PANEL potassium 4.4 mmol/ L 3.5-5. 1 Not Available [facility] (Lab) [place], [address], 04/27/2024 12:42:19 04/27/2004/27/2024 BASIC METAB OLIC PANEL chloride 105 mmol/ L 97-115 Not Available [facility] (Lab) [address], [place], [address], 04/27/2024 12:42:19 04/27/2004/27/2024 BASIC METAB OLIC PANEL total CO2 28.0 mmol/ L 21-32 Not Available [facility] (Lab) [place], [address], 04/27/2024 12:42:19 04/27/2004/27/2024 BASIC METAB OLIC PANEL calcium 9.7 mg/dL 8.5-10 .1 Not Available [facility] (Lab) [place], [address], 04/27/2024 12:42:19 04/27/2004/27/2024 BASIC METAB OLIC PANEL anion gap 6.0 mmol/ L 2-10 Not Available [facility] (Lab) [place], [address], 04/27/2024 12:42:19 04/27/2004/27/2024 BASIC METAB OLIC PANEL BUN creatinine ratio 14.8 6-26 Not Available [facility] (Lab) [place], [address], 04/27/2024 12:42:19 04/27/2004/27/2024 BASIC METAB OLIC PANEL [...] latin g drug doses . Not Available [facility] (Lab) [address], [place], [address], 04/27/2024 12:42:19 04/27/2004/27/2024 Basic metab olic 2000 panel - Serum or Plasm a glucose [mass/volume ] in serum or plasma 107 text: 70 - 99 mg/dL high GLUCO SE 107 (H) 70 - 99 MG/DL 04/27 11:42 AM CDT [facility] Not Available Not Available 09/29/2024 11:07:19 04/27/2004/27/2024 Basic metab olic 2000 panel - Serum or Plasm a urea nitrogen [mass/volume ] in serum or plasma 18 text: 7 - 18 mg/dL BUN 18 7 - 18 MG/DL 04/27 11:42 AM CDT [facility] Not Available Not Available 09/29/2024 11:07:19 04/27/2004/27/2024 Basic metab olic 2000 panel - Serum or Plasm a creatinine [mass/volume ] in serum or plasma 1.22 text: 0.55 - 1.02 mg/dL high CREAT ININE S/P/B 1.22 (H) 0.55 - 1.02 MG/DL 04/27 11:42 AM CDT [facility] Not Available Not Available 09/29/2024 11:07:19 04/27/2004/27/2024 Basic metab olic 2000 panel - Serum or Plasm a sodium [moles/volum e] in serum or plasma 139 text: 136 - 145 mmol/L SODIU M S/P/B 139 136 - 145 MMOL/ L 04/27 11:42 AM CDT [facility] Not Available Not Available 09/29/2024 11:07:19 04/27/2004/27/2024 Basic metab olic 1999 panel - Serum or Plasm a potassium [moles/volum e] in serum or plasma 4.4 text: 3.5 - 5.1 mmol/L POTAS SIUM S/P/B 4.4 3.5 - 5.1 MMOL/ L 04/27 11:42 AM CDT [facility] Not Available Not Available 09/29/2024 11:07:19 04/27/2004/27/2024 Basic metab olic 1999 panel - Serum or Plasm a chloride [moles/volum e] in serum or plasma 105 text: 97 - 115 mmol/L CHLOR KRISTEN S/P/B 105 97 - 115 MMOL/ L 04/27 11:42 AM CDT [facility] Not Available Not Available 09/29/2024 11:07:19 04/27/2004/27/2024 Basic metab olic 1999 panel - Serum or Plasm a carbon dioxide, total [moles/volum e] in serum or plasma 28 text: 21 - 32 mmol/L CO2 28.0 21 - 32 MMOL/ L 04/27 11:42 AM CDT [facility] Not Available Not Available 09/29/2024 11:07:19 04/27/2004/27/2024 Basic metab olic 2000 panel - Serum or Plasm a calcium [mass/volume ] in serum or plasma 9.7 text: 8.5 - 10.1 mg/dL CALCI UM S/P/B 9.7 8.5 - 10.1 MG/DL 04/27 11:42 AM CDT [facility] Not Available Not Available 09/29/2024 11:07:19 04/27/2004/27/2024 Basic metab olic 2000 panel - Serum or Plasm a anion gap in serum or plasma 6 text: 2 - 10 mmol/L ANION GAP 6.0 2 - 10 MMOL/ L 04/27 11:42 AM CDT [facility] Not Available Not Available 09/29/2024 11:07:19 04/27/20 24 04/27/2024 Basic metab olic 1999 panel - Serum or Plasm a urea nitrogen/cre atinine [mass ratio] in serum or plasma 14.8 low: 6high: 26 BUN CREAT ININE RATIO 14.8 6 - 26 04/27 11:42 AM CDT [facility] Not Available Not Available 09/29/2024 11:07:19 04/27/20 24 04/27/2024 Basic metab olic 2000 panel - Serum or Plasm a glomerular filtration rate/1.73 sq M.predicted [volume rate/area] in serum, plasma or blood by creatinine-b ased formula (CKD-epi 2020) 43 text: >90 mL/min /1.73 M2 low GFR ESTIM ATE 43 (L) >90 ML/VA N/1.7 3 M2 04/27 11:42 AM CDT [facility] Not Available Not Available 09/29/2024 11:07:19 04/27/20 24 04/27/2024 Basic metab olic 2000 panel - Serum or Plasm a interpretati on and review of laboratory results Abnorm al Not Available Not Available 11:07:19 11/11/[address] ABD+p el W con [facility] [address] [facility] [facility] [place] [address] EXAMIN ATION: CT ABDOME N/PELV IS WITH [...] ithias is. Referr ed By: IAN POOLE [facility] onical ly Signed By: Alireza aquino MD on 11/11/19 12:49 PM Interp reted By: Alireza aquino MD, 11/11/19 12:[email or web address], [place], [address], 11/19/2023 18:52:13 11/11/19 24 11/11/2023 CT, abdom en + pelvi s, w/ contr ast No observ ation record ed. [email or web address] [facility] Scheduling One [facility], [place], [address], 11/19/2023 18:52:13 04/13/[address], abdom en + pelvi s, w/o contr ast [facility] [place] [address] [facility] [address] [facility] [place] [address] Examin ation: CT ABD+PE L WO CON Clinic al histor y: Abdomi nal pain Compar venu: 11/11/19 24 DATE/T PAOLA: 024 3:59 PM Techni que: Multip lanar CT [...] reted By: Milo Salomon MD, 4:54 PM [email or web address] [facility] Scheduling One [facility], [place], [address], 04/14/2024 16:42:45 08/23/19 25 08/23/2024 CT, head + brain , w/o contr ast No observ ation record ed. [address], [address], 08/24/2024 11:46:30 08/23/19 25 08/23/2024 CT, chest , w/o contr ast No observ ation record ed. [address] [address], [place], [address], 08/24/2024 11:42:40 09/28/19 25 09/27/2024 CT, abdom en + pelvi s, w/ contr ast No observ ation record ed. [address] [place] [address], [address], 09/29/2024 19:17:34 Result Notes None recorded. Problems Name Problem SNOMED Code Status Onset Date Resolution Date Notes Provider Name and Address Organization Details Recorded Time Dyslipidemia 916401447 Active 2023 Ian Childs DO Attn: Vargas g,[address] [facility], [place], [address], [facility] - [facility] 18:40:58 History of malignant neoplasm of breast 054869359 Active 2023 Ian Childs DO Attn: Jorgekenia alvarenga,[address] [facility], [place], [address], [place] [facility] 4 18:40:59 Urge incontinence of urine 56336765 Active 2023 Ian Childs DO Attn: Jorgekenia alvarenga,[address] [facility], [place], [address], [place] [facility] 4 18:41:00 Gastroesophage al reflux disease without esophagitis 901999129 Active 2023 Ian Childs DO Attn: Vargas lyle,[address] [facility], [place], [address], [place] [facility] 4 18:41:02 Essential hypertension 27840659 Active 2023 Ian Childs DO Attn: Vargas lyle,[address] [facility], [place], [address], [place] [facility] 4 18:41:03 Osteoarthritis 593444380 Active 2023 Ian Childs DO Attn: Vargas lyle,[address] [place], [address], [place] [facility] 4 18:41:06 Osteopenia 341762987 Active 2023 Ian Childs DO Attn: Vargas lyle,[address] [place], [address], [place] [facility] 4 18:41:07 Generalized anxiety disorder 14174507 Active 2023 Ian Childs DO Attn: Vargas lyle,[address] [place], [address], [place] [facility] 4 13:59:29 Acute blepharitis 64381266 Active 2023 Ian Childs DO Attn: Vargas lyle,[address] [place], [place], [address] [place] [address], [place] [facility] 4 13:59:29 Abdominal pain 28199099 Active 2023 Ian Childs DO Attn: Vargas alvarenga,[address] [facility], [place], [address], [place] [facility] 4 14:35:02 Chronic low back pain 342597379 Active 2023 Ian Childs DO Attn: Vargas alvarenga,[address] [facility], [place], [address], [place] [facility] 4 14:35:03 Generalized abdominal pain 663201066 Active 2023 Ina Childs DO Attn: Vargas alvarenga,[address] [facility], [place], [address], [place] - [facility] 12:04:51 Notes:Some problems listed i n Document: #[id number] could not be added to this patient's chart. Please review this document and add these problems to the patient's chart manually as needed. Problem Notes None recorded. Procedures Surgical History Date Name Laterality Status Provider Name and Address Organization Details Recorded Time Total hysterectomy completed Gladys [place] 10/08/2023 13:31:06 Mastectomy completed Gladys [place] - [facility] 09/11 13:31:14 Imaging Results Imaging Date Name Status [facility] Details LastModified Time 11/11/2023 CT [facility], [place], [address], 11/19/2023 18:52:13 11/11/2023 CT, abdomen + pelvis, w/ contrast completed [facility] [place], [address], 11/19/2023 18:52:13 04/13/2024 CT, abdomen + pelvis, w/o contrast completed [address] [facility] [address] [facility], [place], [address], 04/14/2024 16:42:45 08/23/2024 CT, head + brain, w/o contrast completed [address] [place] [address], [address], 08/24/2024 11:46:30 08/23/2024 CT, chest, w/o contrast completed [address] [facility], [place], [address], 08/24/2024 11:42:40 09/27/2024 CT, abdomen + pelvis, w/ contrast completed [address] [facility], [place], [address], 09/29/2024 19:17:34 Procedure Notes None recorded. Medical Equipment None Reported. Allergies Allergen ID Allergen Name Allergen Category Reaction Reaction Severity Criticality Documentation Date Start Date Code Code System Note Provider Name and Address Organization Details Recorded Time 682555 azithromy robert medicatio n headache Not available Not available 10/08/2023 66308 RxNorm Gladys [place], [place] - [facility] 4 13:32:32 893936 codeine medicatio n hallucina tions nausea Not available Not available Not available 10/08/2023 2670 RxNorm Gladys [place] [facility] 4 13:32:49 801196 cortisone medicatio n headache Not available Not available 10/08/2023 2878 RxNorm Gladys [place], [place] [facility] 4 13:32:56 604567 hydrocodo ne Not available nausea Not available Not available 10/08/2023 5489 RxNorm Gladys [place] [facility] 4 13:33:02 161865 morphine medicatio n hives Not available Not available 10/08/2023 7052 RxNorm Gladys [place], [place] - [facility] 4 13:33:08 139877 Substance with sulfonami de structure and antibacte rial mechanism of action (substanc e) medicatio n hives Not available Not available 10/08/2023 71158 8003 SNOMED Gladys Armenta null, [facility] 4 13:33:14 156453 gabapenti n medicatio n vomiting Not available Not available 10/08/2023 61742 RxNorm Gladys Armenta null, [facility] 4 13:33:20 189657 methadone medicatio n Not available Not available Not available 10/08/2023 6813 RxNorm Gladys [place], [place] - [facility] 4 13:33:28 Medications Name Sig Start Date Stop Date [...] Updated DateTime 4 160.02 cm 21.3 kg/m2 60641.0 8 g 94 % 94 % 86 /min 16 /min Shabnam Reynoso MA [facility] 4 14:13:00 Date Recorded Body height Body mass index (BMI) Body weight Body temperature Provider Name and Address Organization Details Last Updated DateTime 11/11/2023 160.02 cm 21.1 kg/m2 57687.54 g 97.7 [degF] Olga Tapia MA [facility] 11/11/2023 10:32:34 Date Recorded Body height Body mass index (BMI) Body weight Oxygen saturation Oxygen saturation in Arterial blood by Pulse oximetry Heart rate Provider Name and Address Organization Details Last Updated DateTime 4 160.02 cm 21.1 kg/m2 73971.8 4 g 96 % 96 % 75 /min Mariann Mejia MA [facility] 4 14:22:27 Date Recorded Systolic blood pressure Diastolic blood pressure Provider Name and Address Organization Details Last Updated DateTime 12/09/2023 114 mm[Hg] 84 mm[Hg] Ian Childs DO Attn: Accounting,[address] [place], [address], [facility] 12/09/2023 14:54:05 Date Recorded Body height Body mass index (BMI) Body weight Oxygen saturation Oxygen saturation in Arterial blood by Pulse oximetry Heart rate Respiratory rate Provider Name and Address Organization Details Last Updated DateTime 4 160.02 cm 21.5 kg/m2 99455.3 8 g 95 % 95 % 75 /min 27 /min Mariann Mejia MA [facility] 4 10:55:06 Date Recorded Systolic blood pressure Diastolic blood pressure Provider Name and Address Organization Details Last Updated DateTime 01/25/2024 126 mm[Hg] 76 mm[Hg] Ian Childs DO Attn: Accounting,[address] [facility], [place], [address], [facility] 01/25/2024 11:24:31 Date Recorded Body height Body mass index (BMI) Body weight Provider Name and Address Organization Details Last Updated DateTime 04/13/2024 160.02 cm 20.8 kg/m2 66121.06 g Olga Tapia MA [facility] 04/13/2024 11:25:00 Date Recorded Systolic blood pressure Diastolic blood pressure Provider Name and Address Organization Details Last Updated DateTime 04/13/2024 132 mm[Hg] 82 mm[Hg] Ian Childs DO Attn: Accounting,[address] [facility], [place], [address], [facility] 04/13/2024 12:01:05 Social History Question Answer Notes LastModified by Organizat ion Details LastModified Time Tobacco Smoking Status Never Smoker Olga Tapia MA [facility], [facility] 11/11/2023 10:37:14 What Is Your Level Of [...] Organization Details LastModified Time Father Heart disease [email or web address] Not available 2023 13:31:27 Brother Heart disease [email or web address] Not available 2023 13:31:27 Mother Migraine [email or web address] Not availabl e 10/08/2023 13:31:33 Medical History Condition Response Coronary Artery Disease N Other N Atrial Fibrillation N High Blood Pressure N Depression N COPD N Blood Clots N Anxiety Disorder Y Muscle, Joint, or Bone Problems Y Arthritis N Acid Reflux (GERD) Y Cancer Y Stroke N Headaches N Kidney or Bladder Problems Y Eating Disorder N Skin Problems N Asthma N Allergies Y Substance Abuse N Hepatitis N ADHD N High Cholesterol N Liver Disease N Schizophrenia N Thyroid Problems N GI Problems N Anemia N Heart Attack ([place]) N Diabetes N Seizures/Epilepsy N Osteoporosis N Heart Failure N Gynecological HistoryNo gynecological history recorded. 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 myrbetriq 50 mg Gastroesop hageal reflux disease without esophagitis 609788427 K21.9 carafate 1 gmpepcid 20 mgchronic stable Essential hypertension 27722916 I10 chronicsta ble Osteoarthritis 987415965 M19.90 chronicno new meds Osteopenia 975645715 M85 .80 chronicotc meds Generalize d anxiety disorder 69357667 F41.1 start buspar 7.5 mg bidnew issue Acute blepharitis 397758 04 H01.009 left lower lidadd ciloxan .3 %gtts 1 gtt left eye q 6 hr for 2 dayssee opthowarm compress [id number] Ian Childs, DO [facility] [place] [address] [facility] [address] 11/04/2023 13:34:51 11/04/2023 14:55:04 Essential hypertension 81100578 I10 chronicsta bleAt goal Generalize d anxiety disorder 85062862 F41.1 started buspar 7.5 mg biddid not toleratedi d not agree with heradd xanax .25 mg bid Urge incon tinence of urine 96906042 N39.41 myrbetriq 50 mgChronic conditionC ontinues with symptoms Dyslipidemia 935017074 E 78.5 chronic issueat [facility] diet Chronic low back pain 27 3811777 M54.50 will increase tramadol to qid Abdominal pain 42475773 R10.9 llq? diverticul itisadd cipro 500 mg bid 10 daysfollow up 1 weekupdate 48 hrs [id number] Ian Childs, DO [facility] [place] [address] [facility] [place] [address] 11/11/2023 10:06:13 11/11/2023 11:25:27 Abdominal pain 20435354 R10.9 diffuse abdominal paindid not take ciprostat ct abdomen and pelvisstat cbcchem 7lftamylas e Chronic low back pain 27 1944520 M54.50 will increase tramadol to qid Chronic condition Essential hypertension 65033239 I10 chronicsta bleAt goal Gastroesop hageal reflux disease without esophagitis 912455689 K21.9 carafate 1 gmpepcid 20 mgchronic conditionA t goal Acute blepharitis 463195 04 H01.009 left lower lidadd ciloxan .3 %gtts 1 gtt left eye q 6 hr for 2 dayssee opthowarm compress [id number] Ian Childs, DO [facility] [place] [address] [place] [address] 12/09/2023 13:47:31 12/09/2023 15:06:29 Abdominal pain 29418243 R10.9 diffuse abdominal paindid not take ciprostat ct abdomen and pelvis showed no acute issuesstat cbcchem 7lftamylas eshowed no significan t abnormalit ystart elavil 10 mg at hs Dyslipidemia 956586939 E 78.5 chronic issueat [facility] y diet Essential hypertension 45308391 I10 chronic conditions tableAt goal Generalize d anxiety disorder 09351219 F41.1 started buspar 7.5 mg biddid not toleratedi d not agree with heradded xanax .25 mg bidadd elavil 10 mg at hs [id number] Ian Childs, DO [facility] [place] [address] [place] [address] 01/25/2024 10:23:04 01/25/2024 11:41:49 Abdominal pain 66703190 R10.9 diffuse abdominal pain stat ct abdomen and pelvis showed no acute issuesstat cbcchem 7lftamylas eshowed no significan t abnormalit ystarted elavil 10 mg at hs this is a follow-up this is a follow-up Chronic low back pain 27 0303502 M54.50 tramadol to qid as needed p.r.n. Chronic condition Dyslipidemia 956019054 E 78.5 chronic issueat [facility] y diet Essential hypertension 32770579 I10 chronic conditions tableAt goal Gastroesop hageal reflux disease without esophagitis 383752665 K21.9 carafate 1 gmpepcid 20 mgchronic conditionA t goal Generalize d anxiety disorder 83235143 F41.1 started buspar 7.5 mg biddid not toleratedi d not agree with heradded xanax .25 mg bidadded elavil 10 mg at hs Overactive urinary bladder 544491164 N32.81 [id number] Ian Childs, DO [facility] [place] [address] [facility] [address] [place] [address] 04/13/2024 10:57:38 04/13/2024 12:16:32 Chronic low back pain 662379689 M54.50 tramadol to qid as needed p.r.n. Chronic condition Dyslipidemia 280213085 E 78.5 chronic issueat [facility] y diet Essential hypertension 30173734 I10 chronic conditions tableAt goal Generalize d anxiety disorder 37108050 F41.1 started buspar 7.5 mg biddid not toleratedi d not agree with heradded xanax .25 mg bidadded elavil 10 mg at hs Generalize d abdominal pain 611829982 R10.84 pain in epigastric BLQstat CTstat lab Health Concerns Section Related Observation LastModified by Organization Detai ls LastModified Time None Recorded Concern Status LastModified by Organization Details LastModified Time None Recorded Advance Directives Directive None Recorded Payers Encounter Date Sequence Insurance Name Policy Number Policy Kirk Covered Member ID Kirk Member ID Guarantor Name 11/04/2023 1 [place] Laila Jimenes [id number] Laila Jimenes 11/04/2023 1 [facility] (MEDICARE REPLACEMENT/A DVANTAGE - PPO) [id number] Laila Lainez Yudy [id number] Laila Saldañaady 11/11/2023 1 [facility] (MEDICARE REPLACEMENT/A DVANTAGE - PPO) [id number] Laila Lainez Yudy [id number] Laila Yudy 12/09/2023 1 [facility] (MEDICARE REPLACEMENT/A DVANTAGE - PPO) [id number] Laila Lainez Yudy [id number] Laila Yudy 01/25/2024 1 [facility] (MEDICARE REPLACEMENT/A DVANTAGE - PPO) [id number] Laila Lainez Yudy [id number] Laila Yudy 04/13/2024 1 [facility] (MEDICARE REPLACEMENT/A DVANTAGE - PPO) [id number] Laila Lainez Yudy [id number] Laila Yudy Notes Date Note Type Note Provider Name and Address Organization Details Recorded Time 11/04/2023 text/html Routine follow-u phas questions about her medsdid not tolerate her recent anxiety med Ian Childs DO Attn: Accounting,[address] [facility], [place], [address], [facility] 11/04/2023 19:19:23 11/11/2023 text/html Routine follow-upMultiple medical issues Ian Childs DO Attn: Accounting,[address] [facility], [place], [address], [facility] 11/11/2023 18:44:45 12/09/2023 text/html routine follow-up Ian Childs DO Attn: Accounting,[address] [facility], [place], [address], [facility] 12/09/2023 18:33:06 01/25/2024 text/html follow uphaving a lot of pain in bladderurinating frequentlyhas seen specialisthas not been back to see the urologist for the past 6 monthshad been given gemtesa with improvement of symptoms but could not afford the medicationot taking any med at the present time Ian Childs DO Attn: Accounting,[address] [facility], [place], [address], [facility] 01/25/2024 13:08:43 04/13/2024 text/html follow upchronic issuesback painchronic bladder issuesLLQ hurtingfeels abx caused her an issuewas given amoxicillin 500 mg tid for a sinus infection feels like bladder discomforthad frequent urination no fever chills or sweats Ian Childs DO Attn: Accounting,[address] [facility], [place], [address], [facility] 04/13/2024 19:19:33 OBGyn Episode No OBEpisode recorded.
--- NOTE | 2024-11-20 15:09 | ED.GENADULT ---
HPI - General Adult General Chief complaint: Fall Stated complaint: Lower Back Pain Time Seen by Provider: 11/20/24 13:52 History of Present Illness HPI narrative: 84-year-old female presented emergency department for evaluation for persistent back pain. Patient resides at a memory care unit. Patient states she did have a fall approximately 1 month ago. Patient denies any recent falls or injuries. Patient states she has been receiving tramadol for pain control this is not helping. Patient does have significant allergies to gabapentin, hydrocodone, Toradol, methadone, morphine and codeine. Related Data Home Medications ?Medication ?Instructions ?Recorded ?Confirmed ?Last Taken ?Type mirabegron 50 mg tablet,extended 50 mg PO DAILY 10/04/23 10/04/23 Unknown History release 24 hr (Myrbetriq) omeprazole 40 mg capsule,delayed 40 mg PO DAILY 10/04/23 10/04/23 Unknown History release Allergies Allergy/AdvReac Type Severity Reaction Status Date / Time amoxicillin Allergy Unknown Verified 11/08/24 11:46 azithromycin Allergy Unknown Verified 11/08/24 11:46 cortisone Allergy Unknown Verified 11/08/24 11:46 gabapentin Allergy Unknown Verified 11/08/24 11:46 hydrocodone Allergy Unknown Verified 11/08/24 11:46 ketorolac Allergy Unknown Verified 11/08/24 11:46 methadone Allergy Unknown Verified 11/08/24 11:46 morphine Allergy Unknown Verified 11/08/24 11:46 phenazopyridine Allergy Unknown Verified 11/08/24 11:46 codeine AdvReac Intermediate Hyperactive Verified 11/08/24 11:46 Sulfa (Sulfonamide AdvReac Mild Hives Verified 11/08/24 11:46 Antibiotics) PMFSH Past Medical History Medical History GERD (gastroesophageal reflux disease) Overactive bladder Diverticulitis Skin neoplasm Fibromyalgia Essential tremor Family History Family History Other Diabetes mellitus Family history of cardiovascular disease Social History Social History Smoking status: Never smoker Alcohol intake: never Living arrangements: care home Course Vital Signs Vital signs: Vital Signs Temperature 97.8 F 11/20/24 13:23 Pulse Rate 68 11/20/24 13:23 Respiratory Rate 18 11/20/24 13:23 Blood Pressure 190/75 H 11/20/24 13:23 Pulse Oximetry 100 11/20/24 13:23 Oxygen Delivery Room Air 11/20/24 13:23 Temperature 97.8 F 11/20/24 13:23 Pulse Rate 61 11/20/24 20:36 Respiratory Rate 15 11/20/24 20:36 Blood Pressure 162/69 H 11/20/24 20:36 Pulse Oximetry 98 11/20/24 20:36 Oxygen Delivery Room Air 11/20/24 13:23 Medical Decision Making MDM Narrative Medical decision making narrative: 84-year-old female presents emergency department for evaluation for uncontrolled chronic pain. Patient had no acute findings on imaging. Patient's symptoms were improved with addition all Flexeril and patient was provided Flexeril for home. Differential Diagnosis Differential Diagnosis: Uncontrolled chronic pain, acute fracture Vital Signs Vital Signs: Vital Signs Temperature 97.8 F 11/20/24 13:23 Pulse Rate 68 11/20/24 13:23 Respiratory Rate 18 11/20/24 13:23 Blood Pressure 190/75 H 11/20/24 13:23 Pulse Oximetry 100 11/20/24 13:23 Oxygen Delivery Room Air 11/20/24 13:23 Temperature 97.8 F 11/20/24 13:23 Pulse Rate 61 11/20/24 20:36 Respiratory Rate 15 11/20/24 20:36 Blood Pressure 162/69 H 11/20/24 20:36 Pulse Oximetry 98 11/20/24 20:36 Oxygen Delivery Room Air 11/20/24 13:23 Imaging Data Radiologist's impression: Impressions Lumbar Spine CT 11/20/24 17:44 IMPRESSION: No acute osseous abnormality. Levoscoliosis. Multilevel degenerative disc disease with variable degrees of spinal canal stenosis, intervertebral foraminal narrowing and nerve root compression. Right Hydronephrotic changes. Further evaluation advised. Discharge Plan Discharge Clinical Impression: Chronic back pain Patient Disposition: Home Condition: Stable Instructions: Antibiotic Form, Back Pain (ED) Additional Instructions: Tramadol and Tylenol for pain control. Flexeril as needed for muscle spasm. Continue to have physical therapy have close follow-up with your physicians as outpatient. Continue physical therapy. Patient Language: Russian Prescriptions: New cyclobenzaprine 10 mg tablet 10 mg PO BID PRN (Reason: muscle spasm) Qty: 14 0RF No Action omeprazole 40 mg capsule,delayed release(DR/EC) 40 mg PO DAILY Myrbetriq 50 mg tablet extended release 24 hr 50 mg PO DAILY doxycycline hyclate 100 mg tablet 100 mg PO BID 7 Days Qty: 14 0RF ofloxacin 0.3 % drops 1 drp LEFT EYE QID Qty: 5 0RF cetirizine 10 mg tablet 10 mg PO DAILY PRN (Reason: itching) Qty: 20 0RF acetaminophen 500 mg capsule 1,000 mg PO Q6H PRN (Reason: pain) Qty: 30 0RF ibuprofen 600 mg tablet 600 mg PO TID PRN (Reason: pain) Qty: 30 0RF hydrochlorothiazide 25 mg tablet 25 mg PO DAILY 14 Days Qty: 14 0RF Follow-up/Referrals: Naz,Deion Sapp MD [Primary Care Provider] -
[2024-11-20] MEDS: traMADol HCL (*CRX) 50 MG TABLET PO (15:17)
[2024-11-20] MEDS: ACETAMINOPHEN 325 MG TABLET 650 MG PO (15:17)
[2024-11-20 17:19] VITALS: BP 170/53; PULSE 68; RESP 18; O2SAT 99
--- NOTE | 2024-11-20 18:14 | PC.NURSE ---
patient's son reports that patients facility told him the last time he brought her back home by POV that the patient needs to come back to the facility by the mode of transport that she went to the hospital by. Patient does have dementia and EMS was called for return trip.
[2024-11-20] MEDS: CYCLOBENZAPRINE HCL 10 MG TABLET PO (18:24)
--- NOTE | 2024-11-20 18:34 | PC.NURSE ---
Jose from [facility] called for an update and took report on patient. patient will have script for muscle relaxors and PT continued when returning to [facility].
[2024-11-20] MEDS: LIDOCAINE 5% PATCH 1 PATCH TRANSDERM (20:15)
[2024-11-20 20:36] VITALS: BP 162/69; PULSE 61; RESP 15; O2SAT 98
== END 2024-11-20 20:45 | disposition home or self-care (01) ==
PROVIDERS: Emergency Provider Emergency Medicine; PCP Family Medicine
DX: G89.29 Other chronic pain (principal); M54.50 Low back pain, unspecified; Z79.891 Long term (current) use of opiate analgesic
CPT/HCPCS: 72131; 99284; A9270